=== PATIENT | female | born 1945 | race Caucasian/White ===

== ENCOUNTER 2016-05-14 16:20 | Outpatient (CLI) | payer MEDICARE, OTHER | END 2016-05-14 16:21 | disposition home or self-care (01) | DX: E78.5 Hyperlipidemia, unspecified (principal) ==

== ENCOUNTER 2016-10-15 08:48 | Outpatient (CLI) | payer MEDICARE, OTHER ==
[2016-10-15 13:33] LABS: ALBUMIN/GLOBULIN RATIO 1.2 (1.0-2.2); BILIRUBIN,TOTAL 0.5 mg/dL (0.2-1.0); BUN - BLOOD UREA NITROGEN 37 mg/dL (6-20); CALCIUM 9.6 mg/dL (8.5-10.3); CARBON DIOXIDE - CO2 29 mmol/L (21-32); CHLORIDE 101 mmol/L (101-111); CHOL/HDL RATIO 2.3 (<4.4); CHOLESTEROL 205 mg/dL; CREATININE 1.4 mg/dL (0.4-1.0); GFR - MDRD 37 (>89); GLUCOSE 91 mg/dL (70-100); HDL CHOLESTEROL 89 mg/dL; POTASSIUM 4.1 mmol/L (3.5-5.0); SODIUM 139 mmol/L (135-145); TOTAL PROTEIN 7.6 g/dL (6.7-8.2); TRIGLYCERIDES 113 mg/dL; VLDL CHOLESTEROL 23 mg/dL
== END 2016-10-15 08:49 | disposition home or self-care (01) ==
LOC: LAB.WCP 08:48
PROVIDERS: ATTEND Family Medicine
DX: I12.9 Hypertensive chronic kidney disease with stage 1 through stage 4 chronic kidney disease, or unspecified chronic kidney disease (principal); N18.3 Chronic kidney disease, stage 3 (moderate); Z79.899 Other long term (current) drug therapy; I25.5 Ischemic cardiomyopathy; E78.5 Hyperlipidemia, unspecified
CPT/HCPCS: 36415; 80053; 80061

== ENCOUNTER 2016-11-07 09:43 | Outpatient (CLI) | payer MEDICARE, OTHER ==
--- NOTE | 2016-11-08 13:19 | DEXA Report ---
DEXA SCAN: 11/07/2016 HISTORY: A 71-year-old postmenopausal female. TECHNIQUE: Dual energy x-ray absorptiometry (DXA) was performed on a Dealdrive system. Regions measured are the AP spine, femoral neck, and, if needed, forearm. COMPARISON: None. In accordance with the International Society for Clinical Densitometry (ISCD) guidelines, data from previous exams may be reanalyzed using current recommendations and techniques. This is done to allow a more accurate basis for comparison with the current study. FINDINGS: The data for the lumbar spine is as follows: REGION BMD (g/cm/cm) T-SCORE Z-SCORE L1 1.074 -0.5 0.9 L2 1.364 1.4 2.7 L3 1.360 1.3 2.7 L4 1.310 0.9 2.3 TOTAL 1.274 0.8 2.1 NOTE: All evaluable vertebrae are used for classification. The data for the hip is as follows: REGION BMD (g/cm/cm) T-SCORE Z-SCORE Neck 0.837 -1.4 0.1 TOTAL 0.807 -1.6 -0.2 NOTE: The femoral neck or total proximal femur, whichever is lowest, is used for classification. IMPRESSION: THE WHO CLASSIFICATION BASED ON THE INTERNATIONAL REFERENCE STANDARD IS OSTEOPENIA (REFERENCE LEFT FEMUR BONE DENSITY RESULTS). THE FRACTURE RISK IS CONSIDERED TO BE INCREASED. RECOMMENDATION: Patients with diagnosis of osteoporosis or osteopenia should have regular bone mineral density assessment. For those eligible for Medicare, routine testing is allowed once every 2 years. Testing frequency can be increased for patients who have rapidly progressing disease or for those who are receiving medical therapy to restore bone mass. COMMENT: World Health Organization (WHO) definitions for osteoporosis and osteopenia: NORMAL BMD: T-score at -1.0 or higher, fracture risk is low. OSTEOPENIA BMD: T-score between -1.0 and -2.5, fracture risk is increased. OSTEOPOROSIS BMD: T-score at -2.5 or lower, fracture risk high. National Osteoporosis Foundation recommends: 1. Obtain adequate dietary calcium (at least 1200 mg per day) and vitamin D (400 -800 international units per day). 2. Participate, as appropriate, in regular weightbearing and muscle- strengthening exercise. 3. Avoid tobacco use and reduce alcohol and caffeine intake. 4. For more detailed information see the website at www.NOF.org. MTDD
== END 2016-11-07 09:44 | disposition home or self-care (01) ==
LOC: DI 09:43
PROVIDERS: ATTEND Family Medicine
DX: M85.88 Other specified disorders of bone density and structure, other site (principal)
CPT/HCPCS: 77080

== ENCOUNTER 2017-03-04 08:00 | Outpatient (CLI) | payer MEDICARE, OTHER ==
[2017-03-04 19:14] LABS: HCT - HEMATOCRIT 40.4 % (37.0-47.0); MEAN CORPUSCULAR HEMOGLOBIN 31.2 pg (27.0-31.0); MEAN CORPUSCULAR HGB CONC 32.2 g/dL (32.0-36.0); MEAN CORPUSCULAR VOLUME 96.8 fL (81.0-99.0); MEAN PLATELET VOLUME 7.7 fL (7.9-10.8); RED BLOOD COUNT 4.17 10^6/uL (4.20-5.40); RED CELL DISTRIBUTION WIDTH 15.2 % (12.0-15.0); WHITE BLOOD COUNT 5.6 x10^3/uL (4.8-10.8)
[2017-03-04 19:52] LABS: URIC ACID 7.3 mg/dL (2.6-7.2)
== END 2017-03-04 08:01 | disposition home or self-care (01) ==
LOC: LAB.WCP 08:00
PROVIDERS: ATTEND Family Medicine
DX: L03.019 Cellulitis of unspecified finger (principal); M10.9 Gout, unspecified
CPT/HCPCS: 36415; 84550; 85651; 86140

== ENCOUNTER 2017-06-25 13:52 | Outpatient (CLI) | payer MEDICARE, OTHER ==
[2017-06-25 12:39] LABS: ALBUMIN 4.2 g/dL (3.2-5.5); ALBUMIN/GLOBULIN RATIO 1.4 (1.0-2.2); ALKALINE PHOSPHATASE 52 IU/L (42-121); ALT ALANINE AMINOTRANSFERASE 21 IU/L (10-60); AST ASPARTATE AMINOTRANSFERASE 36 IU/L (10-42); BILIRUBIN,TOTAL 0.5 mg/dL (0.2-1.0); BUN - BLOOD UREA NITROGEN 32 mg/dL (6-20); CALCIUM 9.5 mg/dL (8.5-10.3); CARBON DIOXIDE - CO2 29 mmol/L (21-32); CHLORIDE 103 mmol/L (101-111); CHOLESTEROL 233 mg/dL; CREATININE 1.2 mg/dL (0.4-1.0); GFR - MDRD 44 (>89); GLUCOSE 89 mg/dL (70-100); HDL CHOLESTEROL 77 mg/dL; LDL CHOLESTEROL,CALCULATED 121 mg/dL; LDL/HDL RATIO 1.6 (<4.4); SODIUM 139 mmol/L (135-145); TOTAL PROTEIN 7.3 g/dL (6.7-8.2); VLDL CHOLESTEROL 35 mg/dL
== END 2017-06-25 13:53 | disposition home or self-care (01) ==
LOC: LAB.WCP 13:52
PROVIDERS: ATTEND Family Medicine
DX: C50.919 Malignant neoplasm of unspecified site of unspecified female breast (principal); I25.5 Ischemic cardiomyopathy; I10 Essential (primary) hypertension; I25.10 Atherosclerotic heart disease of native coronary artery without angina pectoris; E03.9 Hypothyroidism, unspecified
CPT/HCPCS: 36415; 80053; 80061; 83721; 84443

== ENCOUNTER 2018-03-03 09:16 | Outpatient (CLI) | payer MEDICARE, OTHER ==
[2018-03-03 13:53] LABS: CHOL/HDL RATIO 3.1 (<4.4); CHOLESTEROL 263 mg/dL; HDL CHOLESTEROL 86 mg/dL; LDL CHOLESTEROL,CALCULATED 141 mg/dL; LDL/HDL RATIO 1.6 (<4.4); VLDL CHOLESTEROL 36 mg/dL
== END 2018-03-03 23:59 | disposition home or self-care (01) ==
LOC: LAB.WCP 09:16
PROVIDERS: ATTEND Internal Medicine Cardiovascular Disease
DX: I25.10 Atherosclerotic heart disease of native coronary artery without angina pectoris (principal)
CPT/HCPCS: 36415; 80061; 83721

== ENCOUNTER 2018-07-03 08:23 | Outpatient (CLI) | payer MEDICARE, OTHER ==
--- NOTE | 2018-07-04 09:21 | Mammography Report ---
Reason: ANNUAL SCREENING Procedure Date: 07/03/2018 Accession Number: [id number] / [id number] Procedure: ANTOINETTE - Screening Mammo Right w/Yovanny CPT Code: FULL RESULT: EXAM: Screening Mammo Right w/Yovanny DATE: 07/03/2018 8:57 AM CLINICAL HISTORY: Screening encounter. Personal history of breast cancer status post left mastectomy with chemoradiation. TECHNIQUE: (R) - Right CC and MLO views were obtained. COMPARISON: 09/02/2008 PARENCHYMAL PATTERN: (D) - The breast(s) demonstrate(s) heterogeneously dense fibroglandular parenchyma. FINDINGS: Typically benign coarse calcifications and typically benign vascular calcifications are redemonstrated. There are no suspicious masses, calcifications, or areas of distortion. IMPRESSION: Benign findings. BI-RADS category 2. RECOMMENDATION: (ANNUAL) - Recommend routine annual screening mammography. BI-RADS CATEGORY: (2) - Benign Findings. STANDARD QUALIFYING STATEMENTS: 1. This examination was not reviewed with the aid of Computer-Aided Detection (CAD). 2. A negative or benign imaging report should not preclude biopsy if clinically suspicious findings are present. 3. Dense breasts may obscure an underlying neoplasm. 4. This examination was reviewed with the aid of 3D breast imaging (tomosynthesis).
== END 2018-07-03 08:24 | disposition home or self-care (01) ==
LOC: DI 08:23
DX: Z12.31 Encounter for screening mammogram for malignant neoplasm of breast (principal); Z08 Encounter for follow-up examination after completed treatment for malignant neoplasm; Z85.3 Personal history of malignant neoplasm of breast
CPT/HCPCS: 77063

== ENCOUNTER 2018-09-12 08:16 | Outpatient (CLI) | payer MEDICARE, OTHER ==
[2018-09-12 13:24] LABS: BASOPHILS % (AUTO) 0.5 %; EOSINOPHILS # (AUTO) 0.4 10^3/uL (0.0-0.7); EOSINOPHILS % (AUTO) 5.6 %; HGB - HEMOGLOBIN 12.8 g/dL (12.0-16.0); LYMPHOCYTES # (AUTO) 0.8 10^3/uL (1.5-3.5); LYMPHOCYTES % (AUTO) 11.7 %; MEAN CORPUSCULAR HEMOGLOBIN 32.7 pg (27.0-31.0); MEAN CORPUSCULAR HGB CONC 31.6 g/dL (32.0-36.0); MEAN CORPUSCULAR VOLUME 103.3 fL (81.0-99.0); MEAN PLATELET VOLUME 9.6 fL (7.9-10.8); MONOCYTES # (AUTO) 0.6 10^3/uL (0.0-1.0); MONOCYTES % (AUTO) 8.5 %; NEUTROPHILS # (AUTO) 4.9 10^3/uL (1.5-6.6); NEUTROPHILS % (AUTO) 73.4 %; PLT - PLATELET COUNT 215 10^3/uL (130-450); RED BLOOD COUNT 3.92 10^6/uL (4.20-5.40); RED CELL DISTRIBUTION WIDTH 12.7 % (12.0-15.0); WHITE BLOOD COUNT 6.6 x10^3/uL (4.8-10.8)
[2018-09-12 14:10] LABS: ALBUMIN 4.3 g/dL (3.2-5.5); ALBUMIN/GLOBULIN RATIO 1.4 (1.0-2.2); ALKALINE PHOSPHATASE 71 IU/L (42-121); ALT ALANINE AMINOTRANSFERASE 41 IU/L (10-60); AST ASPARTATE AMINOTRANSFERASE 55 IU/L (10-42); BILIRUBIN,TOTAL 0.7 mg/dL (0.2-1.0); BUN - BLOOD UREA NITROGEN 31 mg/dL (6-20); CALCIUM 9.3 mg/dL (8.5-10.3); CARBON DIOXIDE - CO2 26 mmol/L (21-32); CHLORIDE 104 mmol/L (101-111); CHOLESTEROL 149 mg/dL; CREATININE 1.4 mg/dL (0.4-1.0); GFR - MDRD 37 (>89); GLUCOSE 89 mg/dL (70-100); HDL CHOLESTEROL 74 mg/dL; LDL CHOLESTEROL,CALCULATED 51 mg/dL; LDL/HDL RATIO 0.7 (<4.4); SODIUM 138 mmol/L (135-145); TOTAL PROTEIN 7.4 g/dL (6.7-8.2); VLDL CHOLESTEROL 24 mg/dL
== END 2018-09-12 08:17 | disposition home or self-care (01) ==
LOC: LAB.WCP 08:16
PROVIDERS: ATTEND Family Medicine
DX: I25.5 Ischemic cardiomyopathy (principal); E78.5 Hyperlipidemia, unspecified; I10 Essential (primary) hypertension; I25.10 Atherosclerotic heart disease of native coronary artery without angina pectoris
CPT/HCPCS: 36415; 80053; 80061; 83721; 84443; 85025

== ENCOUNTER 2018-11-20 08:00 | Outpatient (CLI) | payer MEDICARE, OTHER ==
[2018-11-20 19:36] LABS: CALCIUM 9.6 mg/dL (8.5-10.3); CREATININE 1.3 mg/dL (0.4-1.0)
== END 2018-11-20 23:59 | disposition home or self-care (01) ==
LOC: LAB.WCP 08:00
PROVIDERS: ATTEND Physician Assistant
DX: N28.9 Disorder of kidney and ureter, unspecified (principal)
CPT/HCPCS: 36415; 80048

== ENCOUNTER 2019-03-30 14:04 | Outpatient (CLI) | payer MEDICARE, OTHER ==
[2019-03-30 18:34] LABS: BASOPHILS % (AUTO) 0.7 %; EOSINOPHILS # (AUTO) 0.2 10^3/uL (0.0-0.7); EOSINOPHILS % (AUTO) 4.1 %; HGB - HEMOGLOBIN 12.2 g/dL (12.0-16.0); LYMPHOCYTES # (AUTO) 0.8 10^3/uL (1.5-3.5); LYMPHOCYTES % (AUTO) 14.7 %; MEAN CORPUSCULAR HEMOGLOBIN 33.4 pg (27.0-31.0); MEAN CORPUSCULAR HGB CONC 32.1 g/dL (32.0-36.0); MEAN CORPUSCULAR VOLUME 104.1 fL (81.0-99.0); MEAN PLATELET VOLUME 9.6 fL (7.9-10.8); MONOCYTES # (AUTO) 0.5 10^3/uL (0.0-1.0); MONOCYTES % (AUTO) 9.1 %; NEUTROPHILS # (AUTO) 3.8 10^3/uL (1.5-6.6); NEUTROPHILS % (AUTO) 71.2 %; PLT - PLATELET COUNT 212 10^3/uL (130-450); RED BLOOD COUNT 3.65 10^6/uL (4.20-5.40); RED CELL DISTRIBUTION WIDTH 12.7 % (12.0-15.0); WHITE BLOOD COUNT 5.4 x10^3/uL (4.8-10.8)
[2019-03-30 19:03] LABS: ALBUMIN 4.2 g/dL (3.2-5.5); ALBUMIN/GLOBULIN RATIO 1.4 (1.0-2.2); BILIRUBIN,TOTAL 0.5 mg/dL (0.2-1.0); CALCIUM 9.2 mg/dL (8.5-10.3); CREATININE 1.7 mg/dL (0.4-1.0); TOTAL PROTEIN 7.1 g/dL (6.7-8.2)
== END 2019-03-30 23:59 | disposition home or self-care (01) ==
LOC: LAB.WCP 14:04
PROVIDERS: ATTEND Family Medicine
DX: N18.3 Chronic kidney disease, stage 3 (moderate) (principal); R94.5 Abnormal results of liver function studies; E03.9 Hypothyroidism, unspecified
CPT/HCPCS: 36415; 80053; 84443; 85025

== ENCOUNTER 2019-05-07 08:00 | Outpatient (CLI) | payer MEDICARE, OTHER ==
[2019-05-07 19:10] LABS: ALBUMIN 4.2 g/dL (3.2-5.5); ALBUMIN/GLOBULIN RATIO 1.6 (1.0-2.2); BILIRUBIN,TOTAL 0.5 mg/dL (0.2-1.0); CALCIUM 9.1 mg/dL (8.5-10.3); CREATININE 1.4 mg/dL (0.4-1.0); TOTAL PROTEIN 6.9 g/dL (6.7-8.2)
== END 2019-05-07 23:59 | disposition home or self-care (01) ==
LOC: LAB.WCP 08:00
PROVIDERS: ATTEND Family Medicine
DX: M10.9 Gout, unspecified (principal); E03.9 Hypothyroidism, unspecified; I25.10 Atherosclerotic heart disease of native coronary artery without angina pectoris; N18.3 Chronic kidney disease, stage 3 (moderate); R79.89 Other specified abnormal findings of blood chemistry
CPT/HCPCS: 36415; 80053; 84550

== ENCOUNTER 2019-07-30 08:00 | Outpatient (CLI) | payer MEDICARE, OTHER ==
[2019-07-30 14:18] LABS: ALBUMIN 4.2 g/dL (3.2-5.5); ALBUMIN/GLOBULIN RATIO 1.4 (1.0-2.2); BILIRUBIN,TOTAL 0.6 mg/dL (0.2-1.0); CALCIUM 9.5 mg/dL (8.5-10.3); CREATININE 1.6 mg/dL (0.4-1.0); TOTAL PROTEIN 7.2 g/dL (6.7-8.2)
== END 2019-07-30 23:59 | disposition home or self-care (01) ==
LOC: LAB.WCP 08:00
PROVIDERS: ATTEND Family Medicine
DX: R94.5 Abnormal results of liver function studies (principal)
CPT/HCPCS: 36415; 80053

== ENCOUNTER 2019-09-03 10:31 | Outpatient (CLI) | payer MEDICARE, OTHER ==
--- NOTE | 2019-09-04 08:52 | Mammography Report ---
UNILATERAL RIGHT DIGITAL SCREENING MAMMOGRAM 3D/2D: 09/03/2019 CLINICAL: Routine screening. Personal history of left breast cancer with mastectomy. Comparison is made to exam dated: 07/03/2018 mammogram - [facility]. The tissue of right breast is heterogeneously dense. This may lower the sensitivity of mammography. There are stable benign vascular calcifications in the right breast. No significant masses, calcifications, or other findings are seen in the breast. IMPRESSION: There is no mammographic evidence of malignancy. A 1 year screening mammogram is recommended. This exam was interpreted at Station ID: [id number]. NOTE: For mammograms, a report in lay terms will be sent to the patient. Approximately 15% of breast malignancies will not be visualized mammographically. In the management of a palpable breast mass, a negative mammogram must not discourage biopsy of a clinically suspicious lesion. Electronically Signed By: Romero Morales M.D. aty/:09/03/2019 13:14:54 ACR BI-RADS Category 2: Benign Finding(s) 3342F PARENCHYMAL PATTERN: (D) - The breast(s) demonstrate(s) heterogeneously dense fibroglandular luis graf. BI-RADS CATEGORY: (2) - 2 RECOMMENDATION: (ANNUAL) - Recommend routine annual screening mammography. [id number] 1 year screening LATERALITY: (B)
== END 2019-09-03 10:32 | disposition home or self-care (01) ==
LOC: DI 10:31
DX: Z12.31 Encounter for screening mammogram for malignant neoplasm of breast (principal)
CPT/HCPCS: 77063

== ENCOUNTER 2020-05-03 08:00 | Outpatient (CLI) | payer MEDICARE, OTHER | END 2020-05-03 23:59 | disposition home or self-care (01) | LOC: LAB.WCP 08:00 | PROVIDERS: ATTEND Internal Medicine Critical Care Medicine | DX: R91.8 Other nonspecific abnormal finding of lung field (principal) | CPT/HCPCS: 87070; 87077; 87181; 87205 ==

== ENCOUNTER 2020-05-04 08:00 | Outpatient (CLI) | payer MEDICARE, OTHER | END 2020-05-04 23:59 | disposition home or self-care (01) | LOC: LAB.R 08:00 | PROVIDERS: ATTEND Internal Medicine Critical Care Medicine | DX: R91.8 Other nonspecific abnormal finding of lung field (principal) | CPT/HCPCS: 87015; 87116; 87206 ==

== ENCOUNTER 2020-05-31 07:00 | Outpatient (CLI) | payer MEDICARE, OTHER ==
[2020-05-31 12:08] LABS: BASOPHILS % (AUTO) 0.5 %; EOSINOPHILS # (AUTO) 0.4 10^3/uL (0.0-0.7); EOSINOPHILS % (AUTO) 6.8 %; HCT - HEMATOCRIT 36.7 % (37.0-47.0); HGB - HEMOGLOBIN 11.5 g/dL (12.0-16.0); MEAN CORPUSCULAR HEMOGLOBIN 33.4 pg (27.0-31.0); MEAN CORPUSCULAR HGB CONC 31.3 g/dL (32.0-36.0); MEAN CORPUSCULAR VOLUME 106.7 fL (81.0-99.0); MEAN PLATELET VOLUME 9.6 fL (7.9-10.8); MONOCYTES # (AUTO) 0.4 10^3/uL (0.0-1.0); MONOCYTES % (AUTO) 7.4 %; NEUTROPHILS # (AUTO) 3.9 10^3/uL (1.5-6.6); NEUTROPHILS % (AUTO) 68.1 %; PLT - PLATELET COUNT 203 10^3/uL (130-450); RED BLOOD COUNT 3.44 10^6/uL (4.20-5.40); RED CELL DISTRIBUTION WIDTH 13.2 % (12.0-15.0); WHITE BLOOD COUNT 5.7 x10^3/uL (4.8-10.8)
[2020-05-31 12:29] LABS: ALBUMIN 4.2 g/dL (3.2-5.5); ALBUMIN/GLOBULIN RATIO 1.6 (1.0-2.2); ALKALINE PHOSPHATASE 74 IU/L (42-121); ALT ALANINE AMINOTRANSFERASE 30 IU/L (10-60); AST ASPARTATE AMINOTRANSFERASE 48 IU/L (10-42); BILIRUBIN,TOTAL 0.7 mg/dL (0.2-1.0); BUN - BLOOD UREA NITROGEN 42 mg/dL (6-20); CALCIUM 9.3 mg/dL (8.5-10.3); CARBON DIOXIDE - CO2 28 mmol/L (21-32); CHLORIDE 103 mmol/L (101-111); CHOL/HDL RATIO 2.2 (<4.4); CHOLESTEROL 153 mg/dL; CREATININE 1.6 mg/dL (0.4-1.0); GFR - MDRD 31 (>89); GLUCOSE 93 mg/dL (70-100); HDL CHOLESTEROL 69 mg/dL; LDL CHOLESTEROL,CALCULATED 61 mg/dL; LDL/HDL RATIO 0.9 (<4.4); POTASSIUM 4.4 mmol/L (3.5-5.0); SODIUM 139 mmol/L (135-145); TOTAL PROTEIN 6.9 g/dL (6.7-8.2); TRIGLYCERIDES 117 mg/dL; VLDL CHOLESTEROL 23 mg/dL
[2020-05-31 12:34] LABS: THYROID STIMULATING HORMONE 1.01 uIU/mL (0.34-5.60)
== END 2020-05-31 23:59 | disposition home or self-care (01) ==
LOC: LAB.WCP 07:00
PROVIDERS: ATTEND Nurse Practitioner Family
DX: E78.5 Hyperlipidemia, unspecified (principal); I10 Essential (primary) hypertension; E03.9 Hypothyroidism, unspecified
CPT/HCPCS: 36415; 80053; 80061; 83721; 84443; 85025

== ENCOUNTER 2020-09-12 13:57 | Outpatient (CLI) | payer MEDICARE, OTHER ==
--- NOTE | 2020-09-13 14:26 | Mammography Report ---
UNILATERAL RIGHT DIGITAL SCREENING MAMMOGRAM 3D/2D: 09/12/2020 CLINICAL: Routine screening. Personal history of left breast cancer. Comparison is made to exams dated: 09/03/2019 mammogram, 07/03/2018 mammogram, 09/02/2008 mammogram, an d 08/19/2007 mammogram - [facility]. The tissue of right breast is heterogeneously dense. This may lower the sensitivity of mammography. There is a benign calcification in the right breast. No significant masses, calcifications, or other findings are seen in the breast. There has been no significant interval change. IMPRESSION: BENIGN There is no mammographic evidence of malignancy. A 1 year screening mammogram is recommended. This exam was interpreted at Station ID: [id number]. NOTE: For mammograms, a report in lay terms will be sent to the patient. Approximately 15% of breast malignancies will not be visualized mammographically. In the management of a palpable breast mass, a negative mammogram must not discourage biopsy of a clinically suspicious lesion. Electronically Signed By: Jack Evans M.D. ddp/penrad:09/12/2020 15:16:33 ACR BI-RADS Category 2: Benign Finding(s) 3342F PARENCHYMAL PATTERN: (D) - The breast(s) demonstrate(s) heterogeneously dense fibroglandular luis graf. BI-RADS CATEGORY: (2) - 2 RECOMMENDATION: (ANNUAL) - Recommend routine annual screening mammography. [id number] 1 year screening LATERALITY: (B)
== END 2020-09-12 13:58 | disposition home or self-care (01) ==
LOC: DI 13:57
DX: Z12.31 Encounter for screening mammogram for malignant neoplasm of breast (principal)

== ENCOUNTER 2020-10-18 10:30 | Outpatient (CLI) | payer MEDICARE, OTHER ==
[2020-10-18 11:38] LABS: BASOPHILS % (AUTO) 0.4 %; EOSINOPHILS # (AUTO) 0.2 10^3/uL (0.0-0.7); EOSINOPHILS % (AUTO) 2.3 %; HCT - HEMATOCRIT 31.5 % (37.0-47.0); HGB - HEMOGLOBIN 9.6 g/dL (12.0-16.0); LYMPHOCYTES # (AUTO) 0.7 10^3/uL (1.5-3.5); LYMPHOCYTES % (AUTO) 9.3 %; MEAN CORPUSCULAR HEMOGLOBIN 32.7 pg (27.0-31.0); MEAN CORPUSCULAR HGB CONC 30.5 g/dL (32.0-36.0); MEAN CORPUSCULAR VOLUME 107.1 fL (81.0-99.0); MEAN PLATELET VOLUME 8.6 fL (7.9-10.8); MONOCYTES # (AUTO) 0.6 10^3/uL (0.0-1.0); NEUTROPHILS # (AUTO) 5.9 10^3/uL (1.5-6.6); NEUTROPHILS % (AUTO) 79.7 %; PLT - PLATELET COUNT 202 10^3/uL (130-450); RED BLOOD COUNT 2.94 10^6/uL (4.20-5.40); RED CELL DISTRIBUTION WIDTH 13.5 % (12.0-15.0); WHITE BLOOD COUNT 7.4 x10^3/uL (4.8-10.8)
== END 2020-10-18 10:31 | disposition home or self-care (01) ==
LOC: LAB 10:30
PROVIDERS: ATTEND Internal Medicine Critical Care Medicine
DX: D64.9 Anemia, unspecified (principal)
CPT/HCPCS: 36415; 85025

== ENCOUNTER 2020-10-19 09:49 | Observation (INO) | payer MEDICARE, OTHER ==
[2020-10-19 11:04] LABS: BASOPHILS % (AUTO) 0.3 %; EOSINOPHILS # (AUTO) 0.2 10^3/uL (0.0-0.7); EOSINOPHILS % (AUTO) 3.2 %; HCT - HEMATOCRIT 26.7 % (37.0-47.0); HGB - HEMOGLOBIN 8.4 g/dL (12.0-16.0); LYMPHOCYTES # (AUTO) 0.7 10^3/uL (1.5-3.5); LYMPHOCYTES % (AUTO) 11.1 %; MEAN CORPUSCULAR HEMOGLOBIN 33.7 pg (27.0-31.0); MEAN CORPUSCULAR HGB CONC 31.5 g/dL (32.0-36.0); MEAN CORPUSCULAR VOLUME 107.2 fL (81.0-99.0); MEAN PLATELET VOLUME 9.1 fL (7.9-10.8); MONOCYTES # (AUTO) 0.5 10^3/uL (0.0-1.0); MONOCYTES % (AUTO) 8.1 %; NEUTROPHILS # (AUTO) 4.6 10^3/uL (1.5-6.6); PLT - PLATELET COUNT 198 10^3/uL (130-450); RED BLOOD COUNT 2.49 10^6/uL (4.20-5.40); RED CELL DISTRIBUTION WIDTH 13.3 % (12.0-15.0)
[2020-10-19 11:16] LABS: INR 1.1 (0.8-1.2); PT - PROTHROMBIN TIME 12.3 secs (9.9-12.6)
--- NOTE | 2020-10-19 11:23 | ED Physician Documentation ---
PD HPI GI BLEED - Stated complaint Stated Complaint: BLOOD IN STOOL - Chief complaint Chief Complaint: Abd Pain - History obtained from History obtained from: Patient - Additional information Additional information: Patient comes emergency department chief complaint of rectal bleeding. She states that she has been noticing it since yesterday and that every time she wipes, she notices a streak of blood on the paper. She states that one time she noticed a pinkish tinge in the toilet water but otherwise, has not noticed blood in the water. She denies nausea or vomiting. She is not on anticoagulants. She denies any lightheadedness, chest pain, or shortness of breath beyond baseline. She was noted to be mildly anemic about 3 weeks ago by her doctor and had a follow-up blood draw done yesterday but does not know the results of this. She states her hemoglobin was 11 point something when she had it measured the first time. Patient denies any tarry or maroon stools. No history of any GI b leed previously. No other complaints at this time. Patient has had 2 pregnancies distantly and is not certain whether she had any hemorrhoids. Review of Systems Ten Systems: 10 systems reviewed and negative Constitutional: reports: Reviewed and negative Eyes: reports: Reviewed and negative Ears: reports: Reviewed and negative Nose: reports: Reviewed and negative Throat: reports: Reviewed and negative Cardiac: reports: Reviewed and negative Respiratory: reports: Reviewed and negative GI: reports: Diarrhea, Bloody / black stool : reports: Reviewed and negative Skin: reports: Reviewed and negative Musculoskeletal: reports: Reviewed and negative Neurologic: reports: Reviewed and negative Psychiatric: reports: Reviewed and negative Endocrine: reports: Reviewed and negative Immunocompromised: reports: Reviewed and negative PD PAST MEDICAL HISTORY - Past Medical History Cardiovascular: Hypertension, High cholesterol Respiratory: None Endocrine/Autoimmune: HyPOthyroidism GI: None : Frequency HEENT: Chronic vision loss Psych: None Musculoskeletal: Osteoarthritis Derm: None - Past Surgical History General: Colonoscopy, EGD Ortho: Hip replacement, Knee replacement, Arthroscopic surgery /DE [employer] ELEMENT WINDER: Tubal ligation, Mastectomy HEENT: Tonsil/Adenoidectomy - Present Medications Home Medications: Ambulatory Orders Medication Instructions Recorded Confirmed Acetaminophen [Tylenol] 650 mg PO Q6H PRN 06/27/15 10/19/20 Levothyroxine Sodium 125 mcg PO DAILY 06/27/15 10/19/20 Multivitamin [Multivitamins] 1 each PO DAILY 06/27/15 10/19/20 Ocu Zoe 1 tab PO DAILY 06/27/15 10/19/20 Rosuvastatin Calcium [Crestor] 40 mg PO DAILY 06/27/15 10/19/20 atenoloL [Tenormin] 25 mg PO DAILY 06/27/15 10/19/20 Amlodipine Besylate [Norvasc] 5 mg PO DAILY 10/19/20 10/19/20 Aspirin [Aspirin EC] 81 mg PO DAILY 10/19/20 10/19/20 Clopidogrel [Plavix] 75 mg PO DAILY 10/19/20 10/19/20 Ezetimibe [Zetia] 10 mg PO DAILY 10/19/20 10/19/20 Isosorbide Mononitrate [Isosorbide 60 mg PO DAILY 10/19/20 10/19/20 Mononitrate ER] Pantoprazole Sodium 40 mg PO DAILY 10/19/20 10/19/20 allopurinoL [Zyloprim] 100 mg PO DAILY 10/19/20 10/19/20 - Allergies Allergies/Adverse Reactions: Allergies Allergy/AdvReac Type Severity Reaction Status Date / Time No Known Drug Allergies Allergy Verified 10/19/20 10:12 - Social History Does the pt smoke?: No Smoking Status: Never smoker PD ED PE NORMAL - Vitals Vital signs reviewed: Yes - General General: Alert and oriented X 3, No acute distress - HEENT HEENT: Atraumatic, PERRL, EOMI, Moist mucous membranes - Neck Neck: Supple, no meningeal sign - Cardiac Cardiac: RRR, No murmur - Respiratory Respiratory: No respiratory distress, Clear bilaterally - Abdomen Abdomen: Soft, Non tender, Non distended - Derm Derm: Warm and dry - Extremities Extremities: No deformity - Neuro Neuro: Alert and oriented X 3 - Psych Psych: Normal mood, Normal affect Results - Vitals Vitals: Vital Signs - 24 hr 10/19/20 10:10 Temperature 36.4 C L Heart Rate 69 Respiratory 16 Rate Blood Pressure 136/63 H O2 Saturation 98 Oxygen O2 Source Room air - Labs Labs: Microbiology 10/19/20 12:01 Occult Blood - Final Stool Laboratory Tests 10/19/20 10/19/20 10/19/20 10:56 10:56 10:56 WBC 6.0 RBC 2.49 L Hgb 8.4 L Hct 26.7 L MCV 107.2 H MCH 33.7 H MCHC 31.5 L RDW 13.3 Plt Count 198 MPV 9.1 Reticulocyte % (Auto) Neut # (Auto) 4.6 Lymph # (Auto) 0.7 L Moody # (Auto) 0.5 Eos # (Auto) 0.2 Baso # (Auto) 0.0 Absolute Nucleated RBC 0.00 Nucleated RBC % 0.0 Absolute Retic PT 12.3 INR 1.1 Sodium 136 Potassium 4.6 Chloride 102 Carbon Dioxide 24 Anion Gap 10.0 BUN 57 H Creatinine 1.7 H Estimated GFR (MDRD) 29 L Glucose 95 Calcium 9.0 Iron TIBC % Saturation Transferrin Ferritin Total Bilirubin 0.4 AST 46 H ALT 31 Alkaline Phosphatase 67 Lactate Dehydrogenase Total Protein 6.5 L Albumin 3.7 Globulin 2.8 Albumin/Globulin Ratio 1.3 Lipase 48 Vitamin B12 TSH Blood Type Recheck 10/19/20 10/19/20 10/19/20 10:56 10:56 10:56 WBC RBC 2.50 L Hgb Hct MCV MCH MCHC RDW Plt Count MPV Reticulocyte % (Auto) 1.88 Neut # (Auto) Lymph # (Auto) Moody # (Auto) Eos # (Auto) Baso # (Auto) Absolute Nucleated RBC Nucleated RBC % Absolute Retic 0.047 PT INR Sodium Potassium Chloride Carbon Dioxide Anion Gap BUN Creatinine Estimated GFR (MDRD) Glucose Calcium Iron 40 TIBC 321 % Saturation 12 L Transferrin 229 Ferritin Total Bilirubin AST ALT Alkaline Phosphatase Lactate Dehydrogenase Total Protein Albumin Globulin Albumin/Globulin Ratio Lipase Vitamin B12 TSH 1.40 Blood Type Recheck 10/19/20 10/19/20 10/19/20 10:56 10:56 10:56 WBC RBC Hgb Hct MCV MCH MCHC RDW Plt Count MPV Reticulocyte % (Auto) Neut # (Auto) Lymph # (Auto) Moody # (Auto) Eos # (Auto) Baso # (Auto) Absolute Nucleated RBC Nucleated RBC % Absolute Retic PT INR Sodium Potassium Chloride Carbon Dioxide Anion Gap BUN Creatinine Estimated GFR (MDRD) Glucose Calcium Iron TIBC % Saturation Transferrin Ferritin 31.3 Total Bilirubin AST ALT Alkaline Phosphatase Lactate Dehydrogenase 198 Total Protein Albumin Globulin Albumin/Globulin Ratio Lipase Vitamin B12 749 TSH Blood Type Recheck A POSITIVE PD MEDICAL DECISION MAKING - ED course Complexity details: reviewed old records, reviewed results, re-evaluated patient, considered differential, d/w patient ED course: The patient overall seems to have fairly minimal bleeding by history and had some maroon-colored stool on exam but minimal blood on the sample piece of toilet paper that she brought in from after she defecated. Patient was As a precaution worked up with CBC and INR. INR was normal. I was able to compare the patient CBC today with her results from yesterday and found that yesterday, her level had dropped to 9.6 from her previous level 3 weeks ago of nearly 12. Between yesterday and today, the patient's hemoglobin had dropped another 1.2 g to 8.4. Given that she had felt tired yesterday and that she had had a sig nificant drop I felt she should be admitted to the hospital. I spoke first with surgeon on-call Dr. Pruitt to ask him to consult and consider whether he would want to do a colonoscopy on this patient. I then spoke with Dr. Byrd who is the hospitalist on-call and he did agree to admit the patient to his service. Dr. Pruitt has agreed to consult if hospitalist desires. Patient understands that she may need transfusion while admitted and she does agree to this. Patient has remained hemodynamically stable throughout her stay in the emergency department. Departure - Departure Disposition: ED Place in Observation Clinical Impression: Lower GI bleed, Anemia Condition: Serious Discharge Date/Time: 10/19/20 13:40
[2020-10-19] MEDS ORDERED: ONDANSETRON 4 MG/2 ML VIAL IVP PRN (12:12)
[2020-10-19] MEDS ORDERED: SODIUM CHLORIDE FLUSH 0.9% 10 ML SYRINGE IVP PRN (12:12)
--- NOTE | 2020-10-19 12:22 | HISTORY & PHYSICAL EXAMINATION ---
Chief Complaint - Chief Complaint Chief Complaint: GI bleeding History of Present Illness - Admitted From Admitted From:: medical floor - History Obtained From Records Reviewed: [facility] History obtained from: pt Exam Limitations: no - History of Present Illness HPI Comment/Other: This is a 75-years old female with a past medical history significant for hypertension, hypothyroidism, s/p radiation treatment for lung cancer which was diagnosis 25 yrs ago, gout Who present to ER complain GI bleeding. pt reports she had bright red blood stool every time when she had bowel movement since yesterday. She report she had loose stool but is not watery diarrhea. She had a blood work on yesterday, hemoglobin show 9.6, today hemoglobin showed 8.4, patient had hemoglobin 11.6 about 4 months ago. Patient report slightly dizziness When she stand up. She denies chest pain or shortness of breathing. 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 She had a colonoscopy done in 2016 in this hospital which show small polyps. Patient did report she drinks alcohol daily, But she denies any alcohol withdrawal symptoms. Surgeon was called by the ER to consult for GI bleed for this pt. 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 Her mother at age 87 from stroke. Social History Notes: She denies history cigarette smoker, she did report she drank a cup of wine every day but she denies alcohol withdrawal symptoms Meds/Allgy - Home Medications Home Medications: Ambulatory Orders Medication Instructions Recorded Confirmed Acetaminophen [Tylenol] 650 mg PO Q6H PRN 06/27/15 10/19/20 Levothyroxine Sodium 125 mcg PO DAILY 06/27/15 10/19/20 Multivitamin [Multivitamins] 1 each PO DAILY 06/27/15 10/19/20 Ocu Zoe 1 tab PO DAILY 06/27/15 10/19/20 Rosuvastatin Calcium [Crestor] 40 mg PO DAILY 06/27/15 10/19/20 atenoloL [Tenormin] 25 mg PO DAILY 06/27/15 10/19/20 Amlodipine Besylate [Norvasc] 5 mg PO DAILY 10/19/20 10/19/20 Aspirin [Aspirin EC] 81 mg PO DAILY 10/19/20 10/19/20 Clopidogrel [Plavix] 75 mg PO DAILY 10/19/20 10/19/20 Ezetimibe [Zetia] 10 mg PO DAILY 10/19/20 10/19/20 Isosorbide Mononitrate [Isosorbide 60 mg PO DAILY 10/19/20 10/19/20 Mononitrate ER] Pantoprazole Sodium 40 mg PO DAILY 10/19/20 10/19/20 allopurinoL [Zyloprim] 100 mg PO DAILY 10/19/20 10/19/20 - Allergies Allergies/Adverse Reactions: Allergies Allergy/AdvReac Type Severity Reaction Status Date / Time No Known Drug Allergies Allergy Verified 10/19/20 10:12 Review of Systems - Constitutional Constitutional: denies: Fever, Chills, Poor appetite, Diaphoresis - Eyes Eyes: denies: Pain, Field loss, Vision loss - Ears, Nose & Throat Ears, Nose & Throat: denies: Ear pain, Nosebleeds, Bleeding gums - Cardiovascular Cariovascular: reports: Lightheadedness. denies: Irregular heart rate, Palp itations, Chest pain, Syncope, Exertional dyspnea, Decr. exercise tolerance - Respiratory Respiratory: denies: Cough, Wheezing, SOB at rest, SOB with exertion - Gastrointestinal Gastrointestinal: reports: Rectal bleeding, Black stools, Bloody stools. denies: Abdominal pain, Diarrhea, Nausea, Vomiting - Genitourinary Genitourinary: denies: Dysuria - Musculoskeletal Musculoskeletal: denies: Muscle pain, Limited range of motion - Integumentary Integumentary: denies: Rash, Lumps - Neurological Neurological: reports: Dizziness. denies: General weakness, Focal weakness, Headache, Numbness, Abnormal gait, Seizures, Incoordination, Slurred speech - Psychiatric Psychiatric: denies: Depression, Delusions - Endocrine Endocrine: denies: Polyuria - Hematologic/Lymphatic Hematologic/Lymphatic: denies: Anemia, Bruising Exam - Vital Signs Vital Signs: Vital Signs x48h Temp Pulse Resp BP Pulse Ox 10/19/20 10:10 36.4 C L 69 16 136/63 H 98 - Physical Exam General Appearance: positive: No acute distress, Alert. negative: Lethargic Eyes Bilateral: positive: Normal inspection, PERRL, No lid inflammation ENT: positive: ENT inspection nml, No signs of dehydration. negative: Purulent nasal drainage Neck: positive: Nml inspection, Trachea midline. negative: Thyromegaly, Tracheal deviation Respiratory: positive: Chest non-tender, No respiratory distress, Wheezes (right lower lobe show wheezes, pt report this is her history) Cardiovascular: positive: Regular rate & rhythm, No murmur. negative: Tachycardia, Bradycardia, Systolic murmur, Diastolic murmur Peripheral Pulses: positive: 2+ Abdomen: positive: Non-tender, Nml bowel sounds, No distention. negative: Tenderness Back: positive: Nml inspection Skin: positive: Color nml, Warm, Dry. negative: Cyanosis Extremities: positive: Non-tender, Full ROM, Nml appearance. negative: Calf tenderness Neurologic/Psychiatric: positive: Oriented x3, Motor nml, Sensation nml, Mood/affect nml. negative: Weakness, Sensory loss, Facial droop, Slurred/abnml speech, Depressed mood/affect Conclusion/Plan - Problem List (1) Bright red rectal bleeding Conclusion/Plan: Patient report bright rectal bleeding, her hemoglobin dropped from 9.6 On yesterday to 8.4 on today.Patient reported she has no history diverticulosis. Patient had a colonoscopy done 5 years ago which show small polyps. consulted with GI surgeon, Plan to have colonoscopy or EGD By surgeon. Since the patient drinks alcohol daily, also patient take baby aspirin and Plavix, Surgeon May have EGD for patient as well. NPO after midnight, bowel prepare, clear liquid diet for patient. H&H monitor patient, Protonix for patient. (2) Anemia Conclusion/Plan: Patient hemoglobin is 8.4, likely directly caused by acute rectal bleeding. We will H&H monitor patient, will transfusion blood for patient as clinically needed. We will also do anemia study for patient. (3) Hypertension Conclusion/Plan: Patient has history of hypertension, patient blood pressure is stable now, we will resume patient home blood pressure medicine (4) Hypothyroidism Conclusion/Plan: Patient has a history hypothyroidism, we will check a TSH, we will resume patient home Synthroid (5) Hx of cancer of lung Conclusion/Plan: Patient has a history of lung cancer which was diagnosed 25 years ago, patient is a status post of radiation treatment, patient report she had scar tissue in her lung, and she always had right lower lobe lung with wheezy. Patient's respiratory is stable, no acute respiratory distress (6) HLD (hyperlipidemia) Conclusion/Plan: Patient has a history of hyperlipidemia, we will resume patient statin (7) Gout Conclusion/Plan: Patient had a history of gout, stable, no new pain, will resume patient home allopurinol - Lab Results Fish Bones: 10/19/20 10:56 10/19/20 13:34 Core Measures - Anticipated LOS I expect patient to be DC'd or transferred within 96 hours.: Yes - DVT/VTE - Prophylaxis VTE/DVT Device ordered at admit?: Yes VTE/DVT Prophylaxis med ordered at admit?: Yes
[2020-10-19 12:56] LABS: ALBUMIN 3.7 g/dL (3.2-5.5); ALBUMIN/GLOBULIN RATIO 1.3 (1.0-2.2); BILIRUBIN,TOTAL 0.4 mg/dL (0.2-1.0); CREATININE 1.7 mg/dL (0.4-1.0); POTASSIUM 4.6 mmol/L (3.5-5.0); TOTAL PROTEIN 6.5 g/dL (6.7-8.2)
[2020-10-19] MEDS ORDERED: PANTOPRAZOLE 40 MG VIAL IVP SCH ×2 (13:00→21:00)
--- NOTE | 2020-10-19 13:32 | PHARMACY PROGRESS NOTE ---
- Best Possible Medication History Admit Date and Time: 10/19/20 1212 Processed by: Nursing Medication History completed: Yes Patient Interview: Completed (MED REC COMPLETED BY NURSING.) As the person ultimately responsible for medication therapy, providers are able to order a medication from an existing home medication list in [facility] via the "Reconcile Routine" prior to Confirmation of that medication by cryptologic support specialist. Such practice is discouraged except when the physician, in their clinical judgment, deems that a medical need exists for a medication without regard to previous use.
[2020-10-19 13:46] LABS: CREATININE 1.7 mg/dL (0.4-1.0); POTASSIUM 4.5 mmol/L (3.5-5.0)
[2020-10-19 14:23] LABS: B. PARAPERTUSSIS- RESP PCR PAN NOT DETECTED; B. PERTUSSIS- RESP PCR PANEL NOT DETECTED; C. PNEUMONIAE- RESP PCR PANEL NOT DETECTED; CORONAVIRUS 229E-RESP PCR NOT DETECTED; CORONAVIRUS HKU1-RESP PCR NOT DETECTED; CORONAVIRUS NL63-RESP PCR NOT DETECTED; CORONAVIRUS OC43-RESP PCR NOT DETECTED; HUMAN METAPNEUMOVIRUS NOT DETECTED; INFLUENZA A- RESP PCR PANEL NOT DETECTED; INFLUENZA B - RESP PCR PANEL NOT DETECTED; M. PNEUMONIAE- RESP PCR PANEL NOT DETECTED; PARAINFLUENZA VIRUS 1 NOT DETECTED; PARAINFLUENZA VIRUS 2 NOT DETECTED; PARAINFLUENZA VIRUS 3 NOT DETECTED; PARAINFLUENZA VIRUS 4 NOT DETECTED; RHINOVIRUS/ENTEROVIRUS NOT DETECTED; RSV- RESP PCR PANEL NOT DETECTED; SARS-CoV-2 -RESP PCR PANEL NOT DETECTED
[2020-10-19] MEDS: ACETAMINOPHEN 325 MG TABLET PO PRN ×2 (14:24→20:17)
[2020-10-19] MEDS ORDERED: SODIUM CHLORIDE 0.9% 1,000 ML IV SCH ×2 (15:00→15:39)
[2020-10-19 15:13] LABS: ABSOLUTE RETICS # AUTO 0.047 10^6/uL (0.020-0.110); RED BLOOD COUNT 2.5 10^6/uL (4.20-5.40); RETICULOCYTE COUNT % (AUTO) 1.88 % (0.5-2.3)
[2020-10-19] MEDS: SODIUM CHLORIDE FLUSH 0.9% 10 ML SYRINGE IVP SCH ×2 (15:24→23:43)
[2020-10-19 15:26] LABS: % IRON SATURATION 12 % (20-50); IRON 40 ug/dL (28-170); TOTAL IRON BINDING CAPACITY 321 ug/dL (250-450); TRANSFERRIN 229 mg/dL (192-382)
[2020-10-19 15:45] LABS: FERRITIN 31.3 ng/mL (11.0-306.8)
--- NOTE | 2020-10-19 17:20 | HISTORY & PHYSICAL EXAMINATION ---
Chief Complaint - Chief Complaint Chief Complaint: blood streaked stool and blood on the tissue paper History of Present Illness - Admitted From Admitted From:: ED - History Obtained From Records Reviewed: yes History obtained from: pt Exam Limitations: none - History of Present Illness HPI Comment/Other: She first noticed blood streaked stool yesterday. Improved today. She had a colonoscopy in 2016 which showed diverticulosis. No polyps. Since that time she has developed recurrent exertional dyspnea. She has significant coronary artery disease. Cardiology note in 2019 diffuse distal LAD disease too small for intervention. The last time she felt this chest pressure was an hour ago. History - Past Medical History Cardiovascular: reports: Hypertension, High cholesterol Respiratory: reports: None Endocrine/Autoimmune: reports: HyPOthyroidism GI: reports: None : reports: Frequency HEENT: reports: Chronic vision loss Psych: reports: None Musculoskeletal: reports: Osteoarthritis Derm: reports: None MRSA Hx?: No - Past Surgical History General: reports: Colonoscopy, EGD Ortho: reports: Hip replacement, Knee replacement, Arthroscopic surgery /MANAGER RENTAL: reports: Tubal ligation, Mastectomy HEENT: reports: Tonsil/Adenoidectomy - Family & Social History Family History: Mother: , Father: Family History Comment/Other: Patient report her father at age 68 from lung cancer he is heavy smoker. Her mother at age 87 from stroke. Social History Notes: She denies history cigarette smoker, she did report she drank a cup of wine every day but she denies alcohol withdrawal symptoms Meds/Allgy - Home Medications Home Medications: Ambulatory Orders Medication Instructions Recorded Confirmed Acetaminophen [Tylenol] 650 mg PO Q6H PRN 06/27/15 10/19/20 Levothyroxine Sodium 125 mcg PO DAILY 06/27/15 10/19/20 Multivitamin [Multivitamins] 1 each PO DAILY 06/27/15 10/19/20 Ocu Zoe 1 tab PO DAILY 06/27/15 10/19/20 Rosuvastatin Calcium [Crestor] 40 mg PO DAILY 06/27/15 10/19/20 atenoloL [Tenormin] 25 mg PO DAILY 06/27/15 10/19/20 Amlodipine Besylate [Norvasc] 5 mg PO DAILY 10/19/20 10/19/20 Aspirin [Aspirin EC] 81 mg PO DAILY 10/19/20 10/19/20 Clopidogrel [Plavix] 75 mg PO DAILY 10/19/20 10/19/20 Ezetimibe [Zetia] 10 mg PO DAILY 10/19/20 10/19/20 Isosorbide Mononitrate [Isosorbide 60 mg PO DAILY 10/19/20 10/19/20 Mononitrate ER] Pantoprazole Sodium 40 mg PO DAILY 10/19/20 10/19/20 allopurinoL [Zyloprim] 100 mg PO DAILY 10/19/20 10/19/20 - Allergies Allergies/Adverse Reactions: Allergies Allergy/AdvReac Type Severity Reaction Status Date / Time No Known Drug Allergies Allergy Verified 10/19/20 10:12 Review of Systems - Other Findings Other Findings: 10 pt ros as above otherwise unremarkable Exam - Vital Signs Reviewed Vital Signs: Yes Vital Signs: Vital Signs x48h Temp Pulse Pulse Resp BP BP Pulse Ox 10/19/20 16:00 36.4 C L 59 L 20 141/63 H 96 10/19/20 14:35 36.5 C 66 20 108/53 L 98 10/19/20 12:12 79 18 129/73 100 10/19/20 10:10 36.4 C L 69 16 136/63 H 98 - Physical Exam General Appearance: positive: No acute distress, Alert Eyes Bilateral: positive: PERRL, EOMI, No scleral icterus ENT: positive: No signs of dehydration Neck: positive: No JVD Respiratory: positive: No respiratory distress Abdomen: positive: Non-tender, No distention Neurologic/Psychiatric: positive: Oriented x3 Conclusion/Plan - Problem List (1) Anemia Conclusion/Plan: She had a colonoscopy 5 years ago. No polyps. Diverticulosis present. By chart review she is on protonix as well as aspirin and plavix. She has developed significant diffuse distal LAD coronary artery disease. She had chest discomfort consistent with her heart disease an hour ago. It was brief. If she continues to have bleeding recommend transfer to a hospital that can offer a higher level of care. This was discussed with anesthesia as well as the patient and her . She is not a candidate for a procedure at [facility]. - Lab Results Fish Bones: 10/19/20 10:56 10/19/20 13:34
[2020-10-19 17:37] LABS: HCT - HEMATOCRIT 28.6 % (37.0-47.0)
[2020-10-19] MEDS: PRENATAL VITAMIN TABLET PO SCH (17:44)
[2020-10-19] MEDS: THIAMINE 100 MG TABLET PO SCH (17:44)
[2020-10-19] MEDS ORDERED: SODIUM/POTASSIUM/MAG SULFATES 354 ML PREP KIT PO SCH (18:00)
--- NOTE | 2020-10-19 18:41 | XRAY Report ---
PROCEDURE: Chest 1 View X-Ray INDICATIONS: SOB TECHNIQUE: One view of the chest was acquired. COMPARISON: None FINDINGS: Surgical changes and devices: None. Lungs and pleura: Diffuse increased interstitial opacities appear chronic. No focal consolidation. Mediastinum: Mediastinal contours appear normal. Heart size is enlarged. The aorta is tortuous. Bones and chest wall: No suspicious bony lesions. Overlying soft tissues appear unremarkable. Bone s of both shoulders have degenerative changes. IMPRESSION: 1. Cardiomegaly. 2. No acute pulmonary abnormality. Reviewed by: Sam Alcala on 10/19/2020 6:39 PM PDT Approved by: Sam Alcala on 10/19/2020 6:39 PM PDT Station ID: [id number]
[2020-10-19] MEDS ORDERED: ATORVASTATIN 40 MG TABLET PO SCH (21:00)
[2020-10-19 22:54] LABS: HCT - HEMATOCRIT 25.6 % (37.0-47.0); HGB - HEMOGLOBIN 8.1 g/dL (12.0-16.0)
[2020-10-20] MEDS ORDERED: SODIUM CHLORIDE 0.9% 1,000 ML IV SCH ×3 (01:00→14:54)
[2020-10-20 05:07] LABS: BASOPHILS % (AUTO) 0.6 %; EOSINOPHILS # (AUTO) 0.3 10^3/uL (0.0-0.7); EOSINOPHILS % (AUTO) 6.3 %; HCT - HEMATOCRIT 27.5 % (37.0-47.0); HGB - HEMOGLOBIN 8.7 g/dL (12.0-16.0); LYMPHOCYTES % (AUTO) 19.9 %; MEAN CORPUSCULAR HEMOGLOBIN 33.7 pg (27.0-31.0); MEAN CORPUSCULAR HGB CONC 31.6 g/dL (32.0-36.0); MEAN CORPUSCULAR VOLUME 106.6 fL (81.0-99.0); MEAN PLATELET VOLUME 9.4 fL (7.9-10.8); MONOCYTES # (AUTO) 0.5 10^3/uL (0.0-1.0); MONOCYTES % (AUTO) 10.7 %; NEUTROPHILS % (AUTO) 62.3 %; PLT - PLATELET COUNT 205 10^3/uL (130-450); RED BLOOD COUNT 2.58 10^6/uL (4.20-5.40); RED CELL DISTRIBUTION WIDTH 13.3 % (12.0-15.0); WHITE BLOOD COUNT 4.8 x10^3/uL (4.8-10.8)
[2020-10-20 05:15] LABS: CREATININE 1.4 mg/dL (0.4-1.0); POTASSIUM 4.1 mmol/L (3.5-5.0)
[2020-10-20] MEDS ORDERED: LEVOTHYROXINE 125 MCG TABLET PO SCH (07:00)
[2020-10-20] MEDS ORDERED: PRENATAL VITAMIN TABLET PO SCH (08:00)
[2020-10-20] MEDS ORDERED: atenoloL 25 MG TABLET PO SCH (09:00)
[2020-10-20] MEDS ORDERED: allopurinoL 100 MG TABLET PO SCH (09:00)
[2020-10-20] MEDS ORDERED: PANTOPRAZOLE 40 MG VIAL IVP SCH (09:00)
[2020-10-20] MEDS ORDERED: ISOSORBIDE MONONITRATE ER 30 MG TABLET PO SCH (09:00)
--- NOTE | 2020-10-20 09:11 | CT Report ---
PROCEDURE: Abdomen/Pelvis WO INDICATIONS: GI bleeding, mass? TECHNIQUE: Noncontrast 5 mm thick sections acquired from the diaphragms to the symphysis. 5 mm coronal and sagi ttal reformats were then performed. For radiation dose reduction, the following was used: automated exposure control, adjustment of mA and/or kV according to patient size. COMPARISON: None. FINDINGS: Image quality: Excellent. ABDOMEN: Lung bases: Lung bases are clear. Heart size is normal. Solid organs: Liver and spleen are normal in size. Gallbladder is unremarkable Pancreas is normal in contours. No adrenal nodules. Left kidney is somewhat small. No hydronephrosis or renal stones. R ight kidney is likely normal in size. Peritoneum and bowel: Unenhanced bowel loops demonstrate normal wall thickness and caliber. Sigmoid diverticulosis without evidence of diverticulitis. No obvious colonic mass. No free fluid or air. Nodes and vessels: No retroperitoneal or mesenteric adenopathy by size criteria. Aorta and inferior vena cava are normal in caliber. Atherosclerotic calcifications involving the aorta and iliac arter ies. Miscellaneous: No ventral hernias. PELVIS: Genitourinary: Bladder wall thickness is normal. Miscellaneous: No inguinal hernias or adenopathy. Bones: No suspicious bony lesions. No vertebral body compression fractures. Extensive lumbar degene rative change with multilevel canal stenosis. Total right hip arthroplasty results in metallic artifa ct in the pelvis. IMPRESSION: 1. No evidence acute abdominal process. 2. Left kidney appears somewhat small and shrunken. 3. Sigmoid diverticulosis. 4. Extensive lumbar degenerative change with multilevel canal stenosis. Reviewed by: Erickson Lugo MD on 10/20/2020 9:10 AM PDT Approved by: Erickson Lugo MD on 10/20/2020 9:10 AM PDT Station ID: [id number]
[2020-10-20] MEDS: PRENATAL VITAMIN TABLET PO SCH (09:17)
[2020-10-20] MEDS: THIAMINE 100 MG TABLET PO SCH (09:17)
[2020-10-20] MEDS: SODIUM CHLORIDE FLUSH 0.9% 10 ML SYRINGE IVP SCH ×2 (09:18→17:04)
[2020-10-20] MEDS: ACETAMINOPHEN 325 MG TABLET PO PRN ×2 (09:19→16:12)
--- NOTE | 2020-10-20 10:23 | Discharge Plan ---
Discharge Plan Problem Reviewed?: Yes Disposition: Home, Self Care Condition: Fair Diet: Regular Activity Restrictions: Activity as Tolerated Shower Restrictions: No (fall precaution) Instruction Topics: Bleeding Gastrointestinal Health Concerns: Your HGB is stable and slightly increased now. you have no bowel movement at hospital as far. Your CT study of your abdomen and pelvis reveals no evidence acute abdominal process. You may hold NSAIDs such as Ibuprofen. You may reduced or even quit your alcohol input. you may continue Plavix and hold Aspirin now until you are evaluated by your traffic operator. You may resume your home medications including Protonix. You may follow up with your PCP to monitor your HGB. You may watch closely by yourself to see if you still have significantly GI bleed, then you may return to ER. Plan of Treatment: as the above Care Goals: Stabilization and improvement of your medical conditions. Assessment: Discussed the care plan with you and your , answered Your questions, you understood Additional Instructions or Follow Up instructions: You may follow-up with your PCP in 1 week, check hemoglobin, you may follow-up with your traffic operator as outpatient. Should your symptoms return or worsen, you have significant GI bleeding again, you may return to ER or call 911 for help No Smoking: If you smoke, Please STOP! Call for help. Follow-up with: Gerald Boyd MD [Primary Care Provider] -
--- NOTE | 2020-10-20 10:39 | DISCHARGE SUMMARY ---
"Discharge Summary Admit Date: 10/19/20 Discharge Date: 10/20/20 Discharging Provider: Vasiliy Leigh Primary Care Provider: Gerald Rodríguez Condition at Discharge: Fair Discharge Disposition: 01 Home, Self Care Discharge Facility Name: home - DIAGNOSES Discharge Diagnoses with Status of Each Condition: (1) Bright red rectal bleeding pt's HGB continue stable. Patient has no more bright rectal bleeding. Patient had 1 bowel movement with brown-black stool, likely residence of previous rectal bleeding. Patient has no colonoscopy or EGD done in the hospital. CT of the abdomen is without acute finding. Patient may continue Plavix but hold aspirin, and until evaluated by her lead man over all dies in [employer]. Patient may reduce or quit alcohol input, Hold NSAIDs such as Ibuprofen. Patient may follow-up with her PCP in 1 week to have hemoglobin check again. (2) Anemia Conclusion/Plan: Patient hemoglobin is stable 8.7, slightly increased from 8.4 at admission, likely directly caused by acute rectal bleeding.no more bright rectal bleeding now. Patient may follow-up with her PCP in 1 week to have hemoglobin check again, and management of anemia. (3) Hypertension Patient had Orthostatic hypotension in the hospital, Which is likely caused by dehydration. Patient's home medication amlodipine is on hold, Follow-up PCP continue management of her HTN (4) Hypothyroidism TSH is normal, resume home Synthroid (5) Hx of cancer of lung patient is a status post of radiation treatment, patient report she had scar tissue in her lung, and she always had right lower lobe lung with wheezy. Patient's respiratory is stable, no acute respiratory distress, Patient may follow-up with her vessel manager as outpatient (6) HLD (hyperlipidemia) Stable, resume home meds (7) Gout Stable, resume home allopurinol (8)hx of CAD Stable, Hold baby aspirin because of GI bleed, Follow-up with her lead man over all dies in [employer] for further management. Patient had a echo done 3 weeks ago in [facility] Which show normal EF. (9)Orthostatic hypotension Resolved, Likely caused by patient dehydration. Patient home blood pressure Norvasc is in hold. I personally walk with pt in her room, pt has no shortness of breath, no dizziness, no balance issue. Education to patient for how to prevention of fall at home. Keep hydration in the home. (10)alcohol abuse Patient reported she drinks alcohol couple of wine every night. Patient now had GI bleeding, Advised the patient reduced significantly or quit alcohol input. Patient had multiple vitamin in the home medication list, add vitamin B1 for patient - HPI History of Present Illness: This is a 75-years old female with a past medical history significant for hypertension, hypothyroidism, s/p radiation treatment for lung cancer which was diagnosis 25 yrs ago, gout, CAD Who present to ER complain GI bleeding. pt reports she had bright red blood stool every time when she had bowel movement since yesterday. She report she had loose stool but is not watery diarrhea. She had a blood work on yesterday, hemoglobin show 9.6, today hemoglobin showed 8.4, patient had hemoglobin 11.6 about 4 months ago. Patient report slightly dizziness When she stand up. She denies chest pain or shortness of breathing. Patient reported she take baby aspirin and Plavix for many years, She follow-up with her lead man over all dies in [employer] closely. She had a colonoscopy done in 2016 in this hospital which show moderate Diverticulosis. Patient did report she drinks alcohol daily, But she denies any alcohol withdrawal symptoms. Surgeon was called by the ER for consult. Discussed the care goal with the patient, patient request full code - CONSULTS | PROCEDURES Consultations: Dr. Pruitt Procedures: no procedure - HOSPITAL COURSE Hospital Course: Patient was admitted for bright rectal bleeding. per surgeon, pt is not a candidate for a procedure at [facility]. After the patient home medication baby aspirin, Plavix was on hold and patient was given intravenous Protonix, Patient's hemoglobin became stable, Patient has no more bright rectal bleeding. Patient had a CT Of abdomen and pelvis which show no acute process. Patient also had orthostatic hypotension. It is likely caused by her dehydration. After hydration and hold her home medication amlodipine, her Orthostatic hypotension was resolved. Patient was discharged at hemodynamically stable condition - ALLERGIES Allergies/Adverse Reactions: Allergies Allergy/AdvReac Type Severity Reaction Status Date / Time No Known Drug Allergies Allergy Verified 10/19/20 10:12 - MEDICATIONS Home Medications: Ambulatory Orders Medication Instructions Recorded Confirmed Acetaminophen [Tylenol] 650 mg PO Q6H PRN 06/27/15 10/19/20 Levothyroxine Sodium 125 mcg PO DAILY 06/27/15 10/19/20 Multivitamin [Multivitamins] 1 each PO DAILY 06/27/15 10/19/20 Ocu Zoe 1 tab PO DAILY 06/27/15 10/19/20 Rosuvastatin Calcium [Crestor] 40 mg PO DAILY 06/27/15 10/19/20 atenoloL [Tenormin] 25 mg PO DAILY 06/27/15 10/19/20 Clopidogrel [Plavix] 75 mg PO DAILY 10/19/20 10/19/20 Ezetimibe [Zetia] 10 mg PO DAILY 10/19/20 10/19/20 Isosorbide Mononitrate [Isosorbide 60 mg PO DAILY 10/19/20 10/19/20 Mononitrate ER] Pantoprazole Sodium 40 mg PO DAILY 10/19/20 10/19/20 allopurinoL [Zyloprim] 100 mg PO DAILY 10/19/20 10/19/20 Thiamine HCl [Vitamin B-1] 100 mg PO DAILY #30 tablet 10/20/20 - PHYSICAL EXAM AT DISCHARGE General Appearance: positive: No acute distress, Alert. negative: Lethargic Eyes Bilateral: positive: Normal inspection, PERRL, No lid inflammation ENT: positive: ENT inspection nml, No signs of dehydration. negative: Purulent nasal drainage Neck: positive: Nml inspection, Trachea midline. negative: Thyromegaly, Tracheal deviation Respiratory: positive: Chest non-tender, No respiratory distress, Wheezes (right low lobe wheezy, chronic) Cardiovascular: positive: Regular rate & rhythm, No murmur. negative: Tachycardia, Bradycardia, Systolic murmur, Diastolic murmur Peripheral Pulses: positive: 2+ Abdomen: positive: Non-tender, Nml bowel sounds, No distention. negative: Tenderness Back: positive: Nml inspection Skin: positive: Color nml, Warm, Dry. negative: Cyanosis Extremities: positive: Non-tender, Full ROM, Nml appearance. negative: Calf tenderness Neurologic/Psychiatric: positive: Oriented x3, Motor nml, Sensation nml, Mood/affect nml. negative: Weakness, Sensory loss, Facial droop, Slurred/abnml speech, Depressed mood/affect - LABS Result Diagrams: 10/20/20 11:42 10/20/20 04:30 - FOLLOW UP Follow Up: Your HGB is stable and slightly increased now. you have no bowel movement at hospital as far. Your CT study of your abdomen and pelvis reveals no evidence acute abdominal process. You may hold NSAIDs such as Ibuprofen. You may reduced or even quit your alcohol input. you may continue Plavix and hold Aspirin now until you are evaluated by your lead man over all dies in [employer]. You may resume your home medications including Protonix. You may follow up with your PCP to monitor your HGB. You may watch closely by yourself to see if you still have significantly GI bleed, then you may return to ER. Your orthostatic hypotension has significantly improved. your home blood pressure medication amlodipine is on hold now, you may followup with your PCP continue management. You Slowly standup, and slowly and safely walk, prevention of fall at home. you may keep hydration at home as well. You may follow-up with your PCP in 1 week, check hemoglobin, you may follow-up with your lead man over all dies in [employer] as outpatient. Should your symptoms return or worsen, you have significant GI bleeding again, you may return to ER or call 911 for help - TIME SPENT Time Spent in Discharge (Minutes): 30"
[2020-10-20 10:49] VITALS: BP 100/56
[2020-10-20 12:09] LABS: HCT - HEMATOCRIT 27.8 % (37.0-47.0); HGB - HEMOGLOBIN 8.7 g/dL (12.0-16.0)
== END 2020-10-20 17:40 | disposition home or self-care (01) ==
LOC: ED 09:49 → MS3 12:12
PROVIDERS: ADMIT Nurse Practitioner Gerontology; ATTEND Nurse Practitioner Gerontology
DX: K62.5 Hemorrhage of anus and rectum (principal); D64.9 Anemia, unspecified; I95.1 Orthostatic hypotension; E86.0 Dehydration; I10 Essential (primary) hypertension; F10.10 Alcohol abuse, uncomplicated; I25.10 Atherosclerotic heart disease of native coronary artery without angina pectoris; E78.5 Hyperlipidemia, unspecified; K57.30 Diverticulosis of large intestine without perforation or abscess without bleeding; E03.9 Hypothyroidism, unspecified; M10.9 Gout, unspecified; H54.7 Unspecified visual loss; R35.0 Frequency of micturition; Z20.822 Contact with and (suspected) exposure to COVID-19; Z79.82 Long term (current) use of aspirin; Z79.02 Long term (current) use of antithrombotics/antiplatelets; Z79.899 Other long term (current) drug therapy; Z85.118 Personal history of other malignant neoplasm of bronchus and lung; Z92.3 Personal history of irradiation; Z96.649 Presence of unspecified artificial hip joint; Z96.659 Presence of unspecified artificial knee joint
CPT/HCPCS: 36415; 71045; 74176; 80048; 80053; 82270; 82607; 82728; 83540; 83615; 83690; 84443; 84466; 84484; 85014; 85018; 85025; 85045; 85610; 86850; 86900; 86901; 87631; 96374; 96376; 99283; 99285; A9270; G0378; 0202U

== ENCOUNTER 2020-10-25 08:00 | Outpatient (CLI) | payer MEDICARE, OTHER ==
[2020-10-25 18:52] LABS: BASOPHILS % (AUTO) 0.5 %; EOSINOPHILS # (AUTO) 0.3 10^3/uL (0.0-0.7); HCT - HEMATOCRIT 26.5 % (37.0-47.0); HGB - HEMOGLOBIN 8.2 g/dL (12.0-16.0); LYMPHOCYTES # (AUTO) 0.8 10^3/uL (1.5-3.5); LYMPHOCYTES % (AUTO) 12.9 %; MEAN CORPUSCULAR HEMOGLOBIN 33.7 pg (27.0-31.0); MEAN CORPUSCULAR HGB CONC 30.9 g/dL (32.0-36.0); MEAN CORPUSCULAR VOLUME 109.1 fL (81.0-99.0); MEAN PLATELET VOLUME 9.5 fL (7.9-10.8); MONOCYTES # (AUTO) 0.5 10^3/uL (0.0-1.0); MONOCYTES % (AUTO) 8.6 %; NEUTROPHILS # (AUTO) 4.5 10^3/uL (1.5-6.6); NEUTROPHILS % (AUTO) 72.8 %; PLT - PLATELET COUNT 244 10^3/uL (130-450); RED BLOOD COUNT 2.43 10^6/uL (4.20-5.40); RED CELL DISTRIBUTION WIDTH 13.7 % (12.0-15.0); WHITE BLOOD COUNT 6.2 x10^3/uL (4.8-10.8)
[2020-10-25 19:17] LABS: % IRON SATURATION 8 % (20-50); IRON 29 ug/dL (28-170); TOTAL IRON BINDING CAPACITY 370 ug/dL (250-450); TRANSFERRIN 264 mg/dL (192-382)
== END 2020-10-25 23:59 | disposition home or self-care (01) ==
LOC: LAB.WCP 08:00
PROVIDERS: ATTEND Family Medicine
DX: K92.2 Gastrointestinal hemorrhage, unspecified (principal); D64.9 Anemia, unspecified
CPT/HCPCS: 36415; 82728; 83540; 84466; 85025

== ENCOUNTER 2020-10-28 14:59 | Outpatient (CLI) | payer MEDICARE, OTHER ==
--- NOTE | 2020-10-28 16:51 | XRAY Report ---
PROCEDURE: Lumbar Spine 2 View INDICATIONS: LOW BACK PAIN TECHNIQUE: 3 views of the lumbar spine were acquired. COMPARISON: None. FINDINGS: Bones: 5 [id number] vertebrae are present. There is loss of normal lumbar lordosis. Moderate l eftward curvature of the upper lumbar spine. Mild grade 1 retrolisthesis of L1 on L2, L2 on L3, L3 on L4, and L4-L5. Multilevel disc space narrowing and endplate osteophyte formation throughout the lumb ar lower thoracic spine. Facet hypertrophy throughout the mid and lower lumbar spine. No vertebral zac dy compression fractures. No suspicious bony lesions. Soft tissues: Overlying bowel gas pattern is normal. No suspicious soft tissue calcifications. IMPRESSION: Multilevel degenerative disc and facet disease. No acute fracture. No osseous lesion. If symptoms and/or clinical suspicion for pathology continue, further assessment with repeat plain film s, or advanced imaging (e.g., CT, MRI, or bone scan) is recommended for further assessment. Reviewed by: Rajat Zambrano MD on 10/28/2020 4:50 PM PDT Approved by: Rajat Zambrano MD on 10/28/2020 4:50 PM PDT Station ID: [id number]
== END 2020-10-28 15:00 | disposition home or self-care (01) ==
LOC: DI.N 14:59
PROVIDERS: ATTEND Family Medicine
DX: M47.816 Spondylosis without myelopathy or radiculopathy, lumbar region (principal); M51.36 Other intervertebral disc degeneration, lumbar region

== ENCOUNTER 2020-11-08 08:00 | Outpatient (CLI) | payer MEDICARE, OTHER ==
[2020-11-08 18:15] LABS: BASOPHILS % (AUTO) 0.5 %; EOSINOPHILS # (AUTO) 0.3 10^3/uL (0.0-0.7); HCT - HEMATOCRIT 30.6 % (37.0-47.0); HGB - HEMOGLOBIN 9.4 g/dL (12.0-16.0); LYMPHOCYTES # (AUTO) 0.7 10^3/uL (1.5-3.5); LYMPHOCYTES % (AUTO) 10.7 %; MEAN CORPUSCULAR HEMOGLOBIN 33.5 pg (27.0-31.0); MEAN CORPUSCULAR HGB CONC 30.7 g/dL (32.0-36.0); MEAN CORPUSCULAR VOLUME 108.9 fL (81.0-99.0); MEAN PLATELET VOLUME 9.3 fL (7.9-10.8); MONOCYTES # (AUTO) 0.5 10^3/uL (0.0-1.0); MONOCYTES % (AUTO) 7.9 %; NEUTROPHILS # (AUTO) 4.6 10^3/uL (1.5-6.6); NEUTROPHILS % (AUTO) 75.6 %; PLT - PLATELET COUNT 239 10^3/uL (130-450); RED BLOOD COUNT 2.81 10^6/uL (4.20-5.40); RED CELL DISTRIBUTION WIDTH 14.5 % (12.0-15.0); WHITE BLOOD COUNT 6.1 x10^3/uL (4.8-10.8)
== END 2020-11-08 23:59 | disposition home or self-care (01) ==
LOC: LAB.WCP 08:00
PROVIDERS: ATTEND Family Medicine
DX: K92.2 Gastrointestinal hemorrhage, unspecified (principal)
CPT/HCPCS: 36415; 85025

== ENCOUNTER 2020-11-29 12:54 | Outpatient (CLI) | payer MEDICARE, OTHER ==
--- NOTE | 2020-11-29 17:17 | MRI Report ---
PROCEDURE: Lumbar Spine W/O INDICATIONS: LOW BACK PAIN TECHNIQUE: Noncontrast sagittal T1 spin echo and T2 fast echo, sagittal STIR, axial T1 and T2 fast spin echo thr ough the lumbar spine. In cases with scoliosis, additional coronal T2 fast spin echo may be performe d. COMPARISON: Lumbar spine x-ray series 10/28/2020.. FINDINGS: Image quality: Degraded by patient motion artifact. Alignment and Curvature: There is mild L1-L2, L2-L3 and L3-L4 retrolisthesis. There is mild convex l eft lumbar spine curvature. Bone Marrow: Reactive endplate changes noted adjacent to the T12-L1, L1-L2, L2-L3, L3-L4, L4-L5 and L 5-S1 discs. No acute vertebral body compression fractures. Spinal Cord: Conus medullaris terminates at the L1-2 disc level. Visualized cord demonstrates manuel l signal and size. Paraspinous Soft Tissues: No paravertebral masses. T12-L1: Loss of disc signal and height. Mild, diffuse disc bulge. Mild bilateral facet hypertrophy. Mild to moderate narrowing of the central canal. Mild bilateral neural foraminal narrowing. No neural compression. L1-L2: Loss of disc signal and height. Moderate, diffuse disc bulge. Moderate bilateral facet hype rtrophy. Moderate ligamentum flavum hypertrophy. Severe narrowing of the central canal with slight co mpression of the nerve roots of the cauda equina. Severe bilateral neural foraminal narrowing with co mpression of the exiting L1 nerve roots. L2-L3: Loss of disc signal and height. Moderate, diffuse disc bulge. Moderate bilateral facet hype rtrophy. Moderate ligamentum flavum hypertrophy. Moderate to severe narrowing of the central canal wi th crowding of nerve roots of the cauda equina. Severe right and moderate left neural foraminal narro wing with compression of the exiting right L2 nerve root. L3-L4: Loss of disc signal and height. Moderate, diffuse disc bulge. Cuzb-uy-wovcbyve bilateral fac et hypertrophy. Moderate ligamentum flavum hypertrophy. Moderate to severe narrowing of the central c anal. Severe right and moderate left neural foraminal narrowing with compression of the exiting right L3 nerve root. L4-L5: Loss of disc signal. Mild to moderate diffuse disc bulge. Moderate bilateral facet hypertrop hy. Severe ligamentum flavum hypertrophy. Severe narrowing of the central canal with slight compressi on of the nerve roots of cauda equina. Moderate to severe bilateral neural foraminal narrowing with s light compression of the exiting L4 nerve roots. L5-S1: Loss of disc signal and height. Moderate, diffuse disc bulge. Moderate bilateral facet hyper trophy. Moderate narrowing of the central canal. Mild to moderate right and severe left neural forami nal narrowing with compression of the exiting right L5 nerve root. IMPRESSION: 1. Grade 1 L1-L2, L2-L3 and L3-L4 degenerative spondylolisthesis. 2. Multilevel degenerative disc disease. 3. Multilevel facet arthropathy. 4. Severe L1-L2 and L4-L5 central canal narrowing with slight compression of the traversing nerve katarina ts of cauda equina. Moderate to severe L2-L3 and L3-L4 central canal narrowing. 5. Severe bilateral L1-L2 neural foraminal narrowing with compression of the exiting bilateral L1 ner ve roots. Severe right L2-L3 and L3-L4 neural foraminal narrowing with compression of the exiting rig ht L2 and L3 nerve roots. Moderate to severe bilateral L4-L5 neural foraminal narrowing with slight compression of the exiting bilateral L4 nerve roots. Reviewed by: Jaylene Maria MD, PhD on 11/29/2020 5:16 PM PDT Approved by: Jaylene Maria MD, PhD on 11/29/2020 5:16 PM PDT Station ID: [id number]
== END 2020-11-29 12:55 | disposition home or self-care (01) ==
LOC: DI 12:54
PROVIDERS: ATTEND Family Medicine
DX: M51.16 Intervertebral disc disorders with radiculopathy, lumbar region (principal); M48.061 Spinal stenosis, lumbar region without neurogenic claudication; M47.816 Spondylosis without myelopathy or radiculopathy, lumbar region; M43.16 Spondylolisthesis, lumbar region; M47.26 Other spondylosis with radiculopathy, lumbar region; M47.27 Other spondylosis with radiculopathy, lumbosacral region; M48.07 Spinal stenosis, lumbosacral region; M51.17 Intervertebral disc disorders with radiculopathy, lumbosacral region

== ENCOUNTER 2021-01-16 08:22 | Outpatient (CLI) | payer MEDICARE, OTHER ==
[2021-01-16 13:39] LABS: BASOPHILS % (AUTO) 0.5 %; EOSINOPHILS # (AUTO) 0.4 10^3/uL (0.0-0.7); EOSINOPHILS % (AUTO) 6.2 %; HCT - HEMATOCRIT 38.3 % (37.0-47.0); HGB - HEMOGLOBIN 11.9 g/dL (12.0-16.0); LYMPHOCYTES % (AUTO) 16.5 %; MEAN CORPUSCULAR HEMOGLOBIN 33.5 pg (27.0-31.0); MEAN CORPUSCULAR HGB CONC 31.1 g/dL (32.0-36.0); MEAN CORPUSCULAR VOLUME 107.9 fL (81.0-99.0); MEAN PLATELET VOLUME 9.8 fL (7.9-10.8); MONOCYTES # (AUTO) 0.5 10^3/uL (0.0-1.0); MONOCYTES % (AUTO) 8.4 %; NEUTROPHILS % (AUTO) 68.4 %; PLT - PLATELET COUNT 196 10^3/uL (130-450); RED BLOOD COUNT 3.55 10^6/uL (4.20-5.40); RED CELL DISTRIBUTION WIDTH 14.4 % (12.0-15.0); WHITE BLOOD COUNT 5.8 x10^3/uL (4.8-10.8)
[2021-01-16 14:12] LABS: % IRON SATURATION 13 % (20-50); IRON 50 ug/dL (28-170); TOTAL IRON BINDING CAPACITY 382 ug/dL (250-450); TRANSFERRIN 273 mg/dL (192-382)
== END 2021-01-16 23:59 | disposition home or self-care (01) ==
LOC: LAB.WCP 08:22
PROVIDERS: ATTEND Family Medicine
DX: D64.9 Anemia, unspecified (principal)
CPT/HCPCS: 36415; 82728; 83540; 84466; 85025

== ENCOUNTER 2021-01-24 14:41 | Outpatient (CLI) | payer MEDICARE, OTHER ==
--- NOTE | 2021-01-26 02:22 | XRAY Report ---
PROCEDURE: Shoulder 3 View LT INDICATIONS: L SHOULDER PX TECHNIQUE: 3 views of the shoulder were acquired. Images became available for review on 01/25/2021 COMPARISON: X-ray shoulder 01/10/2015 FINDINGS: Bones: No fractures or dislocations. No suspicious bony lesions. Visualized ribs appear intact. S evere acromioclavicular as well as glenohumeral degenerative narrowing are present. Humeral osteophyt e is present at the glenohumeral joint space. Soft tissues: No suspicious soft tissue calcifications. IMPRESSION: Glenohumeral and acromioclavicular arthritic change. Reviewed by: Rosalina Trujillo MD on 01/26/2021 1:44 AM PDT Approved by: Rosalina Trujillo MD on 01/26/2021 1:44 AM PDT Station ID: [id number]
== END 2021-01-24 14:42 | disposition home or self-care (01) ==
LOC: DI.N 14:41
PROVIDERS: ATTEND Internal Medicine
DX: M25.512 Pain in left shoulder (principal); M19.012 Primary osteoarthritis, left shoulder

== ENCOUNTER 2021-06-19 08:34 | Outpatient (CLI) | payer MEDICARE, OTHER ==
[2021-06-19 12:30] LABS: BASOPHILS % (AUTO) 0.5 %; EOSINOPHILS # (AUTO) 0.3 10^3/uL (0.0-0.7); EOSINOPHILS % (AUTO) 4.5 %; HCT - HEMATOCRIT 40.8 % (37.0-47.0); HGB - HEMOGLOBIN 12.9 g/dL (12.0-16.0); LYMPHOCYTES # (AUTO) 0.9 10^3/uL (1.5-3.5); MEAN CORPUSCULAR HEMOGLOBIN 33.9 pg (27.0-31.0); MEAN CORPUSCULAR HGB CONC 31.6 g/dL (32.0-36.0); MEAN CORPUSCULAR VOLUME 107.4 fL (81.0-99.0); MEAN PLATELET VOLUME 9.7 fL (7.9-10.8); MONOCYTES # (AUTO) 0.5 10^3/uL (0.0-1.0); MONOCYTES % (AUTO) 6.7 %; NEUTROPHILS # (AUTO) 5.8 10^3/uL (1.5-6.6); NEUTROPHILS % (AUTO) 76.2 %; PLT - PLATELET COUNT 218 10^3/uL (130-450); RED CELL DISTRIBUTION WIDTH 12.9 % (12.0-15.0); WHITE BLOOD COUNT 7.6 x10^3/uL (4.8-10.8)
[2021-06-19 12:59] LABS: THYROID STIMULATING HORMONE 3.04 uIU/mL (0.34-5.60)
[2021-06-19 13:01] LABS: % IRON SATURATION 13 % (20-50); ALBUMIN 4.6 g/dL (3.2-5.5); ALBUMIN/GLOBULIN RATIO 1.4 (1.0-2.2); ALKALINE PHOSPHATASE 78 IU/L (42-121); ALT ALANINE AMINOTRANSFERASE 35 IU/L (10-60); AST ASPARTATE AMINOTRANSFERASE 52 IU/L (10-42); BILIRUBIN,TOTAL 0.5 mg/dL (0.2-1.0); BUN - BLOOD UREA NITROGEN 32 mg/dL (6-20); CALCIUM 9.8 mg/dL (8.5-10.3); CARBON DIOXIDE - CO2 28 mmol/L (21-32); CHLORIDE 101 mmol/L (101-111); CHOL/HDL RATIO 2.1 (<4.4); CHOLESTEROL 180 mg/dL; CREATININE 1.4 mg/dL (0.4-1.0); GFR - MDRD 36 (>89); GLUCOSE 95 mg/dL (70-100); HDL CHOLESTEROL 86 mg/dL; IRON 47 ug/dL (28-170); LDL CHOLESTEROL,CALCULATED 63 mg/dL; LDL/HDL RATIO 0.7 (<4.4); POTASSIUM 4.3 mmol/L (3.5-5.0); SODIUM 141 mmol/L (135-145); TOTAL IRON BINDING CAPACITY 370 ug/dL (250-450); TOTAL PROTEIN 7.8 g/dL (6.7-8.2); TRANSFERRIN 264 mg/dL (192-382); TRIGLYCERIDES 155 mg/dL; URIC ACID 3.3 mg/dL (2.6-7.2); VLDL CHOLESTEROL 31 mg/dL
[2021-06-19 13:05] LABS: FERRITIN 53.5 ng/mL (11.0-306.8)
== END 2021-06-19 08:35 | disposition home or self-care (01) ==
LOC: LAB.N 08:34
PROVIDERS: ATTEND Internal Medicine
DX: I10 Essential (primary) hypertension (principal); E78.5 Hyperlipidemia, unspecified; I25.10 Atherosclerotic heart disease of native coronary artery without angina pectoris; K92.2 Gastrointestinal hemorrhage, unspecified; E03.9 Hypothyroidism, unspecified; Z87.39 Personal history of other diseases of the musculoskeletal system and connective tissue
CPT/HCPCS: 36415; 80053; 80061; 82607; 82728; 83540; 83721; 83735; 84443; 84466; 84550; 85025

== ENCOUNTER 2021-07-01 09:27 | Outpatient (CLI) | payer MEDICARE, OTHER ==
--- NOTE | 2021-07-01 12:10 | XRAY Report ---
PROCEDURE: Hip w/Pelvis 2-3V RT INDICATIONS: HX OF HIP REPLACEMENT, RIGHT TECHNIQUE: AP pelvis with lateral view(s) of the right hip(s). COMPARISON: Correlation is made with prior abdomen and pelvis CT 10/20/2020. FINDINGS: Bones: No fractures or dislocations. Pelvic ring appears intact. No suspicious bony lesions. Right hip arthroplasty hardware is seen. No findings of hardware failure or hardware loosening can be seen. Note is made of age-appropriate degenerative change of the lower lumbar spine. Soft tissues: The visualized bowel gas pattern is normal. No suspicious soft tissue calcifications. IMPRESSION: Unremarkable right hip arthroplasty hardware. Reviewed by: Bandar Thao MD on 07/01/2021 11:08 AM MAR Approved by: Bandar Thao MD on 07/01/2021 11:08 AM MAR Station ID: [id number]
== END 2021-07-01 09:28 | disposition home or self-care (01) ==
LOC: DI.N 09:27
PROVIDERS: ATTEND Internal Medicine
DX: Z96.641 Presence of right artificial hip joint (principal)

== ENCOUNTER 2021-12-07 08:00 | Outpatient (CLI) | payer MEDICARE, OTHER ==
--- NOTE | 2021-12-08 09:25 | XRAY Report ---
PROCEDURE: Chest 2 View X-Ray INDICATIONS: SOB TECHNIQUE: 2 view(s) of the chest. COMPARISON: 10/19/2020 FINDINGS: Again noted are chronic interstitial changes noted throughout both lungs. These appear to have mildly worsened from the prior examination. Mild cardiomegaly remains stable. Pulmonary vascularity is norm al for low volumes. No pleural effusion or acute osseous abnormality is seen. Patient is status post left mastectomy and left axillary node dissection. IMPRESSION: 1. Moderate chronic interstitial changes throughout both lungs which appears to mildly worsened from the prior examination. 2. Stable mild cardiomegaly. 3. Status post left mastectomy and left axillary node dissection. Reviewed by: Tray Doss MD on 12/08/2021 9:24 AM PDT Approved by: Tray Doss MD on 12/08/2021 9:24 AM PDT Station ID: [id number]
== END 2021-12-07 23:59 | disposition home or self-care (01) ==
LOC: DI.N 08:00
PROVIDERS: ATTEND Family Medicine
DX: R06.02 Shortness of breath (principal); R91.8 Other nonspecific abnormal finding of lung field; I51.7 Cardiomegaly

== ENCOUNTER 2021-12-09 13:37 | Emergency (ER) | payer MEDICARE, OTHER ==
--- NOTE | 2021-12-09 14:02 | ED Physician Documentation ---
History of Present Illness - Stated complaint Stated Complaint: SOA/WEAKNESS - Chief complaint Chief Complaint: Resp - Additonal information Additional information: 76-year-old female comes emergency department for evaluation of shortness of air, dysphonia and difficulty swallowing. She reports this has become a more progressive problem over the last 10 days. She did go to her primary care provider Dr. Austin about 48 hours ago. The decision at that time was made to start the patient on Levaquin as well as a course of steroids. Patient reports that this has improved some of the shortness of air and her ability to swallow but it is not fully resolved. She reports that she can swallow liquids okay. However she has a difficult time with any chewed foods. She often vomits right after eating. She does have a remote history of breast cancer status post-chemotherapy. 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, Mastectomy HEENT: Tonsil/Adenoidectomy - Present Medications Home Medications: Ambulatory Orders Medication Instructions Recorded Confirmed Acetaminophen [Tylenol] 650 mg PO Q6H PRN 06/27/15 10/19/20 Levothyroxine Sodium 125 mcg PO DAILY 06/27/15 10/19/20 Multivitamin [Multivitamins] 1 each PO DAILY 06/27/15 10/19/20 Ocu Zoe 1 tab PO DAILY 06/27/15 10/19/20 Rosuvastatin Calcium [Crestor] 40 mg PO DAILY 06/27/15 10/19/20 atenoloL [Tenormin] 25 mg PO DAILY 06/27/15 10/19/20 Clopidogrel [Plavix] 75 mg PO DAILY 10/19/20 10/19/20 Ezetimibe [Zetia] 10 mg PO DAILY 10/19/20 10/19/20 Isosorbide Mononitrate [Isosorbide 60 mg PO DAILY 10/19/20 10/19/20 Mononitrate ER] Pantoprazole Sodium 40 mg PO DAILY 10/19/20 10/19/20 allopurinoL [Zyloprim] 100 mg PO DAILY 10/19/20 10/19/20 Thiamine HCl [Vitamin B-1] 100 mg PO DAILY #30 tablet 10/20/20 - Allergies Allergies/Adverse Reactions: Allergies Allergy/AdvReac Type Severity Reaction Status Date / Time No Known Drug Allergies Allergy Verified 12/09/21 13:47 - Social History Does the pt smoke?: No Smoking Status: Never smoker PD ED PE NORMAL - General General: Alert and oriented X 3, No acute distress - HEENT HEENT: Atraumatic, Moist mucous membranes, Pharynx benign - Neck Neck: Supple, no meningeal sign, Thyroid normal, Other (Dysphonia) - Cardiac Cardiac: RRR, No murmur - Respiratory Respiratory: No respiratory distress, Clear bilaterally - Abdomen Abdomen: Normal bowel sounds, Soft, Non tender - Back Back: No CVA TTP, No spinal TTP - Derm Derm: Normal color, Warm and dry, No rash - Extremities Extremities: No deformity, No tenderness to palpate, Normal ROM s pain, No edema - Neuro Neuro: Alert and oriented X 3, market research lead 2-12 intact Eye Opening: Spontaneous Motor: Obeys Commands Verbal: Oriented GCS Score: 15 Results - Vitals Vitals: Vital Signs - 24 hr 12/09/21 12/09/21 12/09/21 13:41 14:32 15:42 Temperature 36.8 C Heart Rate 85 80 82 Respiratory 28 H 20 21 Rate Blood Pressure 143/78 H 155/91 H O2 Saturation 97 98 Oxygen O2 Source Room air - Labs Labs: Laboratory Tests 12/09/21 12/09/21 12/09/21 14:29 14:29 14:29 WBC 15.6 H RBC 3.81 L Hgb 12.7 Hct 38.5 MCV 101.0 H MCH 33.3 H MCHC 33.0 RDW 12.7 Plt Count 343 MPV 8.8 Neut # (Auto) 14.3 H Lymph # (Auto) 0.5 L [place] # (Auto) 0.7 Eos # (Auto) 0.0 Baso # (Auto) 0.0 Absolute Nucleated RBC 0.00 Nucleated RBC % 0.0 Sodium 131 L Potassium 3.6 Chloride 88 L Carbon Dioxide 30 Anion Gap 13.0 BUN 32 H Creatinine 1.5 H Estimated GFR (MDRD) 34 L Glucose 107 H Calcium 9.3 Total Bilirubin 0.5 AST 257 H ALT 160 H Alkaline Phosphatase 131 H B-Natriuretic Peptide 516 H Total Protein 7.6 Albumin 3.1 L Globulin 4.5 H Albumin/Globulin Ratio 0.7 L Lipase 41 - Rads (name of study) CT chest w Radiology: Final report received (Cardiomegaly with dense coronary artery vascular calcification. Chronic interstitial changes with lingular fibrotic and bronchiectatic changes noted. Bibasilar bronchial wall thickening and associate d scattered infiltrate may reflect bronchitis and/or pneumonia) CT abd Radiology: Final report received (Hepatic fatty infiltration and small hypodensities, likely cysts. Bibasilar atelectasis and/or infiltrate.) PD MEDICAL DECISION MAKING - ED course Complexity details: reviewed results, re-evaluated patient, considered differential, d/w patient ED course: 76-year-old female presents to the emergency department for evaluation of increased weakness, difficulty swallowing over the last 10 days. She does have a history of breast cancer status post chemotherapy. Subsequent to this she developed a lot of lung scarring and has previously been diagnosed with bronchiectasis. She did see her primary care provider on the who started on a course of prednisone and Levaquin. She reports that it is improving though she still has painful and difficult time swallowing and often feels that food gets trapped in her esophagus. She has to chew very soft foods. Here in the emergency department a CBC does show modest leukocytosis. This is most likely secondary to the recent initiation of steroids. Her electrolytes show marked elevation in her LFTs over the last 6 months. Given the history of cancer and these new findings a CT of the chest abdomen pelvis was completed. CT of the chest is consistent with bronchiectasis and perhaps early bilateral lower lobe infiltrates. She is already on a course of Levaquin. The CT of the abdomen does show multiple liver cysts however there is no obstructive pattern on LFTs. She is free of abdominal pain. No obvious mass was seen as a source for her recent difficulty swallowing as well as dysphonia. She is discharged home in stable condition with recommendation made for referral for EGD for further evaluation of possible obstructive causes within the esophagus. Patient reports that she has good follow-up with Dr. Austin. Otherwise emergent return precautions were discussed. Departure - Departure Disposition: 01 Home, Self Care Clinical Impression: Shortness of breath, Dysphonia, Abnormal liver function tests Difficulty swallowing Qualifiers: Dysphagia type: unspecified Qualified Code(s): R13.10 - Dysphagia, unspecified Condition: Stable Record reviewed to determine appropriate education?: Yes Comments: Lexie melo are seen today in the emergency department because of begun having some difficulty breathing as well as difficulty swallowing. The swallowing difficulty followed a prolonged coughing fit. Your primary doctor started you on a course of steroids as well as a short course of antibiotics. Please complete these. Today the most significant finding with your Labs was an abnormality in your liver function test. Over the last 6 months they have climbed dramatically. Because of the difficulty swallowing, and the abnormal and your liver function tests as well as your history of cancer we did do CT imaging of your chest and abdomen. The CT of the chest indicates previous scarring and bronchiectasis. There is perhaps a small area of infiltrate in the lower lobes. Continue the Levaquin. The CT of the abdomen shows multiple liver cysts. This could be the cause of the abnormal liver function test but Dr. Austin may want to consider other testing and evaluation. I believe that you would benefit from referral for an EGD to further determine if there is a structural problem within your esophagus that is making swallowing difficult. Dr. Austin can make the referral to surgery for this. Return immediately to the ER if you have any difficulty breathing, have chest pain uncontrolled vomiting, black or bloody stools.
[2021-12-09] MEDS ORDERED: ALBUTEROL NEB 2.5 MG/3 ML INH STA (14:03)
[2021-12-09 14:33] LABS: BASOPHILS % (AUTO) 0.3 %; HCT - HEMATOCRIT 38.5 % (37.0-47.0); HGB - HEMOGLOBIN 12.7 g/dL (12.0-16.0); LYMPHOCYTES # (AUTO) 0.5 10^3/uL (1.5-3.5); LYMPHOCYTES % (AUTO) 3.4 %; MEAN CORPUSCULAR HEMOGLOBIN 33.3 pg (27.0-31.0); MEAN PLATELET VOLUME 8.8 fL (7.9-10.8); MONOCYTES # (AUTO) 0.7 10^3/uL (0.0-1.0); MONOCYTES % (AUTO) 4.5 %; NEUTROPHILS # (AUTO) 14.3 10^3/uL (1.5-6.6); NEUTROPHILS % (AUTO) 91.1 %; PLT - PLATELET COUNT 343 10^3/uL (130-450); RED BLOOD COUNT 3.81 10^6/uL (4.20-5.40); RED CELL DISTRIBUTION WIDTH 12.7 % (12.0-15.0); WHITE BLOOD COUNT 15.6 x10^3/uL (4.8-10.8)
[2021-12-09 14:47] LABS: ALBUMIN 3.1 g/dL (3.2-5.5); ALBUMIN/GLOBULIN RATIO 0.7 (1.0-2.2); BILIRUBIN,TOTAL 0.5 mg/dL (0.2-1.0); CALCIUM 9.3 mg/dL (8.5-10.3); CREATININE 1.5 mg/dL (0.4-1.0); POTASSIUM 3.6 mmol/L (3.5-5.0); TOTAL PROTEIN 7.6 g/dL (6.7-8.2)
[2021-12-09] MEDS ORDERED: SODIUM CHLORIDE 0.9% 1,000 ML IV STA (14:53)
--- NOTE | 2021-12-09 16:06 | CT Report ---
PROCEDURE: CT chest with contrast INDICATIONS: soa, difficulty swallowing, change in voice CONTRAST: IV CONTRAST: Optiray 320 ml: 100 PO CONTRAST: *NO PO CONTRAST TECHNIQUE: After the administration of intravenous contrast, 1 mm axial images were acquired from the pulmonary apices through the posterior costophrenic angles. Axial 5 mm soft tissue kernel reconstructions were performed as well as 8 mm axial MIP and coronal and sagittal 5 mm reformations. For radiation dose reduction, the following was used: automated exposure control, adjustment of mA and/or kV according to patient size. COMPARISON: None. FINDINGS: Image quality: Excellent. Lungs and pleura: Diffuse chronic changes noted with the reticulation and fibrotic change in the ling ular segment of the left upper lobe. Bronchial wall thickening and patchy infiltrate noted at both iris ng bases. Bronchiectatic changes noted peripherally. Mediastinum: Heart size enlarged. Dense coronary artery vascular calcification present. No mediastina l adenopathy. Surgical clips noted in the left axilla. Bones and chest wall: No suspicious bony lesions. No vertebral body compression fractures. No axil ruben or supraclavicular adenopathy by size criteria. Surgical clips in the left axilla. Left mastect dara noted. Abdomen: Visualized upper abdominal solid organs appear normal. Upper abdominal bowel loops are nor mal in caliber. IMPRESSION: 1. Cardiomegaly with dense coronary artery vascular calcification. 2. Chronic interstitial changes with lingular fibrotic and bronchiectatic changes noted. 3. Bibasilar bronchial wall thickening and associated scattered infiltrate may reflect bronchitis and /or pneumonia Reviewed by: Keith Best MD on 12/09/2021 3:05 PM MAR Approved by: Keith Best MD on 12/09/2021 3:05 PM AKDT Station ID: [id number]
--- NOTE | 2021-12-09 16:28 | CT Report ---
PROCEDURE: CT abdomen pelvis with contrast INDICATIONS: Abnormal liver function tests CONTRAST: IV CONTRAST: Optiray 320 ml: 100 PO CONTRAST: *NO PO CONTRAST TECHNIQUE: After the administration of contrast, 5 mm thick sections acquired from the diaphragms to the sym physis. 5 mm thick coronal and sagittal reformats were acquired. For radiation dose reduction, the following was used: automated exposure control, adjustment of mA and/or kV according to patient size . COMPARISON: None. FINDINGS: Lower thorax:Bibasilar atelectasis and or infiltrate tip. Heart size enlarged. Liver: Liver is diffusely decreased attenuation. Small subcentimeter hypodensities likely cysts. Biliary system: No calcified cholelithiasis or pericholecystic inflammation. No evidence of bile du ct dilatation. Pancreas: Unremarkable without mass or inflammation evident. Spleen: Normal in size and density. Adrenals: Normal morphology and density. Reproductive system: Unremarkable as visualized. Urinary system: Normal renal size and attenuation. No renal calculi, hydronephrosis, or solid mass p resent. Urinary bladder unremarkable. Bilateral renal cysts. Gastrointestinal system: The bowel appears unremarkable with no evidence of bowel obstruction or inf lammation. The stomach appears unremarkable. Appendix: No findings to suggest acute appendicitis. Peritoneal spaces: No mesenteric or retroperitoneal adenopathy. No free air. No free fluid. Vasculature: Atherosclerotic vascular calcification, aorta without aneurysm. Musculoskeletal: Normal bone mineralization. No acute fractures. Abdominal wall intact without kerri dence of ventral or inguinal hernias. Degenerative disc disease and arthropathy results in severe dena tral stenosis L3-4. No intrinsic osseous lesion. Right hip prosthesis limits assessment of several im ages in the pelvis. IMPRESSION: 1. Hepatic fatty infiltration and small hypodensities, likely cysts. 2. Bibasilar atelectasis and or infiltrate . 3. Additional chronic findings as above Reviewed by: Keith Best MD on 12/09/2021 3:27 PM AKDT Approved by: Keith Best MD on 12/09/2021 3:27 PM AKDT Station ID: [id number]
[2021-12-09 17:10] VITALS: BP 147/94
== END 2021-12-09 17:08 | disposition home or self-care (01) ==
LOC: ED 13:37
DX: R49.0 Dysphonia (principal); R06.09 Other forms of dyspnea; R13.10 Dysphagia, unspecified; I10 Essential (primary) hypertension; R79.89 Other specified abnormal findings of blood chemistry
CPT/HCPCS: 36415; 71260; 74177; 80053; 83690; 83880; 85025; 94640; 96360; 99283; 99284; Q9967

== ENCOUNTER 2021-12-13 12:54 | Outpatient (CLI) | payer MEDICARE, OTHER | END 2021-12-13 12:55 | disposition EMS.NT | LOC: EMS 12:54 | DX: Z03.89 Encounter for observation for other suspected diseases and conditions ruled out (principal) ==

== ENCOUNTER 2021-12-30 11:48 | Inpatient (IN) | payer MEDICARE, OTHER ==
[2021-12-30] MEDS ORDERED: MORPHINE 2 MG/ML CARPUJECT IVP STA (12:02)
--- NOTE | 2021-12-30 12:14 | ED Physician Documentation ---
PD HPI ABD PAIN - Stated complaint Stated Complaint: FEMALE GI/WEAKNESS - Chief complaint Chief Complaint: Abd Pain - History obtained from History obtained from: Patient - History of Present Illness Timing - onset: Today - Additional information Additional information: 76-year-old female with history of hypertension, hyperlipidemia, on aspirin and Plavix presents by private vehicle for evaluation of 2 episodes of large-volume bloody diarrhea. Associated cramping lower abdominal pain that she describes as "bad gas pains". She states this happened once last year, she states it was attributed to a hemorrhoid, however this is much larger in volume and much more severe than last time. 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, Mastectomy HEENT: Tonsil/Adenoidectomy - Present Medications Home Medications: Ambulatory Orders Medication Instructions Recorded Confirmed Acetaminophen [Tylenol] 650 mg PO Q6H PRN 06/27/15 12/30/21 Multivitamin [Multivitamins] 1 each PO DAILY 06/27/15 12/30/21 Ocu Zoe 1 tab PO DAILY 06/27/15 12/30/21 atenoloL [Tenormin] 25 mg PO DAILY 06/27/15 12/30/21 Clopidogrel [Plavix] 75 mg PO DAILY 10/19/20 12/30/21 Ezetimibe [Zetia] 10 mg PO DAILY 10/19/20 12/30/21 Pantoprazole Sodium 40 mg PO QDAC 10/19/20 12/30/21 allopurinoL [Zyloprim] 200 mg PO DAILY 10/19/20 12/30/21 Albuterol Sulf [Ventolin Hfa 2 puffs INH Q4HR PRN 12/30/21 12/30/21 Inhaler] Amlodipine Besylate [Norvasc] 2.5 mg PO DAILY 12/30/21 12/30/21 Isosorbide Mononitrate ER [Imdur] 30 mg PO DAILY 12/30/21 12/30/21 Levothyroxine [Synthroid] 125 mcg PO QDAC 12/30/21 12/30/21 Rosuvastatin Calcium [Crestor] 40 mg PO QPM 12/30/21 12/30/21 Salmeterol Xinafoate [Serevent 1 puffs INH BID 12/30/21 12/30/21 Diskus] Tiotropium [place] [Spiriva 2 puffs INH DAILY 12/30/21 12/30/21 Respimat] Venlafaxine ER [Effexor ER] 37.5 mg PO DAILY 12/30/21 12/30/21 - Allergies Allergies/Adverse Reactions: Allergies Allergy/AdvReac Type Severity Reaction Status Date / Time No Known Drug Allergies Allergy Verified 12/30/21 11:51 - Social History Does the pt smoke?: No Smoking Status: Never smoker PD ED PE NORMAL - Vitals Vital signs reviewed: Yes - General General: Alert and oriented X 3, Well developed/nourished - HEENT HEENT: Atraumatic, PERRL, EOMI - Neck Neck: Supple, no meningeal sign, No bony TTP, C-Spine cleared by NEXUS criteria - Cardiac Cardiac: RRR, No murmur, Strong equal pulses, Other - Respiratory Respiratory: No respiratory distress, Clear bilaterally - Abdomen Abdomen: Soft, Non distended, Other (generalized tenderness to palpation without rebound or guarding) - Female Female : Benefits Advisor present, Other (melanotic stool on digital exam) - Back Back: No CVA TTP, No spinal TTP - Derm Derm: Normal color, Warm and dry, No rash - Extremities Extremities: No deformity, No tenderness to palpate, Normal ROM s pain - Neuro Neuro: Alert and oriented X 3, assortment planner 2-12 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, No motor deficit, No sensory deficit, Normal speech - Psych Psych: Normal mood, Normal affect Results - Vitals Vitals: Vital Signs - 24 hr 12/30/21 12/30/21 12/30/21 11:51 12:42 14:24 Temperature 36 C L Heart Rate 104 H 78 87 Respiratory 22 20 24 Rate Blood Pressure 137/87 H 148/91 H 138/96 H O2 Saturation 97 100 100 Oxygen O2 Source Room air - EKG (time done) 1219 Rate: Rate (enter#) (77) Rhythm: NSR Magazine: Normal Intervals: RBBB QRS: LVH Ischemia: Normal ST segments Computer interpretation: Agree with computer - Labs Labs: Laboratory Tests 12/30/21 12/30/21 12/30/21 12:17 12:17 12:17 WBC 6.8 RBC 3.38 L Hgb 11.4 L Hct 35.9 L MCV 106.2 H MCH 33.7 H MCHC 31.8 L RDW 13.5 Plt Count 193 MPV 9.4 Neut # (Auto) 5.4 Lymph # (Auto) 0.8 L [place] # (Auto) 0.4 Eos # (Auto) 0.1 Baso # (Auto) 0.1 Absolute Nucleated RBC 0.00 Nucleated RBC % 0.0 PT 11.4 INR 1.0 Sodium Potassium Chloride Carbon Dioxide Anion Gap BUN Creatinine Estimated GFR (MDRD) Glucose Calcium Total Bilirubin AST ALT Alkaline Phosphatase Troponin I High Sens Total Protein Albumin Globulin Albumin/Globulin Ratio Lipase SARS-CoV-2 (PCR) Blood Type A POSITIVE Antibody Screen NEGATIVE 12/30/21 12/30/21 12/30/21 12:17 12:17 14:20 WBC RBC Hgb Hct MCV MCH MCHC RDW Plt Count MPV Neut # (Auto) Lymph # (Auto) [place] # (Auto) Eos # (Auto) Baso # (Auto) Absolute Nucleated RBC Nucleated RBC % PT INR Sodium 140 Potassium 4.5 Chloride 101 Carbon Dioxide 30 Anion Gap 9.0 BUN 37 H Creatinine 1.1 H Estimated GFR (MDRD) 48 L Glucose 94 Calcium 9.2 Total Bilirubin 0.7 AST 52 H ALT 26 Alkaline Phosphatase 78 Troponin I High Sens 41.1 H* Total Protein 7.1 Albumin 3.6 Globulin 3.5 Albumin/Globulin Ratio 1.0 Lipase 43 SARS-CoV-2 (PCR) NOT DETECTED Blood Type Antibody Screen 12/30/21 15:09 WBC RBC Hgb Hct MCV MCH MCHC RDW Plt Count MPV Neut # (Auto) Lymph # (Auto) [place] # (Auto) Eos # (Auto) Baso # (Auto) Absolute Nucleated RBC Nucleated RBC % PT INR Sodium Potassium Chloride Carbon Dioxide Anion Gap BUN Creatinine Estimated GFR (MDRD) Glucose Calcium Total Bilirubin AST ALT Alkaline Phosphatase Troponin I High Sens 39.4 H* Total Protein Albumin Globulin Albumin/Globulin Ratio Lipase SARS-CoV-2 (PCR) Blood Type Antibody Screen PD MEDICAL DECISION MAKING - ED course Complexity details: reviewed results, re-evaluated patient, considered differential, d/w patient, d/w family ED course: Nontoxic-appearing female presenting for presumed lower GI bleed. Patient denies risk factors for upper GI bleed including alcohol, regular Motrin, or kim icylate use. Abdomen is soft but does have reproducible tenderness in the lower quadrant. Rectal exam is significant for melanotic stool. At this time patient is hemodynamically stable. Labs significant for hemoglobin 11.4, several weeks ago it was 12.7. No further episodes of bright red blood per rectum. Patient remains hemodynamically stable. CT angio of the abdomen and pelvis shows no obvious cause of the patient's bleeding. Patient high risk for adverse events, will admit for surgical evaluation, possible scoping Departure - Departure Disposition: ED Place in Observation Clinical Impression: GI bleed Anemia Qualifiers: Anemia type: unspecified type Qualified Code(s): D64.9 - Anemia, unspecified Condition: Stable Discharge Date/Time: 12/30/21 17:07
[2021-12-30] MEDS ORDERED: iohexoL-300 100 ML VIAL ONE (12:22)
[2021-12-30 12:32] LABS: BASOPHILS # (AUTO) 0.1 10^3/uL (0.0-0.1); BASOPHILS % (AUTO) 0.7 %; EOSINOPHILS # (AUTO) 0.1 10^3/uL (0.0-0.7); EOSINOPHILS % (AUTO) 1.8 %; HCT - HEMATOCRIT 35.9 % (37.0-47.0); HGB - HEMOGLOBIN 11.4 g/dL (12.0-16.0); LYMPHOCYTES # (AUTO) 0.8 10^3/uL (1.5-3.5); LYMPHOCYTES % (AUTO) 11.2 %; MEAN CORPUSCULAR HEMOGLOBIN 33.7 pg (27.0-31.0); MEAN CORPUSCULAR HGB CONC 31.8 g/dL (32.0-36.0); MEAN CORPUSCULAR VOLUME 106.2 fL (81.0-99.0); MEAN PLATELET VOLUME 9.4 fL (7.9-10.8); MONOCYTES # (AUTO) 0.4 10^3/uL (0.0-1.0); MONOCYTES % (AUTO) 5.6 %; NEUTROPHILS # (AUTO) 5.4 10^3/uL (1.5-6.6); NEUTROPHILS % (AUTO) 80.4 %; PLT - PLATELET COUNT 193 10^3/uL (130-450); RED BLOOD COUNT 3.38 10^6/uL (4.20-5.40); RED CELL DISTRIBUTION WIDTH 13.5 % (12.0-15.0); WHITE BLOOD COUNT 6.8 x10^3/uL (4.8-10.8)
[2021-12-30 12:40] LABS: PT - PROTHROMBIN TIME 11.4 secs (9.9-12.6)
[2021-12-30 12:41] LABS: ALBUMIN 3.6 g/dL (3.2-5.5); BILIRUBIN,TOTAL 0.7 mg/dL (0.2-1.0); CALCIUM 9.2 mg/dL (8.5-10.3); CREATININE 1.1 mg/dL (0.4-1.0); POTASSIUM 4.5 mmol/L (3.5-5.0); TOTAL PROTEIN 7.1 g/dL (6.7-8.2)
--- NOTE | 2021-12-30 13:46 | CT Report ---
PROCEDURE: ANGIO ABDOMEN/PELVIS W INDICATIONS: GI BLEED/BRBPR CONTRAST: IV CONTRAST: Optiray 320 ml: 100 PO CONTRAST: *NO PO CONTRAST TECHNIQUE: After the administration of intravenous contrast, 2.5 mm thick sections acquired from the diaphragm t o the symphysis. 10 mm maximum-intensity projection (MIP) reformats were then acquired. For radiati on dose reduction, the following was used: automated exposure control, adjustment of mA and/or kV ac cording to patient size. COMPARISON: 12/09/2021 FINDINGS: Image quality: There is artifact associated with the metallic hardware. Aorta: Generalized atherosclerotic change is seen. No findings of stenosis or aneurysm can be seen. Mesenteric arteries: Celiac trunk, superior and inferior mesenteric arteries appear patent. Right pelvic arteries: Unremarkable. Left pelvic arteries: Within normal limits for age. Extravascular soft tissues: Lung bases are clear. Heart size is normal. At least moderate coronary artery calcification can be seen. Liver and spleen are normal in size and enhancement. Gallbladder wall does not appear thickened. . Biliary system is non dilated. Pancreas enhances normally. No adrenal nodules. Kidneys are normal in size and enhancement, without hydronephrosis. A nonenhancing cyst is seen along the posterior as pect of the left kidney. In this patient with this given history, scrutiny is given to active extravasation within the bowel. No findings of active extravasation or seen. Non opacified bowel loops are normal in wall thickness a nd caliber. No free fluid or air. Diverticulosis can be seen, without jahaira findings of active dive rticulitis. No retroperitoneal or mesenteric adenopathy. No ventral hernias. The uterus demonstrates an unremar kable appearance for age. No adnexal masses are seen. No suspicious bony lesions. No vertebral body compression fractures. Mild to moderate levoconvex iris mbar scoliotic curvature is seen. Degenerative changes are seen throughout, which are worst involving the lumbar spine. Right hip arthroplasty hardware is seen, with associated streak artifact. IMPRESSION: No significant vascular abnormality can be seen. No source of active bleeding can be seen on these images. Incidental note is made of: At least moderate coronary artery calcification Simple appearing left renal cyst Levoconvex scoliotic curvature Lumbar spine degenerative change Diverticulosis, without findings of active diverticulitis. Right hip arthroplasty hardware Reviewed by: Bandar Thao MD on 12/30/2021 12:44 PM MAR Approved by: Bandar Thao MD on 12/30/2021 12:44 PM MAR Station ID: [id number]
[2021-12-30] MEDS ORDERED: iohexoL-300 100 ML VIAL IVP ONE (15:34)
[2021-12-30] MEDS ORDERED: ONDANSETRON 4 MG/2 ML VIAL IVP PRN (16:16)
--- NOTE | 2021-12-30 16:30 | HISTORY & PHYSICAL EXAMINATION ---
Chief Complaint - Chief Complaint Chief Complaint: BRBPR History of Present Illness - Admitted From Admitted From:: ED - History Obtained From History obtained from: ED provider and the patient - History of Present Illness HPI Comment/Other: This is a 76-year-old white female who has a history of remote breast CA treated with radiation and mastectomy, coronary disease with a stent and is on Plavix, hypothyroidism on replacement, COPD on Proventil & Diskus, who was in Obs ervation here about a year ago for a lower GI bleed, it was thought to be from combined aspirin and Plavix use plus Motrin and alcohol use and possibly hemorrhoids. She did not undergo endoscopies, because she had an episode of chest pain. The patient presented to the ER today after having lower abdominal cramping and 2 large bright red blood per rectum bowel movements. In the ED her blood press ure has been stable. Hemoglobin is 11.4, down from 12.7 a month ago. On physical exam her stool was melanotic. The patient had a CT angio of her abdomen that showed no areas of blush to localize a GI bleed. There were other incidental findings such as moderate coronary calcification. The patient is being placed in Observation status for monitoring hemoglobin, bowel movements and for a General Surgery consultation for possible EGD and colonoscopy. Two weeks ago the patient had a cough and worsened shortness of breath after being exposed to the burning air and smoke in [facility]. She was put on a course of antibiotics (she thinks Levaquin) and a steroid taper, which she just finished a week ago. The patient reports, and corroborates that she has been more weak, more short of breath and orthopneic over the past several months. Because of the weakness, her Amlodipine dose was stopped and Imdur dose decreased from 60 down to 30 daily, by her Project Lead, Dr Henderson. She has not had an Echo or other cardiac tests in over 5 years. She had a stent that was placed in 2013. She had PFTs done that showed "50% lung capacity". There have been no recent changes or orders from her Bsa Officer Dr. Fleming in [place]. She has never been on home oxygen. She has never used nebulizers at home. She did complete pulmonary rehab here and tries to walk at least 1 mile every day. I asked her about her CODE BLUE wishes and she wants to be a Full Code. History - Past Medical History Cardiovascular: reports: Hypertension, High cholesterol, Coronary artery disease Respiratory: reports: Emphysema Neuro: reports: None Endocrine/Autoimmune: reports: HyPOthyroidism GI: reports: None HAND ALTERATIONS SEAMSTRESS: reports: Breast cancer : reports: Frequency HEENT: reports: Chronic vision loss Psych: reports: None Musculoskeletal: reports: Osteoarthritis Derm: reports: None MRSA Hx?: No - Past Surgical History General: reports: Colonoscopy, EGD Ortho: reports: Hip replacement, Knee replacement, Arthroscopic surgery /HAND ALTERATIONS SEAMSTRESS: reports: Tubal ligation, Mastectomy HEENT: reports: Tonsil/Adenoidectomy - Family & Social History Family History: Mother: , Father: , Other family: Alive and Well (2 adult children are healthy) Family History Comment/Other: Patient said her father at age 68 from lung cancer he was a heavy smoker. Her mother at age 87 from stroke. Living arrangement: At home Living Situation: With spouse/s.o. Social History Notes: She was never a cigarette smoker, but was exposed to 2nd hand smoke from her father & . She does report she drinks 1-3 glasses of wine every day but stopped completely 1 month ago because of SOB, and she denies alcohol withdrawal symptoms. 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 - Substance History Use: Uses substance without health or social issues: NONE - POLST Patient has POLST: No Meds/Allgy - Home Medications Home Medications: Ambulatory Orders Medication Instructions Recorded Confirmed Acetaminophen [Tylenol] 650 mg PO Q6H PRN 06/27/15 12/30/21 Multivitamin [Multivitamins] 1 each PO DAILY 06/27/15 12/30/21 Ocu Zoe 1 tab PO DAILY 06/27/15 12/30/21 atenoloL [Tenormin] 25 mg PO DAILY 06/27/15 12/30/21 Clopidogrel [Plavix] 75 mg PO DAILY 10/19/20 12/30/21 Ezetimibe [Zetia] 10 mg PO DAILY 10/19/20 12/30/21 Pantoprazole Sodium 40 mg PO QDAC 10/19/20 12/30/21 allopurinoL [Zyloprim] 200 mg PO DAILY 10/19/20 12/30/21 Albuterol Sulf [Ventolin Hfa 2 puffs INH Q4HR PRN 12/30/21 12/30/21 Inhaler] Amlodipine Besylate [Norvasc] 2.5 mg PO DAILY 12/30/21 12/30/21 Isosorbide Mononitrate ER [Imdur] 30 mg PO DAILY 12/30/21 12/30/21 Levothyroxine [Synthroid] 125 mcg PO QDAC 12/30/21 12/30/21 Rosuvastatin Calcium [Crestor] 40 mg PO QPM 12/30/21 12/30/21 Salmeterol Xinafoate [Serevent 1 puffs INH BID 12/30/21 12/30/21 Diskus] Tiotropium [place] [Spiriva 2 puffs INH DAILY 12/30/21 12/30/21 Respimat] Venlafaxine ER [Effexor ER] 37.5 mg PO DAILY 12/30/21 12/30/21 - Allergies Allergies/Adverse Reactions: Allergies Allergy/AdvReac Type Severity Reaction Status Date / Time No Known Drug Allergies Allergy Verified 12/30/21 11:51 Review of Systems - Constitutional Constitutional: reports: Fatigue, Weakness - Ears, Nose & Throat Ears, Nose & Throat: reports: Other (Hooarseness, had ENT eval 1 yr ago and was neg. Is going to a diff ENT in 1 week for eval.) - Respiratory Respiratory: reports: Wheezing, Orthopnea, SOB at rest, SOB with exertion - Gastrointestinal Gastrointestinal: reports: Abdominal pain, Black stools, Bloody stools, Other (Trouble swallowing large pills.) - Musculoskeletal Musculoskeletal: reports: Back pain - All Other Systems All Other Systems: reports: Reviewed and negative Exam - Vital Signs Vital Signs: Vital Signs x48h Temp Pulse Resp BP Pulse Ox 12/30/21 14:24 87 24 138/96 H 100 12/30/21 12:42 78 20 148/91 H 100 12/30/21 11:51 36 C L 104 H 22 137/87 H 97 - Physical Exam General Appearance: positive: Alert, Mild distress (Between sentences she has pursed lip breathing) ENT: positive: No signs of dehydration, Other (Hoarse voice) Neck: positive: Nml inspection, No JVD Respiratory: positive: Wheezes (Fine scattered wheezes posteriorly) Cardiovascular: positive: Regular rate & rhythm, No murmur, Other (Loud S2) Abdomen: positive: Non-tender, Nml bowel sounds, No distention Skin: positive: Warm, Dry Extremities: positive: Non-tender, No pedal edema Neurologic/Psychiatric: positive: Oriented x3 (Non-focal) Conclusion/Plan - Problem List (1) Bright red rectal bleeding Conclusion/Plan: This is the patient's second episode in a year with a significant GI bleed. In addition she has melanotic stool in the ED, suggesting an upper GI source as well. Her only risk factor is using aspirin and Plavix and occaisional Motrin and occaisional alcohol. Will place the patient in Observation status. Monitor vital signs. Stop aspirin and Plavix for now. Monitor H/H every 12 hours. General surgery consult will be requested for possible EGD and colonoscopy. Will place the patient on a liquid diet therefore (2) Melena Conclusion/Plan: She has melanotic stool which suggests an upper GI source as well. Her risk factor is using Plavix and occaisional Motrin and tghe recent steroid use. Stop Plavix for now. Monitor H/H every 12 hours. General Surgery consult will be requested for possible EGD and colonoscopy. Will place the patient on a liquid diet therefore and order a SuPrep. Continue with her Protonix dose orally but increase it to bid. (3) Hx of coronary artery disease Conclusion/Plan: In review of records it is seen that the patient had an angiogram in 2019 and there was report of diffuse LAD coronary disease, unamenable to intervention because the vessel was so small. The patient did have angina, but none for over a year. Since her troponin was 44, a second troponin was done and does not show a significant increase, it is 39. Unfortunately we need to hold the patient's Plavix for now, because of the GI bleed. Will continue with her other cardiac medications once they are reconciled. Will obtain an Echocardiogram given her HILL and orthopnea complaints (4) COPD without exacerbation Conclusion/Plan: Her records show there is scarring on 1 side and she believes it may have been f rom having radiation to the breast. She also reports having PFTs years ago and was found to have "50% lung capacity". Possibly the exposure to secondhand smoke added to her having COPD. Because she says her Advair Diskus and Proventil do not help her breathing, will order scheduled nebulizers. We will also order overnight oximetry to see if there is desaturation. (5) Difficulty swallowing Conclusion/Plan: On EGD, her esophagus would be evaluated for a stricture. Qualifiers: Dysphagia type: unspecified Qualified Code(s): R13.10 - Dysphagia, unspecified (6) CKD (chronic kidney disease) Conclusion/Plan: Her BUN and creatinine are mildly elevated. In review of the old records, she normally runs creatinines of 1.1-1.6. Avoid nephrotoxins. Follow BMP daily. - Lab Results Fish Bones: 12/30/21 18:32 12/30/21 12:17 - Diagnostic Imaging Results Diagnostic Imaging Results: positive: Final report reviewed
--- NOTE | 2021-12-30 16:51 | PHARMACY PROGRESS NOTE ---
- Best Possible Medication History Admit Date and Time: 12/30/21 1616 Processed by: Pharmacy Medication History completed: Yes Patient Interview: Pt unable to participate Secondary Source(s): Physician records, Pharmacy records, Insurance records As the person ultimately responsible for medication therapy, providers are able to order a medication from an existing home medication list in [facility] via the "Reconcile Routine" prior to Confirmation of that medication by user support analyst supervisor. Such practice is discouraged except when the physician, in their clinical judgment, deems that a medical need exists for a medication without regard to previous use.
[2021-12-30] MEDS: SODIUM CHLORIDE FLUSH 0.9% 10 ML SYRINGE IVP SCH (17:38)
[2021-12-30 18:37] LABS: HCT - HEMATOCRIT 31.6 % (37.0-47.0); HGB - HEMOGLOBIN 10.3 g/dL (12.0-16.0)
[2021-12-30] MEDS: PANTOPRAZOLE 40 MG TABLET PO SCH (20:56)
[2021-12-30] MEDS: IPRATROPIUM/ALBUTEROL 3 ML NEB INH SCH (21:23)
[2021-12-31] MEDS: SODIUM CHLORIDE FLUSH 0.9% 10 ML SYRINGE IVP SCH ×3 (00:02→17:25)
[2021-12-31] MEDS ORDERED: SODIUM/POTASSIUM/MAG SULFATES 354 ML PREP KIT PO SCH (05:00)
[2021-12-31 05:09] LABS: BASOPHILS % (AUTO) 0.5 %; EOSINOPHILS # (AUTO) 0.1 10^3/uL (0.0-0.7); EOSINOPHILS % (AUTO) 2.3 %; HCT - HEMATOCRIT 27.6 % (37.0-47.0); HGB - HEMOGLOBIN 8.9 g/dL (12.0-16.0); LYMPHOCYTES # (AUTO) 0.9 10^3/uL (1.5-3.5); LYMPHOCYTES % (AUTO) 14.4 %; MEAN CORPUSCULAR HEMOGLOBIN 33.5 pg (27.0-31.0); MEAN CORPUSCULAR HGB CONC 32.2 g/dL (32.0-36.0); MEAN CORPUSCULAR VOLUME 103.8 fL (81.0-99.0); MEAN PLATELET VOLUME 9.2 fL (7.9-10.8); MONOCYTES # (AUTO) 0.6 10^3/uL (0.0-1.0); MONOCYTES % (AUTO) 10.2 %; NEUTROPHILS # (AUTO) 4.5 10^3/uL (1.5-6.6); NEUTROPHILS % (AUTO) 72.4 %; PLT - PLATELET COUNT 151 10^3/uL (130-450); RED BLOOD COUNT 2.66 10^6/uL (4.20-5.40); RED CELL DISTRIBUTION WIDTH 13.7 % (12.0-15.0); WHITE BLOOD COUNT 6.2 x10^3/uL (4.8-10.8)
[2021-12-31 05:18] LABS: CALCIUM 8.5 mg/dL (8.5-10.3); CREATININE 1.2 mg/dL (0.4-1.0); POTASSIUM 3.6 mmol/L (3.5-5.0)
[2021-12-31] MEDS: LEVOTHYROXINE 125 MCG TABLET PO SCH (06:19)
[2021-12-31] MEDS: PANTOPRAZOLE 40 MG TABLET PO SCH (06:20)
[2021-12-31] MEDS ORDERED: PANTOPRAZOLE 40 MG TABLET PO SCH (07:00)
[2021-12-31] MEDS: IPRATROPIUM/ALBUTEROL 3 ML NEB INH SCH ×3 (08:16→20:30)
--- NOTE | 2021-12-31 08:20 | CONSULTATION NOTE ---
Referring Provider Name of Referring Provider:: Mimi Cespedes) Consult Date: 12/31/21 Chief Complaint - Chief Complaint Chief Complaint: gastrointestinal bleeding History of Present Illness - Admitted From Admitted From:: ED - History Obtained From Records Reviewed: records from this and previous visits History obtained from: patient, records, primary team - History of Present Illness HPI Comment/Other: This is a very pleasant 76-year-old female who presented to the emergency room yesterday after having 2 dark bloody bowel movements. Since her presentation, the patient states that she has had another 5-6 bowel movements which have been decreasing in volume and frequency. The patient endorses associated weakness, and some abdominal bloating and "gas pains". She denies any epigastric discomfort. She does endorse worsening GERD for the last 1 week despite being on Protonix and Pepcid (she reports she held these medications for about 10 days when she was having dysphagia as noted below, but has been taking both for the last 2 weeks). She does take Aleve daily. She is on Plavix for coronary artery disease. She has not been taking aspirin for "a long time" more than several months. Patient also tells me that about 1 month ago she was in [facility] with her family and was exposed to quite a bit of smoke. After this, she noted increasing weakness, difficulty breathing, and dysphagia. She was treated with antibiotics and steroids for a COPD exacerbation and her breathing is at baseline now. Her dysphagia has also improved, and she is again tolerating her pills and a regular diet. Prior to this trip to [place], the patient states that she drank 2 to 3 glasses of wine per day, but has not been drinking alcohol for the last 1 month. Notably, the patient had a similar episode of gastrointestinal bleeding approximately 1 year ago. At that time she was also having some chest pain. It was felt to be too high risk to undergo endoscopy at our facility at that time. Her symptoms resolved and she was discharged. Her last colonoscopy was in 2016 and demonstrated diverticulosis without bleeding and no polyps. She has had one previous upper endoscopy which was normal and was performed approximately 15 years ago. History - Past Medical History Cardiovascular: reports: Hypertension, High cholesterol, Coronary artery disease (on plavix, most recent angiogram 2019) Respiratory: reports: Emphysema Neuro: reports: None Endocrine/Autoimmune: reports: HyPOthyroidism GI: reports: None EXPENSE ANALYST: reports: Breast cancer : reports: Frequency HEENT: reports: Chronic vision loss Psych: reports: None Musculoskeletal: reports: Osteoarthritis Derm: reports: None MRSA Hx?: No - Past Surgical History General: reports: Colonoscopy, EGD Ortho: reports: Hip replacement (right), Knee replacement (bilateral), Arthroscopic surgery /EXPENSE ANALYST: reports: Dilation and currettage, Tubal ligation, Mastectomy (left) Cardiovascular: reports: Coronary stent (2014), Cardiac catheterization (most recent, 2018, long LAD lesion not amenable to stent) HEENT: reports: Tonsil/Adenoidectomy - Family & Social History Family History: Mother: , Father: , Other family: Alive and Well (2 adult children are healthy) Family History Comment/Other: Patient said her father at age 68 from lung cancer he was a heavy smoker. Her mother at age 87 from stroke. Living arrangement: At home Living Situation: With spouse/s.o. Social History Notes: She was never a cigarette smoker, but was exposed to 2nd hand smoke from her father & . She does report she drinks 1-3 glasses of wine every day but stopped completely 1 month ago because of SOB, and she denies alcohol withdrawal symptoms. 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 - Substance History Use: Uses substance without health or social issues: NONE - POLST Patient has POLST: No Meds/Allgy - Home Medications Home Medications: Ambulatory Orders Medication Instructions Recorded Confirmed Acetaminophen [Tylenol] 650 mg PO Q6H PRN 06/27/15 12/30/21 Multivitamin [Multivitamins] 1 each PO DAILY 06/27/15 12/30/21 Ocu Zoe 1 tab PO DAILY 06/27/15 12/30/21 atenoloL [Tenormin] 25 mg PO DAILY 06/27/15 12/30/21 Clopidogrel [Plavix] 75 mg PO DAILY 10/19/20 12/30/21 Ezetimibe [Zetia] 10 mg PO DAILY 10/19/20 12/30/21 Pantoprazole Sodium 40 mg PO QDAC 10/19/20 12/30/21 allopurinoL [Zyloprim] 200 mg PO DAILY 10/19/20 12/30/21 Albuterol Sulf [Ventolin Hfa 2 puffs INH Q4HR PRN 12/30/21 12/30/21 Inhaler] Amlodipine Besylate [Norvasc] 2.5 mg PO DAILY 12/30/21 12/30/21 Isosorbide Mononitrate ER [Imdur] 30 mg PO DAILY 12/30/21 12/30/21 Levothyroxine [Synthroid] 125 mcg PO QDAC 12/30/21 12/30/21 Rosuvastatin Calcium [Crestor] 40 mg PO QPM 12/30/21 12/30/21 Salmeterol Xinafoate [Serevent 1 puffs INH BID 12/30/21 12/30/21 Diskus] Tiotropium [place] [Spiriva 2 puffs INH DAILY 12/30/21 12/30/21 Respimat] Venlafaxine ER [Effexor ER] 37.5 mg PO DAILY 12/30/21 12/30/21 - Allergies Allergies/Adverse Reactions: Allergies Allergy/AdvReac Type Severity Reaction Status Date / Time No Known Drug Allergies Allergy Verified 12/30/21 11:51 Review of Systems - Other Findings Other Findings: A complete 10 point review of symptoms is otherwise negative except for that noted in HPI and PMH. Exam - Vital Signs Vital Signs: Vital Signs x48h Temp Pulse Resp BP Pulse Ox 12/31/21 07:15 81 20 133/89 H 100 12/31/21 05:00 36.7 C 63 16 125/67 99 - Physical Exam Comments/Other: GEN: No acute distress, appears stated age, alert and oriented HEENT: NCAT, MMM, EOMI NEURO: CN II-XII grossly intact, no obvious focal deficits CV: RRR, no murmer appreciated PULM: Patient breathes with pursed lips, decreased breath sounds in bilateral lung liang, left greater than right. No obvious wheezes, rales, or rhonchi. ABD: soft, non tender, nondistended, no rebound or guarding CIRCULATORY: no clubbing, cyanosis, or edema, decreased cap refill SKIN: no lesions appreciated, the patient does appear pale LYMPH: no obvious lymphadenopathy MSK: 3/4 strength in all extremities PSYCH: Affect is appropriate Conclusion and Plan - Lab Results Laboratory Results 12/31/21 05:04: B-Natriuretic Peptide 185 H 12/31/21 05:04: Sodium 138, Potassium 3.6, Chloride 102, Carbon Dioxide 27, Anion Gap 9.0, BUN 42 H, Creatinine 1.2 H, Estimated GFR (MDRD) 44 L, Glucose 84, Calcium 8.5 12/31/21 05:04: WBC 6.2, RBC 2.66 L, Hgb 8.9 L, Hct 27.6 L, MCV 103.8 H, MCH 33.5 H, MCHC 32.2, RDW 13.7, Plt Count 151, MPV 9.2, Neut # (Auto) 4.5, Lymph # (Auto) 0.9 L, Kemper # (Auto) 0.6, Eos # (Auto) 0.1, Baso # (Auto) 0.0, Absolute Nucleated RBC 0.00, Nucleated RBC % 0.0 12/30/21 18:32: Hgb 10.3 L, Hct 31.6 L 12/30/21 15:09: Troponin I High Sens 39.4 H* 12/30/21 14:20: SARS-CoV-2 (PCR) NOT DETECTED 12/30/21 12:17: Troponin I High Sens 41.1 H* 12/30/21 12:17: Sodium 140, Potassium 4.5, Chloride 101, Carbon Dioxide 30, Anion Gap 9.0, BUN 37 H, Creatinine 1.1 H, Estimated GFR (MDRD) 48 L, Glucose 94, Calcium 9.2, Total Bilirubin 0.7, AST 52 H, ALT 26, Alkaline Phosphatase 78, Total Protein 7.1, Albumin 3.6, Globulin 3.5, Albumin/Globulin Ratio 1.0, Lipase 43 12/30/21 12:17: PT 11.4, INR 1.0 12/30/21 12:17: WBC 6.8, RBC 3.38 L, Hgb 11.4 L, Hct 35.9 L, MCV 106.2 H, MCH 33.7 H, MCHC 31.8 L, RDW 13.5, Plt Count 193, MPV 9.4, Neut # (Auto) 5.4, Lymph # (Auto) 0.8 L, Kemper # (Auto) 0.4, Eos # (Auto) 0.1, Baso # (Auto) 0.1, Absolute Nucleated RBC 0.00, Nucleated RBC % 0.0 12/30/21 12:17: Blood Type A POSITIVE, Antibody Screen NEGATIVE - Diagnostic Imaging Results Diagnostic Imaging Results: positive: Final report reviewed Diagnostic Imaging Results Comments: I personally reviewed the images and report from the patient's recent CT scans. No obvious thickening of esophagus or colon noted. No free air. No significant free fluid. - Consultation Note Consultation Note: This is a 76-year-old female with: 1. Gastrointestinal bleeding The patient has had several dark bowel movements over the last 24 hours. This is her second such episode, the last being approximately 1 year ago. She denies any epigastric abdominal pain. She has no history of peptic ulcer disease. She does have a remote history of breast cancer. Risk factors for upper gastrointestinal bleeding include GERD, chronic Plavix use, chronic NSAID use, and chronic alcohol use (though the patient has not been drinking alcohol for the last 1 month). -Patient continues on a proton pump inhibitor and takes both a PPI and H2 jose at home. She does endorse worsening GERD for the last 1 week. She denies any GERD symptoms at the time of my visit. -The patient's last colonoscopy was 6 years ago, she has never had any previous colon polyps. She has no family history of colon cancer or inflammatory bowel disease. -I have discussed the patient with our anesthesia team, and she is felt to be an appropriate candidate for endoscopy. -Plan for bowel prep today with MiraLAX and Gatorade, followed by urgent upper and lower endoscopy tomorrow. I discussed the rationale behind upper and lower endoscopy for the patient's symptom with the patient and her at bedside. We discussed the risks, benefits, and alternatives including bleeding (rebleeding, or worsening bleeding) and perforation. The patient and her voiced understanding, their questions were answered, and they wish to proceed with endoscopy. A consent was signed by the patient in her hospital room. -I recommend continued IV PPI at this time. On discharge, the patient will likely need to restart her Plavix due to her coronary artery disease. I would like her to stop taking Aleve and other NSAID medications and avoid alcohol to reduce her risk of repeat gastrointestinal bleeding. - Notably, patient has an UGI swallow study scheduled for Sat of this week in [place]. 2. Anemia, acute on chronic (acute component due to acute blood loss), secondary to 1 -The patient appears to be mildly symptomatic at this time. She is not ta chycardic or hypotensive, but is fatigued. -Continue to trend hemoglobin, with recommendation to transfuse the patient if her hemoglobin drops below 8. -MCV is noted to be greater than 100 at baseline and during this hospital stay. Ferritin, folate and B12 levels have been ordered. 3. Coronary artery disease -One year ago, the patient was having some chest discomfort and was felt to be too high risk for endoscopy at our facility. During this hospital stay and the patient's recent illness, she has not complained of any chest discomfort. Her troponin was noted to be mildly elevated on admission but is stable. -Echo pending -management as per primary team 4. CKD, COPD, hypothyroidism - as per primary team Thank you for consulting me in the care of this patient! I will continue to follow closely.
[2021-12-31] MEDS: atenoloL 25 MG TABLET PO SCH (08:49)
[2021-12-31] MEDS: DEXTROSE 5%-0.9% NACL 1,000 ML IV SCH (08:49)
[2021-12-31] MEDS: ISOSORBIDE MONONITRATE ER 30 MG TABLET PO SCH (08:49)
[2021-12-31] MEDS: allopurinoL 100 MG TABLET PO SCH (08:49)
[2021-12-31] MEDS ORDERED: ISOSORBIDE MONONITRATE 60 MG PO SCH (09:00)
[2021-12-31] MEDS ORDERED: ISOSORBIDE MONONITRATE ER 30 MG TABLET PO SCH (09:00)
--- NOTE | 2021-12-31 09:00 | PROVIDER PROGRESS NOTE ---
Assessment/Plan - Problem List (1) Lower GI bleed Assessment/Plan: This is the patient's second episode in a year with a significant GI bleed. Since admission she has had large and bright red bowel movements more than 4 times. She has dropped her hemoglobin from 11 to 10 and is 8.9 today (H/H was checked every 12 hrs). Will admit the patient to Inpatient status due to ongoing bleeding Monitor vital signs closely, and orthostatics daily. We have stopped Plavix for now. The reason was explained to the patient and at admission Monitor H/H every 6 hours. General surgery consult requested for EGD and colonoscopy. (2) Melena Conclusion/Plan: She had black melanotic stool found on rectal exam in the ED, which suggests an upper GI source as well. Her risk factor was using Plavix and occasional Motrin and the recent steroid use. We have stopped her Plavix Monitor H/H every 6 hours. Transfuse if hemoglobin drops below 7. She would agree to blood transfusions. General Surgery consult requested for possible EGD and colonoscopy. Will place the patient on a liquid diet therefore and order a SuPrep. We continue with her Protonix dose orally but at bid. Will now change it to iv bid. (3) Hx of coronary artery disease Conclusion/Plan: In review of records it is seen that the patient had an angiogram in 2018 and ere was report of diffuse LAD coronary disease, unamenable to intervention because the vessel was so small. The patient did have angina, but none for over a year. Since her troponin was 44, a second troponin was done and does not show a significant increase, it is 39. Unfortunately we need to hold the patient's Plavix for now, because of the GI bleed. The reason was explained to the patient and at admission Will continue with her other cardiac medications once they are reconciled. Will obtain an Echocardiogram given her HILL and orthopnea complaints (4) COPD without exacerbation Conclusion/Plan: Her records show there is scarring on 1 side and she believes it may have been from having radiation to the breast. She also reports having PFTs years ago and was found to have "50% lung capacity". She also had exposure to secondhand smoke. She says Dr. Crowder (her Hat Steamer in [place]) and has never called her diagnosis COPD, emphysema, or Pulmonary Fibrosis, just "lung scarring" Because she says her Advair Diskus and Proventil do not help her breathing, we ordered scheduled nebulizers. She told RT that it helped, she told me that it did not. Will continue nebs for now. We will also order overnight Nocturnal oximetry to see if there is desaturation to suggest sleep apnea (5) Cor Pulmonale Conclusion/Plan: The patient gave me more details about her pulmonary history today: She sees Dr. Crowder in [place]. She had PFTs done 4 months ago and was told that her lungs are working at 50%. She had a CAT scan of the lungs done several months ago also which showed scarring. She has never been told she has emphysema or COPD. She does not think her inhalers at home help her at all with the shortness of breath. We tried nebulizers here and she noticed no difference either. An Echocardiogram has been ordered, given the history of worsening shortness of breath and CAD with stent done in 2013. We have no power lineman technician here until Saturday (today Saturday). Therefore I performed a bedside limited Echocardiogram, as a board-certified Casting Machine Set Up Operator credentialed to interpret Echoes. The Echo showed: Normal left atrial size, right atrium never well seen. Normal aortic root diameter. Normal left ventricular size with concentric left ventricular hypertrophy, normal LV contractility, ejection fraction 60%. Mild LV diastolic dysfunction noted. Right ventricle moderately dilated and moderately depressed RV function. No pericardial effusion seen. Doppler of the valves was not done. Therefore she has Cor Pulmonale. She needs a complete Echo with Doppler performed. Will order this. We will request records of the PFT and CT scan chest results from [facility] or Dr Crowder (Hat Steamer) (6) Difficulty swallowing Conclusion/Plan: On EGD, her esophagus would be evaluated for a stricture. Qualifiers: Dysphagia type: unspecified Qualified Code(s): R13.10 - Dysphagia, unspecified (7) CKD (chronic kidney disease) Conclusion/Plan: Her BUN and creatinine are mildly elevated. In review of the old records, she normally runs creatinines of 1.1-1.6. Avoid nephrotoxins. Follow BMP daily. - Current Meds Current Meds: Current Medications Generic Name Dose Route Start Last Admin Trade Name Freq PRN Reason Stop Dose Admin Albuterol/Ipratropium 3 ml 12/30/21 19:00 12/31/21 08:16 Ipratropium/Albuterol 3 Ml Neb INH 3 ml RTTID SAM Administration Allopurinol 100 mg 12/31/21 09:00 12/31/21 08:49 Allopurinol 100 Mg Tablet PO 100 mg DAILY SAM Administration Atenolol 25 mg 12/31/21 09:00 12/31/21 08:49 Atenolol 25 Mg Tablet PO 25 mg DAILY SAM Administration Dextrose/Sodium Chloride 1,000 mls @ 60 mls/hr 12/31/21 08:00 12/31/21 08:49 D5ns IV 60 mls/hr .[id number] SAM Administration Isosorbide Mononitrate 30 mg 12/31/21 09:00 12/31/21 08:49 Isosorbide Mononitrate Er 30 Mg Tablet PO 30 mg DAILY SAM Administration Levothyroxine Sodium 125 mcg 12/31/21 07:00 12/31/21 06:19 Levothyroxine 125 Mcg Tablet PO 125 mcg QDAC SAM Administration Pantoprazole Sodium 40 mg 12/30/21 19:00 12/31/21 06:20 Pantoprazole 40 Mg Tablet PO 40 mg BIDAC SAM Administration Sodium Chloride 10 ml 12/30/21 17:00 12/31/21 08:49 Sodium Chloride Flush 0.9% 10 Ml Syringe IVP 10 ml 0100,0900,1700 SAM Administration - Lab Result Fish Bone Diagrams: 12/31/21 11:17 12/31/21 05:04 - Additional Planning My Orders: My Active Orders 12/30/21 16:16 Activity Orders [RC] Q2HR IO [RC] IOSHIFT Initiate Bowel Care Protocol [RC] .protocol Initiate Line Care Protocol [RC] QSHIFT Initiate Personal Care Protoco [RC] .protocol Oxygen Therapy [RC] .PRN Vital Signs [RC] Q4HR Acetaminophen [Tylenol] 650 mg PO Q4HR PRN Ondansetron Inj [Zofran Inj] 4 mg IVP Q6HR PRN Sodium Chloride Flush 0.9% [Normal Saline Flush 0.9%] 10 ml IVP PRN PRN Code Status [OTHERS] Routine Condition of Patient [OTHERS] Routine DVT Prophylaxis [OTHERS] Routine 12/30/21 16:17 IV Insert [RC] .ONCE SCDs [RC] QSHIFT 12/30/21 17:00 Sodium Chloride Flush 0.9% [Normal Saline Flush 0.9%] 10 ml IVP 0100,0900,1700 12/30/21 18:33 Nebulizer/MDI Tx. [RC] .TID Resp Teach Nebulizer/MDI [RC] .ONCE 12/30/21 19:00 Ipratropium/Albuterol [Duoneb] 3 ml INH RTTID Pantoprazole [Protonix] 40 mg PO BIDAC 12/31/21 06:00 DIET [NPO except Meds] [DIET] 12/31/21 07:00 Levothyroxine [Synthroid] 125 mcg PO QDAC 12/31/21 07:48 Orthostatic [Vital Signs - Orthostatic] [RC] QSHIFT 12/31/21 07:51 Continuous Pulse Oximetry [RC] CONT 12/31/21 08:00 Dextrose 5%-0.9% NaCl [D5ns] 1,000 ml IV 60 mls/hr 12/31/21 08:55 Admit \\ Transfer \\ Status [RC] .ONCE 12/31/21 09:00 Isosorbide Mononitrate ER [Imdur] 30 mg PO DAILY allopurinoL [Zyloprim] 100 mg PO DAILY atenoloL [Tenormin] 25 mg PO DAILY 12/31/21 11:00 HEMOGLOBIN AND HEMATOCRIT [HEME] Q6H 12/31/21 17:00 HEMOGLOBIN AND HEMATOCRIT [HEME] Q6H 12/31/21 23:00 HEMOGLOBIN AND HEMATOCRIT [HEME] Q6H 01/01/22 05:00 BMP - BASIC METABOLIC PANEL [CHEM] DAILYLAB BNP - B-NATRIURETIC PEPTIDE [IAI] DAILYLAB HEMOGLOBIN AND HEMATOCRIT [HEME] Q6H MAGNESIUM [CHEM] DAILYLAB 01/02/22 07:00 Echo Transthoracic Complete [ECHO] Routine Subjective - Subjective Patient Reports: Diarrhea (Large liquid brown and red.), Shortness of Breath (Unchanged from her usual, over the last 2 to 3-month) Objective Vital Signs: Vital Signs - 24 hr 12/30/21 12/30/21 12/30/21 11:51 12:42 14:24 Temperature 36 C L Heart Rate 104 H 78 87 Heart Rate [ Brachial] Heart Rate [ Monitoring electrodes] Respiratory 22 20 24 Rate Blood Pressure 137/87 H 148/91 H 138/96 H Blood Pressure [Right Brachial artery] O2 Saturation 97 100 100 12/30/21 12/30/21 12/30/21 17:07 18:34 20:24 Temperature 36.7 C 36.3 C L Heart Rate Heart Rate [ Brachial] Heart Rate [ 95 75 Monitoring electrodes] Respiratory 20 21 Rate Blood Pressure Blood Pressure 131/85 H 122/79 [Right Brachial artery] O2 Saturation 94 98 95 12/31/21 12/31/21 12/31/21 00:02 05:00 07:15 Temperature 36.5 C 36.7 C Heart Rate Heart Rate [ 75 63 81 Brachial] Heart Rate [ Monitoring electrodes] Respiratory 16 16 20 Rate Blood Pressure Blood Pressure 138/73 H 125/67 133/89 H [Right Brachial artery] O2 Saturation 98 99 100 12/31/21 08:24 Temperature Heart Rate 72 Heart Rate [ Brachial] Heart Rate [ Monitoring electrodes] Respiratory 20 Rate Blood Pressure Blood Pressure [Right Brachial artery] O2 Saturation Oxygen O2 Source Room air I&O (Last 24 Hrs): Intake and Output Totals x24h 12/29/21 12/30/21 12/31/21 23:59 23:59 23:59 Intake Total 480 Balance 480 General: Alert, Oriented x3 HEENT: Mucous membr. moist/pink Neck: Supple, No JVD Neuro: Alert, Non Focal Cardiovascular: Regular rate, No murmurs, Other (Fingertips are dusky/cyanotic) Respiratory: Wheezes (scattered fine wheezes), Other (Between sentences she has pursed lip breathing.) Abdomen: Normal bowel sounds, Soft, No tenderness Extremities: No clubbing, No edema, Other (Between sentences she has pursed lip breathing.) - Results Results: Laboratory Results WBC 6.2 x10^3/uL (4.8-10.8) 12/31/21 05:04 RBC 2.66 10^6/uL (4.20-5.40) L 12/31/21 05:04 Hgb 8.9 g/dL (12.0-16.0) L 12/31/21 05:04 Hct 27.6 % (37.0-47.0) L 12/31/21 05:04 MCV 103.8 fL (81.0-99.0) H 12/31/21 05:04 MCH 33.5 pg (27.0-31.0) H 12/31/21 05:04 MCHC 32.2 g/dL (32.0-36.0) 12/31/21 05:04 RDW 13.7 % (12.0-15.0) 12/31/21 05:04 Plt Count 151 10^3/uL (130-450) 12/31/21 05:04 MPV 9.2 fL (7.9-10.8) 12/31/21 05:04 Neut # (Auto) 4.5 10^3/uL (1.5-6.6) 12/31/21 05:04 Lymph # (Auto) 0.9 10^3/uL (1.5-3.5) L 12/31/21 05:04 [place] # (Auto) 0.6 10^3/uL (0.0-1.0) 12/31/21 05:04 Eos # (Auto) 0.1 10^3/uL (0.0-0.7) 12/31/21 05:04 Baso # (Auto) 0.0 10^3/uL (0.0-0.1) 12/31/21 05:04 Absolute Nucleated RBC 0.00 x10^3/uL 12/31/21 05:04 Nucleated RBC % 0.0 /100WBC 12/31/21 05:04 PT 11.4 secs (9.9-12.6) 12/30/21 12:17 INR 1.0 (0.8-1.2) 12/30/21 12:17 Sodium 138 mmol/L (135-145) 12/31/21 05:04 Potassium 3.6 mmol/L (3.5-5.0) 12/31/21 05:04 Chloride 102 mmol/L (101-111) 12/31/21 05:04 Carbon Dioxide 27 mmol/L (21-32) 12/31/21 05:04 Anion Gap 9.0 (6-13) 12/31/21 05:04 BUN 42 mg/dL (6-20) H 12/31/21 05:04 Creatinine 1.2 mg/dL (0.4-1.0) H 12/31/21 05:04 Estimated GFR (MDRD) 44 (>89) L 12/31/21 05:04 Glucose 84 mg/dL (70-100) 12/31/21 05:04 Calcium 8.5 mg/dL (8.5-10.3) 12/31/21 05:04 Total Bilirubin 0.7 mg/dL (0.2-1.0) 12/30/21 12:17 AST 52 IU/L (10-42) H 12/30/21 12:17 ALT 26 IU/L (10-60) 12/30/21 12:17 Alkaline Phosphatase 78 IU/L (42-121) 12/30/21 12:17 Troponin I High Sens 39.4 ng/L (2.3-14.8) H* 12/30/21 15:09 B-Natriuretic Peptide 185 pg/mL (5-100) H 12/31/21 05:04 Total Protein 7.1 g/dL (6.7-8.2) 12/30/21 12:17 Albumin 3.6 g/dL (3.2-5.5) 12/30/21 12:17 Globulin 3.5 g/dL (2.1-4.2) 12/30/21 12:17 Albumin/Globulin Ratio 1.0 (1.0-2.2) 12/30/21 12:17 Lipase 43 U/L (22-51) 12/30/21 12:17 SARS-CoV-2 (PCR) NOT DETECTED 12/30/21 14:20 Blood Type A POSITIVE 12/30/21 12:17 Antibody Screen NEGATIVE 12/30/21 12:17 - Procedures Procedures: Procedures INSPECTION OF LOWER INTESTINAL TRACT, ENDO (06/28/15)
[2021-12-31 11:28] LABS: HCT - HEMATOCRIT 30.5 % (37.0-47.0); HGB - HEMOGLOBIN 9.8 g/dL (12.0-16.0)
[2021-12-31] MEDS ORDERED: polyethylene glycoL 3350 238 GM BOTTLE PO ONE (11:30)
[2021-12-31 11:59] LABS: % IRON SATURATION 12 % (20-50); IRON 37 ug/dL (28-170); TOTAL IRON BINDING CAPACITY 300 ug/dL (250-450); TRANSFERRIN 214 mg/dL (192-382)
[2021-12-31] MEDS ORDERED: WITCH HAZEL/GLYCERIN 1 PAD TOP PRN (16:29)
[2021-12-31] MEDS: PANTOPRAZOLE 40 MG VIAL IVP SCH (20:52)
[2022-01-01] MEDS: DEXTROSE 5%-0.9% NACL 1,000 ML IV SCH ×2 (05:48→15:02)
[2022-01-01] MEDS: LEVOTHYROXINE 125 MCG TABLET PO SCH (06:03)
[2022-01-01 06:44] LABS: HCT - HEMATOCRIT 24.7 % (37.0-47.0); HGB - HEMOGLOBIN 7.7 g/dL (12.0-16.0); MEAN CORPUSCULAR HEMOGLOBIN 33.6 pg (27.0-31.0); MEAN CORPUSCULAR HGB CONC 31.2 g/dL (32.0-36.0); MEAN CORPUSCULAR VOLUME 107.9 fL (81.0-99.0); MEAN PLATELET VOLUME 9.4 fL (7.9-10.8); RED BLOOD COUNT 2.29 10^6/uL (4.20-5.40); RED CELL DISTRIBUTION WIDTH 13.6 % (12.0-15.0); WHITE BLOOD COUNT 5.4 x10^3/uL (4.8-10.8)
[2022-01-01 06:53] LABS: CALCIUM 8.3 mg/dL (8.5-10.3); MAGNESIUM 1.7 mg/dL (1.7-2.8); POTASSIUM 3.2 mmol/L (3.5-5.0)
[2022-01-01] MEDS: ACETAMINOPHEN 325 MG TABLET PO PRN ×2 (07:10→16:35)
--- NOTE | 2022-01-01 07:12 | PROVIDER PROGRESS NOTE ---
Subjective - General Admit Date: 12/31/21 - Review of Systems All Other Systems: positive: Reviewed and negative - Other Other Information/Narrative: Patient denies any pain. She has completed the bowel prep and did not get a lot of sleep. BM's are yellow and liquid. She is ready "to get this done" this morning when asked about her procedure today. She has no questions. Objective - Patient Data Vital Signs: Vital Signs x48h Temp Pulse Resp BP Pulse Ox 01/01/22 05:30 36.4 C L 71 22 124/70 97 12/31/21 23:58 36.4 C L 82 18 123/78 99 Weight: Weight 12/30/21 12/31/21 01/01/22 23:59 23:59 23:59 Weight (kg) 59.5 kg Intake & Output: Intake and Output Totals x24h 12/30/21 12/31/21 01/01/22 23:59 23:59 23:59 Intake Total 509 841 0276 Output Total 400 150 Balance 480 550 850 - Lab Results Lab Results: 01/01/22 06:38 01/01/22 06:38 Other Lab Results: Lab Results x24hrs 01/01/22 01/01/22 01/01/22 Range/Units 06:38 06:38 06:38 WBC 5.4 (4.8-10.8) x10^3/uL RBC 2.29 L (4.20-5.40) 10^6/uL Hgb 7.7 L (12.0-16.0) g/dL Hct 24.7 L (37.0-47.0) % MCV 107.9 H (81.0-99.0) fL MCH 33.6 H (27.0-31.0) pg MCHC 31.2 L (32.0-36.0) g/dL RDW 13.6 (12.0-15.0) % Plt Count 180 (130-450) 10^3/uL MPV 9.4 (7.9-10.8) fL Sodium 139 (135-145) mmol/L Potassium 3.2 L (3.5-5.0) mmol/L Chloride 105 (101-111) mmol/L Carbon Dioxide 27 (21-32) mmol/L Anion Gap 7.0 (6-13) BUN 22 H (6-20) mg/dL Creatinine 1.0 (0.4-1.0) mg/dL Estimated GFR (MDRD) 54 L (>89) Glucose 91 (70-100) mg/dL Calcium 8.3 L (8.5-10.3) mg/dL Magnesium 1.7 (1.7-2.8) mg/dL Iron (28-170) ug/dL TIBC (250-450) ug/dL % Saturation (20-50) % Transferrin (192-382) mg/dL B-Natriuretic Peptide 166 H (5-100) pg/mL 12/31/21 12/31/21 Range/Units 11:17 11:17 WBC (4.8-10.8) x10^3/uL RBC (4.20-5.40) 10^6/uL Hgb 9.8 L (12.0-16.0) g/dL Hct 30.5 L (37.0-47.0) % MCV (81.0-99.0) fL MCH (27.0-31.0) pg MCHC (32.0-36.0) g/dL RDW (12.0-15.0) % Plt Count (130-450) 10^3/uL MPV (7.9-10.8) fL Sodium (135-145) mmol/L Potassium (3.5-5.0) mmol/L Chloride (101-111) mmol/L Carbon Dioxide (21-32) mmol/L Anion Gap (6-13) BUN (6-20) mg/dL Creatinine (0.4-1.0) mg/dL Estimated GFR (MDRD) (>89) Glucose (70-100) mg/dL Calcium (8.5-10.3) mg/dL Magnesium (1.7-2.8) mg/dL Iron 37 (28-170) ug/dL TIBC 300 (250-450) ug/dL % Saturation 12 L (20-50) % Transferrin 214 (192-382) mg/dL B-Natriuretic Peptide (5-100) pg/mL - Current Medications Current Medications: Current Medications Generic Name Dose Route Start Last Admin Trade Name Freq PRN Reason Stop Dose Admin Albuterol/Ipratropium 3 ml 12/30/21 19:00 12/31/21 20:30 Ipratropium/Albuterol 3 Ml Neb INH Not Given RTTID [facility] Allopurinol 100 mg 12/31/21 09:00 12/31/21 08:49 Allopurinol 100 Mg Tablet PO 100 mg DAILY SAM Administration Atenolol 25 mg 12/31/21 09:00 12/31/21 08:49 Atenolol 25 Mg Tablet PO 25 mg DAILY SAM Administration Dextrose/Sodium Chloride 1,000 mls @ 60 mls/hr 12/31/21 08:00 01/01/22 05:48 D5ns IV 60 mls/hr .[id number] SAM Administration Isosorbide Mononitrate 30 mg 12/31/21 09:00 12/31/21 08:49 Isosorbide Mononitrate Er 30 Mg Tablet PO 30 mg DAILY SAM Administration Levothyroxine Sodium 125 mcg 12/31/21 07:00 01/01/22 06:03 Levothyroxine 125 Mcg Tablet PO 125 mcg QDAC SAM Administration Pantoprazole Sodium 40 mg 12/31/21 21:00 12/31/21 20:52 Pantoprazole 40 Mg Vial IVP 40 mg BID SAM Administration Sodium Chloride 10 ml 12/30/21 17:00 01/01/22 00:00 Sodium Chloride Flush 0.9% 10 Ml Syringe IVP Not Given 0100,0900,1700 [facility] - Physical Exam General Appearance: positive: No acute distress, Alert Eyes Bilateral: positive: Normal inspection, PERRL, EOMI Respiratory: positive: Chest non-tender, No respiratory distress Cardiovascular: positive: Regular rate & rhythm, No murmur Abdomen: positive: Non-tender, No distention Impression/Plan - Problem List Problem List: This is a 76-year-old female with: 1. Gastrointestinal bleeding BM's are clear, liquid. - Risk factors for upper gastrointestinal bleeding include GERD, chronic Plavix use, chronic NSAID use, and chronic alcohol use (though the patient has not been drinking alcohol for the last 1 month). - Patient continues on a proton pump inhibitor and takes both a PPI and H2 jose at home. She does endorse worsening GERD for the week prior to admission. She denies any GERD symptoms at the time of my visit. -The patient's last colonoscopy was 6 years ago, she has never had any previous colon polyps. She has no family history of colon cancer or inflammatory bowel disease. -I have discussed the patient with our anesthesia team, and she is felt to be an appropriate candidate for endoscopy. -Plan for urgent upper and lower endoscopy today. r/b/a discussed, consent signed. -I recommend continued IV PPI at this time. On discharge, the patient will likely need to restart her Plavix due to her coronary artery disease. She is to stop taking Aleve and other NSAID medications and avoid alcohol to reduce her risk of repeat gastrointestinal bleeding. - Notably, patient has an UGI swallow study scheduled for Wed of this week in [place]. 2. Anemia, acute on chronic (acute component due to acute blood loss), secondary to 1 -The patient appears to be mildly symptomatic at this time. She is not tachycardic or hypotensive, but is fatigued. -repeat hgb at 1200. If less than 8, consider transfusion. -MCV is noted to be greater than 100 at baseline and during this hospital stay. Ferritin, folate and B12 levels have been ordered. 3. Coronary artery disease -No recent chest pain/pressure. Her troponin was noted to be mildly elevated on admission but is stable. -bedside echo yesterday demonstrated normal EF, cardiomegaly, and right sided failure, per primary team. -management as per primary team 4. CKD, COPD, hypothyroidism - as per primary team Thank you for consulting me in the care of this patient! I will continue to follow closely.
[2022-01-01 07:19] LABS: FERRITIN 52.9 ng/mL (11.0-306.8)
[2022-01-01 07:22] LABS: FOLATE 20.21 ng/mL (5.90 - >24.8)
[2022-01-01] MEDS: IPRATROPIUM/ALBUTEROL 3 ML NEB INH SCH ×2 (08:17→16:31)
[2022-01-01] MEDS: allopurinoL 100 MG TABLET PO SCH (09:09)
[2022-01-01] MEDS: atenoloL 25 MG TABLET PO SCH (09:09)
[2022-01-01] MEDS: ISOSORBIDE MONONITRATE ER 30 MG TABLET PO SCH (09:09)
[2022-01-01] MEDS: PANTOPRAZOLE 40 MG VIAL IVP SCH ×2 (09:10→20:51)
[2022-01-01] MEDS: POTASSIUM CHLOR 10 MEQ/100 ML 10 MEQ/100 ML BAG IV SCH ×3 (09:22→11:46)
[2022-01-01] MEDS: SODIUM CHLORIDE FLUSH 0.9% 10 ML SYRINGE IVP SCH ×3 (09:24→15:09)
--- NOTE | 2022-01-01 09:26 | ANESTHESIA ---
Pre-Anesthesia VS, & Labs - Diagnosis Anemia, GI Bleed - Procedure EGD and Colonosocpy Vital Signs: Temp Pulse Resp BP Pulse Ox O2 Flow Rate 36.3 C L 68 20 160/69 H 94 01/01/22 07:49 01/01/22 08:18 01/01/22 08:18 01/01/22 07:49 01/01/22 07:49 Height: 5 ft 4 in Weight (kg): 59.5 kg Body Mass Index: 22.5 BMI Classification: Normal - NPO >8 hours - Is Patient ?: No - Lab Results Current Lab Results: Laboratory Tests 01/01/22 06:38: TSH 7.42 H 01/01/22 06:38: WBC 5.4, RBC 2.29 L, Hgb 7.7 L, Hct 24.7 L, MCV 107.9 H, MCH 33.6 H, MCHC 31.2 L, RDW 13.6, Plt Count 180, MPV 9.4 01/01/22 06:38: Ferritin 52.9, Vitamin B12 741, Folate 20.21 01/01/22 06:38: B-Natriuretic Peptide 166 H 01/01/22 06:38: Sodium 139, Potassium 3.2 L, Chloride 105, Carbon Dioxide 27, Anion Gap 7.0, BUN 22 H, Creatinine 1.0, Estimated GFR (MDRD) 54 L, Glucose 91, Calcium 8.3 L, Magnesium 1.7 12/31/21 11:17: Iron 37, TIBC 300, % Saturation 12 L, Transferrin 214 12/31/21 11:17: Hgb 9.8 L, Hct 30.5 L 12/31/21 05:04: B-Natriuretic Peptide 185 H 12/31/21 05:04: Sodium 138, Potassium 3.6, Chloride 102, Carbon Dioxide 27, Anion Gap 9.0, BUN 42 H, Creatinine 1.2 H, Estimated GFR (MDRD) 44 L, Glucose 84, Calcium 8.5 12/31/21 05:04: WBC 6.2, RBC 2.66 L, Hgb 8.9 L, Hct 27.6 L, MCV 103.8 H, MCH 33.5 H, MCHC 32.2, RDW 13.7, Plt Count 151, MPV 9.2, Neut # (Auto) 4.5, Lymph # (Auto) 0.9 L, [place] # (Auto) 0.6, Eos # (Auto) 0.1, Baso # (Auto) 0.0, Absolute Nucleated RBC 0.00, Nucleated RBC % 0.0 12/30/21 18:32: Hgb 10.3 L, Hct 31.6 L 12/30/21 15:09: Troponin I High Sens 39.4 H* 12/30/21 12:17: Troponin I High Sens 41.1 H* 12/30/21 12:17: Sodium 140, Potassium 4.5, Chloride 101, Carbon Dioxide 30, An ion Gap 9.0, BUN 37 H, Creatinine 1.1 H, Estimated GFR (MDRD) 48 L, Glucose 94, Calcium 9.2, Total Bilirubin 0.7, AST 52 H, ALT 26, Alkaline Phosphatase 78, Total Protein 7.1, Albumin 3.6, Globulin 3.5, Albumin/Globulin Ratio 1.0, Lipase 43 12/30/21 12:17: PT 11.4, INR 1.0 12/30/21 12:17: WBC 6.8, RBC 3.38 L, Hgb 11.4 L, Hct 35.9 L, MCV 106.2 H, MCH 33.7 H, MCHC 31.8 L, RDW 13.5, Plt Count 193, MPV 9.4, Neut # (Auto) 5.4, Lymph # (Auto) 0.8 L, [place] # (Auto) 0.4, Eos # (Auto) 0.1, Baso # (Auto) 0.1, Absolute Nucleated RBC 0.00, Nucleated RBC % 0.0 12/30/21 12:17: Blood Type A POSITIVE, Antibody Screen NEGATIVE Fish Bones: 01/01/22 06:38 01/01/22 06:38 Home Medications and Allergies Home Medications: Ambulatory Orders Albuterol Sulf [Ventolin Hfa Inhaler] 2 puffs INH Q4HR PRN 12/30/21 Amlodipine Besylate [Norvasc] 2.5 mg PO DAILY 12/30/21 Isosorbide Mononitrate ER [Imdur] 30 mg PO DAILY 12/30/21 Levothyroxine [Synthroid] 125 mcg PO QDAC 12/30/21 Rosuvastatin Calcium [Crestor] 40 mg PO QPM 12/30/21 Salmeterol Xinafoate [Serevent Diskus] 1 puffs INH BID 12/30/21 Tiotropium [place] [Spiriva Respimat] 2 puffs INH DAILY 12/30/21 Venlafaxine ER [Effexor ER] 37.5 mg PO DAILY 12/30/21 Active Medications Acetaminophen (Acetaminophen 325 Mg Tablet) 650 mg PO Q4HR PRN PRN Reason: Pain 1 to 4, or Fever Last Admin: 01/01/22 07:10 Dose: 650 mg Albuterol/Ipratropium (Ipratropium/Albuterol 3 Ml Neb) 3 ml INH RTTID [facility] Last Admin: 01/01/22 08:17 Dose: 3 ml Allopurinol (Allopurinol 100 Mg Tablet) 100 mg PO DAILY [facility] Last Admin: 12/31/21 08:49 Dose: 100 mg Atenolol (Atenolol 25 Mg Tablet) 25 mg PO DAILY [facility] Last Admin: 12/31/21 08:49 Dose: 25 mg Dextrose/Sodium Chloride (D5ns) 1,000 mls @ 60 mls/hr IV .[id number] [facility] Last Admin: 01/01/22 05:48 Dose: 60 mls/hr Potassium Chloride (Potassium Chloride) 10 meq in 100 mls @ 100 mls/hr IV Q1H [facility] Stop: 01/01/22 11:59 Isosorbide Mononitrate (Isosorbide Mononitrate Er 30 Mg Tablet) 30 mg PO DAILY [facility] Last Admin: 12/31/21 08:49 Dose: 30 mg Levothyroxine Sodium (Levothyroxine 125 Mcg Tablet) 125 mcg PO QDAC [facility] Last Admin: 01/01/22 06:03 Dose: 125 mcg Ondansetron HCl (Ondansetron 4 Mg/2 Ml Vial) 4 mg IVP Q6HR PRN PRN Reason: Nausea / Vomiting Pantoprazole Sodium (Pantoprazole 40 Mg Vial) 40 mg IVP BID [facility] Last Admin: 12/31/21 20:52 Dose: 40 mg Sodium Chloride (Sodium Chloride Flush 0.9% 10 Ml Syringe) 10 ml IVP PRN PRN PRN Reason: NEEDED PER PROVIDER ORDERS Sodium Chloride (Sodium Chloride Flush 0.9% 10 Ml Syringe) 10 ml IVP 0100 ,0900,1700 [facility] Last Admin: 01/01/22 00:00 Dose: Not Given Witch Lashonda/Glycerin (Witch Lashonda/Glycerin 1 Pad) 1 pad TOP PRN PRN PRN Reason: ITCHING Acetaminophen [Tylenol] 650 mg PO Q6H PRN 06/27/15 Multivitamin [Multivitamins] 1 each PO DAILY 06/27/15 Ocu Zoe 1 tab PO DAILY 06/27/15 atenoloL [Tenormin] 25 mg PO DAILY 06/27/15 Clopidogrel [Plavix] 75 mg PO DAILY 10/19/20 Ezetimibe [Zetia] 10 mg PO DAILY 10/19/20 Pantoprazole Sodium 40 mg PO QDAC 10/19/20 allopurinoL [Zyloprim] 200 mg PO DAILY 10/19/20 Albuterol Sulf [Ventolin Hfa Inhaler] 2 puffs INH Q4HR PRN 12/30/21 Amlodipine Besylate [Norvasc] 2.5 mg PO DAILY 12/30/21 Isosorbide Mononitrate ER [Imdur] 30 mg PO DAILY 12/30/21 Levothyroxine [Synthroid] 125 mcg PO QDAC 12/30/21 Rosuvastatin Calcium [Crestor] 40 mg PO QPM 12/30/21 Salmeterol Xinafoate [Serevent Diskus] 1 puffs INH BID 12/30/21 Tiotropium [place] [Spiriva Respimat] 2 puffs INH DAILY 12/30/21 Venlafaxine ER [Effexor ER] 37.5 mg PO DAILY 12/30/21 Allergies/Adverse Reactions: Allergies Allergy/AdvReac Type Severity Reaction Status Date / Time No Known Drug Allergies Allergy Verified 12/30/21 11:51 Anes History & Medical History - Anesthetic History Anesthesia Complications: reports: No previous complications - Medical History Cardiovascular: reports: Hypertension, High cholesterol, Coronary artery disease (on plavix, most recent angiogram 2019. Unamenable to intervention) Pulmonary: reports: COPD, Emphysema Gastrointestinal: reports: None Urinary: reports: Frequency Neuro: reports: None Musculoskeletal: reports: Osteoarthritis Endocrine/Autoimmune: reports: HyPOthyroidism Blood Disorders: reports: Anemia Skin: reports: None Smoking Status: Never smoker Psychosocial: reports: Alcohol History of Cancer?: Yes (breast s/p radiation to chest) - Surgical History General: reports: Colonoscopy, EGD Eyes Ears Nose Throat (EENT): reports: Tonsil/Adenoidectomy Cardiothoracic: reports: Coronary stent (2014), Cardiac catheterization (most recent, 2019, long LAD lesion not amenable to stent) Gynecologic: reports: Dilation and currettage, Tubal ligation, Mastectomy (left) Orthopedic: reports: Hip replacement (right), Knee replacement (bilateral), Arthroscopic surgery Exam General: Alert, Oriented x3, Cooperative, No acute distress Dental: WNL Mouth Openin Fingerbreadth Mallampati classification: II Thyromental Distance: 4-6 cm Mental/Cognitive Status: Alert/Oriented X3, Normal for patient Plan Anesthesia Type: General, Total IV Consent for Procedure(s) Verified and Reviewed: Yes Code Status: Attempt Resuscitation ASA classification: 3-Severe systemic disease Is this case an emergency?: No
[2022-01-01] MEDS ORDERED: GLYCOPYRROLATE 1 MG/5 ML VIAL ONE (13:19)
[2022-01-01] MEDS ORDERED: DEXTROSE 5%-LACTATED RINGERS 500 ML IV ONE (13:20)
[2022-01-01] MEDS ORDERED: fentaNYL 100 MCG/2 ML VIAL IVP PRN (13:57)
[2022-01-01] MEDS ORDERED: MORPHINE 2 MG/ML CARPUJECT IVP PRN (13:57)
[2022-01-01] MEDS ORDERED: ATROPINE ABBOJECT 1 MG/10 ML SYRINGE IVP PRN (13:57)
[2022-01-01] MEDS ORDERED: ePHEDrine 50 MG/ML VIAL IVP PRN (13:57)
[2022-01-01] MEDS ORDERED: HYDROmorphone 0.5 MG/0.5 ML SYRINGE IVP PRN (13:57)
[2022-01-01] MEDS ORDERED: NALOXONE 0.4 MG/ML VIAL IVP PRN (13:57)
[2022-01-01] MEDS ORDERED: ONDANSETRON 4 MG/2 ML VIAL IVP PRN (13:57)
[2022-01-01] MEDS ORDERED: LACTATED RINGERS 1,000 ML IV SCH (14:00)
--- NOTE | 2022-01-01 14:18 | PROVIDER PROGRESS NOTE ---
Assessment/Plan - Problem List (1) GI bleed Assessment/Plan: This is the patient's second episode in a year with a significant GI bleed. Since admission she has had large and bright red then dark bowel movements. She has dropped her hemoglobin from 11 to 10 to 8.9 then 7.7 today (H/H was checked approx. every 12 hrs). She was admitted to Inpatient status due to presumed ongoing bleeding Monitoring vital signs closely, and orthostatic checks ordered daily. We stopped Plavix. The reason was explained to the patient and at admission General surgery consult was done yesterday and EGD and colonoscopy done today. No source of bleeding was found. The stomach is normal and has no gastritis, the esophagus has no stricture. Dr Andre recommended no NSAID use, to resume her Protonix and Pepcid, OK to resume a solid diet and to resume Plavix and if she has GI bleeding again she would need a pill camera. (2) GI blood loss anemia Conclusion/Plan: She had red BMs and black melanotic stool We had stopped her Plavix Monitoring H/H every 12 hours. Transfuse if hemoglobin drops below 7. She would agree to blood transfusions. (3) SOB Conclusion/Plan: She presented with complaints of HILL and intermittent shortness of breath at rest for the last 2 to 3 months. Her records show there is lung scarring on 1 side and she believes it may have been from having remote radiation for her breast cancer. She also reports having PFTs years ago and was found to have "50% lung capacity". She also had remote exposure to secondhand smoke. She says Dr. Crowder (her Ventilation Worker in [place]) and has never called her diagnosis COPD, emphysema, or Pulmonary Fibrosis, just "lung scarring". Will try to get her PFTs, CT chest and last notes from Dr. Crowder; our [facility] RN has requested those. Because she says her Advair Diskus and Proventil do not help her breathing, we ordered scheduled nebulizers to try. She told RT that nebs helped, she told me that it did not. Will discontinue nebs. I ordered overnight Nocturnal oximetry to see if there is desaturation to suggest sleep apnea, and she only desaturated <90% for 30 sec, therefore unremarkable. I suspect this lady has restrictive lung disease, not obstructive disease, because of her exam with shallow breaths, feeling air hunger and having scarring seen on chest x-ray. She will need an exercise oximetry test done on the day of discharge to see if she needs home O2. We need to know her definitive lung diagnosis however, before oxygen will be covered by Medicare (4) Cor Pulmonale Conclusion/Plan: The patient gave me more details about her pulmonary history: She sees Dr. Crowder in [place]. She had PFTs done 4 months ago and was told that her lungs are working at 50%. She had a CAT scan of the lungs done several months ago also which showed scarring. She has never been told she has emphysema or COPD. She does not think her inhalers at home help her at all with the shortness of breath. We tried nebulizers here and she noticed no difference either. An Echocardiogram has been ordered, given the history of worsening shortness of breath and CAD with stent done in 2013. We have no commercial kitchen service technician here until Tuesdays, therefore I performed a bedside limited Echocardiogram on 12/31, as a board-certified Inker credentialed to interpret Echoes. The Echo showed: Normal left atrial size, right atrium never well seen. Normal aortic root diameter. Normal left ventricular size with concentric left ventri cular hypertrophy, normal LV contractility, ejection fraction 60%. Mild LV diastolic dysfunction noted. Right ventricle moderately dilated and moderately depressed RV function. No pericardial effusion seen. Doppler of the valves was not done. Therefore she has Cor Pulmonale. She needs a complete Echo with Doppler performed. Will order this. We will request records of the PFT and CT scan chest results from [place] Dr Crowder (Ventilation Worker) (5) Hx of coronary artery disease Conclusion/Plan: In review of records it is seen that the patient had an angiogram in 2019 and there was report of diffuse LAD coronary disease, unamenable to intervention because the vessel was so small. The patient did have angina, but none for over a year. Troponins were 44 and 39, unremarkable. Plavix was put on hold at admission, because of the GI bleed. We have continue her other cardiac medications Since her EGD and colonoscopy today showed no signs of bleeding, no signs of recent ulcer or gastritis, Dr. Andre (General Surgery who did the scopes), said Plavix can be resumed. We will restart it tomorrow. (6) Difficulty swallowing Conclusion/Plan: On EGD, her esophagus was evaluated for a stricture and there is none. She is scheduled to re-see an ENT soon. Perhaps she has abnormality of her epiglottis and/or chronic aspiration. Qualifiers: Dysphagia type: unspecified Qualified Code(s): R13.10 - Dysphagia, unspecified (7) CKD (chronic kidney disease) Conclusion/Plan: Her BUN and creatinine are mildly elevated. In review of the old records, she normally runs creatinines of 1.1-1.6. Avoid nephrotoxins. Follow BMP daily. - Current Meds Current Meds: Current Medications Generic Name Dose Route Start Last Admin Trade Name Freq PRN Reason Stop Dose Admin Acetaminophen 650 mg 12/30/21 16:16 01/01/22 07:10 Acetaminophen 325 Mg Tablet PO 650 mg Q4HR PRN Administration Pain 1 to 4, or Fever Albuterol/Ipratropium 3 ml 12/30/21 19:00 01/01/22 08:17 Ipratropium/Albuterol 3 Ml Neb INH 3 ml RTTID SAM Administration Allopurinol 100 mg 12/31/21 09:00 01/01/22 09:09 Allopurinol 100 Mg Tablet PO 100 mg DAILY SAM Administration Atenolol 25 mg 12/31/21 09:00 01/01/22 09:09 Atenolol 25 Mg Tablet PO 25 mg DAILY SAM Administration Dextrose/Sodium Chloride 1,000 mls @ 60 mls/hr 12/31/21 08:00 01/01/22 05:48 D5ns IV 60 mls/hr .[id number] SAM Administration Isosorbide Mononitrate 30 mg 12/31/21 09:00 01/01/22 09:09 Isosorbide Mononitrate Er 30 Mg Tablet PO 30 mg DAILY SAM Administration Levothyroxine Sodium 125 mcg 12/31/21 07:00 01/01/22 06:03 Levothyroxine 125 Mcg Tablet PO 125 mcg QDAC SAM Administration Pantoprazole Sodium 40 mg 12/31/21 21:00 01/01/22 09:10 Pantoprazole 40 Mg Vial IVP 40 mg BID SAM Administration Sodium Chloride 10 ml 12/30/21 17:00 01/01/22 09:24 Sodium Chloride Flush 0.9% 10 Ml Syringe IVP 10 ml 0100,0900,1700 SAM Administration - Lab Result Fish Bone Diagrams: 01/01/22 11:52 01/01/22 06:38 - Additional Planning My Orders: My Active Orders 12/31/21 16:29 Witch Lashonda/Glycerin [Tucks] 1 pad TOP PRN PRN 12/31/21 21:00 Pantoprazole [Protonix] 40 mg IVP BID 01/01/22 00:01 DIET [NPO except Meds] [DIET] 01/02/22 05:00 BMP - BASIC METABOLIC PANEL [CHEM] DAILYLAB CBC W/O DIFF (HEMOGRAM) [HEME] DAILYLAB 01/02/22 07:00 Echo Transthoracic Complete [ECHO] Routine 01/02/22 08:00 Vitamin [Trinatal Rx 1] 1 tab PO DAILYWM 01/02/22 09:00 Clopidogrel [Plavix] 75 mg PO DAILY Subjective - Subjective Patient Reports: Pain (New pain in L foot at arch, tender to touch, never had this before.), Other (Unchanged: SOB at rest and with activity and had watery dark BMs (after bowel prep).) Objective Vital Signs: Vital Signs - 24 hr 12/31/21 12/31/21 12/31/21 15:40 21:00 23:58 Temperature 36.3 C L 36.4 C L 36.4 C L Heart Rate Heart Rate [ 78 82 Brachial] Heart Rate [ 71 Monitoring electrodes] Respiratory 20 20 18 Rate Blood Pressure Blood Pressure 124/58 L 137/70 H 123/78 [Right Brachial artery] O2 Saturation 100 99 99 01/01/22 01/01/22 01/01/22 05:30 07:49 08:18 Temperature 36.4 C L 36.3 C L Heart Rate 68 Heart Rate [ 71 68 Brachial] Heart Rate [ Monitoring electrodes] Respiratory 22 20 20 Rate Blood Pressure Blood Pressure 124/70 160/69 H [Right Brachial artery] O2 Saturation 97 94 01/01/22 01/01/22 01/01/22 10:48 13:20 13:30 Temperature 36.4 C L 36.5 C 36.5 C Heart Rate 65 99 Heart Rate [ 63 Brachial] Heart Rate [ Monitoring electrodes] Respiratory 16 22 24 Rate Blood Pressure 83/50 L 111/60 Blood Pressure 127/74 [Right Brachial artery] O2 Saturation 97 100 100 01/01/22 01/01/22 13:45 14:02 Temperature 36.5 C 36.5 C Heart Rate 67 66 Heart Rate [ Brachial] Heart Rate [ Monitoring electrodes] Respiratory 24 24 Rate Blood Pressure 103/73 104/74 Blood Pressure [Right Brachial artery] O2 Saturation 100 100 Oxygen O2 Source Room air I&O (Last 24 Hrs): Intake and Output Totals x24h 12/30/21 12/31/21 01/01/22 23:59 23:59 23:59 Intake Total 731 329 6447.667 Output Total 400 750 Balance 480 550 492.667 General: Alert, Oriented x3 HEENT: Mucous membr. moist/pink Neck: Supple, No JVD Neuro: Alert Cardiovascular: Regular rate Respiratory: Other (Scattered wheezes, diminished overall) Abdomen: Normal bowel sounds, Soft, No tenderness Extremities: No edema, Other (Her fingernails do look cyanotic and are cool, no clubbing, no tenderness. The L ankle as a tender muscle, in spasm, at the arch.) - Results Results: Laboratory Results WBC 5.4 x10^3/uL (4.8-10.8) 01/01/22 06:38 RBC 2.29 10^6/uL (4.20-5.40) L 01/01/22 06:38 Hgb 8.6 g/dL (12.0-16.0) L 01/01/22 11:52 Hct 24.7 % (37.0-47.0) L 01/01/22 06:38 MCV 107.9 fL (81.0-99.0) H 01/01/22 06:38 MCH 33.6 pg (27.0-31.0) H 01/01/22 06:38 MCHC 31.2 g/dL (32.0-36.0) L 01/01/22 06:38 RDW 13.6 % (12.0-15.0) 01/01/22 06:38 Plt Count 180 10^3/uL (130-450) 01/01/22 06:38 MPV 9.4 fL (7.9-10.8) 01/01/22 06:38 Neut # (Auto) 4.5 10^3/uL (1.5-6.6) 12/31/21 05:04 Lymph # (Auto) 0.9 10^3/uL (1.5-3.5) L 12/31/21 05:04 [place] # (Auto) 0.6 10^3/uL (0.0-1.0) 12/31/21 05:04 Eos # (Auto) 0.1 10^3/uL (0.0-0.7) 12/31/21 05:04 Baso # (Auto) 0.0 10^3/uL (0.0-0.1) 12/31/21 05:04 Absolute Nucleated RBC 0.00 x10^3/uL 12/31/21 05:04 Nucleated RBC % 0.0 /100WBC 12/31/21 05:04 PT 11.4 secs (9.9-12.6) 12/30/21 12:17 INR 1.0 (0.8-1.2) 12/30/21 12:17 Sodium 139 mmol/L (135-145) 01/01/22 06:38 Potassium 3.2 mmol/L (3.5-5.0) L 01/01/22 06:38 Chloride 105 mmol/L (101-111) 01/01/22 06:38 Carbon Dioxide 27 mmol/L (21-32) 01/01/22 06:38 Anion Gap 7.0 (6-13) 01/01/22 06:38 BUN 22 mg/dL (6-20) H 01/01/22 06:38 Creatinine 1.0 mg/dL (0.4-1.0) 01/01/22 06:38 Estimated GFR (MDRD) 54 (>89) L 01/01/22 06:38 Glucose 91 mg/dL (70-100) 01/01/22 06:38 Calcium 8.3 mg/dL (8.5-10.3) L 01/01/22 06:38 Magnesium 1.7 mg/dL (1.7-2.8) 01/01/22 06:38 Iron 37 ug/dL (28-170) 12/31/21 11:17 TIBC 300 ug/dL (250-450) 12/31/21 11:17 % Saturation 12 % (20-50) L 12/31/21 11:17 Transferrin 214 mg/dL (192-382) 12/31/21 11:17 Ferritin 52.9 ng/mL (11.0-306.8) 01/01/22 06:38 Total Bilirubin 0.7 mg/dL (0.2-1.0) 12/30/21 12:17 AST 52 IU/L (10-42) H 12/30/21 12:17 ALT 26 IU/L (10-60) 12/30/21 12:17 Alkaline Phosphatase 78 IU/L (42-121) 12/30/21 12:17 Troponin I High Sens 39.4 ng/L (2.3-14.8) H* 12/30/21 15:09 B-Natriuretic Peptide 166 pg/mL (5-100) H 01/01/22 06:38 Total Protein 7.1 g/dL (6.7-8.2) 12/30/21 12:17 Albumin 3.6 g/dL (3.2-5.5) 12/30/21 12:17 Globulin 3.5 g/dL (2.1-4.2) 12/30/21 12:17 Albumin/Globulin Ratio 1.0 (1.0-2.2) 12/30/21 12:17 Lipase 43 U/L (22-51) 12/30/21 12:17 Vitamin B12 741 pg/mL (180-914) 01/01/22 06:38 Folate 20.21 ng/mL (5.90 - >24.8) 01/01/22 06:38 TSH 7.42 uIU/mL (0.34-5.60) H 01/01/22 06:38 SARS-CoV-2 (PCR) NOT DETECTED 12/30/21 14:20 Blood Type A POSITIVE 12/30/21 12:17 Antibody Screen NEGATIVE 12/30/21 12:17 - Procedures Procedures: Procedures INSPECTION OF LOWER INTESTINAL TRACT, ENDO (06/28/15)
[2022-01-01] MEDS ORDERED: BENZOCAINE/MENTHOL LOZENGE MM PRN (15:39)
--- NOTE | 2022-01-01 16:55 | ANESTHESIA POST OP EVALUATION ---
Anesthesia Post Eval - Post Anesthesia Eval Vitals: Last Vital Signs Temp 36.3 C L 01/01/22 15:33 Pulse 59 L 01/01/22 15:33 Resp 16 01/01/22 15:33 BP 104/64 01/01/22 15:33 Pulse Ox 99 01/01/22 15:33 O2 Flow Rate CV Function Including HR & BP: Stable Pain Control: Satisfactory Nausea & Vomiting: Negative Mental Status: Baseline Respiratory Status: Airway Patent Hydration Status: Satisfactory Anesthesia Complications: None
[2022-01-01 17:22] LABS: HCT - HEMATOCRIT 26.9 % (37.0-47.0); HGB - HEMOGLOBIN 8.6 g/dL (12.0-16.0)
[2022-01-01] MEDS ORDERED: MAGNESIUM SULFATE 1 GM/2 ML VIAL IVP STA (18:01)
[2022-01-01] MEDS ORDERED: MAGNESIUM SULFATE 2 GRAM 2 GM/50 ML BAG IV ONE (18:30)
[2022-01-01] MEDS: SODIUM CHLORIDE FLUSH 0.9% 10 ML SYRINGE IVP PRN (20:51)
[2022-01-02] MEDS: SODIUM CHLORIDE FLUSH 0.9% 10 ML SYRINGE IVP SCH ×3 (01:13→19:08)
[2022-01-02] MEDS: ACETAMINOPHEN 325 MG TABLET PO PRN ×2 (01:13→19:19)
[2022-01-02 04:54] LABS: HCT - HEMATOCRIT 22.2 % (37.0-47.0); MEAN CORPUSCULAR HEMOGLOBIN 33.8 pg (27.0-31.0); MEAN CORPUSCULAR HGB CONC 31.5 g/dL (32.0-36.0); MEAN CORPUSCULAR VOLUME 107.2 fL (81.0-99.0); MEAN PLATELET VOLUME 9.5 fL (7.9-10.8); RED BLOOD COUNT 2.07 10^6/uL (4.20-5.40); RED CELL DISTRIBUTION WIDTH 13.5 % (12.0-15.0); WHITE BLOOD COUNT 4.9 x10^3/uL (4.8-10.8)
[2022-01-02 04:56] LABS: CALCIUM 8.2 mg/dL (8.5-10.3); POTASSIUM 3.4 mmol/L (3.5-5.0)
[2022-01-02] MEDS: LEVOTHYROXINE 125 MCG TABLET PO SCH (06:30)
--- NOTE | 2022-01-02 07:29 | PROVIDER PROGRESS NOTE ---
Subjective - General Admit Date: 12/31/21 - Review of Systems All Other Systems: positive: Reviewed and negative - Other Other Information/Narrative: Patient denies any pain. No BM's since procedure. No n/v, tolerating diet. Up to chair much of the day today. Chief complaint today is foot pain. Objective - Patient Data Vital Signs: Vital Signs x48h Temp Pulse Resp BP Pulse Ox 01/02/22 07:17 36.6 C 59 L 16 127/58 L 95 01/02/22 04:05 36.5 C 77 16 133/71 H 94 01/02/22 00:27 36.5 C 71 16 113/67 94 Weight: Weight 12/31/21 01/01/22 01/02/22 23:59 23:59 23:59 Weight (kg) 59.5 kg Intake & Output: Intake and Output Totals x24h 12/31/21 01/01/22 01/02/22 23:59 23:59 23:59 Intake Total 950 3301.000 Output Total 982 139 9866 Balance 550 2451.000 -1100 - Lab Results Lab Results: 01/02/22 15:59 01/02/22 04:33 Other Lab Results: Lab Results x24hrs 01/02/22 01/02/22 01/01/22 Range/Units 04:33 04:33 17:35 WBC 4.9 (4.8-10.8) x10^3/uL RBC 2.07 L (4.20-5.40) 10^6/uL Hgb 7.0 L* (12.0-16.0) g/dL Hct 22.2 L (37.0-47.0) % MCV 107.2 H (81.0-99.0) fL MCH 33.8 H (27.0-31.0) pg MCHC 31.5 L (32.0-36.0) g/dL RDW 13.5 (12.0-15.0) % Plt Count 162 (130-450) 10^3/uL MPV 9.5 (7.9-10.8) fL Sodium 139 (135-145) mmol/L Potassium 3.4 L (3.5-5.0) mmol/L Chloride 106 (101-111) mmol/L Carbon Dioxide 25 (21-32) mmol/L Anion Gap 8.0 (6-13) BUN 15 (6-20) mg/dL Creatinine 1.0 (0.4-1.0) mg/dL Estimated GFR (MDRD) 54 L (>89) Glucose 98 (70-100) mg/dL Calcium 8.2 L (8.5-10.3) mg/dL Magnesium 1.6 L (1.7-2.8) mg/dL TSH (0.34-5.60) uIU/mL 01/01/22 01/01/22 01/01/22 Range/Units 17:16 11:52 06:38 WBC (4.8-10.8) x10^3/uL RBC (4.20-5.40) 10^6/uL Hgb 8.6 L 8.6 L (12.0-16.0) g/dL Hct 26.9 L (37.0-47.0) % MCV (81.0-99.0) fL MCH (27.0-31.0) pg MCHC (32.0-36.0) g/dL RDW (12.0-15.0) % Plt Count (130-450) 10^3/uL MPV (7.9-10.8) fL Sodium (135-145) mmol/L Potassium (3.5-5.0) mmol/L Chloride (101-111) mmol/L Carbon Dioxide (21-32) mmol/L Anion Gap (6-13) BUN (6-20) mg/dL Creatinine (0.4-1.0) mg/dL Estimated GFR (MDRD) (>89) Glucose (70-100) mg/dL Calcium (8.5-10.3) mg/dL Magnesium (1.7-2.8) mg/dL TSH 7.42 H (0.34-5.60) uIU/mL - Current Medications Current Medications: Current Medications Generic Name Dose Route Start Last Admin Trade Name Freq PRN Reason Stop Dose Admin Acetaminophen 650 mg 12/30/21 16:16 01/02/22 01:13 Acetaminophen 325 Mg Tablet PO 650 mg Q4HR PRN Administration Pain 1 to 4, or Fever Allopurinol 100 mg 12/31/21 09:00 01/01/22 09:09 Allopurinol 100 Mg Tablet PO 100 mg DAILY SAM Administration Atenolol 25 mg 12/31/21 09:00 01/01/22 09:09 Atenolol 25 Mg Tablet PO 25 mg DAILY SAM Administration Dextrose/Sodium Chloride 1,000 mls @ 60 mls/hr 12/31/21 08:00 01/01/22 19:45 D5ns IV 60 mls/hr .[id number] SAM Infusion Isosorbide Mononitrate 30 mg 12/31/21 09:00 01/01/22 09:09 Isosorbide Mononitrate Er 30 Mg Tablet PO 30 mg DAILY SAM Administration Levothyroxine Sodium 125 mcg 12/31/21 07:00 01/02/22 06:30 Levothyroxine 125 Mcg Tablet PO 125 mcg QDAC SAM Administration Pantoprazole Sodium 40 mg 12/31/21 21:00 01/01/22 20:51 Pantoprazole 40 Mg Vial IVP 40 mg BID SAM Administration Sodium Chloride 10 ml 12/30/21 16:16 01/01/22 20:51 Sodium Chloride Flush 0.9% 10 Ml Syringe IVP 10 ml PRN PRN Administration NEEDED PER PROVIDER ORDERS Sodium Chloride 10 ml 12/30/21 17:00 01/02/22 01:13 Sodium Chloride Flush 0.9% 10 Ml Syringe IVP 10 ml 0100,0900,1700 SAM Administration Throat Lozenges 1 lozenge 01/01/22 15:39 01/01/22 16:24 Benzocaine/Menthol Lozenge MM 1 lozenge Q2HR PRN Administration Throat pain - Physical Exam General Appearance: positive: No acute distress, Alert Eyes Bilateral: positive: Normal inspection Respiratory: positive: No respiratory distress Cardiovascular: positive: Regular rate & rhythm Abdomen: positive: Non-tender Skin: positive: Color nml, No rash Extremities: positive: Full ROM Neurologic/Psychiatric: positive: Oriented x3 Impression/Plan - Problem List Problem List: This is a 76-year-old female with: 1. Gastrointestinal bleeding no etiology for bleeding, stigmata of continued bleeding identified on EGD/CE yesterday. Possible dieulafoy lesion vs diverticular cause, based on findings. - Hgb lower this AM, but appeared stable throughout the day yesterday. (There has been quite a bit of lab variability noted.) s/p transfusion one unit pRBC's today. Repeat hgb pending. - Risk factors for upper gastrointestinal bleeding include GERD, chronic Plavix use, chronic NSAID use, and chronic alcohol use (though the patient has not been drinking alcohol for the last 1 month). - Recommend patient continue PPI, H2 jose, and stop NSAIDS, avoid alcohol. Ok to restart Plavix. - If she rebleeds, I recommend consideration of repeat EGD vs. pill cam - Notably, patient has an UGI swallow study scheduled for Sat of this week in [place]. No intrinsic cause of dysphagia identified on EGD. 2. Anemia, acute on chronic (acute component due to acute blood loss), secondary to 1 -The patient appears to be mildly symptomatic at this time. She is not tachycardic or hypotensive, but is fatigued. -MCV is noted to be greater than 100 at baseline and during this hospital stay. Ferritin, folate and B12 levels wnl. Recommend starting vitamins to help patient have adequate iron, folate to assist in her recovery. 3. Coronary artery disease -No recent chest pain/pressure. Her troponin was noted to be mildly elevated on admission but is stable. -bedside echo yesterday demonstrated normal EF, cardiomegaly, and right sided failure, per primary team. -management as per primary team 4. CKD, COPD, hypothyroidism - as per primary team Thank you for consulting me in the care of this patient! I will continue to follow closely.
[2022-01-02] MEDS: DEXTROSE 5%-0.9% NACL 1,000 ML IV SCH (09:08)
[2022-01-02] MEDS: POTASSIUM CHLOR 10 MEQ/100 ML 10 MEQ/100 ML BAG IV SCH ×4 (09:09→19:08)
[2022-01-02] MEDS: allopurinoL 100 MG TABLET PO SCH (09:10)
[2022-01-02] MEDS: PANTOPRAZOLE 40 MG VIAL IVP SCH ×2 (09:10→20:34)
[2022-01-02] MEDS: PRENATAL VITAMIN TABLET PO SCH (09:10)
[2022-01-02] MEDS: ISOSORBIDE MONONITRATE ER 30 MG TABLET PO SCH (09:12)
[2022-01-02] MEDS: atenoloL 25 MG TABLET PO SCH (09:12)
[2022-01-02] MEDS: CLOPIDOGREL 75 MG TABLET PO SCH (09:49)
--- NOTE | 2022-01-02 11:43 | PROVIDER PROGRESS NOTE ---
Subjective - Prog Note Date Prog Note Date: 01/02/22 Prog Note Time: 11:41 - Subjective Pt reports feeling: Improved (States that she is feeling better than yesterday.) Current Medications - Current Medications Current Medications: Active Medications Acetaminophen (Acetaminophen 325 Mg Tablet) 650 mg PO Q4HR PRN PRN Reason: Pain 1 to 4, or Fever Last Admin: 01/02/22 01:13 Dose: 650 mg Allopurinol (Allopurinol 100 Mg Tablet) 100 mg PO DAILY [facility] Last Admin: 01/02/22 09:10 Dose: 100 mg Atenolol (Atenolol 25 Mg Tablet) 25 mg PO DAILY [facility] Last Admin: 01/02/22 09:12 Dose: 25 mg Clopidogrel Bisulfate (Clopidogrel 75 Mg Tablet) 75 mg PO DAILY [facility] Last Admin: 01/02/22 09:49 Dose: Not Given Dextrose/Sodium Chloride (D5ns) 1,000 mls @ 60 mls/hr IV .[id number] [facility] Last Infusion: 01/02/22 10:14 Dose: 0 mls/hr Potassium Chloride (Potassium Chloride) 10 meq in 100 mls @ 100 mls/hr IV Q1H [facility] Stop: 01/02/22 11:59 Last Infusion: 01/02/22 10:14 Dose: 0 mls/hr Isosorbide Mononitrate (Isosorbide Mononitrate Er 30 Mg Tablet) 30 mg PO DAILY [facility] Last Admin: 01/02/22 09:12 Dose: 30 mg Levothyroxine Sodium (Levothyroxine 125 Mcg Tablet) 125 mcg PO QDAC [facility] Last Admin: 01/02/22 06:30 Dose: 125 mcg Ondansetron HCl (Ondansetron 4 Mg/2 Ml Vial) 4 mg IVP Q6HR PRN PRN Reason: Nausea / Vomiting Pantoprazole Sodium (Pantoprazole 40 Mg Vial) 40 mg IVP BID [facility] Last Admin: 01/02/22 09:10 Dose: 40 mg Multivit/Folic Acid/Iron ( Vitamin Tablet) 1 tab PO DAILYWM [facility] Last Admin: 01/02/22 09:10 Dose: 1 tab Sodium Chloride (Sodium Chloride Flush 0.9% 10 Ml Syringe) 10 ml IVP PRN PRN PRN Reason: NEEDED PER PROVIDER ORDERS Last Admin: 01/01/22 20:51 Dose: 10 ml Sodium Chloride (Sodium Chloride Flush 0.9% 10 Ml Syringe) 10 ml IVP 0100,0900,1700 SAM Last Admin: 01/02/22 09:10 Dose: Not Given Throat Lozenges (Benzocaine/Menthol Lozenge) 1 lozenge MM Q2HR PRN PRN Reason: Throat pain Last Admin: 01/01/22 16:24 Dose: 1 lozenge Witch [place]ash[place]/Glycerin (Witch Lashonda/Glycerin 1 Pad) 1 pad TOP PRN PRN PRN Reason: ITCHING Acetaminophen [Tylenol] 650 mg PO Q6H PRN 06/27/15 Multivitamin [Multivitamins] 1 each PO DAILY 06/27/15 Ocu Zoe 1 tab PO DAILY 06/27/15 atenoloL [Tenormin] 25 mg PO DAILY 06/27/15 Clopidogrel [Plavix] 75 mg PO DAILY 10/19/20 Ezetimibe [Zetia] 10 mg PO DAILY 10/19/20 Pantoprazole Sodium 40 mg PO QDAC 10/19/20 allopurinoL [Zyloprim] 200 mg PO DAILY 10/19/20 Albuterol Sulf [Ventolin Hfa Inhaler] 2 puffs INH Q4HR PRN 12/30/21 Amlodipine Besylate [Norvasc] 2.5 mg PO DAILY 12/30/21 Isosorbide Mononitrate ER [Imdur] 30 mg PO DAILY 12/30/21 Levothyroxine [Synthroid] 125 mcg PO QDAC 12/30/21 Rosuvastatin Calcium [Crestor] 40 mg PO QPM 12/30/21 Salmeterol Xinafoate [Serevent Diskus] 1 puffs INH BID 12/30/21 Tiotropium [place] [Spiriva Respimat] 2 puffs INH DAILY 12/30/21 Venlafaxine ER [Effexor ER] 37.5 mg PO DAILY 12/30/21 Objective - Vital Signs/Intake & Output Reviewed Vital Signs: Yes Vital Signs: Vital Signs x48h Temp Pulse Resp BP Pulse Ox 01/02/22 10:49 36.8 C 60 19 149/78 H 99 01/02/22 10:34 36.7 C 62 18 123/63 97 01/02/22 09:16 67 01/02/22 07:17 36.6 C 59 L 16 127/58 L 95 01/02/22 04:05 36.5 C 77 16 133/71 H 94 Intake & Output: Intake & Output 12/30/21 12/31/21 01/01/22 01/02/22 23:59 23:59 23:59 23:59 Intake Total 605 337 1838.000 1639.667 Output Total 195 909 3801 Balance 144 178 9098.000 539.667 - Objective General Appearance: positive: No acute distress Eyes Bilateral: positive: Normal inspection ENT: positive: ENT inspection nml Neck: positive: Nml inspection, No JVD. negative: Lymphadenopathy (R), Lymphadenopathy (L), Stiff neck Respiratory: positive: Wheezes (Diffuse.), Other (Diffusely dimished.) Cardiovascular: positive: Regular rate & rhythm Abdomen: positive: Non-tender, Nml bowel sounds Back: positive: Nml inspection Skin: positive: Color nml Extremities: positive: Non-tender, Other (L foot is tender at the arch, reports spasms.) Neurologic/Psychiatric: positive: Oriented x3, Mood/affect nml - Lab Results Fish Bones: 01/02/22 04:33 01/02/22 04:33 Other Labs: Lab Results x24hrs 01/02/22 01/02/22 01/01/22 Range/Units 04:33 04:33 17:35 WBC 4.9 (4.8-10.8) x10^3/uL RBC 2.07 L (4.20-5.40) 10^6/uL Hgb 7.0 L* (12.0-16.0) g/dL Hct 22.2 L (37.0-47.0) % MCV 107.2 H (81.0-99.0) fL MCH 33.8 H (27.0-31.0) pg MCHC 31.5 L (32.0-36.0) g/dL RDW 13.5 (12.0-15.0) % Plt Count 162 (130-450) 10^3/uL MPV 9.5 (7.9-10.8) fL Sodium 139 (135-145) mmol/L Potassium 3.4 L (3.5-5.0) mmol/L Chloride 106 (101-111) mmol/L Carbon Dioxide 25 (21-32) mmol/L Anion Gap 8.0 (6-13) BUN 15 (6-20) mg/dL Creatinine 1.0 (0.4-1.0) mg/dL Estimated GFR (MDRD) 54 L (>89) Glucose 98 (70-100) mg/dL Calcium 8.2 L (8.5-10.3) mg/dL Magnesium 1.6 L (1.7-2.8) mg/dL Blood Type Antibody Screen Crossmatch IS Only 01/01/22 01/01/22 12/30/21 Range/Units 17:16 11:52 12:17 WBC (4.8-10.8) x10^3/uL RBC (4.20-5.40) 10^6/uL Hgb 8.6 L 8.6 L (12.0-16.0) g/dL Hct 26.9 L (37.0-47.0) % MCV (81.0-99.0) fL MCH (27.0-31.0) pg MCHC (32.0-36.0) g/dL RDW (12.0-15.0) % Plt Count (130-450) 10^3/uL MPV (7.9-10.8) fL Sodium (135-145) mmol/L Potassium (3.5-5.0) mmol/L Chloride (101-111) mmol/L Carbon Dioxide (21-32) mmol/L Anion Gap (6-13) BUN (6-20) mg/dL Creatinine (0.4-1.0) mg/dL Estimated GFR (MDRD) (>89) Glucose (70-100) mg/dL Calcium (8.5-10.3) mg/dL Magnesium (1.7-2.8) mg/dL Blood Type A POSITIVE Antibody Screen NEGATIVE Crossmatch IS Only See Detail ABX Reporting Has patient been on IV antibiotics over the past 48 hours?: No Assessment/Plan - Problem List (1) GI bleed Impression: This is her second significant GI bleed episode in a year. Her stool has changed from bright red to dark through the course of her hospitalization. Her hemoglobin has been trending down, recorded at 7 g/dL today at 0433. Dr Guerra noted quite a bit of lab variability. One unit of blood was transfused today. EGD and colonoscopy were performed on 01/[address] Guerra, and no source of bleeding was located. The stomach was normal, without gastritis and there were no esophageal strictures. Plan: H/H approx. 4 hours post tranfusion today and every 12 hours after that. Continue to monitor vital signs closely. orthostatic blood pressure checks or dered daily. Per Dr Guerra, no NSAID use, protonix, pepcid, and plavix were resumed, as well as a solid diet, if she has a recurrence of GI bleeding she will need a pill camera. (2) Anemia due to GI blood loss Impression: She presented with red bowel movements and black melanotic stools. Her plavix was discontinued at admission, but resumed post EGD and colonoscopy. Plan: Continue to monitor H/H every 12 hours. Transfuse if hemoglobin at 7 or below. She agrees to blood transfusions. (3) Shortness of breath Impression: She presented with complaints of HILL and intermittent shortness of breath at rest for the past 2-3 months. Her records show there is lung scarring on 1 side and she believes it may have been from having remote radiation for her breast cancer. She also reports having PFTs years ago and was found to have "50% lung capacity". She also had remote exposure to secondhand smoke. She says Dr. Crowder (her [employer] Supervisor in [place]) and has never called her diagnosis COPD, emphysema, or Pulmonary Fibrosis, just "lung scarring". Her nocturnal oximetry on 01/01 only showed desaturation of <90% for 30 seconds, thus was overall unremarkable. Suspected restrictive lung disease, not obstructive, due to her shallow breaths, air hunger, and the scarring seen on chest x-ray. Plan: Will attempt to obtain her PFTs, chest CT, and notes from Dr. Crowder for more information. She will need an exercise oximetry test done on the day of her discharge to evaluate home oxygen needs. Will need to know her definitive lung diagnosis in order for Medicare to cover. (4) Cor pulmonale (chronic) Impression: Further details about her pulmonary history: She sees Dr. Crowder in [place]. She had PFTs done 4 months ago and was told that her lungs are working at 50%. She had a CAT scan of the lungs done several months ago also which showed scarring. She has never been told she has emphysema or COPD. She does not think her inhalers at home help her at all with the shortness of breath. We tried nebulizers here and she noticed no difference either. An Echocardiogram has been ordered, given the history of worsening shortness of breath and CAD with stent done in 2013. We have no geologic technician here until Tuesdays, therefore a bedside limited Echocardiogram on 12/31, by Dr Ruby Da Silva. The Echo showed: Normal left atrial size, right atrium never well seen. Normal aortic root diameter. Normal left ventricular size with concentric left v entricular hypertrophy, normal LV contractility, ejection fraction 60%. Mild LV diastolic dysfunction noted. Right ventricle moderately dilated and moderately depressed RV function. No pericardial effusion seen. Doppler of the valves was not done. Therefore she has Cor Pulmonale. Plan: Obtain a complete echocardiogram on Saturday. Obtain pertinent past medical records. (5) Hx of coronary artery disease Impression: A 2019 angiogram performed in 2019 reported diffuse LAD coronary disease, unnameable to intervention due to small vessel size. She did have angina, but not for the past year. Troponins remain unremarkable. Plavix was held at admission and resumed post operatively. Plan: Continue to monitor for signs of cardiac decline. Continue cardiac medication regimen. (6) Difficulty swallowing Impression: On EGD, her esophagus was evaluated for a stricture and there is none. She is scheduled to re-see an ENT soon. Perhaps she has abnormality of her epiglottis and/or chronic aspiration. Qualifiers: Dysphagia type: unspecified Qualified Code(s): R13.10 - Dysphagia, unspecified Qualifiers: Dysphagia type: unspecified Qualified Code(s): R13.10 - Dysphagia, unspecified (7) CKD (chronic kidney disease) Impression: Her creatinine was 1 today. Plan: Continue to avoid nephrotoxins. BMP daily. (8) Left foot pain Impression: Muscle spasm on left foot arch. Plan: Replace magnesium. Physical therapy has been asked to evaluate and advise.
[2022-01-02] MEDS ORDERED: MAGNESIUM SULFATE 2 GRAM 2 GM/50 ML BAG IV ONE (15:57)
[2022-01-02 16:13] LABS: HCT - HEMATOCRIT 28.1 % (37.0-47.0); HGB - HEMOGLOBIN 8.9 g/dL (12.0-16.0); MEAN CORPUSCULAR HEMOGLOBIN 33.2 pg (27.0-31.0); MEAN CORPUSCULAR HGB CONC 31.7 g/dL (32.0-36.0); MEAN CORPUSCULAR VOLUME 104.9 fL (81.0-99.0); MEAN PLATELET VOLUME 9.1 fL (7.9-10.8); RED BLOOD COUNT 2.68 10^6/uL (4.20-5.40); WHITE BLOOD COUNT 7.1 x10^3/uL (4.8-10.8)
[2022-01-02] MEDS: SODIUM CHLORIDE FLUSH 0.9% 10 ML SYRINGE IVP PRN (20:34)
[2022-01-03] MEDS: SODIUM CHLORIDE FLUSH 0.9% 10 ML SYRINGE IVP SCH ×2 (00:15→08:38)
[2022-01-03] MEDS: ACETAMINOPHEN 325 MG TABLET PO PRN (05:29)
[2022-01-03] MEDS: DEXTROSE 5%-0.9% NACL 1,000 ML IV SCH (05:31)
[2022-01-03] MEDS: LEVOTHYROXINE 125 MCG TABLET PO SCH (05:35)
[2022-01-03 05:57] LABS: HCT - HEMATOCRIT 32.5 % (37.0-47.0); HGB - HEMOGLOBIN 10.4 g/dL (12.0-16.0); MEAN CORPUSCULAR VOLUME 103.2 fL (81.0-99.0); MEAN PLATELET VOLUME 9.4 fL (7.9-10.8); RED BLOOD COUNT 3.15 10^6/uL (4.20-5.40); RED CELL DISTRIBUTION WIDTH 15.9 % (12.0-15.0); WHITE BLOOD COUNT 5.5 x10^3/uL (4.8-10.8)
--- NOTE | 2022-01-03 07:18 | PROVIDER PROGRESS NOTE ---
Subjective - General Admit Date: 12/31/21 Procedure Date: 01/01/22 Post Op Days: 2 Procedure Performed: EGD/CE - Review of Systems All Other Systems: positive: Reviewed and negative - Other Other Information/Narrative: Patient denies pain. Tolerating diet, no n/v. No BM yesterday. No acute events overnight. Up to chair much of the day yesterday. Feeling a little bit stronger after transfusion. Objective - Patient Data Vital Signs: Vital Signs x48h Temp Pulse Resp BP Pulse Ox 01/03/22 03:03 36.4 C L 66 16 149/79 H 95 01/02/22 23:26 36.3 C L 67 16 148/72 H 96 Weight: Weight 01/01/22 01/02/22 01/03/22 23:59 23:59 23:59 Weight (kg) 59.5 kg Intake & Output: Intake and Output Totals x24h 01/01/22 01/02/22 01/03/22 23:59 23:59 23:59 Intake Total 3301.000 3721.667 522 Output Total 850 3550 2825 Balance 2451.000 171.667 -2303 - Lab Results Lab Results: 01/03/22 05:51 01/02/22 04:33 Other Lab Results: Lab Results x24hrs 01/03/22 01/02/22 12/30/21 Range/Units 05:51 15:59 12:17 WBC 5.5 7.1 (4.8-10.8) x10^3/uL RBC 3.15 L 2.68 L (4.20-5.40) 10^6/uL Hgb 10.4 L 8.9 L (12.0-16.0) g/dL Hct 32.5 L 28.1 L (37.0-47.0) % MCV 103.2 H 104.9 H (81.0-99.0) fL MCH 33.0 H 33.2 H (27.0-31.0) pg MCHC 32.0 31.7 L (32.0-36.0) g/dL RDW 15.9 H 16.0 H (12.0-15.0) % Plt Count 194 171 (130-450) 10^3/uL MPV 9.4 9.1 (7.9-10.8) fL Blood Type A POSITIVE Antibody Screen NEGATIVE Crossmatch IS Only See Detail - Current Medications Current Medications: Current Medications Generic Name Dose Route Start Last Admin Trade Name Sakshi PRN Reason Stop Dose Admin Acetaminophen 650 mg 12/30/21 16:16 01/03/22 05:29 Acetaminophen 325 Mg Tablet PO 650 mg Q4HR PRN Administration Pain 1 to 4, or Fever Allopurinol 100 mg 12/31/21 09:00 01/02/22 09:10 Allopurinol 100 Mg Tablet PO 100 mg DAILY SAM Administration Atenolol 25 mg 12/31/21 09:00 01/02/22 09:12 Atenolol 25 Mg Tablet PO 25 mg DAILY SAM Administration Clopidogrel Bisulfate 75 mg 01/02/22 09:00 01/02/22 09:49 Clopidogrel 75 Mg Tablet PO Not Given DAILY SAM Dextrose/Sodium Chloride 1,000 mls @ 60 mls/hr 12/31/21 08:00 01/03/22 05:31 D5ns IV 60 mls/hr .[id number] SAM Administration Isosorbide Mononitrate 30 mg 12/31/21 09:00 01/02/22 09:12 Isosorbide Mononitrate Er 30 Mg Tablet PO 30 mg DAILY SAM Administration Levothyroxine Sodium 125 mcg 12/31/21 07:00 01/03/22 05:35 Levothyroxine 125 Mcg Tablet PO 125 mcg QDAC SAM Administration Pantoprazole Sodium 40 mg 12/31/21 21:00 01/02/22 20:34 Pantoprazole 40 Mg Vial IVP 40 mg BID SAM Administration Multivit/Folic Acid/Iron 1 tab 01/02/22 08:00 01/02/22 09:10 Vitamin Tablet PO 1 tab DAILYWM SAM Administration Sodium Chloride 10 ml 12/30/21 16:16 01/02/22 20:34 Sodium Chloride Flush 0.9% 10 Ml Syringe IVP 10 ml PRN PRN Administration NEEDED PER PROVIDER ORDERS Sodium Chloride 10 ml 12/30/21 17:00 01/03/22 00:15 Sodium Chloride Flush 0.9% 10 Ml Syringe IVP Not Given 0100,0900,1700 SAM Throat Lozenges 1 lozenge 01/01/22 15:39 01/01/22 16:24 Benzocaine/Menthol Lozenge MM 1 lozenge Q2HR PRN Administration Throat pain - Physical Exam General Appearance: positive: No acute distress, Alert Eyes Bilateral: positive: Normal inspection, PERRL, EOMI Respiratory: positive: No respiratory distress Cardiovascular: positive: Regular rate & rhythm Abdomen: positive: Non-tender. negative: Guarding, Rebound Skin: positive: No rash Extremities: positive: Full ROM Neurologic/Psychiatric: positive: Oriented x3 Impression/Plan - Problem List Problem List: This is a 76-year-old female with: 1. Gastrointestinal bleeding no etiology for bleeding, stigmata of continued bleeding identified on EGD/CE 01/01. Possible dieulafoy lesion vs diverticular cause, based on findings. - Hgb stable this AM, s/p transfusion one unit pRBC yesterday. (There has been quite a bit of lab variability noted.) - Risk factors for upper gastrointestinal bleeding include GERD, chronic Plavix use, chronic NSAID use, and chronic alcohol use (though the patient has not been drinking alcohol for the last 1 month). - Recommend patient continue PPI, H2 jose, and stop NSAIDS, avoid alcohol. Ok to restart Plavix. - If she rebleeds, I recommend consideration of repeat EGD vs. pill cam - Notably, patient has an UGI swallow study scheduled for Sat of this week in [place]. No intrinsic cause of dysphagia identified on EGD. Dysyphagia improving per patient, consider rescheduling this procedure if patient having persistent or worsening symptoms of dysphagia to evaluate esophageal function. 2. Anemia, acute on chronic (acute component due to acute blood loss), secondary to 1 Ferritin, folate and B12 levels wnl. Recommend starting vitamins to help patient have adequate iron, folate to assist in her recovery. 3. Coronary artery disease -No recent chest pain/pressure. -management as per primary team 4. CKD, COPD, hypothyroidism - as per primary team Thank you for consulting me in the care of this patient. Ok to discharge from surgery standpoint. Patient may followup with me prn.
[2022-01-03] MEDS: allopurinoL 100 MG TABLET PO SCH (08:38)
[2022-01-03] MEDS: ISOSORBIDE MONONITRATE ER 30 MG TABLET PO SCH (08:38)
[2022-01-03] MEDS: PRENATAL VITAMIN TABLET PO SCH (08:38)
[2022-01-03] MEDS: atenoloL 25 MG TABLET PO SCH (08:38)
[2022-01-03] MEDS: PANTOPRAZOLE 40 MG VIAL IVP SCH (08:38)
[2022-01-03] MEDS ORDERED: POTASSIUM CHLORIDE 20 MEQ/15 ML UDC PO SCH (11:00)
--- NOTE | 2022-01-03 11:53 | Discharge Plan ---
Discharge Plan Problem Reviewed?: Yes Disposition: Home Health Service Condition: Stable Prescriptions: Potassium Chloride Oral Soln [Potassium Chloride] 20 meq PO DAILYWM #450 ml Diet: Regular Activity Restrictions: Activity as Tolerated Shower Restrictions: No Driving Restrictions: No Health Concerns: You presented to the hospital with bright red blood per rectum as well as dark stools. You have had recent surgery and your usual hemoglobin, a measurement of how much blood you have in your body, was 12.9 or 12.7. When you came to the emergency room you were slightly low at 11.4 g of hemoglobin. You dropped her hemoglobin to 7 g while you were here and ended up needing 1 unit of blood. At discharge her hemoglobin is 10.4. In order to find out why you have bright red blood per rectum, and anemia, general surgery did an upper endoscopy and a lower endoscopy using the video camera to see if we could find anything. There were no ulcers in your stomach. You had no inflammation of the stomach. You had diverticulosis. But you had no ulcers or colitis in your colon. As such its not clear where you had bright red blood per rectum unless you had diverticular bleeding that slowed on its own. You are also on Plavix. And you need to resume that. However general surgery recommends that you not take any nonsteroidal therapy. While here you are short of breath. That has been a chronic problem for the last few years but got worse over the last few weeks. You have "scarring" in your lungs that is presumed to be from radiation done for your breast cancer over 20 years ago. You are seeing a property adjuster for this. We did call the property adjuster twice and left a message for them to call us but as of discharge, they have not returned her phone call. Plan of Treatment: 1. Please see your primary care provider, Dr. Gerald Boyd, in follow-up in the next 1 to 2 weeks. +We are requesting that he do a CBC to see how your hemoglobin is doing. +We are also requesting he refer you to [facility] gastroenterology. +You have also had a low potassium while here, we will be sending you home on potassium syrup daily. And we are asking that you check your potassium level when you see him in the office. 2. In order to find out where you could be possibly bleeding, we have contacted [facility], gastroenterology. They have an office in [place] and in [place]. When I spoke to the sneller hand on-call for their group today, they are more than willing to see you . The next step would be to do a capsule endoscopy. I have described what that is to you already. The number to call after Dr. Boyd's referral is [phone] to make an appointment. I will be sending them a copy of our endoscopy reports and discharge summary to help with the process along. 3. You are very worried about what would happen if your bleeding returns. I explained that if you have nausea, sweats, tremendous amounts of clots, and lightheadedness that you should return to our emergency room. We will stabilize you here and do the appropriate treatment. However we do not have gastroenterology here. If you have a light amount of bright red blood per rectum without any serious symptoms, you could go to [place] and be seen in their emergency room where [facility] does have a sneller hand on-call. 4. You can resume your Plavix. But please do not take any ibuprofen, Aleve, Naprosyn, aspirin. Please make sure you take Prilosec or Protonix twice a day. 5. You have some weakness and fatigue after being in bed for a couple of days and our physical therapy department is recommending that you go home with home health physical therapy. 6. While here you also described having problems swallowing at the level behind your Dileep's apple. It is associated with quite a bit of anxiety. Unfortunately you had to cancel your swallow evaluation in [place] while you were here. But I think that the sneller hand should be able to help you with that as well when you go see him/her. Care Goals: To get to the bottom of why you had bleeding and required a transfusion. To get to the bottom of why you are having problems with swallowing. Assessment: is at the bedside with understanding of care goals. And he will follow through. They have both already spoken to general surgery today before discharge. No Smoking: If you smoke, Please STOP! Call for help. Follow-up with: Gerald Boyd MD [Primary Care Provider] -
--- NOTE | 2022-01-03 12:17 | DISCHARGE SUMMARY ---
Discharge Summary Admit Date: 12/30/21 Discharge Date: 01/03/22 Discharging Provider: Belinda Garcia MD Primary Care Provider: Gerald Boyd MD Code Status: Attempt Resuscitation Condition at Discharge: Stable Discharge Disposition: 06 Home Health Service - DIAGNOSES Discharge Diagnoses with Status of Each Condition: 1. Melena with GI bleed 2. Anemia due to GI blood loss 3. Shortness of breath, chronic 4. Cor pulmonale 5. History of coronary artery disease 6. Difficulty swallowing 7. Chronic kidney disease 8. Left foot pain 9. Depression with anxiety - HPI History of Present Illness: This is a 76-year-old white female who has a history of remote breast CA treated with radiation and mastectomy, coronary disease with a stent and is on Plavix, hypothyroidism on replacement, COPD on Proventil & Diskus, who was in Observation here about a year ago for a lower GI bleed, it was thought to be from combined aspirin and Plavix use plus Motrin and alcohol use and possibly hemorrhoids. She did not undergo endoscopies, because she had an episode of chest pain. The patient presented to the ER today after having lower abdominal cramping and 2 large bright red blood per rectum bowel movements. In the ED her blood pressure has been stable. Hemoglobin is 11.4, down from 12.7 a month ago. On physical exam her stool was melanotic. The patient had a CT angio of her abdomen that showed no areas of blush to localize a GI bleed. There were other incidental findings such as moderate coronary calcification. The patient is being placed in Observation status for monitoring hemoglobin, bowel movements and for a General Surgery consultation for possible EGD and colonoscopy. Two weeks ago the patient had a cough and worsened shortness of breath after being exposed to the burning air and smoke in [facility]. She was put on a course of antibiotics (she thinks Levaquin) and a steroid taper, which she just finished a week ago. The patient reports, and corroborates that she has been more weak, more short of breath and orthopneic over the past several months. Because of the weakness, her Amlodipine dose was stopped and Imdur dose decreased from 60 down to 30 daily, by her Electronic Assembler Group Leader, Dr Henderson. She has not had an Echo or other cardiac tests in over 5 years. She had a stent that was placed in 2013. She had PFTs done that showed "50% lung capacity". There have been no recent changes or orders from her Compensation Programs Manager Dr. Fleming in [place]. She has never been on home oxygen. She has never used nebulizers at home. She did complete pulmonary rehab here and tries to walk at least 1 mile every day. I asked her about her CODE BLUE wishes and she wants to be a Full Code. History - Past Medical History Cardiovascular: reports: Hypertension, High cholesterol, Coronary artery disease Respiratory: reports: Emphysema Neuro: reports: None Endocrine/Autoimmune: reports: HyPOthyroidism GI: reports: None MAIL CLERK: reports: Breast cancer : reports: Frequency HEENT: reports: Chronic vision loss Psych: reports: None Musculoskeletal: reports: Osteoarthritis Derm: reports: None MRSA Hx?: No - CONSULTS | PROCEDURES Consultations: General surgery, Dr. Guerra Procedures: 1. EGD without gastritis or ulcers 2. Colonoscopy with diverticulosis, no active source of bleeding 3. Transfusion of 1 packed cell 4. Abdomen pelvis CT angiogram without active extravasation seen in the bowel. Nonopacified loops of bowel are normal in wall thickness and caliber. Diverticulosis is seen but without jahaira signs of active diverticulitis. There is no significant vascular abnormality seen and no source of active bleeding seen on imaging. - HOSPITAL COURSE Hospital Course: The patient stated that this is the second time that she has had melena or bright red blood. She dropped her hemoglobin from a baseline of 12-11 on admission. And she finally dropped to 7 g and needed 1 unit of blood transfused. Plavix was stopped and then resumed at discharge. EGD and colonoscopy were done under the guidance/consult of general surgery and she had diffuse diverticulosis of the left bowel but no colitis, signs of bleeding. She had no gastritis on upper GI. Melena eventually stopped. She is very alarmed by this GI bleed. And even more and happy that we were not able to find the source. The neck step would be referral to gastroenterology and I have spoken to Dr. Horn who is [facility]. He requested a CT angiogram and that was already done during this admission and there was no vascular blush or source of GI bleed noticed. The neck step would be a capsule endoscopy. He said that she can be referred to any broiler chef or cook within [facility] GI group and they would be able to refer her for the capsule endoscopy. In order for that to happen I told her that she needs to see her primary care provider who will make that referral. She has chronic shortness of breath. She sees a rn patient care. We did leave 2 messages with her broiler chef or cook, Dr. Tidwell, to call us back but at the time of discharge she had not called us back. Nebulizers did not help her here. Echocardiogram was done to assess LV and her ejection fraction was 60%. But her right ventricle is moderately dilated and moderately depressed RV function so she has cor pulmonale. She did have deep difficulty swallowing even before admission. EGD did not show anything indicating why she would have that. She was due to have a swallow study in [place] but it was scheduled in the middle of her hospitalization and she had to cancel that. I explained that she can follow-up with the broiler chef or cook to does capsule endoscopy for that. Mild kidney dysfunction was noted. Creatinine was 1.2 and was down to 1.0 by discharge. She was evaluated for hypothyroidism and TSH is 7.42. B12 and folate were normal. Iron was low normal at 37. She has not been stable for over 24 hours with hemoglobin. She is felt stable to go home and to continue work-up in the outpatient setting. I discussed that we do not have specialty care here and if she has further symptoms that are mild she could possibly drive to [place] or [facility] to access GI. However, if she is nauseated, diaphoretic, with clots in her stool, she should probably come back to emergency room. At discharge temperature was 36.4. Heart rate 61. Blood pressure 144/74. Respirations 18. 100% on room air. She is 5 foot 4 inches tall and weighs 59.5 kg. She is a pleasant, slightly anxious 76-year-old female who looks stated age. Neck is supple. Lungs are clear. She has slight pursed lip breathing throughout her entire stay. Regular rate and rhythm. Abdomen is soft, nontender. Greater than 30 minutes was spent coordinating discharge - ALLERGIES Allergies/Adverse Reactions: Allergies Allergy/AdvReac Type Severity Reaction Status Date / Time No Known Drug Allergies Allergy Verified 12/30/21 11:51 - MEDICATIONS Home Medications: Ambulatory Orders Medication Instructions Recorded Confirmed Acetaminophen [Tylenol] 650 mg PO Q6H PRN 06/27/15 12/30/21 Multivitamin [Multivitamins] 1 each PO DAILY 06/27/15 12/30/21 Ocu Zoe 1 tab PO DAILY 06/27/15 12/30/21 atenoloL [Tenormin] 25 mg PO DAILY 06/27/15 12/30/21 Clopidogrel [Plavix] 75 mg PO DAILY 10/19/20 12/30/21 Ezetimibe [Zetia] 10 mg PO DAILY 10/19/20 12/30/21 Pantoprazole Sodium 40 mg PO QDAC 10/19/20 12/30/21 allopurinoL [Zyloprim] 200 mg PO DAILY 10/19/20 12/30/21 Albuterol Sulf [Ventolin Hfa 2 puffs INH Q4HR PRN 12/30/21 12/30/21 Inhaler] Amlodipine Besylate [Norvasc] 2.5 mg PO DAILY 12/30/21 12/30/21 Isosorbide Mononitrate ER [Imdur] 30 mg PO DAILY 12/30/21 12/30/21 Levothyroxine [Synthroid] 125 mcg PO QDAC 12/30/21 12/30/21 Rosuvastatin Calcium [Crestor] 40 mg PO QPM 12/30/21 12/30/21 Salmeterol Xinafoate [Serevent 1 puffs INH BID 12/30/21 12/30/21 Diskus] Tiotropium [place] [Spiriva 2 puffs INH DAILY 12/30/21 12/30/21 Respimat] Venlafaxine ER [Effexor ER] 37.5 mg PO DAILY 12/30/21 12/30/21 Potassium Chloride Oral Soln 20 meq PO DAILYWM #450 ml 01/03/22 [Potassium Chloride] - LABS Result Diagrams: 01/03/22 05:51 01/02/22 04:33
[2022-01-03] MEDS: CLOPIDOGREL 75 MG TABLET PO SCH (12:52)
[2022-01-03 13:26] VITALS: BP 144/74
== END 2022-01-03 13:45 | disposition home health service (06) | DRG 378 ==
LOC: ED 11:48 → MS2 16:16 → OBSVTOIN 12-31 08:55
PROVIDERS: ADMIT Internal Medicine; ATTEND Specialist
PROC: 0DJD8ZZ Inspection of Lower Intestinal Tract, Via Natural or Artificial Opening Endoscopic (ICD-10-PCS; principal; 2022-01-01 11:00)
PROC: 0DB78ZX Excision of Stomach, Pylorus, Via Natural or Artificial Opening Endoscopic, Diagnostic (ICD-10-PCS; 2022-01-01 11:00)
DX: K92.1 Melena (principal); D62 Acute posthemorrhagic anemia; R10.30 Lower abdominal pain, unspecified; J44.9 Chronic obstructive pulmonary disease, unspecified; I27.81 Cor pulmonale (chronic); R13.10 Dysphagia, unspecified; I25.10 Atherosclerotic heart disease of native coronary artery without angina pectoris; N18.9 Chronic kidney disease, unspecified; F41.9 Anxiety disorder, unspecified; F32.A Depression, unspecified; E03.9 Hypothyroidism, unspecified; Z20.822 Contact with and (suspected) exposure to COVID-19; E78.00 Pure hypercholesterolemia, unspecified; J43.9 Emphysema, unspecified; H54.7 Unspecified visual loss; M19.90 Unspecified osteoarthritis, unspecified site; I12.9 Hypertensive chronic kidney disease with stage 1 through stage 4 chronic kidney disease, or unspecified chronic kidney disease; D63.1 Anemia in chronic kidney disease; R25.2 Cramp and spasm; K21.9 Gastro-esophageal reflux disease without esophagitis; K57.30 Diverticulosis of large intestine without perforation or abscess without bleeding; Z79.02 Long term (current) use of antithrombotics/antiplatelets; Z79.1 Long term (current) use of non-steroidal anti-inflammatories (NSAID); Z79.890 Hormone replacement therapy; Z85.3 Personal history of malignant neoplasm of breast; Z90.10 Acquired absence of unspecified breast and nipple; Z95.5 Presence of coronary angioplasty implant and graft; Z92.3 Personal history of irradiation
CPT/HCPCS: 36415; 74174; 80048; 80053; 82607; 82728; 82746; 83540; 83690; 83735; 83880; 84443; 84466; 84484; 85014; 85018; 85025; 85027; 85610; 86850; 86900; 86901; 86920; 87635; 93005; 93306; 94640; 94761; 97162; 99281; 99285; A9270; P9016; Q9967

== ENCOUNTER 2022-01-09 11:10 | Outpatient (CLI) | payer MEDICARE, OTHER ==
[2022-01-09 18:11] LABS: BASOPHILS % (AUTO) 0.4 %; EOSINOPHILS # (AUTO) 0.1 10^3/uL (0.0-0.7); EOSINOPHILS % (AUTO) 1.6 %; HGB - HEMOGLOBIN 10.2 g/dL (12.0-16.0); LYMPHOCYTES # (AUTO) 0.7 10^3/uL (1.5-3.5); LYMPHOCYTES % (AUTO) 12.1 %; MEAN CORPUSCULAR HEMOGLOBIN 31.8 pg (27.0-31.0); MEAN CORPUSCULAR VOLUME 105.9 fL (81.0-99.0); MEAN PLATELET VOLUME 9.7 fL (7.9-10.8); MONOCYTES # (AUTO) 0.5 10^3/uL (0.0-1.0); MONOCYTES % (AUTO) 8.1 %; NEUTROPHILS # (AUTO) 4.3 10^3/uL (1.5-6.6); NEUTROPHILS % (AUTO) 77.6 %; PLT - PLATELET COUNT 288 10^3/uL (130-450); RED BLOOD COUNT 3.21 10^6/uL (4.20-5.40); RED CELL DISTRIBUTION WIDTH 15.1 % (12.0-15.0); WHITE BLOOD COUNT 5.6 x10^3/uL (4.8-10.8)
== END 2022-01-09 11:11 | disposition home or self-care (01) ==
LOC: LAB.N 11:10
PROVIDERS: ATTEND Physician Assistant
DX: K92.2 Gastrointestinal hemorrhage, unspecified (principal)
CPT/HCPCS: 36415; 85025

== ENCOUNTER 2022-02-21 09:18 | Outpatient (CLI) | payer MEDICARE, OTHER ==
--- NOTE | 2022-02-21 12:22 | CT Report ---
PROCEDURE: CHEST WO INDICATIONS: ABN CHEST CT TECHNIQUE: Noncontrast 1mm axial images were acquired from the pulmonary apices to the posterior costophrenic an gles. Axial 5 mm soft tissue kernel reconstructions were performed as well as 8 mm axial MIP and cor onal and sagittal 5 mm reformations. For radiation dose reduction, the following was used: automate d exposure control, adjustment of mA and/or kV according to patient size. COMPARISON: 12/09/2021 FINDINGS: Image quality: Excellent. Lungs and pleura: Bronchiectasis and consolidation with fibrosis in the lung apices and perihilar reg ions is unchanged compared to the prior study. No pneumothorax or pleural effusion. No new mass. Mediastinum: Heart size is enlarged. No pericardial effusion. No mediastinal adenopathy by size cri teria. Thoracic aorta and central pulmonary arteries are normal in size. Esophagus is normal in rachid iber. No hiatal hernia. Bones and chest wall: No suspicious bony lesions. Coronary arteries have atherosclerotic calcificat ions. No pericardial effusion. No vertebral body compression fractures. No axillary or supraclavicul ar adenopathy by size criteria. The thyroid is normal in size and there are no incidental findings. The level degenerative disc disease. Abdomen: Visualized upper abdominal solid organs and bowel loops appear normal in the absence of con trast. IMPRESSION: Chronic bronchiectasis with chronic interstitial changes and fibrosis, unchanged compare d to the prior CT on 12/09/2021. Reviewed by: Sam Alcala on 02/21/2022 12:21 PM PST Approved by: Sam Alcala on 02/21/2022 12:21 PM PST Station ID: [id number]
== END 2022-02-21 09:19 | disposition home or self-care (01) ==
LOC: DI 09:18
PROVIDERS: ATTEND Internal Medicine Critical Care Medicine
DX: R91.8 Other nonspecific abnormal finding of lung field (principal); J47.9 Bronchiectasis, uncomplicated

== ENCOUNTER 2022-03-05 09:55 | Outpatient (CLI) | payer MEDICARE, OTHER | END 2022-03-05 09:56 | disposition home or self-care (01) | LOC: LAB.R 09:55 | PROVIDERS: ATTEND Internal Medicine Critical Care Medicine | DX: Z53.9 Procedure and treatment not carried out, unspecified reason (principal) ==

== ENCOUNTER 2022-03-11 11:59 | Outpatient (CLI) | payer MEDICARE, OTHER | END 2022-03-11 12:00 | disposition home or self-care (01) | LOC: LAB 11:59 | DX: J47.9 Bronchiectasis, uncomplicated (principal); Z53.9 Procedure and treatment not carried out, unspecified reason | CPT/HCPCS: 87070; 87205 ==

== ENCOUNTER 2022-03-21 09:50 | Outpatient (CLI) | payer MEDICARE, OTHER | END 2022-03-21 09:51 | disposition home or self-care (01) | LOC: LAB.R 09:50 | PROVIDERS: ATTEND Internal Medicine Critical Care Medicine | DX: J47.9 Bronchiectasis, uncomplicated (principal) | CPT/HCPCS: 87070; 87205 ==

== ENCOUNTER 2022-04-24 11:41 | Outpatient (CLI) | payer MEDICARE, OTHER ==
--- NOTE | 2022-04-26 12:42 | Mammography Report ---
UNILATERAL RIGHT DIGITAL SCREENING MAMMOGRAM 3D/2D: 04/24/2022 CLINICAL: Routine screening. Personal history of left breast cancer. Comparison is made to exams dated: 09/12/2020 mammogram, 09/03/2019 mammogram, 07/03/2018 mammogram, 01/2009 mammogram, and 08/19/2007 mammogram - [facility]. The right breast is heterogeneously dense, which may obscure small masses (category c / 51-75% glandu lar tissue). There is a benign calcification in the right breast. No significant masses, calcifications, or other findings are seen in the breast. There has been no significant interval change. IMPRESSION: BENIGN There is no mammographic evidence of malignancy. A 1 year screening mammogram is recommended. This exam was interpreted at Station ID: [id number]. NOTE: For mammograms, a report in lay terms will be sent to the patient. Approximately 15% of breast malignancies will not be visualized mammographically. In the management of a palpable breast mass, a negative mammogram must not discourage biopsy of a clinically suspicious lesion. Electronically Signed By: Romero cardona/wally:04/24/2022 17:08:12 ACR BI-RADS Category 2: Benign Finding(s) 3342F PARENCHYMAL PATTERN: (D) - The breast(s) demonstrate(s) heterogeneously dense fibroglandular pardavis graf. BI-RADS CATEGORY: (2) - 2 RECOMMENDATION: (ANNUAL) - Recommend routine annual screening mammography. [id number] 1 year screening LATERALITY: (B)
== END 2022-04-24 11:42 | disposition home or self-care (01) ==
LOC: DI 11:41
DX: Z12.31 Encounter for screening mammogram for malignant neoplasm of breast (principal); Z85.3 Personal history of malignant neoplasm of breast

== ENCOUNTER 2022-05-21 13:16 | Outpatient (CLI) | payer MEDICARE, OTHER ==
--- NOTE | 2022-05-21 18:32 | XRAY Report ---
PROCEDURE: Foot 3 View LT INDICATIONS: FOOT PAIN,LEFT TECHNIQUE: 3 views of the foot were acquired. COMPARISON: None FINDINGS: Bones: No fractures or dislocations. No suspicious bony lesions. Osteopenia small calcaneal spur Soft tissues: No tibiotalar joint effusion. Achilles tendon appears normal. IMPRESSION: Osteopenia and small calcaneal spur Reviewed by: Keith Best MD on 05/21/2022 5:31 PM [place] Approved by: Keith Best MD on 05/21/2022 5:31 PM [place] Station ID: [id number]
== END 2022-05-21 13:17 | disposition home or self-care (01) ==
LOC: DI 13:16
PROVIDERS: ATTEND Internal Medicine
DX: M85.872 Other specified disorders of bone density and structure, left ankle and foot (principal); M77.32 Calcaneal spur, left foot

== ENCOUNTER 2022-05-22 08:21 | Outpatient (CLI) | payer MEDICARE, OTHER ==
[2022-05-22 08:56] LABS: BASOPHILS % (AUTO) 0.3 %; EOSINOPHILS # (AUTO) 0.1 10^3/uL (0.0-0.7); EOSINOPHILS % (AUTO) 0.9 %; HCT - HEMATOCRIT 37.5 % (37.0-47.0); HGB - HEMOGLOBIN 11.6 g/dL (12.0-16.0); LYMPHOCYTES # (AUTO) 0.7 10^3/uL (1.5-3.5); LYMPHOCYTES % (AUTO) 10.3 %; MEAN CORPUSCULAR HEMOGLOBIN 31.3 pg (27.0-31.0); MEAN CORPUSCULAR HGB CONC 30.9 g/dL (32.0-36.0); MEAN CORPUSCULAR VOLUME 101.1 fL (81.0-99.0); MEAN PLATELET VOLUME 9.6 fL (7.9-10.8); MONOCYTES # (AUTO) 0.6 10^3/uL (0.0-1.0); MONOCYTES % (AUTO) 8.1 %; NEUTROPHILS # (AUTO) 5.5 10^3/uL (1.5-6.6); NEUTROPHILS % (AUTO) 80.1 %; PLT - PLATELET COUNT 195 10^3/uL (130-450); RED BLOOD COUNT 3.71 10^6/uL (4.20-5.40); RED CELL DISTRIBUTION WIDTH 14.3 % (12.0-15.0); WHITE BLOOD COUNT 6.9 x10^3/uL (4.8-10.8)
[2022-05-22 09:17] LABS: ALBUMIN 3.8 g/dL (3.2-5.5); ALKALINE PHOSPHATASE 70 IU/L (42-121); ALT ALANINE AMINOTRANSFERASE 34 IU/L (10-60); AST ASPARTATE AMINOTRANSFERASE 55 IU/L (10-42); BILIRUBIN,TOTAL 0.5 mg/dL (0.2-1.0); BUN - BLOOD UREA NITROGEN 33 mg/dL (6-20); CALCIUM 9.5 mg/dL (8.5-10.3); CARBON DIOXIDE - CO2 27 mmol/L (21-32); CHLORIDE 101 mmol/L (101-111); CHOLESTEROL 141 mg/dL; CREATININE 1.6 mg/dL (0.4-1.0); GFR - MDRD 31 (>89); GLUCOSE 93 mg/dL (70-100); HDL CHOLESTEROL 70 mg/dL; LDL CHOLESTEROL,CALCULATED 57 mg/dL; LDL/HDL RATIO 0.8 (<4.4); POTASSIUM 3.8 mmol/L (3.5-5.0); SODIUM 137 mmol/L (135-145); TOTAL PROTEIN 7.6 g/dL (6.7-8.2); TRIGLYCERIDES 72 mg/dL; URIC ACID 2.7 mg/dL (2.6-7.2); VLDL CHOLESTEROL 14 mg/dL
[2022-05-22 09:26] LABS: THYROID STIMULATING HORMONE 0.08 uIU/mL (0.34-5.60)
[2022-05-22 10:18] LABS: FREE T4 (FREE THYROXINE) 1.56 ng/dL (0.58-1.64)
== END 2022-05-22 08:22 | disposition home or self-care (01) ==
LOC: LAB 08:21
PROVIDERS: ATTEND Internal Medicine
DX: E78.5 Hyperlipidemia, unspecified (principal); E03.9 Hypothyroidism, unspecified; K92.2 Gastrointestinal hemorrhage, unspecified; Z87.39 Personal history of other diseases of the musculoskeletal system and connective tissue
CPT/HCPCS: 36415; 80053; 80061; 83721; 84439; 84443; 84550; 85025

== ENCOUNTER 2022-09-21 10:54 | Outpatient (CLI) | payer MEDICARE, OTHER ==
[2022-09-21 11:14] LABS: CALCIUM 9.1 mg/dL (8.5-10.3); CREATININE 1.7 mg/dL (0.4-1.0)
== END 2022-09-21 10:55 | disposition home or self-care (01) ==
LOC: LAB 10:54
PROVIDERS: ATTEND Internal Medicine Cardiovascular Disease
DX: I50.42 Chronic combined systolic (congestive) and diastolic (congestive) heart failure (principal)
CPT/HCPCS: 36415; 80048

== ENCOUNTER 2022-10-16 18:13 | Outpatient (CLI) | payer MEDICARE, OTHER | END 2022-10-16 23:59 | disposition critical access hospital (66) | LOC: EMS 18:13 | DX: M25.561 Pain in right knee (principal); M25.571 Pain in right ankle and joints of right foot; M79.89 Other specified soft tissue disorders; W01.0XXA Fall on same level from slipping, tripping and stumbling without subsequent striking against object, initial encounter; Y92.511 Restaurant or cafe as the place of occurrence of the external cause | CPT/HCPCS: A0425; A0429 ==

== ENCOUNTER 2022-10-16 18:37 | Emergency (ER) | payer MEDICARE, OTHER ==
--- NOTE | 2022-10-16 18:42 | ED Physician Documentation ---
PD HPI MAJOR TRAUMA - Stated complaint Stated Complaint: GLF - Chief complaint Chief Complaint: Trauma Ext - History obtained from History obtained from: Patient, EMS - Additional information Additional information: 77-year-old woman on Plavix for heart issue was going down the stairs and missed the last step and fell forward. She did hit her head, but denies headache or loss of consciousness. Main issues are right knee ankle and foot pain. She has not walked since the accident. She has had a total knee replacement on the right, about 15 years ago. PD PAST MEDICAL HISTORY - Past Medical History Cardiovascular: Hypertension, High cholesterol, Coronary artery disease Respiratory: COPD, Emphysema Neuro: None Endocrine/Autoimmune: HyPOthyroidism GI: None BRAZING MACHINE TENDER: Breast cancer : Frequency HEENT: Chronic vision loss Psych: None Musculoskeletal: Osteoarthritis Derm: None - Past Surgical History General: Colonoscopy, EGD Ortho: Hip replacement, Knee replacement, Arthroscopic surgery /BRAZING MACHINE TENDER: Dilation and currettage, Tubal ligation, Mastectomy Cardiovascular: Coronary stent, Cardiac catheterization HEENT: Tonsil/Adenoidectomy - Present Medications Home Medications: Ambulatory Orders Medication Instructions Recorded Confirmed Acetaminophen [Tylenol] 650 mg PO Q6H PRN 06/27/15 12/30/21 Multivitamin [Multivitamins] 1 each PO DAILY 06/27/15 12/30/21 atenoloL [Tenormin] 25 mg PO DAILY 06/27/15 12/30/21 Clopidogrel [Plavix] 75 mg PO DAILY 10/19/20 12/30/21 Ezetimibe [Zetia] 10 mg PO DAILY 10/19/20 12/30/21 Pantoprazole Sodium 40 mg PO QDAC 10/19/20 12/30/21 allopurinoL [Zyloprim] 200 mg PO DAILY 10/19/20 12/30/21 Amlodipine Besylate [Norvasc] 2.5 mg PO DAILY 12/30/21 12/30/21 Isosorbide Mononitrate ER [Imdur] 30 mg PO DAILY 12/30/21 12/30/21 Levothyroxine [Synthroid] 125 mcg PO QDAC 12/30/21 12/30/21 Rosuvastatin Calcium [Crestor] 40 mg PO QPM 12/30/21 12/30/21 Salmeterol Xinafoate [Serevent 1 puffs INH BID 12/30/21 12/30/21 Diskus] Fluticasone/Umeclidin/Vilanter 10/16/22 10/16/22 [Trelegy Ellipta 100-62.5-25] - Allergies Allergies/Adverse Reactions: Allergies Allergy/AdvReac Type Severity Reaction Status Date / Time No Known Drug Allergies Allergy Verified 10/16/22 18:43 - Social History Does the pt smoke?: No Smoking Status: Never smoker - POLST Patient has POLST: No PD ED PE NORMAL - Vitals Vital signs reviewed: Yes - General General: Alert and oriented X 3, No acute distress - HEENT HEENT: PERRL, EOMI - Neck Neck: Supple, no meningeal sign, No bony TTP, Other (Healed anterior neck incision from C2-C3 ACDF) - Respiratory Respiratory: Clear bilaterally - Abdomen Abdomen: Non tender - Derm Derm: Normal color, Warm and dry - Extremities Extremities: Other (There is a palpable contusion anteromedially below the right knee. There is tenderness of both side of the ankle without deformity. There is swelling on the top of the foot with corresponding tenderness on the right.) - Neuro Neuro: Alert and oriented X 3, Normal speech Results - Vitals Vitals: Vital Signs - 24 hr 10/16/22 18:38 Temperature 36.5 C Heart Rate 68 Respiratory 18 Rate Blood Pressure 165/95 H O2 Saturation 99 Oxygen O2 Source [] Room air O2 Source [] Room air O2 Source Room air - Rads (name of study) X-ray of the right knee showing medial and posterior tibial metathesis irregularity concerning for nondisplaced upper tibial fracture. Relevant Findings:: Final report received, EMP independent interpretation of test CT of the head, cervical spine, and x-rays of the right foot and ankle were negative for trauma. Relevant Findings:: Final report received, EMP independent interpretation of test PD Medical Decision Making - ED course ED course: 77-year-old woman presents after a fall with head injury but the main complaints are actually in the leg. Relevant imaging were only notable for a nondisplaced fracture of the right proximal tibia, a periprosthetic fracture. Case was discussed by phone with our on-call orthopedic surgeon, Dr Gilmore who felt that this was nonoperative and to be conservatively managed with immobilization and weightbearing as tolerated. Patient was unable to go home as she really could not be functional with the broken knee and after extensive discussion she will be kept in the emergency department boarding pending PT and OT evaluation for SECURITY GUARDS DISPATCHER placement to SNF hopefully tomorrow. She was placed in a knee immobilizer. Dr Gilmore felt that she could weight-bear as tolerated but expected that she would be able to weight-bear for some time due to the pain. Patient and counseled at length about the process of PT and OT evaluation, SNF evaluation coordinated by SECURITY GUARDS DISPATCHER tomorrow and then needing SNF orders. Also the fact that it would be private pay. Departure - Departure Clinical Impression: Closed fracture of right proximal tibia, Fall down stairs, Head injury, Ankle sprain, Foot contusion Condition: Stable Instructions: ED Head Injury Closed, ED Sprain Ankle W X Ray, ED Fx Knee Follow-Up: [facility] [Provider Group] Comments: Dr Gilmore felt she can weight bear as tolerated on the right knee. She should eventually followup in clinic for this, within 10 days, call for appointment. Forms: PCP List
[2022-10-16] MEDS ORDERED: HYDROmorphone 1 MG/ML CARPUJECT IVP STA (19:18)
--- NOTE | 2022-10-16 19:27 | XRAY Report ---
PROCEDURE: Knee 2 View RT INDICATIONS: leg inj TECHNIQUE: 2 views of the right knee(s) were acquired. COMPARISON: None. FINDINGS: Bones: post surgical changes from right knee arthroplasty. Cortical irregularity present at the medi al and posterior tibial metaphysis Soft tissues: Small knee joint effusion. No suspicious soft tissue calcifications . IMPRESSION: Possible acute minimally displaced fracture of the proximal tibia. Nonspecific knee effusion present. Reviewed by: Juan Carlos Mancia MD on 10/16/2022 7:26 PM PDT Approved by: Juan Carlos Mancia MD on 10/16/2022 7:26 PM PDT Station ID: [id number]
--- NOTE | 2022-10-16 19:43 | CT Report ---
PROCEDURE: HEAD WO INDICATIONS: head inj TECHNIQUE: Noncontrast 4.5 mm thick angled axial sections acquired from the foramen magnum to the vertex. For r adiation dose reduction, the following was used: automated exposure control, adjustment of mA and/or kV according to patient size. COMPARISON: None. FINDINGS: CSF spaces: Basal cisterns are patent. No extra-axial fluid collections. Ventricles are normal in size and shape. Brain: No midline shift. No intracranial masses or hemorrhage. Caraballo-white matter interface is norm al. Ill-defined periventricular and deep white matter hypodensities nonspecific probable microvascul ar ischemic change Skull and face: Calvarium and visualized facial bones are intact, without suspicious lesions. Sinuses: Visualized sinuses and mastoids are clear. IMPRESSION: No acute intracranial pathology Reviewed by: Juan Carlos Mancia MD on 10/16/2022 7:41 PM PDT Approved by: Juan Carlos Mancia MD on 10/16/2022 7:41 PM PDT Station ID: [id number]
--- NOTE | 2022-10-16 19:47 | CT Report ---
PROCEDURE: CERVICAL SPINE WO INDICATIONS: head injj TECHNIQUE: Noncontrast 3 mm thick sections acquired from the skull base to the T4 level. Sagittal and coronal r eformats were then constructed. For radiation dose reduction, the following was used: automated exp osure control, adjustment of mA and/or kV according to patient size. COMPARISON: CT chest 02/21/2022. FINDINGS: Bones: No acute displaced fractures or dislocations. Visualized superior ribs are intact. Postsurg ical changes from prior C3-C5 fusion with a plate and screws. Hardware appears intact. Soft tissues: Prevertebral soft tissues are normal in thickness. No paravertebral hematomas. No ap ical pneumothoraces. Bronchiectasis and irregular opacities at the imaged lung apices redemonstrated better evaluated on prior chest CT. IMPRESSION: No acute, displaced fracture or traumatic subluxation. Reviewed by: Juan Carlos Mancia MD on 10/16/2022 7:45 PM PDT Approved by: Juan Carlos Mancia MD on 10/16/2022 7:45 PM PDT Station ID: [id number]
--- NOTE | 2022-10-16 19:48 | XRAY Report ---
PROCEDURE: Foot 3 View RT INDICATIONS: leg inj TECHNIQUE: 3 views of the foot were acquired. COMPARISON: None. FINDINGS: Bones: The bones appear demineralized No fractures or dislocations. No suspicious bony lesions. Soft tissues: No suspicious soft tissue calcifications IMPRESSION: No acute bony abnormality. If pain persists with conservative management, consider repeat radiographs in 10-14 days or cross-sectional imaging. Reviewed by: Juan Carlos Mancia MD on 10/16/2022 7:47 PM PDT Approved by: Juan Carlos Mancia MD on 10/16/2022 7:47 PM PDT Station ID: [id number]
--- NOTE | 2022-10-16 19:50 | XRAY Report ---
PROCEDURE: Ankle 3 View RT INDICATIONS: leg inj TECHNIQUE: 3 views of the ankle were acquired. COMPARISON: None. FINDINGS: Bones: No fractures or dislocations. Ankle mortise is normally aligned. No suspicious bony lesions . Soft tissues: No tibiotalar joint effusion. IMPRESSION: No acute bony abnormality. If there remains a high clinical concern for fracture, consider cross-sect ional imaging now. If pain persists, consider repeat x-ray in 10-14 days or cross-sectional imaging. Reviewed by: Juan Carlos Mancia MD on 10/16/2022 7:48 PM PDT Approved by: Juan Carlos Mancia MD on 10/16/2022 7:48 PM PDT Station ID: [id number]
[2022-10-16] MEDS ORDERED: ONDANSETRON 4 MG/2 ML VIAL IVP PRN (20:21)
[2022-10-16] MEDS ORDERED: ACETAMINOPHEN 500 MG TABLET PO PRN (20:21)
[2022-10-16] MEDS ORDERED: IPRATROPIUM/ALBUTEROL 3 ML NEB INH PRN (20:22)
[2022-10-16] MEDS ORDERED: traZODone 50 MG TABLET PO PRN (20:47)
[2022-10-16] MEDS ORDERED: ONDANSETRON ODT 4 MG TABLET TL PRN (21:09)
[2022-10-16 21:25] LABS: BASOPHILS % (AUTO) 0.4 %; EOSINOPHILS # (AUTO) 0.1 10^3/uL (0.0-0.7); EOSINOPHILS % (AUTO) 1.6 %; HCT - HEMATOCRIT 34.5 % (37.0-47.0); HGB - HEMOGLOBIN 10.9 g/dL (12.0-16.0); LYMPHOCYTES # (AUTO) 0.5 10^3/uL (1.5-3.5); LYMPHOCYTES % (AUTO) 6.9 %; MEAN CORPUSCULAR HEMOGLOBIN 34.1 pg (27.0-31.0); MEAN CORPUSCULAR HGB CONC 31.6 g/dL (32.0-36.0); MEAN CORPUSCULAR VOLUME 107.8 fL (81.0-99.0); MEAN PLATELET VOLUME 9.5 fL (7.9-10.8); MONOCYTES # (AUTO) 0.6 10^3/uL (0.0-1.0); MONOCYTES % (AUTO) 7.5 %; NEUTROPHILS # (AUTO) 6.4 10^3/uL (1.5-6.6); NEUTROPHILS % (AUTO) 83.3 %; PLT - PLATELET COUNT 172 10^3/uL (130-450); WHITE BLOOD COUNT 7.7 x10^3/uL (4.8-10.8)
[2022-10-16 21:58] LABS: CALCIUM 9.3 mg/dL (8.5-10.3); CREATININE 1.8 mg/dL (0.6-1.3); POTASSIUM 4.2 mmol/L (3.5-4.5)
[2022-10-16] MEDS: oxyCODONE 5 MG TABLET PO PRN (22:58)
--- NOTE | 2022-10-17 00:19 | ED Physician Documentation ---
ED Addendum - Addendum Addendum: 10/17/22 00:18 I received a call from the pharmacy overnight regarding the patient's creatinine level and her Lovenox order. They stated that based on the patient's GFR and creatinine clearance, the Lovenox dose should be adjusted down to 30 mg instead of 40. I did okay this change for the patient.
[2022-10-17] MEDS ORDERED: oxyCODONE 5 MG TABLET PO STA (02:05)
[2022-10-17] MEDS ORDERED: ALPRAZolam 0.25 MG TABLET PO STA (02:33)
[2022-10-17] MEDS ORDERED: LEVOTHYROXINE 125 MCG TABLET PO SCH (07:00)
[2022-10-17] MEDS ORDERED: PANTOPRAZOLE 40 MG TABLET PO SCH (07:00)
[2022-10-17] MEDS: oxyCODONE 5 MG TABLET PO PRN (07:53)
[2022-10-17] MEDS ORDERED: atenoloL 25 MG TABLET PO SCH (09:00)
[2022-10-17] MEDS ORDERED: ISOSORBIDE MONONITRATE ER 30 MG TABLET PO SCH (09:00)
[2022-10-17] MEDS ORDERED: ENOXAPARIN 30 MG/0.3 ML SYRINGE SUBQ SCH (09:00)
[2022-10-17] MEDS ORDERED: amLODIPine 5 MG TABLET PO SCH (09:00)
[2022-10-17] MEDS ORDERED: allopurinoL 100 MG TABLET PO SCH (09:00)
[2022-10-17] MEDS ORDERED: CLOPIDOGREL 75 MG TABLET PO SCH (09:00)
[2022-10-17 14:33] VITALS: BP 99/56
== END 2022-10-17 14:29 | disposition home or self-care (01) ==
LOC: EDUNIT# → ED 18:37
DX: S82.101A Unspecified fracture of upper end of right tibia, initial encounter for closed fracture (principal); S09.90XA Unspecified injury of head, initial encounter; S93.401A Sprain of unspecified ligament of right ankle, initial encounter; S90.31XA Contusion of right foot, initial encounter; W10.9XXA Fall (on) (from) unspecified stairs and steps, initial encounter; I10 Essential (primary) hypertension; E78.00 Pure hypercholesterolemia, unspecified; I25.10 Atherosclerotic heart disease of native coronary artery without angina pectoris; J43.9 Emphysema, unspecified; E03.9 Hypothyroidism, unspecified; Z79.899 Other long term (current) drug therapy; Z79.02 Long term (current) use of antithrombotics/antiplatelets; Z79.51 Long term (current) use of inhaled steroids; Z20.822 Contact with and (suspected) exposure to COVID-19
CPT/HCPCS: 36415; 70450; 72125; 73560; 73610; 73630; 80048; 85025; 87635; 94640; 96372; 96374; 97162; 97166; 99284; A9270; J1170; J1650

== ENCOUNTER 2022-10-17 14:30 | Outpatient (CLI) | payer MEDICARE, OTHER | END 2022-10-17 23:59 | LOC: EMS 14:30 | PROVIDERS: ATTEND Emergency Medicine | DX: S82.101A Unspecified fracture of upper end of right tibia, initial encounter for closed fracture (principal); W19.XXXA Unspecified fall, initial encounter | CPT/HCPCS: A0425; A0428 ==

== ENCOUNTER 2022-10-23 08:00 | Outpatient (CLI) | payer MEDICARE, OTHER ==
--- NOTE | 2022-10-23 16:51 | XRAY Report ---
PROCEDURE: Ankle 3 View RT INDICATIONS: RIGHT ANKLE PAIN TECHNIQUE: 3 views of the ankle were acquired. COMPARISON: None. FINDINGS: Bones: No fractures or dislocations. Ankle mortise is normally aligned. No suspicious bony lesions . Soft tissues: No tibiotalar joint effusion. Achilles tendon appears normal. IMPRESSION: No acute fracture. No osseous lesion. If symptoms and/or clinical suspicion for pathology continue, f urther assessment with repeat plain films, or advanced imaging (e.g., CT, MRI, or bone scan) is recom mended for further assessment. Reviewed by: Rajat Zambrano MD on 10/23/2022 4:50 PM PDT Approved by: Rajat Zambrano MD on 10/23/2022 4:50 PM PDT Station ID: [id number]
--- NOTE | 2022-10-23 16:54 | XRAY Report ---
PROCEDURE: Shoulder 3 View LT INDICATIONS: LEFT SHOULDER PAIN TECHNIQUE: 4 views of the shoulder were acquired. COMPARISON: None. FINDINGS: Examination limited by obliquity. Bones: No fractures or dislocations. No suspicious bony lesions. Visualized ribs appear intact. Periarticular osteophyte formation at the acromioclavicular and glenohumeral joint. Large hook osteop hyte protrudes inferiorly from the inferomedial aspect of the humeral head. Soft tissues: No suspicious soft tissue calcifications. IMPRESSION: Limited examination demonstrating osteoarthritis and no definite acute fracture. No osseo us lesion. If symptoms and/or clinical suspicion for pathology continue, further assessment with repe at plain films, or advanced imaging (e.g., CT, MRI, or bone scan) is recommended for further assessme nt. Reviewed by: Rajat Zambrano MD on 10/23/2022 4:53 PM PDT Approved by: Rajat Zambrano MD on 10/23/2022 4:53 PM PDT Station ID: [id number]
--- NOTE | 2022-10-23 16:54 | XRAY Report ---
PROCEDURE: Knee 3 View RT INDICATIONS: RIGHT KNEE PAIN/INJURY TECHNIQUE: 3 views of the right knee(s) were acquired. COMPARISON: None. FINDINGS: Bones: No fractures or dislocations. No suspicious bony lesions. Knee arthroplasty has been perfo rmed. Soft tissues: No knee joint effusion. No suspicious soft tissue calcifications or masses. IMPRESSION: Post surgical sequelae. No acute fracture. No osseous lesion. If symptoms and/or clinical suspicion f or pathology continue, further assessment with repeat plain films, or advanced imaging (e.g., CT, MRI , or bone scan) is recommended for further assessment. Reviewed by: Rajat Zambrano MD on 10/23/2022 4:53 PM PDT Approved by: Rajat Zambrano MD on 10/23/2022 4:53 PM PDT Station ID: [id number]
--- NOTE | 2022-10-23 16:58 | XRAY Report ---
PROCEDURE: Foot 3 View RT INDICATIONS: RIGHT FOOT PAIN TECHNIQUE: 3 views of the foot were acquired. COMPARISON: Plain films dated 10/16/2022 FINDINGS: Bones: Vague linear lucency traverses the lateral aspect of the fourth metatarsal neck. No suspiciou s bony lesions. Soft tissues: No suspicious soft tissue calcifications or masses. IMPRESSION: Possible fourth metatarsal neck fracture. Initial further assessment with MRI is recommended. Reviewed by: Rajat Zambrano MD on 10/23/2022 4:57 PM PDT Approved by: Rajat Zambrano MD on 10/23/2022 4:57 PM PDT Station ID: [id number]
== END 2022-10-23 23:59 | disposition home or self-care (01) ==
LOC: DI.WOS 08:00
PROVIDERS: ATTEND Orthopaedic Surgery
DX: M79.671 Pain in right foot (principal); M25.572 Pain in left ankle and joints of left foot; M25.561 Pain in right knee; M19.012 Primary osteoarthritis, left shoulder

== ENCOUNTER 2022-10-25 08:00 | Outpatient (CLI) | payer MEDICARE, OTHER ==
[2022-10-25 20:48] LABS: GLUCOSE, URINE (UA) NEGATIVE (NEGATIVE); KETONES,URINE (UA) NEGATIVE (NEGATIVE); LEUKOCYTE ESTERASE, URINE TRACE (NEGATIVE); NITRITE,URINE POSITIVE (NEGATIVE); OCCULT BLOOD,URINE LARGE (NEGATIVE); PROTEIN,URINE >=300 mg/dL (NEGATIVE); UROBILINOGEN,URINE 1 (NORMAL) E.U./dL (NORMAL)
[2022-10-25 20:52] LABS: BILIRUBIN,URINE NEGATIVE (NEGATIVE); CLARITY,URINE TURBID (CLEAR); ICTOTEST,URINE NEGATIVE
[2022-10-25 21:07] LABS: BACTERIA,URINE Many /HPF (None Seen); RBC,URINE TNTC /HPF (0-5); SQUAMOUS EPITHELIAL CELL,UR FEW Squamous (<= Few)
== END 2022-10-25 23:59 | disposition home or self-care (01) ==
LOC: LAB.R 08:00
PROVIDERS: ATTEND Registered Nurse
DX: R35.0 Frequency of micturition (principal); F32.A Depression, unspecified; W10.8XXD Fall (on) (from) other stairs and steps, subsequent encounter
CPT/HCPCS: 81001; 87077; 87086; 87181

== ENCOUNTER 2022-10-29 19:10 | Outpatient (CLI) | payer MEDICARE, OTHER | END 2022-10-29 23:59 | disposition critical access hospital (66) | LOC: EMS 19:10 | DX: R06.02 Shortness of breath (principal); R11.10 Vomiting, unspecified | CPT/HCPCS: A0425; A0429 ==

== ENCOUNTER 2022-10-29 19:18 | Inpatient (IN) | payer MEDICARE, OTHER ==
--- NOTE | 2022-10-29 19:34 | ED Physician Documentation ---
History of Present Illness - Stated complaint Stated Complaint: SOA/LT LEG INJ - History obtained from History obtained from: Patient - History of Present Illness Pain level max: 3 Pain level now: 3 - Additonal information Additional information: Patient is a 77-year-old female who presents to the emergency department with cough, fever and shortness of breath. She states that this started today. She was recently treated for UTI. Has a possible tibial plateau fracture on x-ray from 2 weeks ago and has been in a knee immobilizer. Has a possible fourth metatarsal fracture and is currently in a walking boot. She lives at [facility] in [place] currently. She is on Eliquis for "a heart issue". She has had cardiac stents about 10 years ago. No vomiting. No abdominal pain. No diarrhea. The cough is mostly dry. Has had mild rhinorrhea and congestion. No sore throat. Review of Systems Constitutional: reports: Fever, Chills Nose: reports: Rhinorrhea / runny nose, Congestion Respiratory: reports: Cough GI: denies: Abdominal Pain, Nausea, Vomiting, Diarrhea : denies: Dysuria, Frequency, Hesitancy Musculoskeletal: denies: Neck pain, Back pain Neurologic: reports: Generalized weakness. 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: Breast cancer : Frequency HEENT: Chronic vision loss Psych: None Musculoskeletal: Osteoarthritis Derm: None - Past Surgical History General: Colonoscopy, EGD Ortho: Hip replacement, Knee replacement, Arthroscopic surgery /MACHINE TRIMMER: Dilation and currettage, Tubal ligation, Mastectomy Cardiovascular: Coronary stent, Cardiac catheterization HEENT: Tonsil/Adenoidectomy - Present Medications Home Medications: Ambulatory Orders Medication Instructions Recorded Confirmed Acetaminophen [Tylenol] 650 mg PO Q6H PRN 06/27/15 12/30/21 Multivitamin [Multivitamins] 1 each PO DAILY 06/27/15 12/30/21 atenoloL [Tenormin] 25 mg PO DAILY 06/27/15 12/30/21 Clopidogrel [Plavix] 75 mg PO DAILY 10/19/20 12/30/21 Ezetimibe [Zetia] 10 mg PO DAILY 10/19/20 12/30/21 Pantoprazole Sodium 40 mg PO QDAC 10/19/20 12/30/21 allopurinoL [Zyloprim] 200 mg PO DAILY 10/19/20 12/30/21 Amlodipine Besylate [Norvasc] 2.5 mg PO DAILY 12/30/21 12/30/21 Isosorbide Mononitrate ER [Imdur] 30 mg PO DAILY 12/30/21 12/30/21 Levothyroxine [Synthroid] 125 mcg PO QDAC 12/30/21 12/30/21 Rosuvastatin Calcium [Crestor] 40 mg PO QPM 12/30/21 12/30/21 Salmeterol Xinafoate [Serevent 1 puffs INH BID 12/30/21 12/30/21 Diskus] Fluticasone/Umeclidin/Vilanter 10/16/22 10/16/22 [Trelegy Ellipta 100-62.5-25] - Allergies Allergies/Adverse Reactions: Allergies Allergy/AdvReac Type Severity Reaction Status Date / Time No Known Drug Allergies Allergy Verified 10/16/22 18:43 - Social History Does the pt smoke?: No Smoking Status: Never smoker Does the pt drink ETOH?: Yes Does the pt have substance abuse?: No - Immunizations Immunizations are current?: Yes - POLST Patient has POLST: No PD ED PE NORMAL - Vitals Vital signs reviewed: Yes - General General: Alert and oriented X 3, Other (Pale appearing, tachypneic) - HEENT HEENT: Moist mucous membranes, Pharynx benign - Neck Neck: Supple, no meningeal sign - Cardiac Cardiac: Other (Tachycardic, irregular) - Respiratory Respiratory: Other (Crackles bilaterally, decreased breath sounds, tachypneic) - Abdomen Abdomen: Soft, Non tender, Non distended - Derm Derm: Warm and dry - Extremities Extremities: No edema, No calf tenderness / cord - Neuro Neuro: Alert and oriented X 3 Results - Vitals Vitals: Vital Signs - 24 hr 10/29/22 10/29/22 10/29/22 19:34 20:25 20:32 Temperature 38.5 C H Heart Rate 117 H 114 H 114 H Respiratory 28 H 26 H 26 H Rate Blood Pressure 160/101 H 157/92 H O2 Saturation 98 100 If not protocol 3 3 : Oxygen Flow, liters/minute 10/29/22 10/29/22 21:00 21:30 Temperature Heart Rate 114 H 104 H Respiratory 26 H 24 Rate Blood Pressure 114/73 114/73 O2 Saturation 97 97 If not protocol 3 3 : Oxygen Flow, liters/minute Oxygen O2 Source [With Activity] Room air O2 Source [Without Activity] Room air O2 Source Nasal cannula - EKG (time done) 1930 EKG releavant findings:: EKG personally interpreted by author of this note. Relevant findings are: Rate: Rate (enter#) (118) Rhythm: Sinus tachycardia, Other (PAC) Jackson: Anterior hemiblock (LAFB) Intervals: RBBB - Labs Labs: Laboratory Tests 10/29/22 10/29/22 10/29/22 19:45 19:45 19:45 WBC 23.5 H RBC 3.30 L Hgb 10.6 L Hct 33.6 L MCV 101.8 H MCH 32.1 H MCHC 31.5 L RDW 13.0 Plt Count 464 H MPV 8.6 Neut # (Auto) 22.4 H Lymph # (Auto) 0.1 L [place] # (Auto) 0.7 Eos # (Auto) 0.0 Baso # (Auto) 0.0 Absolute Nucleated RBC 0.00 Nucleated RBC % 0.0 PT 12.7 H INR 1.2 APTT 25.6 Sodium 126 L Potassium 4.3 Chloride 86 L Carbon Dioxide 30 Anion Gap 10.0 BUN 21 H Creatinine 1.1 Estimated GFR (MDRD) 48 L Glucose 130 H Lactic Acid Calcium 9.6 Total Bilirubin 0.8 AST 111 H ALT 155 H Alkaline Phosphatase 208 H Total Protein 7.4 Albumin 3.5 Globulin 3.9 Albumin/Globulin Ratio 0.9 L Lipase 25 Nasal Adenovirus (PCR) Nasal B. parapertussis DNA (PCR) Nasal Coronavir 229E PCR Nasal Coronavir HKU1 PCR Nasal Coronavir NL63 PCR Nasal Coronavir OC43 PCR Nasal Enterovir/Rhinovir PCR Nasal Influenza B PCR Nasal Influenza A PCR Nasal Parainfluen 1 PCR Nasal Parainfluen 2 PCR Nasal Parainfluen 3 PCR Nasal Parainfluen 4 PCR Nasal RSV (PCR) Nasal B.pertussis DNA PCR Nasal C.pneumoniae (PCR) Jayesh Human Metapneumo PCR Nasal M.pneumoniae (PCR) Nasal SARS-CoV-2 (PCR) 10/29/22 10/29/22 19:45 20:35 WBC RBC Hgb Hct MCV MCH MCHC RDW Plt Count MPV Neut # (Auto) Lymph # (Auto) [place] # (Auto) Eos # (Auto) Baso # (Auto) Absolute Nucleated RBC Nucleated RBC % PT INR APTT Sodium Potassium Chloride Carbon Dioxide Anion Gap BUN Creatinine Estimated GFR (MDRD) Glucose Lactic Acid 1.5 Calcium Total Bilirubin AST ALT Alkaline Phosphatase Total Protein Albumin Globulin Albumin/Globulin Ratio Lipase Nasal Adenovirus (PCR) NOT DETECTED Nasal B. parapertussis DNA (PCR) NOT DETECTED Nasal Coronavir 229E PCR NOT DETECTED Nasal Coronavir HKU1 PCR NOT DETECTED Nasal Coronavir NL63 PCR NOT DETECTED Nasal Coronavir OC43 PCR NOT DETECTED Nasal Enterovir/Rhinovir PCR NOT DETECTED Nasal Influenza B PCR NOT DETECTED Nasal Influenza A PCR NOT DETECTED Nasal Parainfluen 1 PCR NOT DETECTED Nasal Parainfluen 2 PCR NOT DETECTED Nasal Parainfluen 3 PCR NOT DETECTED Nasal Parainfluen 4 PCR NOT DETECTED Nasal RSV (PCR) NOT DETECTED Nasal B.pertussis DNA PCR NOT DETECTED Nasal C.pneumoniae (PCR) NOT DETECTED Jayesh Human Metapneumo PCR NOT DETECTED Nasal M.pneumoniae (PCR) NOT DETECTED Nasal SARS-CoV-2 (PCR) NOT DETECTED - Rads (name of study) cxr Relevant Findings:: Final report received, See rad report PD Medical Decision Making - ED course Complexity details: reviewed results, re-evaluated patient, considered differential, d/w patient, d/w family, d/w health analytics consultant ED course: 77-year-old female with pneumonia, hypoxia, fever. Given Unasyn and doxycycline. Given nebulizer treatment. Patient is also hyponatremic. Given IV fluids. Lactate is normal. Blood cultures drawn. Has a significant elevation in her white blood cell count. Her urine is positive as well. Her LFTs were elevated and so a ultrasound was performed, this does not show any acute abnormalities. Discussed the case with the hospitalist who will admit for further care. This document was made in part using voice recognition software. While efforts are made to proofread this document, sound alike and grammatical errors may occur. Departure - Departure Disposition: [facility] DC/Xfer Clinical Impression: Hypoxia, Pulmonary fibrosis, Hyponatremia Pneumonia Qualifiers: Pneumonia type: due to unspecified organism Laterality: bilateral Lung location: unspecified part of lung Qualified Code(s): J18.9 - Pneumonia, unspecified organism Fever Qualifiers: Fever type: unspecified Qualified Code(s): R50.9 - Fever, unspecified Condition: Stable
--- OUTSIDE RECORDS SUMMARY | 2022-10-29 19:38 | EXTERNAL MEDICAL SUMMARY RPT | Continuity of Care Document ---
Author Name Unknown Address [address] [place] [address] Phone Organization [facility] Address [address] [place] [address] Phone Problems date description facility 2022-08-22 12:19 Hyperlipidemia, unspecified [facility] 2022-08-22 12:19 [facility]primary[facility] 2022-08-22 12:19 Other forms of dyspnea [facility] 2022-08-22 12:28 Hyperlipidemia, unspecified [facility] 2022-08-22 12:28 [facility]ential (primary) [facility] 2022-08-22 12:28 Other forms of dyspnea [facility] 2022-08-22 14:18 Hyperlipidemia, unspecified [facility] 2022-08-22 14:18 Ess[facility] (primary[facility] 2022-08-22 14:18 Other forms of dyspnea [facility] 2022-08-22 16:52 Hyperlipidemia, unspecified [facility] 2022-08-22 16:52 [facility] (primary[facility] 2022-08-22 16:52 Other forms of dyspnea [facility] Results/Labs test date facility value unit notes
[2022-10-29] MEDS ORDERED: SODIUM CHLORIDE 0.9% 1,000 ML IV STA ×2 (19:48)
[2022-10-29] MEDS ORDERED: IPRATROPIUM/ALBUTEROL 3 ML NEB INH STA (20:01)
[2022-10-29 20:07] LABS: BASOPHILS % (AUTO) 0.2 %; HCT - HEMATOCRIT 33.6 % (37.0-47.0); HGB - HEMOGLOBIN 10.6 g/dL (12.0-16.0); LYMPHOCYTES # (AUTO) 0.1 10^3/uL (1.5-3.5); LYMPHOCYTES % (AUTO) 0.6 %; MEAN CORPUSCULAR HEMOGLOBIN 32.1 pg (27.0-31.0); MEAN CORPUSCULAR HGB CONC 31.5 g/dL (32.0-36.0); MEAN CORPUSCULAR VOLUME 101.8 fL (81.0-99.0); MEAN PLATELET VOLUME 8.6 fL (7.9-10.8); MONOCYTES # (AUTO) 0.7 10^3/uL (0.0-1.0); MONOCYTES % (AUTO) 2.9 %; NEUTROPHILS # (AUTO) 22.4 10^3/uL (1.5-6.6); NEUTROPHILS % (AUTO) 95.4 %; PLT - PLATELET COUNT 464 10^3/uL (130-450); WHITE BLOOD COUNT 23.5 x10^3/uL (4.8-10.8)
--- NOTE | 2022-10-29 20:12 | XRAY Report ---
PROCEDURE: Chest 1 View X-Ray INDICATIONS: fever, cough TECHNIQUE: One view of the chest was acquired. COMPARISON: None. FINDINGS: Surgical changes and devices: Surgical hardware in cervical spine from prior ACDF is noted. Lungs and pleura: Ill-defined airspace opacities are noted in bilateral perihilar region and lower l obes. No significant pleural effusion. No gross pneumothorax. Mediastinum: Tortuous thoracic aorta is seen. Heart size is enlarged. Bones and chest wall: No suspicious bony lesions. Overlying soft tissues appear unremarkable. IMPRESSION: Suggestion of bilateral multilobar infiltrates. Cardiomegaly. No pneumothorax. No significant pleural effusion. Reviewed by: Jonny Mayorga MD on 10/29/2022 8:11 PM PDT Approved by: Jonny Mayorga MD on 10/29/2022 8:11 PM PDT Station ID: [id number]
[2022-10-29 20:14] LABS: INR 1.2 (0.8-1.2); PT - PROTHROMBIN TIME 12.7 secs (9.9-12.6)
[2022-10-29 20:21] LABS: PARTIAL THROMBOPLASTIN TIME 25.6 secs (24.9-33.3)
[2022-10-29] MEDS ORDERED: AMPICILLIN/SULBACTAM 3 GM in SODIUM CHLORIDE 0.9% MINIBAG 100 ML IV STA (20:21)
[2022-10-29 20:22] LABS: ALBUMIN 3.5 g/dL (3.2-5.5); ALBUMIN/GLOBULIN RATIO 0.9 (1.0-2.2); BILIRUBIN,TOTAL 0.8 mg/dL (0.2-1.0); CALCIUM 9.6 mg/dL (8.5-10.3); CREATININE 1.1 mg/dL (0.6-1.3); POTASSIUM 4.3 mmol/L (3.5-4.5); TOTAL PROTEIN 7.4 g/dL (6.4-8.9)
[2022-10-29] MEDS ORDERED: DOXYCYCLINE INJ 100 MG in SODIUM CHLORIDE 0.9% MINIBAG 100 ML IV STA (20:22)
[2022-10-29 21:30] LABS: B. PARAPERTUSSIS- RESP PCR PAN NOT DETECTED; B. PERTUSSIS- RESP PCR PANEL NOT DETECTED; C. PNEUMONIAE- RESP PCR PANEL NOT DETECTED; CORONAVIRUS 229E-RESP PCR NOT DETECTED; CORONAVIRUS HKU1-RESP PCR NOT DETECTED; CORONAVIRUS NL63-RESP PCR NOT DETECTED; CORONAVIRUS OC43-RESP PCR NOT DETECTED; HUMAN METAPNEUMOVIRUS NOT DETECTED; INFLUENZA A- RESP PCR PANEL NOT DETECTED; INFLUENZA B - RESP PCR PANEL NOT DETECTED; M. PNEUMONIAE- RESP PCR PANEL NOT DETECTED; PARAINFLUENZA VIRUS 1 NOT DETECTED; PARAINFLUENZA VIRUS 2 NOT DETECTED; PARAINFLUENZA VIRUS 3 NOT DETECTED; PARAINFLUENZA VIRUS 4 NOT DETECTED; RHINOVIRUS/ENTEROVIRUS NOT DETECTED; RSV- RESP PCR PANEL NOT DETECTED; SARS-CoV-2 -RESP PCR PANEL NOT DETECTED
--- NOTE | 2022-10-29 21:39 | HISTORY & PHYSICAL EXAMINATION ---
Chief Complaint - Chief Complaint Chief Complaint: Shortness of breath History of Present Illness - Admitted From Admitted From:: ER - History Obtained From Records Reviewed: Yes History obtained from: Patient, staff, chart Exam Limitations: Virtual exam - History of Present Illness HPI Comment/Other: H&P was conducted via video remotely, using Access Cart. [place] Physician [place] Pt's All is at bedside. 77 yo F with PMH of remote Breast CA s/p Radiotx and Mastectomy, COPD, Pulmonary Fibrosis s/p radiotx, CAD, HTN, HLD, CKD, Hypothyroidism, Depression, recent UTI, and recent h/o leg fractures presented to the ER from [place] via EMS with c/o 1 day h/o cough, SOB, F/C. Pt had a fall 2 weeks ago. Pt was put in Knee immobilizer for possible R Tibial Plateau fracture and a walking boot for a possible R 4th Metatarsal fracture 2 weeks ago. She has been at the SNF since then, but she realizes that she has not been out of bed much d/t her injuries. She has had 4 day h/o urinary symptoms, including dysuria, increased urinary frequency/urgency. She was put on antibiotics (unclear which one) 2 days ago, but pt's urinary symptoms have not improved. Today, around 4:30P, she began to have shortness of breath and cough, no sputum, no F/C. No sore throat/coryza/CP. She does not know if anyone around her had similar symptoms. [facility] staff called EMS. EMS reported SpO2 87% on RA and started O2. Pt says her Grey Roll Man told her that her LFTs were elevated about 3 months ago. Prior to that, she was dri nking 1-2 glasses of wine each evening. Her Grey Roll Man changed her meds and recommended that she stop drinking ETOH. She has not had any ETOH x 3 months. No abdo pain/N/V. In the ER, T38.5C, HR 117, RR 28, BP 160/101, SpO2 98% on 3L NC O2, WBC 23.5, Hgb 10.6, MCV 101.8, Na 126, Glc 130, AST 111, ALT 155 EKG: S. Tachy at 118, no STTw changes CXR: CMG, B/L multilobar infiltrates Pt was given IVF, Unasyn and Doxycycline in the ER. History - Past Medical History Cardiovascular: reports: Hypertension, High cholesterol, Coronary artery disease Respiratory: reports: COPD, Emphysema Neuro: reports: None Endocrine/Autoimmune: reports: HyPOthyroidism GI: reports: None RN ENDOCRINOLOGY: reports: Breast cancer : reports: Frequency HEENT: reports: Chronic vision loss Psych: reports: None Musculoskeletal: reports: Osteoarthritis Derm: reports: None MRSA Hx?: No - Past Surgical History General: reports: Colonoscopy, EGD Ortho: reports: Hip replacement, Knee replacement, Arthroscopic surgery /RN ENDOCRINOLOGY: reports: Dilation and currettage, Tubal ligation, Mastectomy Cardiovascular: reports: Coronary stent, Cardiac catheterization HEENT: reports: Tonsil/Adenoidectomy - Family & Social History Family History: Mother: , Father: , Other family: Alive and Well (2 adult children are healthy) Family History Comment/Other: Patient said her father at age 68 from lung cancer he was a heavy smoker. Her mother at age 87 from stroke. Living Situation: With spouse/s.o. Social History Notes: She was never a cigarette smoker, but was exposed to 2nd hand smoke from her father & . She does report she drinks 1-3 glasses of wine every day but stopped completely 1 month ago because of SOB, and she denies alcohol withdrawal symptoms. 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 - Substance History Use: Uses substance without health or social issues: NONE - POLST Patient has POLST: No Meds/Allgy - Home Medications Home Medications: Ambulatory Orders Medication Instructions Recorded Confirmed Acetaminophen [Tylenol] 650 mg PO Q6H PRN 06/27/15 12/30/21 Multivitamin [Multivitamins] 1 each PO DAILY 06/27/15 12/30/21 atenoloL [Tenormin] 25 mg PO DAILY 06/27/15 12/30/21 Clopidogrel [Plavix] 75 mg PO DAILY 10/19/20 12/30/21 Ezetimibe [Zetia] 10 mg PO DAILY 10/19/20 12/30/21 Pantoprazole Sodium 40 mg PO QDAC 10/19/20 12/30/21 allopurinoL [Zyloprim] 200 mg PO DAILY 10/19/20 12/30/21 Amlodipine Besylate [Norvasc] 2.5 mg PO DAILY 12/30/21 12/30/21 Isosorbide Mononitrate ER [Imdur] 30 mg PO DAILY 12/30/21 12/30/21 Levothyroxine [Synthroid] 125 mcg PO QDAC 12/30/21 12/30/21 Rosuvastatin Calcium [Crestor] 40 mg PO QPM 12/30/21 12/30/21 Salmeterol Xinafoate [Serevent 1 puffs INH BID 12/30/21 12/30/21 Diskus] Fluticasone/Umeclidin/Vilanter 10/16/22 10/16/22 [Trelegy Ellipta 100-62.5-25] - Allergies Allergies/Adverse Reactions: Allergies Allergy/AdvReac Type Severity Reaction Status Date / Time No Known Drug Allergies Allergy Verified 10/16/22 18:43 Review of Systems - All Other Systems All Other Systems: reports: Reviewed and negative Exam - Vital Signs Vital Signs: Vital Signs x48h Temp Pulse Resp BP Pulse Ox O2 Flow Rate 10/29/22 20:32 114 H 26 H 157/92 H 100 3 10/29/22 20:25 114 H 26 H 3 10/29/22 19:34 38.5 C H 117 H 28 H 160/101 H 98 - Physical Exam General Appearance: positive: No acute distress, Alert Eyes Bilateral: positive: EOMI, No scleral icterus ENT: positive: Dry mucous membranes Respiratory: positive: Other (Access cart stethoscope not working; per ER Provider: Decreased BS, crackles B/L) Cardiovascular: positive: Other (Access cart stethoscope not working; per ER Provider: RR, Tachycardia, no murmurs) Abdomen: positive: Other (per ER Provider: non-distended, NT, Soft) Extremities: positive: No pedal edema Neurologic/Psychiatric: positive: Oriented x3, CN's nml (2-12), Mood/affect nml Conclusion/Plan - Problem List (1) Pneumonia Conclusion/Plan: Pneumonia, multilobar Hypoxia COPD, Pulmonary Fibrosis s/p radiotx H/o remote Breast CA s/p Radiotx and Mastectomy Shortness of breath Cough Fever Tachycardia Tachypnea Leukocytosis -EMS reported SpO2 87% on RA and started O2 -T38.5C, HR 117, RR 28, SpO2 98% on 3L NC O2, WBC 23.5, Resp panel neg -EKG: S. Tachy at 118, no STTw changes -CXR: CMG, B/L multilobar infiltrates -Pt was given IVF, Unasyn and Doxycycline in the ER. -admit to Med Tele -continue IVF -change A/Bs to Cefepime for NH-acquired PNA; consider adding LVQ if she does not improve -continue home medications: steroid MDI, Trelegy -continue O2 support -Duonebs PRN Hyponatremia -Na 126 -most likely d/t decreased intake -continue IVF -BMPs q4 hour for goal of slow correction UTI Dysuria -on unknown A/B -continues to have symptoms -check U/A Decreased Mobility R Tibial Plateau fracture, possible R 4th Metatarsal fracture, possible S/P Fall 2 weeks ago -Pt in R Knee immobilizer and R walking boot; continue -PT/OT consults when PNA improved Elevated LFTs -AST 111, ALT 155 -per pt, LFTs have been elevated at least 3 months. -pt stopped drinking ETOH (1-2 glasses wine/day) 3 months ago. -hold home medications: Zetia, Crestor -check Hepatitis panel -U/S abdo ordered Macrocytic Anemia -Hgb 10.6, MCV 101.8 -check B12/Folate levels CAD HTN HLD BP 160/101 -continue home medications: Amlodipine, Plavix, Atenolol, ImDur -hold home medications: Zetia, Crestor d/t elevated LFTs GERD -continue home medications: PPI Hypothyroidism -continue home medications: Levothyroxine -check TSH VTE Prophylaxis: Heparin SQ Code Status: D/W pt and . She is Full Code ~Nolvia rWay MD Hospitalist Qualifiers: Pneumonia type: due to unspecified organism Laterality: bilateral Lung location: unspecified part of lung Qualified Code(s): J18.9 - Pneumonia, unspecified organism - Lab Results Fish Bones: 10/29/22 19:45 10/29/22 19:45
[2022-10-29] MEDS ORDERED: ACETAMINOPHEN 325 MG TABLET PO PRN ×2 (21:51→22:00)
[2022-10-29] MEDS ORDERED: ONDANSETRON 4 MG/2 ML VIAL IVP PRN (22:00)
[2022-10-29] MEDS ORDERED: ONDANSETRON ODT 4 MG TABLET TL PRN (22:00)
[2022-10-29] MEDS ORDERED: LACTATED RINGERS 1,000 ML IV SCH (22:00)
[2022-10-29] MEDS ORDERED: IPRATROPIUM/ALBUTEROL 3 ML NEB INH PRN (22:03)
--- NOTE | 2022-10-29 22:11 | Ultrasound Report ---
PROCEDURE: Abdomen Limited INDICATIONS: elevated LFT's fever TECHNIQUE: Real-time focused scanning was performed of the abdomen, with image documentation. COMPARISONS: None. FINDINGS: Liver: Liver is normal in size without focal hepatic lesions identified. Gallbladder: Gallbladder demonstrates no stones, wall thickening, or pericholecystic fluid. Biliary ducts: No intrahepatic or extrahepatic biliary ductal dilatation. Pancreas: Not well visualized. Kidneys: Right kidney measures [8.5 cm] . No hydronephrosis. There is a cyst within the interpolar re gion measuring up to 1.6 cm. Aorta: Visualized aorta is normal in caliber at less than 3 cm. IVC: Intrahepatic inferior vena cava is patent. Miscellaneous: No free abdominal fluid. IMPRESSION: 1. No evidence of cholelithiasis or cholecystitis. Reviewed by: Jack Gutiérrez MD on 10/29/2022 10:10 PM PDT Approved by: Jack Gutiérrez MD on 10/29/2022 10:10 PM PDT Station ID: [id number]
[2022-10-29 22:44] LABS: BILIRUBIN,URINE NEGATIVE (NEGATIVE); GLUCOSE, URINE (UA) NEGATIVE (NEGATIVE); KETONES,URINE (UA) NEGATIVE (NEGATIVE); LEUKOCYTE ESTERASE, URINE LARGE (NEGATIVE); NITRITE,URINE POSITIVE (NEGATIVE); OCCULT BLOOD,URINE LARGE (NEGATIVE); PROTEIN,URINE 100 mg/dL (NEGATIVE); UROBILINOGEN,URINE 0.2 (NORMAL) E.U./dL (NORMAL)
[2022-10-29 23:00] LABS: BACTERIA,URINE Many /HPF (None Seen); CLARITY,URINE SL. CLOUDY (CLEAR); SQUAMOUS EPITHELIAL CELL,UR MOD Squamous (<= Few); WBC,URINE >25 /HPF (0-5)
[2022-10-29 23:57] LABS: CALCIUM 8.6 mg/dL (8.5-10.3); CREATININE 1.3 mg/dL (0.4-1.0); POTASSIUM 3.7 mmol/L (3.5-5.0)
[2022-10-30] MEDS: SODIUM CHLORIDE 0.9% 1,000 ML IV SCH ×2 (00:09→10:42)
[2022-10-30] MEDS: SODIUM CHLORIDE FLUSH 0.9% 10 ML SYRINGE IVP SCH ×4 (00:10→23:51)
[2022-10-30 03:16] LABS: CALCIUM 8.5 mg/dL (8.5-10.3); CREATININE 1.2 mg/dL (0.6-1.3); POTASSIUM 3.7 mmol/L (3.5-4.5)
[2022-10-30 05:12] LABS: BASOPHILS # (AUTO) 0.1 10^3/uL (0.0-0.1); BASOPHILS % (AUTO) 0.2 %; EOSINOPHILS # (AUTO) 0.1 10^3/uL (0.0-0.7); EOSINOPHILS % (AUTO) 0.5 %; HCT - HEMATOCRIT 28.8 % (37.0-47.0); HGB - HEMOGLOBIN 8.9 g/dL (12.0-16.0); LYMPHOCYTES # (AUTO) 0.3 10^3/uL (1.5-3.5); MEAN CORPUSCULAR HEMOGLOBIN 31.8 pg (27.0-31.0); MEAN CORPUSCULAR HGB CONC 30.9 g/dL (32.0-36.0); MEAN CORPUSCULAR VOLUME 102.9 fL (81.0-99.0); MEAN PLATELET VOLUME 8.5 fL (7.9-10.8); MONOCYTES # (AUTO) 1.2 10^3/uL (0.0-1.0); MONOCYTES % (AUTO) 4.2 %; NEUTROPHILS # (AUTO) 25.2 10^3/uL (1.5-6.6); PLT - PLATELET COUNT 354 10^3/uL (130-450); RED CELL DISTRIBUTION WIDTH 13.2 % (12.0-15.0); WHITE BLOOD COUNT 28.1 x10^3/uL (4.8-10.8)
[2022-10-30 05:13] LABS: SLIDE REVIEW? Indicated
[2022-10-30 05:28] LABS: PLATELET ESTIMATE, MANUAL NORMAL (130-450,000) (NORMAL); PLATELET MORPHOLOGY NORMAL APPEARANCE (NORMAL); RBC MORPHOLOGY (MULTIPLE) NORMAL APPEARANCE (NORMAL); WBC MORPHOLOGY (MULTIPLE) NORMAL APPEARANCE (NORMAL)
[2022-10-30 05:42] LABS: THYROID STIMULATING HORMONE 1.16 uIU/mL (0.34-5.60)
[2022-10-30] MEDS: CEFEPIME 2 GM in SODIUM CHLORIDE 0.9% MINIBAG 100 ML IV SCH ×3 (05:42→22:02)
[2022-10-30] MEDS: LEVOTHYROXINE 125 MCG TABLET PO SCH (06:18)
[2022-10-30] MEDS: PANTOPRAZOLE 40 MG TABLET PO SCH (06:18)
[2022-10-30] MEDS: SODIUM CHLORIDE FLUSH 0.9% 10 ML SYRINGE IVP PRN (06:24)
[2022-10-30] MEDS: FORMOTEROL FUMARATE NEB 20 MCG/2 ML INH SCH ×2 (06:50→17:43)
[2022-10-30 07:37] LABS: ALBUMIN 2.7 g/dL (3.2-5.5); ALBUMIN/GLOBULIN RATIO 0.9 (1.0-2.2); BILIRUBIN,TOTAL 0.7 mg/dL (0.2-1.0); CALCIUM 8.7 mg/dL (8.5-10.3); CREATININE 1.2 mg/dL (0.6-1.3); POTASSIUM 4.2 mmol/L (3.5-4.5); TOTAL PROTEIN 5.7 g/dL (6.4-8.9)
[2022-10-30] MEDS ORDERED: MULTIVITAMIN W/MINERALS TABLET PO SCH (08:00)
[2022-10-30] MEDS ORDERED: [UNRECOGNIZED DRUG - OTHER] INH SCH (09:00)
[2022-10-30] MEDS ORDERED: amLODIPine 5 MG TABLET PO SCH (09:00)
[2022-10-30] MEDS ORDERED: ISOSORBIDE MONONITRATE ER 30 MG TABLET PO SCH (09:00)
[2022-10-30] MEDS ORDERED: UMECLIDIN INH SCH (09:00)
[2022-10-30] MEDS ORDERED: atenoloL 25 MG TABLET PO SCH (09:00)
[2022-10-30] MEDS ORDERED: VILANTER INH SCH (09:00)
[2022-10-30] MEDS ORDERED: FLUTICASONE INH SCH (09:00)
[2022-10-30] MEDS: SACCHAROMYCES BOULARDII 250 MG CAPSULE PO SCH ×2 (09:06→17:25)
[2022-10-30] MEDS: CLOPIDOGREL 75 MG TABLET PO SCH (09:06)
[2022-10-30] MEDS: HEPARIN 5,000 UNIT/ML VIAL SUBQ SCH ×2 (09:19→20:21)
[2022-10-30] MEDS: guaiFENesin 600 MG TABLET PO SCH ×2 (09:36→20:19)
--- NOTE | 2022-10-30 11:19 | PHARMACY PROGRESS NOTE ---
- Best Possible Medication History Admit Date and Time: 10/29/22 2200 Medication History completed: Yes Patient Interview: Completed Secondary Source(s): Written medication list, Spouse/Significant other, Pharmacy records As the person ultimately responsible for medication therapy, providers are able to order a medication from an existing home medication list in [facility] via the "Reconcile Routine" prior to Confirmation of that medication by direct support professional caregiver. Such practice is discouraged except when the physician, in their clinical judgment, deems that a medical need exists for a medication without regard to previous use.
[2022-10-30 11:29] LABS: CALCIUM 8.7 mg/dL (8.5-10.3); CREATININE 1.2 mg/dL (0.6-1.3); POTASSIUM 4.3 mmol/L (3.5-4.5)
--- NOTE | 2022-10-30 11:29 | PROVIDER PROGRESS NOTE ---
Assessment/Plan - Problem List (1) Acute respiratory failure with hypoxia Assessment/Plan: EMS reported SpO2 87% on RA and started O2. The cause appears to be a new multilobar pneumonia on top of being a COPD-er and having underlying pulmonary fibrosis Plan: Continue with supplemental O2, target saturation will be 88% or above Cont to treat the underlying causes 2) HCAPneumonia She presented with a cough, fever, tachycardia, tachypnea and elevated WBC. - T38.5C, HR 117, RR 28, WBC 23.5, Resp panel neg. On CXR she has a multilobar PNA and cardiomegaly. Pt was given IVF, Unasyn and Doxycycline in the ER. The admitting Telemedicine provider changed her antibx to Cefepime for NH- acquired PNA; and wrote to consider adding Levaquin if she does not improve Also started on iv fluids, steroids, nebs and supplemental O2 Plan: Continue with empiric broad-spectrum antibiotics iv Cefepime Await sputum culture Add Mucinex Start Florastor 3) COPD Plan: Continue with nebs, steroids, supplemental O2 and empiric antibiotics, Incentive Spirometry 4) Pulmonary Fibrosis This occurred after radiation therapy Plan: Treat as in #2 and 3 5) UTI Has dysuria, per admission H&P. She was on an unknown antibx. All labs were reviewed and her U/A has been re-ordered, since first U/A had many squamous cells Plan: Continue empiric, broad-spectrum antibiotics Await cx results to tailor antibx 6) Hyponatremia Her Na 126 on adm labs. This is most likely d/t decreased intake, so Hypovolemic Hyponatremia Plan: Continue IVF Followserum Na q4 hour for goal of slow correction 7) Decreased Mobility R Tibial Plateau fracture, possible. R 4th Metatarsal fracture, possible. S/P Fall 2 weeks ago. At [facility], she wa using a R Knee immobilizer and R walking boot. Lali of here called [facility] today and found out that the patient's weightbearing status was "weightbearing as tolerated" Plan: PT/OT consults will be ordered Pain meds prn, Ultram prn restarted 8) Elevated LFTs -AST 111, ALT 155, -per pt, her LFTs have been elevated at least 3 months. Pt stopped drinking ETOH (1-3 glasses wine/day) 2-3 months ago. U/S abdom was ordered by Telemed, but was already done in ER and showed no gallstones or GB problem. Plan: Hold home medication Crestor. OK to continue Zetia. Awaiting the Hepatitis panel I will cancel the (re-ordered) ultrasound of abdomen 9) Hx of HTN Her first few BPs were elevated in ED160/101. She is high hypotensive with BP 93/51 Plan: Obtain Echo to evaluate LV size and function, to help with iv fluid rate orders Her home medications of Amlodipine, Plavix, Atenolol, ImDur, were ordered to continue. Will place holding parameters on these orders. Also was on Losartan at home. 10) GERD Plan: Continue home medications: PPI 11) Hypothyroidism Her TSH is in an adequate range. Plan: Continue home medication Levothyroxine 12) Macrocytic Anemia Hgb 10.6, MCV 101.8. This is consistent with alcohol abuse. Checked B12/Folate levels and they are adequate 13) Hx of CAD Plan: Her home medications of Amlodipine, Plavix, Atenolol, ImDur, were ordered to continue. Will place holding parameters on these orders. Her statin is also on hold due to elevated LFTs. Continue her daily antiplatelet agent Plavix - Current Meds Current Meds: Current Medications Generic Name Dose Route Start Last Admin Trade Name Freq PRN Reason Stop Dose Admin Acetaminophen 650 mg 10/29/22 21:51 10/30/22 00:32 Acetaminophen 325 Mg Tablet PO 650 mg Q6H PRN Administration PRN PAIN &/OR FEVER Albuterol/Ipratropium 3 ml 10/29/22 22:03 10/30/22 06:53 Ipratropium/Albuterol 3 Ml Neb INH 10/31/22 06:59 3 ml RTQID PRN Administration Shortness of Air/Wheezing Clopidogrel Bisulfate 75 mg 10/30/22 09:00 10/30/22 09:06 Clopidogrel 75 Mg Tablet PO 75 mg DAILY SAM Administration Formoterol Fumarate 20 mcg 10/30/22 07:00 10/30/22 06:50 Formoterol Fumarate Neb 20 Mcg/2 Ml INH 20 mcg RTBID SAM Administration Guaifenesin 600 mg 10/30/22 09:15 10/30/22 09:36 Guaifenesin 600 Mg Tablet PO 600 mg BID SAM Administration Heparin Sodium (Porcine) 5,000 unit 10/30/22 09:00 10/30/22 09:19 Heparin 5,000 Unit/Ml Vial SUBQ 5,000 unit BID SAM Administration Cefepime HCl 2 gm/ Sodium 100 mls @ 200 mls/hr 10/30/22 06:00 10/30/22 06:18 Chloride IV 11/06/22 05:59 Infused Q8HR SAM Infusion Sodium Chloride 1,000 mls @ 75 mls/hr 10/29/22 23:00 10/30/22 10:42 Normal Saline 0.9% IV 75 mls/hr .[id number] SAM Administration Levothyroxine Sodium 125 mcg 10/30/22 07:00 10/30/22 06:18 Levothyroxine 125 Mcg Tablet PO 125 mcg QDAC SAM Administration Multivitamins/Minerals 1 tab 10/30/22 08:00 10/30/22 09:05 Multivitamin W/Minerals Tablet PO 1 tab DAILYWM SAM Administration Pantoprazole Sodium 40 mg 10/30/22 07:00 10/30/22 06:18 Pantoprazole 40 Mg Tablet PO 40 mg QDAC SAM Administration Saccharomyces Boulardii 250 mg 10/30/22 08:00 10/30/22 09:06 Saccharomyces Boulardii 250 Mg Capsule PO 250 mg BIDWM SAM Administration Sodium Chloride 10 ml 10/29/22 22:00 10/30/22 06:24 Sodium Chloride Flush 0.9% 10 Ml Syringe IVP 10 ml PRN PRN Administration NEEDED PER PROVIDER ORDERS Sodium Chloride 10 ml 10/30/22 01:00 10/30/22 09:07 Sodium Chloride Flush 0.9% 10 Ml Syringe IVP Not Given 0100,0900,1700 SAM - Lab Result Fish Bone Diagrams: 10/30/22 05:06 10/30/22 11:03 - Additional Planning My Orders: My Active Orders 10/30/22 09:12 Isosorbide Mononitrate ER [Imdur] 30 mg PO DAILY amLODIPine [Norvasc] 2.5 mg PO DAILY atenoloL [Tenormin] 25 mg PO DAILY 10/30/22 09:15 guaiFENesin [Mucinex] 600 mg PO BID 10/30/22 09:17 Echo Transthoracic Complete [ECHO] Routine Subjective - Subjective Patient Reports: Feeling Better (She reports "feeling 50% better". No more cough. Is wearing O2 by n.c.) Objective Vital Signs: Vital Signs - 24 hr 10/29/22 10/29/22 10/29/22 19:34 20:25 20:32 Temperature 38.5 C H Heart Rate 117 H 114 H 114 H Heart Rate [ Brachial] Heart Rate [ Monitoring electrodes] Respiratory 28 H 26 H 26 H Rate Blood Pressure 160/101 H 157/92 H Blood Pressure [Right Brachial artery] O2 Saturation 98 100 If not protocol 3 3 : Oxygen Flow, liters/minute 10/29/22 10/29/22 10/29/22 21:00 21:30 22:00 Temperature Heart Rate 114 H 104 H 110 H Heart Rate [ Brachial] Heart Rate [ Monitoring electrodes] Respiratory 26 H 24 26 H Rate Blood Pressure 114/73 114/73 106/63 Blood Pressure [Right Brachial artery] O2 Saturation 97 97 95 If not protocol 3 3 3 : Oxygen Flow, liters/minute 10/29/22 10/29/22 10/29/22 22:30 23:32 23:35 Temperature 37.7 C 36.8 C Heart Rate 105 H Heart Rate [ Brachial] Heart Rate [ 107 H Monitoring electrodes] Respiratory 24 24 Rate Blood Pressure 96/61 Blood Pressure 99/52 L [Right Brachial artery] O2 Saturation 97 92 If not protocol 3 3 3 : Oxygen Flow, liters/minute 10/29/22 10/30/22 10/30/22 23:45 00:18 03:46 Temperature 36.7 C Heart Rate Heart Rate [ Brachial] Heart Rate [ 102 H 98 Monitoring electrodes] Respiratory 22 18 Rate Blood Pressure Blood Pressure 98/54 L 113/59 L [Right Brachial artery] O2 Saturation 98 98 If not protocol 3 3 2 : Oxygen Flow, liters/minute 10/30/22 10/30/22 10/30/22 06:55 06:57 07:21 Temperature 36.5 C Heart Rate 78 Heart Rate [ 80 Brachial] Heart Rate [ Monitoring electrodes] Respiratory 19 20 Rate Blood Pressure Blood Pressure 93/51 L [Right Brachial artery] O2 Saturation 100 If not protocol 2 2 2 : Oxygen Flow, liters/minute Oxygen O2 Source [With Activity] Room air O2 Source [Without Activity] Room air O2 Source Nasal cannula I&O (Last 24 Hrs): Intake and Output Totals x24h 10/28/22 10/29/2223 23:59 23:59 23:59 Intake Total 1200 1788.75 Balance 1200 1788.75 General: Alert, Mild distress (Is tachypneic when speaking, wearing O2 via N. C. Cannula) HEENT: Mucous membr. moist/pink, Other (Her neck is extended and she is sitting upright and appears tachypneic when speaking) Neck: Supple, No JVD Neuro: Alert, Non Focal, Other (Poor memory) Cardiovascular: Regular rate Respiratory: Breath sounds nml (Poor air movement in all lung liang) Abdomen: Normal bowel sounds, Soft, No tenderness Extremities: No clubbing, No edema - Results Results: Laboratory Results WBC 28.1 x10^3/uL (4.8-10.8) H 10/30/22 05:06 RBC 2.80 10^6/uL (4.20-5.40) L 10/30/22 05:06 Hgb 8.9 g/dL (12.0-16.0) L 10/30/22 05:06 Hct 28.8 % (37.0-47.0) L 10/30/22 05:06 MCV 102.9 fL (81.0-99.0) H 10/30/22 05:06 MCH 31.8 pg (27.0-31.0) H 10/30/22 05:06 MCHC 30.9 g/dL (32.0-36.0) L 10/30/22 05:06 RDW 13.2 % (12.0-15.0) 10/30/22 05:06 Plt Count 354 10^3/uL (130-450) 10/30/22 05:06 MPV 8.5 fL (7.9-10.8) 10/30/22 05:06 Neut # (Auto) 25.2 10^3/uL (1.5-6.6) H 10/30/22 05:06 Lymph # (Auto) 0.3 10^3/uL (1.5-3.5) L 10/30/22 05:06 [place] # (Auto) 1.2 10^3/uL (0.0-1.0) H 10/30/22 05:06 Eos # (Auto) 0.1 10^3/uL (0.0-0.7) 10/30/22 05:06 Baso # (Auto) 0.1 10^3/uL (0.0-0.1) 10/30/22 05:06 Absolute Nucleated RBC 0.00 x10^3/uL 10/30/22 05:06 Nucleated RBC % 0.0 /100WBC 10/30/22 05:06 Manual Slide Review Indicated 10/30/22 05:06 WBC Morphology NORMAL APPEARANCE (NORMAL) 10/30/22 05:06 Platelet Estimate NORMAL (130-450,000) (NORMAL) 10/30/22 05:06 Platelet Morphology NORMAL APPEARANCE (NORMAL) 10/30/22 05:06 RBC Morph Micro Appear NORMAL APPEARANCE (NORMAL) 10/30/22 05:06 PT 12.7 secs (9.9-12.6) H 10/29/22 19:45 INR 1.2 (0.8-1.2) 10/29/22 19:45 APTT 25.6 secs (24.9-33.3) 10/29/22 19:45 Sodium 129 mmol/L (135-145) L 10/30/22 07:15 Potassium 4.2 mmol/L (3.5-4.5) 10/30/22 07:15 Chloride 95 mmol/L (101-111) L 10/30/22 07:15 Carbon Dioxide 30 mmol/L (21-32) 10/30/22 07:15 Anion Gap 4.0 (6-13) L 10/30/22 07:15 BUN 22 mg/dL (6-20) H 10/30/22 07:15 Creatinine 1.2 mg/dL (0.6-1.3) 10/30/22 07:15 Estimated GFR (MDRD) 43 (>89) L 10/30/22 07:15 Glucose 116 mg/dL (74-104) H 10/30/22 07:15 Lactic Acid 1.5 mmol/L (0.5-2.2) 10/29/22 19:45 Calcium 8.7 mg/dL (8.5-10.3) 10/30/22 07:15 Total Bilirubin 0.7 mg/dL (0.2-1.0) 10/30/22 07:15 AST 68 IU/L (10-42) H 10/30/22 07:15 ALT 99 IU/L (10-60) H 10/30/22 07:15 Alkaline Phosphatase 160 IU/L (42-121) H 10/30/22 07:15 B-Natriuretic Peptide 824 pg/mL (5-100) H 10/30/22 05:06 Total Protein 5.7 g/dL (6.4-8.9) L 10/30/22 07:15 Albumin 2.7 g/dL (3.2-5.5) L 10/30/22 07:15 Globulin 3.0 g/dL (2.1-4.2) 10/30/22 07:15 Albumin/Globulin Ratio 0.9 (1.0-2.2) L 10/30/22 07:15 Lipase 25 U/L (11-82) 10/29/22 19:45 Vitamin B12 619 pg/mL (180-914) 10/30/22 05:06 Folate 6.2 ng/mL (5.90 - >24.8) 10/30/22 05:06 TSH 1.16 uIU/mL (0.34-5.60) 10/30/22 05:06 Urine Color YELLOW 10/29/22 22:21 Urine Clarity SL. CLOUDY (CLEAR) 10/29/22 22:21 Urine pH 7.0 PH (5.0-7.5) 10/29/22 22:21 Ur Specific [place] 1.010 (1.002-1.030) 10/29/22 22:21 Urine Protein 100 mg/dL (NEGATIVE) H 10/29/22 22:21 Urine Glucose (UA) NEGATIVE mg/dL (NEGATIVE) 10/29/22 22:21 Urine Ketones NEGATIVE mg/dL (NEGATIVE) 10/29/22 22:21 Urine Occult Blood LARGE (NEGATIVE) H 10/29/22 22:21 Urine Nitrite POSITIVE (NEGATIVE) H 10/29/22 22:21 Urine Bilirubin NEGATIVE (NEGATIVE) 10/29/22 22:21 Urine Urobilinogen 0.2 (NORMAL) E.U./dL (NORMAL) 10/29/22 22:21 Ur Leukocyte Esterase LARGE (NEGATIVE) H 10/29/22 22:21 Urine RBC 6-10 /HPF (0-5) H 10/29/22 22:21 Urine WBC >25 /HPF (0-5) H 10/29/22 22:21 Ur Squamous Epith Cells MOD Squamous (<= Few) H 10/29/22 22:21 Urine Bacteria Many /HPF (None Seen) H 10/29/22 22:21 Ur Microscopic Review INDICATED 10/29/22 22:21 Urine Culture Comments NOT INDICATED 10/29/22 22:21 Nasal Adenovirus (PCR) NOT DETECTED 10/29/22 20:35 Nasal B. parapertussis DNA (PCR) NOT DETECTED 10/29/22 20:35 Nasal Coronavir 229E PCR NOT DETECTED 10/29/22 20:35 Nasal Coronavir HKU1 PCR NOT DETECTED 10/29/22 20:35 Nasal Coronavir NL63 PCR NOT DETECTED 10/29/22 20:35 Nasal Coronavir OC43 PCR NOT DETECTED 10/29/22 20:35 Nasal Enterovir/Rhinovir PCR NOT DETECTED 10/29/22 20:35 Nasal Influenza B PCR NOT DETECTED 10/29/22 20:35 Nasal Influenza A PCR NOT DETECTED 10/29/22 20:35 Nasal Parainfluen 1 PCR NOT DETECTED 10/29/22 20:35 Nasal Parainfluen 2 PCR NOT DETECTED 10/29/22 20:35 Nasal Parainfluen 3 PCR NOT DETECTED 10/29/22 20:35 Nasal Parainfluen 4 PCR NOT DETECTED 10/29/22 20:35 Nasal RSV (PCR) NOT DETECTED 10/29/22 20:35 Nasal B.pertussis DNA PCR NOT DETECTED 10/29/22 20:35 Nasal C.pneumoniae (PCR) NOT DETECTED 10/29/22 20:35 Jayesh Human Metapneumo PCR NOT DETECTED 10/29/22 20:35 Nasal M.pneumoniae (PCR) NOT DETECTED 10/29/22 20:35 Nasal SARS-CoV-2 (PCR) NOT DETECTED 10/29/22 20:35 - Procedures Procedures: Procedures EXCISION OF STOMACH, PYLORUS, ENDO, DIAGN (12/31/21) INSPECTION OF LOWER INTESTINAL TRACT, ENDO (12/31/21)
[2022-10-30] MEDS ORDERED: traMADol 50 MG TABLET PO PRN (11:35)
[2022-10-30 12:16] LABS: BILIRUBIN,URINE NEGATIVE (NEGATIVE); GLUCOSE, URINE (UA) NEGATIVE (NEGATIVE); KETONES,URINE (UA) NEGATIVE (NEGATIVE); LEUKOCYTE ESTERASE, URINE MODERATE (NEGATIVE); NITRITE,URINE POSITIVE (NEGATIVE); OCCULT BLOOD,URINE LARGE (NEGATIVE); PH,URINE 5.5 PH (5.0-7.5); PROTEIN,URINE 30 mg/dL (NEGATIVE); UROBILINOGEN,URINE 0.2 (NORMAL) E.U./dL (NORMAL)
[2022-10-30 12:26] LABS: BACTERIA,URINE Moderate /HPF (None Seen); CLARITY,URINE CLOUDY (CLEAR); RBC,URINE TNTC /HPF (0-5); SQUAMOUS EPITHELIAL CELL,UR FEW Squamous (<= Few); WBC,URINE >25 /HPF (0-5)
[2022-10-30] MEDS ORDERED: IPRATROPIUM 0.2 MG/ML NEB INH SCH (13:00)
[2022-10-30] MEDS: IPRATROPIUM/ALBUTEROL 3 ML NEB INH SCH ×2 (13:11→17:43)
[2022-10-30] MEDS: methylPREDNISolone SUCCINATE 40 MG/ML VIAL IVP SCH ×2 (14:03→22:02)
[2022-10-30] MEDS: HYDROcod/ACETAM 7.5 MG/325 MG TABLET PO PRN ×2 (15:04→20:20)
[2022-10-30] MEDS: CHOLECALCIFEROL 25 MCG TABLET PO SCH (17:25)
[2022-10-30] MEDS: BUDESONIDE 0.5 MG/2 ML NEB INH SCH (17:48)
[2022-10-31] MEDS: SODIUM CHLORIDE 0.9% 1,000 ML IV SCH ×3 (03:57→18:30)
[2022-10-31 05:14] LABS: BASOPHILS % (AUTO) 0.2 %; HCT - HEMATOCRIT 23.5 % (37.0-47.0); HGB - HEMOGLOBIN 7.4 g/dL (12.0-16.0); LYMPHOCYTES % (AUTO) 0.7 %; MEAN CORPUSCULAR HEMOGLOBIN 32.5 pg (27.0-31.0); MEAN CORPUSCULAR HGB CONC 31.5 g/dL (32.0-36.0); MEAN CORPUSCULAR VOLUME 103.1 fL (81.0-99.0); MEAN PLATELET VOLUME 8.8 fL (7.9-10.8); MONOCYTES % (AUTO) 1.3 %; NEUTROPHILS % (AUTO) 96.6 %; PLT - PLATELET COUNT 334 10^3/uL (130-450); RED BLOOD COUNT 2.28 10^6/uL (4.20-5.40); WHITE BLOOD COUNT 22.3 x10^3/uL (4.8-10.8)
[2022-10-31 05:19] LABS: ABNORMAL LYMPHS % (MANUAL) 0 %
[2022-10-31 05:29] LABS: ALBUMIN 2.7 g/dL (3.2-5.5); BILIRUBIN,TOTAL 0.5 mg/dL (0.2-1.0); CALCIUM 8.6 mg/dL (8.5-10.3); CREATININE 1.1 mg/dL (0.6-1.3); POTASSIUM 4.1 mmol/L (3.5-4.5); TOTAL PROTEIN 5.5 g/dL (6.4-8.9)
[2022-10-31 05:46] LABS: BAND NEUTROPHILS % (MANUAL) 11 %; DIFFERENTIAL COMMENT MANUAL DIFFERENTIAL; LYMPHOCYTES # (MANUAL) 1.1 10^3/uL (1.5-3.5); LYMPHOCYTES % (MANUAL) 5 %; MONOCYTES # (MANUAL) 0.4 10^3/uL (0.0-1.0); NEUTROPHILS # (MANUAL) 20.7 10^3/uL (1.5-6.6); PLATELET ESTIMATE, MANUAL NORMAL (130-450,000) (NORMAL); RBC MORPHOLOGY (MULTIPLE) NORMAL APPEARANCE (NORMAL)
[2022-10-31] MEDS: methylPREDNISolone SUCCINATE 40 MG/ML VIAL IVP SCH ×3 (06:03→21:34)
[2022-10-31] MEDS: CEFEPIME 2 GM in SODIUM CHLORIDE 0.9% MINIBAG 100 ML IV SCH ×2 (06:05→17:42)
[2022-10-31] MEDS: LEVOTHYROXINE 125 MCG TABLET PO SCH (06:17)
[2022-10-31] MEDS: PANTOPRAZOLE 40 MG TABLET PO SCH (06:17)
[2022-10-31] MEDS: BUDESONIDE 0.5 MG/2 ML NEB INH SCH ×2 (06:55→22:25)
[2022-10-31] MEDS: IPRATROPIUM/ALBUTEROL 3 ML NEB INH SCH ×4 (06:55→22:25)
[2022-10-31] MEDS: FORMOTEROL FUMARATE NEB 20 MCG/2 ML INH SCH ×2 (06:55→22:25)
--- NOTE | 2022-10-31 08:17 | PROVIDER PROGRESS NOTE ---
Assessment/Plan - Problem List (1) Acute respiratory failure with hypoxia Assessment/Plan: EMS reported SpO2 87% on RA and started O2. The cause appears to be a new multilobar pneumonia on top of being a COPD-er and having underlying pulmonary fibrosis Plan: Continue with supplemental O2, target saturation will be 88% or above, titrating to room air if possible Cont to treat the underlying causes 2) HCAPneumonia She presented with a cough, fever, tachycardia, tachypnea and elevated WBC. - T38.5C, HR 117, RR 28, WBC 23.5, Resp panel neg. On CXR she has a multilobar PNA and cardiomegaly. Pt was given IVF, Unasyn and Doxycycline in the ER. The admitting Telemedicine provider changed her antibx to Cefepime for NH- acquired PNA; and wrote to consider adding Levaquin if she does not improve Also started on iv fluids, steroids, nebs and supplemental O2 Plan: Continue with empiric broad-spectrum antibiotics iv Cefepime Await sputum culture Cont Mucinex Start Florastor 3) COPD Plan: Continue with nebs, steroids, supplemental O2 as needed and empiric antibiotics, Incentive Spirometry Will add Montelukast orally at hs 4) Pulmonary Fibrosis This occurred after radiation therapy Plan: Treat as in #2 and 3 5) Cor Pulmonale Echo was ordered to evaluate for LV heart failure. Echo was done today and shows she has normal LV size and systolic function, but has a moderately dilated RV and severely dilated RA. RV function is depressed. This is consistent with cor pulmonale, which is likely from her longstanding COPD and pulmonary fibrosis. 6) Hyponatremia Her Na 126 on adm labs. This is most likely d/t decreased intake, so Hypovolemic Hyponatremia Today her BUN/creatinine ratio has also increased, therefore she has prerenal azotemia Plan: Continue IV NS and I will increase the rate from 75 to 100 cc/hr Follow serum Na q12 hour for goal of slow correction. Follow BMP daily 7) Decreased Mobility R Tibial Plateau fracture, possible. R 4th Metatarsal fracture, possible. S/P Fall 2 weeks ago. At [facility], she wa using a R Knee immobilizer and R walking boot. Lali of here called [facility] today and found out that the patient's weightbearing status was "weightbearing as tolerated" PT/OT consults were ordered Plan: Pain meds prn, Ultram prn restarted, [place] added Cont PT and OT. She needs to return to [facility] for further PT and OT rehab on that right leg 8) Elevated LFTs -AST 111, ALT 155, -per pt, her LFTs have been elevated at least 3 months. Pt stopped drinking ETOH (1-3 glasses wine/day) 2-3 months ago. U/S abdom was ordered by Telemed, but was already done in ER and showed no gallstones or GB problem. Plan: Cont to hold home medication Crestor. OK to continue Zetia. Awaiting the Hepatitis panel 9) Hx of HTN Her first few BPs were elevated in ED160/101. But after admission, yesterday she was hypotensive with BP 93/51. An Echo was ordered to evaluate LV size and function, to help with iv fluid rate orders. Echo was done today and shows she has normal LV size and systolic function, but has a moderately dilated RV and severely dilated RA. RV function is depressed. This is consistent with cor pulmonale, which is likely from her longstanding COPD and pulmonary fibrosis. Plan: Will give another day today of of fluids Her home medications of Amlodipine, Atenolol, ImDur, were ordered to continue with holding parameters on these. Also she was on Losartan at home. 10) GERD Plan: Continue home medications: PPI 11) Hypothyroidism Her TSH is in an adequate range. Plan: Continue home medication Levothyroxine 12) Macrocytic Anemia Hgb 10.6, MCV 101.8. This is consistent with alcohol abuse. We checked B12/Folate levels and they were adequate 13) Hx of CAD Plan: Her home medications of Amlodipine, Plavix, Atenolol, ImDur, were ordered to continue. Will place holding parameters on these orders. Her statin is also on hold due to elevated LFTs. Plan: Continue her daily antiplatelet agent Plavix 14) UTI She had dysuria, per admission H&P. She was on an unknown antibx. Her U/A was re-ordered, and the urine cx is growing nothing. I suspect she had a partially treated UTI Plan: Continue empiric, broad-spectrum antibiotics for the HCAP - Current Meds Current Meds: Current Medications Generic Name Dose Route Start Last Admin Trade Name Freq PRN Reason Stop Dose Admin Acetaminophen 650 mg 10/29/22 21:51 10/30/22 00:32 Acetaminophen 325 Mg Tablet PO 650 mg Q6H PRN Administration PRN PAIN &/OR FEVER Hydrocodone Bitart/Acetaminophen 1 tab 10/30/22 14:57 10/30/22 20:20 Hydrocod/Acetam 7.5 Mg/325 Mg Tablet PO 1 tab Q6HR PRN Administration Moderate Pain (Level 4-6) Albuterol/Ipratropium 3 ml 10/30/22 15:00 10/31/22 06:55 Ipratropium/Albuterol 3 Ml Neb INH 3 ml RTQID SAM Administration Budesonide 0.5 mg 10/30/22 19:00 10/31/22 06:55 Budesonide 0.5 Mg/2 Ml Neb INH 0.5 mg RTBID SAM Administration Cholecalciferol 50 mcg 10/30/22 17:00 10/30/22 17:25 Cholecalciferol 25 Mcg Tablet PO 50 mcg DAILY SAM Administration Clopidogrel Bisulfate 75 mg 10/30/22 09:00 10/30/22 09:06 Clopidogrel 75 Mg Tablet PO 75 mg DAILY SAM Administration Formoterol Fumarate 20 mcg 10/30/22 07:00 10/31/22 06:55 Formoterol Fumarate Neb 20 Mcg/2 Ml INH 20 mcg RTBID SAM Administration Guaifenesin 600 mg 10/30/22 09:15 10/30/22 20:19 Guaifenesin 600 Mg Tablet PO Not Given BID SAM Cefepime HCl 2 gm/ Sodium 100 mls @ 200 mls/hr 10/30/22 06:00 10/31/22 06:39 Chloride IV 11/06/22 05:59 Infused Q8HR SAM Infusion Levothyroxine Sodium 125 mcg 10/30/22 07:00 10/31/22 06:17 Levothyroxine 125 Mcg Tablet PO 125 mcg QDAC SAM Administration Methylprednisolone 40 mg 10/30/22 14:00 10/31/22 06:03 Methylprednisolone Succinate 40 Mg/Ml Vial IVP 40 mg TID SAM Administration Pantoprazole Sodium 40 mg 10/30/22 07:00 10/31/22 06:17 Pantoprazole 40 Mg Tablet PO 40 mg QDAC SAM Administration Saccharomyces Boulardii 250 mg 10/30/22 08:00 10/30/22 17:25 Saccharomyces Boulardii 250 Mg Capsule PO 250 mg BIDWM SAM Administration Sodium Chloride 10 ml 10/29/22 22:00 10/30/22 06:24 Sodium Chloride Flush 0.9% 10 Ml Syringe IVP 10 ml PRN PRN Administration NEEDED PER PROVIDER ORDERS Sodium Chloride 10 ml 10/30/22 01:00 10/30/22 23:51 Sodium Chloride Flush 0.9% 10 Ml Syringe IVP Not Given 0100,0900,1700 SAM - Lab Result Fish Bone Diagrams: 10/31/22 04:39 10/31/22 08:25 - Additional Planning My Orders: My Active Orders 10/30/22 09:12 Isosorbide Mononitrate ER [Imdur] 30 mg PO DAILY amLODIPine [Norvasc] 2.5 mg PO DAILY atenoloL [Tenormin] 25 mg PO DAILY 10/30/22 09:15 guaiFENesin [Mucinex] 600 mg PO BID 10/30/22 11:30 Nebulizer/MDI Tx. [RC] QID 10/30/22 11:35 traMADol [Ultram] 12.5 mg PO DAILY PRN 10/30/22 14:00 methylPREDNISolone SUCCINATE [SOLU-Medrol (40MG VIAL)] 40 mg IVP TID 10/30/22 14:57 HYDROcodone/ACET 7.5/325 [[place] 7.5/325] 1 tab PO Q6HR PRN 10/30/22 15:00 Ipratropium/Albuterol [Duoneb] 3 ml INH RTQID 10/30/22 Dinner Dysphagia - Minced and Moist [DIET] 10/30/22 17:00 Cholecalciferol [Vitamin D3] 50 mcg PO DAILY 10/31/22 08:00 Vitamin [Trinatal Rx 1] 1 tab PO DAILYWM 10/31/22 08:15 Sodium Chloride 0.9% [Normal Saline 0.9%] 1,000 ml IV 100 mls/hr 10/31/22 09:00 Enoxaparin [Lovenox] 40 mg SUBQ DAILY allopurinoL [Zyloprim] 100 mg PO DAILY 10/31/22 11:30 Echo Transthoracic Complete [ECHO] Routine 10/31/22 17:00 SODIUM [CHEM] Q12H 11/01/22 05:00 CMP [COMPREHENSIVE METABOLIC PANEL] [CHEM] DAILYLAB SODIUM [CHEM] Q12H 11/01/22 17:00 SODIUM [CHEM] Q111/02/22 05:00 CMP [COMPREHENSIVE METABOLIC PANEL] [CHEM] DAILYLAB SODIUM [CHEM] Q111/03/22 05:00 CMP [COMPREHENSIVE METABOLIC PANEL] [CHEM] DAILYLAB Subjective - Subjective Patient Reports: Feeling Better (Very weak in the morning, ask to be fed breakfast. Has more energy and is sitting upright in chair in the afternoon) Objective Vital Signs: Vital Signs - 24 hr 10/30/22 10/30/22 10/30/22 12:26 13:15 14:00 Temperature 36.4 C L Heart Rate 87 Heart Rate [ 85 Brachial] Heart Rate [ 123 H Sitting] Heart Rate [ 109 H Supine] Respiratory 20 16 Rate Blood Pressure 102/66 [Right Brachial artery] Blood Pressure 127/65 [Sitting] Blood Pressure 100/51 L [Supine] O2 Saturation 100 If not protocol 2 2 : Oxygen Flow, liters/minute 10/30/22 10/30/22 10/30/22 15:27 16:05 16:52 Temperature 36.3 C L Heart Rate Heart Rate [ 88 Brachial] Heart Rate [ 123 H Sitting] Heart Rate [ 109 H Supine] Respiratory 20 Rate Blood Pressure 99/49 L [Right Brachial artery] Blood Pressure 127/65 [Sitting] Blood Pressure 100/51 L [Supine] O2 Saturation 100 100 If not protocol 1 : Oxygen Flow, liters/minute 10/30/22 10/30/22 10/30/22 17:49 20:21 23:46 Temperature 36.2 C L 36.2 C L Heart Rate 79 Heart Rate [ 99 91 Brachial] Heart Rate [ Sitting] Heart Rate [ Supine] Respiratory 18 20 18 Rate Blood Pressure 111/70 109/66 [Right Brachial artery] Blood Pressure [Sitting] Blood Pressure [Supine] O2 Saturation 100 96 If not protocol : Oxygen Flow, liters/minute 10/31/22 10/31/22 10/31/22 07:01 07:02 07:32 Temperature 36.4 C L Heart Rate 81 Heart Rate [ 98 Brachial] Heart Rate [ Sitting] Heart Rate [ Supine] Respiratory 17 22 Rate Blood Pressure 128/73 [Right Brachial artery] Blood Pressure [Sitting] Blood Pressure [Supine] O2 Saturation 100 If not protocol 2 2 : Oxygen Flow, liters/minute Oxygen O2 Source [With Activity] Room air O2 Source [Without Activity] Room air O2 Source Room air I&O (Last 24 Hrs): Intake and Output Totals x24h 10/29/22 10/30/22 10/31/22 23:59 23:59 23:59 Intake Total 1200 2348.75 1340 Output Total 575 300 Balance 1200 1773.75 1040 General: Alert, Oriented x3, Mild distress (resp distress, tachypneic when speaking.) HEENT: EOMI, Mucous membr. moist/pink Neck: Supple, No JVD (in a vertical positin in chair.) Neuro: Alert, Non Focal Cardiovascular: Regular rate, No murmurs Respiratory: Other (Poor air movement in all lung liang, no wheezes or rales) Abdomen: Normal bowel sounds, Soft Extremities: No clubbing, No edema, Other (R leg has boot and knee brace on) - Results Results: Laboratory Results WBC 22.3 x10^3/uL (4.8-10.8) H 10/31/22 04:39 RBC 2.28 10^6/uL (4.20-5.40) L 10/31/22 04:39 Hgb 7.4 g/dL (12.0-16.0) L 10/31/22 04:39 Hct 23.5 % (37.0-47.0) L 10/31/22 04:39 MCV 103.1 fL (81.0-99.0) H 10/31/22 04:39 MCH 32.5 pg (27.0-31.0) H 10/31/22 04:39 MCHC 31.5 g/dL (32.0-36.0) L 10/31/22 04:39 RDW 13.0 % (12.0-15.0) 10/31/22 04:39 Plt Count 334 10^3/uL (130-450) 10/31/22 04:39 MPV 8.8 fL (7.9-10.8) 10/31/22 04:39 Neut # (Auto) Not Reportable 10/31/22 04:39 Lymph # (Auto) Not Reportable 10/31/22 04:39 [place] # (Auto) Not Reportable 10/31/22 04:39 Eos # (Auto) Not Reportable 10/31/22 04:39 Baso # (Auto) Not Reportable 10/31/22 04:39 Absolute Nucleated RBC Not Reportable 10/31/22 04:39 Total Counted 100 10/31/22 04:39 Band Neuts % (Manual) 11 % (0-10) H 10/31/22 04:39 Abnorm Lymph % (Manual) 0 % 10/31/22 04:39 Nucleated RBC % Not Reportable 10/31/22 04:39 Neutrophils # (Manual) 20.7 10^3/uL (1.5-6.6) H 10/31/22 04:39 Lymphocytes # (Manual) 1.1 10^3/uL (1.5-3.5) L 10/31/22 04:39 Monocytes # (Manual) 0.4 10^3/uL (0.0-1.0) 10/31/22 04:39 Eosinophils # (Manual) 0.0 10^3/uL (0-0.7) 10/31/22 04:39 Basophils # (Manual) 0.0 10^3/uL (0-0.1) 10/31/22 04:39 Differential Comment MANUAL DIFFERENTIAL 10/31/22 04:39 Manual Slide Review Indicated 10/30/22 05:06 WBC Morphology NORMAL APPEARANCE (NORMAL) 10/30/22 05:06 Platelet Estimate NORMAL (130-450,000) (NORMAL) 10/31/22 04:39 Platelet Morphology NORMAL APPEARANCE (NORMAL) 10/30/22 05:06 RBC Morph Micro Appear NORMAL APPEARANCE (NORMAL) 10/31/22 04:39 PT 12.7 secs (9.9-12.6) H 10/29/22 19:45 INR 1.2 (0.8-1.2) 10/29/22 19:45 APTT 25.6 secs (24.9-33.3) 10/29/22 19:45 Sodium 129 mmol/L (135-145) L 10/31/22 04:39 Potassium 4.1 mmol/L (3.5-4.5) 10/31/22 04:39 Chloride 98 mmol/L (101-111) L 10/31/22 04:39 Carbon Dioxide 26 mmol/L (21-32) 10/31/22 04:39 Anion Gap 5.0 (6-13) L 10/31/22 04:39 BUN 30 mg/dL (6-20) H 10/31/22 04:39 Creatinine 1.1 mg/dL (0.6-1.3) 10/31/22 04:39 Estimated GFR (MDRD) 48 (>89) L 10/31/22 04:39 Glucose 146 mg/dL (74-104) H 10/31/22 04:39 Lactic Acid 1.5 mmol/L (0.5-2.2) 10/29/22 19:45 Calcium 8.6 mg/dL (8.5-10.3) 10/31/22 04:39 Magnesium 1.3 mg/dL (1.7-2.3) L 10/30/22 07:15 Total Bilirubin 0.5 mg/dL (0.2-1.0) 10/31/22 04:39 AST 58 IU/L (10-42) H 10/31/22 04:39 ALT 86 IU/L (10-60) H 10/31/22 04:39 Alkaline Phosphatase 141 IU/L (42-121) H 10/31/22 04:39 B-Natriuretic Peptide 824 pg/mL (5-100) H 10/30/22 05:06 Total Protein 5.5 g/dL (6.4-8.9) L 10/31/22 04:39 Albumin 2.7 g/dL (3.2-5.5) L 10/31/22 04:39 Globulin 2.8 g/dL (2.1-4.2) 10/31/22 04:39 Albumin/Globulin Ratio 1.0 (1.0-2.2) 10/31/22 04:39 Lipase 25 U/L (11-82) 10/29/22 19:45 Vitamin B12 619 pg/mL (180-914) 10/30/22 05:06 Folate 6.2 ng/mL (5.90 - >24.8) 10/30/22 05:06 TSH 1.16 uIU/mL (0.34-5.60) 10/30/22 05:06 Urine Color YELLOW 10/30/22 12:05 Urine Clarity CLOUDY (CLEAR) 10/30/22 12:05 Urine pH 5.5 PH (5.0-7.5) 10/30/22 12:05 Ur Specific [place] 1.010 (1.002-1.030) 10/30/22 12:05 Urine Protein 30 mg/dL (NEGATIVE) H 10/30/22 12:05 Urine Glucose (UA) NEGATIVE mg/dL (NEGATIVE) 10/30/22 12:05 Urine Ketones NEGATIVE mg/dL (NEGATIVE) 10/30/22 12:05 Urine Occult Blood LARGE (NEGATIVE) H 10/30/22 12:05 Urine Nitrite POSITIVE (NEGATIVE) H 10/30/22 12:05 Urine Bilirubin NEGATIVE (NEGATIVE) 10/30/22 12:05 Urine Urobilinogen 0.2 (NORMAL) E.U./dL (NORMAL) 10/30/22 12:05 Ur Leukocyte Esterase MODERATE (NEGATIVE) H 10/30/22 12:05 Urine RBC TNTC /HPF (0-5) H 10/30/22 12:05 Urine WBC >25 /HPF (0-5) H 10/30/22 12:05 Ur Squamous Epith Cells FEW Squamous (<= Few) 10/30/22 12:05 Urine Bacteria Moderate /HPF (None Seen) H 10/30/22 12:05 Ur Microscopic Review INDICATED 10/30/22 12:05 Urine Culture Comments INDICATED 10/30/22 12:05 Nasal Adenovirus (PCR) NOT DETECTED 10/29/22 20:35 Nasal B. parapertussis DNA (PCR) NOT DETECTED 10/29/22 20:35 Nasal Coronavir 229E PCR NOT DETECTED 10/29/22 20:35 Nasal Coronavir HKU1 PCR NOT DETECTED 10/29/22 20:35 Nasal Coronavir NL63 PCR NOT DETECTED 10/29/22 20:35 Nasal Coronavir OC43 PCR NOT DETECTED 10/29/22 20:35 Nasal Enterovir/Rhinovir PCR NOT DETECTED 10/29/22 20:35 Nasal Influenza B PCR NOT DETECTED 10/29/22 20:35 Nasal Influenza A PCR NOT DETECTED 10/29/22 20:35 Nasal Parainfluen 1 PCR NOT DETECTED 10/29/22 20:35 Nasal Parainfluen 2 PCR NOT DETECTED 10/29/22 20:35 Nasal Parainfluen 3 PCR NOT DETECTED 10/29/22 20:35 Nasal Parainfluen 4 PCR NOT DETECTED 10/29/22 20:35 Nasal RSV (PCR) NOT DETECTED 10/29/22 20:35 Nasal B.pertussis DNA PCR NOT DETECTED 10/29/22 20:35 Nasal C.pneumoniae (PCR) NOT DETECTED 10/29/22 20:35 Jayesh Human Metapneumo PCR NOT DETECTED 10/29/22 20:35 Nasal M.pneumoniae (PCR) NOT DETECTED 10/29/22 20:35 Nasal SARS-CoV-2 (PCR) NOT DETECTED 10/29/22 20:35 - Procedures Procedures: Procedures EXCISION OF STOMACH, PYLORUS, ENDO, DIAGN (12/31/21) INSPECTION OF LOWER INTESTINAL TRACT, ENDO (12/31/21)
[2022-10-31] MEDS: guaiFENesin 600 MG TABLET PO SCH ×2 (08:20→21:32)
[2022-10-31] MEDS: allopurinoL 100 MG TABLET PO SCH (08:20)
[2022-10-31] MEDS: ISOSORBIDE MONONITRATE ER 30 MG TABLET PO SCH (08:20)
[2022-10-31] MEDS: SACCHAROMYCES BOULARDII 250 MG CAPSULE PO SCH ×2 (08:20→16:33)
[2022-10-31] MEDS: PRENATAL VITAMIN TABLET PO SCH (08:21)
[2022-10-31] MEDS: CHOLECALCIFEROL 25 MCG TABLET PO SCH (08:21)
[2022-10-31] MEDS: amLODIPine 5 MG TABLET PO SCH (08:21)
[2022-10-31] MEDS: atenoloL 25 MG TABLET PO SCH (08:21)
[2022-10-31] MEDS: CLOPIDOGREL 75 MG TABLET PO SCH (08:21)
[2022-10-31] MEDS: ENOXAPARIN 40 MG/0.4 ML SYRINGE SUBQ SCH (08:22)
[2022-10-31] MEDS ORDERED: EZETIMIBE 10 MG PO SCH (09:00)
[2022-10-31 09:09] LABS: HBsAG SCREEN Negative (Negative); HCV AB Non Reactive (Non Reactive); HEPATITIS B CORE IGM AB Negative (Negative)
[2022-10-31] MEDS: SODIUM CHLORIDE FLUSH 0.9% 10 ML SYRINGE IVP SCH ×2 (09:14→16:33)
[2022-10-31] MEDS ORDERED: MAGNESIUM SULFATE 2 GRAM 2 GM/50 ML BAG IV ONE (16:02)
[2022-10-31] MEDS: MONTELUKAST 10 MG TABLET PO SCH (21:32)
[2022-10-31] MEDS: SODIUM CHLORIDE FLUSH 0.9% 10 ML SYRINGE IVP PRN (21:35)
[2022-10-31] MEDS: ZINC OXIDE 20% OINT 30 GM TUBE TOP PRN (22:23)
[2022-11-01] MEDS: SODIUM CHLORIDE FLUSH 0.9% 10 ML SYRINGE IVP SCH ×4 (00:22→23:58)
[2022-11-01] MEDS: SODIUM CHLORIDE 0.9% 1,000 ML IV SCH (03:59)
[2022-11-01 05:31] LABS: BASOPHILS % (AUTO) 0.2 %; HCT - HEMATOCRIT 23.6 % (37.0-47.0); HGB - HEMOGLOBIN 7.5 g/dL (12.0-16.0); LYMPHOCYTES # (AUTO) 0.2 10^3/uL (1.5-3.5); LYMPHOCYTES % (AUTO) 1.3 %; MEAN CORPUSCULAR HEMOGLOBIN 32.6 pg (27.0-31.0); MEAN CORPUSCULAR HGB CONC 31.8 g/dL (32.0-36.0); MEAN CORPUSCULAR VOLUME 102.6 fL (81.0-99.0); MEAN PLATELET VOLUME 8.6 fL (7.9-10.8); MONOCYTES # (AUTO) 0.4 10^3/uL (0.0-1.0); MONOCYTES % (AUTO) 2.2 %; NEUTROPHILS # (AUTO) 17.8 10^3/uL (1.5-6.6); NEUTROPHILS % (AUTO) 95.3 %; PLT - PLATELET COUNT 339 10^3/uL (130-450); RED CELL DISTRIBUTION WIDTH 13.1 % (12.0-15.0); WHITE BLOOD COUNT 18.7 x10^3/uL (4.8-10.8)
[2022-11-01 05:49] LABS: ALBUMIN 2.7 g/dL (3.2-5.5); ALBUMIN/GLOBULIN RATIO 0.9 (1.0-2.2); BILIRUBIN,TOTAL 0.4 mg/dL (0.2-1.0); CALCIUM 8.6 mg/dL (8.5-10.3); CREATININE 1.1 mg/dL (0.6-1.3); MAGNESIUM 1.9 mg/dL (1.7-2.3); POTASSIUM 4.3 mmol/L (3.5-4.5); TOTAL PROTEIN 5.6 g/dL (6.4-8.9)
[2022-11-01] MEDS: methylPREDNISolone SUCCINATE 40 MG/ML VIAL IVP SCH ×3 (06:08→21:16)
[2022-11-01] MEDS: CEFEPIME 2 GM in SODIUM CHLORIDE 0.9% MINIBAG 100 ML IV SCH ×2 (06:10→17:33)
[2022-11-01] MEDS: LEVOTHYROXINE 125 MCG TABLET PO SCH (06:16)
[2022-11-01] MEDS: PANTOPRAZOLE 40 MG TABLET PO SCH (06:16)
[2022-11-01] MEDS: ENOXAPARIN 40 MG/0.4 ML SYRINGE SUBQ SCH (08:24)
[2022-11-01] MEDS: PRENATAL VITAMIN TABLET PO SCH (08:25)
[2022-11-01] MEDS: CHOLECALCIFEROL 25 MCG TABLET PO SCH (08:25)
[2022-11-01] MEDS: allopurinoL 100 MG TABLET PO SCH (08:25)
[2022-11-01] MEDS: guaiFENesin 600 MG TABLET PO SCH ×2 (08:25→20:32)
[2022-11-01] MEDS: SACCHAROMYCES BOULARDII 250 MG CAPSULE PO SCH ×2 (08:25→17:33)
[2022-11-01] MEDS: amLODIPine 5 MG TABLET PO SCH (08:26)
[2022-11-01] MEDS: ISOSORBIDE MONONITRATE ER 30 MG TABLET PO SCH (08:26)
[2022-11-01] MEDS: CLOPIDOGREL 75 MG TABLET PO SCH (08:26)
[2022-11-01] MEDS: atenoloL 25 MG TABLET PO SCH (08:26)
[2022-11-01] MEDS: BUDESONIDE 0.5 MG/2 ML NEB INH SCH ×2 (09:03→18:29)
[2022-11-01] MEDS: IPRATROPIUM/ALBUTEROL 3 ML NEB INH SCH ×4 (09:03→18:29)
[2022-11-01] MEDS: FORMOTEROL FUMARATE NEB 20 MCG/2 ML INH SCH ×2 (09:03→18:29)
[2022-11-01] MEDS ORDERED: BENZOCAINE/MENTHOL LOZENGE MM PRN (09:27)
--- NOTE | 2022-11-01 11:34 | PROVIDER PROGRESS NOTE ---
Assessment/Plan - Problem List (1) HCAP (healthcare-associated pneumonia) Assessment/Plan: She presented with a cough, fever, tachycardia, tachypnea, O2 desaturation and elevated WBC. -T38.5C, HR 117, RR 28, WBC 23.5, Resp panel was neg. On CXR she has a multilobar PNA and cardiomegaly. Pt was given IVF, Unasyn and Doxycycline in the ER. The admitting Telemedicine provider changed her antibx to Cefepime for a HealthCare associated pneumonia. Also started on iv fluids, steroids, nebs and supplemental O2. Given her history of esophageal dysmotility (see #2), this may also have been an aspiration pneumonia. Blood cultures are negative to date. She never sent a sputum sample to get spt culture. Her WBC has finally responded (WBC was 22 at adm>> 28 the next day >> 20 yesterday >> 18 today) Plan: Continue with empiric broad-spectrum antibiotics iv Cefepime and iv Flagyl Cont Mucinex and Florastor I will obtain chest x-ray tomorrow and I anticipate discharge soon, at which time I will change her to oral antibiotics to complete a 7-day course 2) Esophageal dysmotility : K22.4 Today records were requested from [facility] from a barium swallow and EGD done there January 2022. These revealed that she has esophageal dysmotility from radiation to her chest and also has pooling in the posterior pharynx due to her prior anterior cervical discectomy and fusion surgery. These diagnoses makes the possibility of an aspiration pneumonia more likely. She is on the proper treatment for aspiration PNA (is on antianaerobic antibioti cs) Plan: Continue with a minced and moist diet Continue with crushing all her meds 3) COPD Plan: Continue with nebs, steroids, supplemental O2 as needed and empiric antibiotics, Incentive Spirometry Cont the new Montelukast orally at hs I plan to do an oximetry walk test on the day of discharge to see if she needs a new home oxygen order 4) Pulmonary Fibrosis This occurred after radiation therapy Plan: Treat as in #1 and 3 5) Cor Pulmonale Echo was ordered to evaluate for LV heart failure. Echo was done today and shows she has normal LV size and systolic function, but has a moderately dilated RV and severely dilated RA. RV function is depressed. This is consistent with cor pulmonale, which is likely from her longstanding COPD and pulmonary fibrosis. 6) Hyponatremia Her Na 126 on adm labs. This is most likely d/t decreased intake, so Hypovolemic Hyponatremia Today her BUN/creatinine ratio has also increased, therefore she has prerenal azotemia Plan: Will stop IV NS today and assess if she can maintain a good serum sodium level Follow BMP daily 7) Decreased Mobility R Tibial Plateau fracture, possible. R 4th Metatarsal fracture, possible. S/P Fall 2 weeks ago. At [facility], she wa using a R Knee immobilizer and R walking boot. Lali of here called [facility] today and found out that the patient's weightbearing status was "weightbearing as tolerated" PT/OT consults were ordered and are working with the pt. Plan: Will re-x-ray the right knee and the right foot (recommended by PT and OT), to confirm status of her various fractures>> The knee x-ray showed continued fracture. The metatarsal x-ray showed healing of her fracture. I discussed these results today with the patient and was at bedside. Pain meds prn, Ultram prn restarted, [place] added Cont PT and OT. She needs to return to [facility] for further PT and OT rehab on that right leg 8) Elevated LFTs -AST 111, ALT 155, -per pt, her LFTs have been elevated at least [address]pped drinking ETOH (1-3 glasses wine/day) 2-3 months ago. U/S abdom was ordered by Telemed, but was already done in ER and showed no gallstones or GB problem. Abnormal LFTs can also be seen with some pneumonias. I suspect she has abnormal LFTs from her Cor pulmonale (see #5) Plan: Cont to hold home medication Crestor. OK to continue Zetia. Awaiting the Hepatitis panel 9) HTN Her first few BPs were elevated in ED160/101. But after admission, yesterday she was hypotensive with BP 93/51. An Echo was ordered to evaluate LV size and function, to help with iv fluid rate orders. Echo was done today and shows she has normal LV size and systolic fu nction, but has a moderately dilated RV and severely dilated RA. RV function is depressed. This is consistent with cor pulmonale, which is likely from her longstanding COPD and pulmonary fibrosis. Her BP meds have all been on hold. She has needed IV saline through this morning Plan: Her home medications of Amlodipine, Atenolol, ImDur, are ordered to continue, but with holding parameters on these. Also she was on Losartan at home. At discharge, she may need adjustment of meds to adjust her beta-jose and nitrates 10) GERD Plan: Continue home medications: PPI 11) Hypothyroidism Her TSH is in an adequate range. Plan: Continue home medication Levothyroxine 12) Macrocytic Anemia Hgb 10.6, MCV 101.8. This is consistent with alcohol abuse. We checked B12/Folate levels and they were adequate 13) Hx of CAD Plan: Her home medications of Amlodipine, Plavix, Atenolol, ImDur, were ordered to continue. Will place holding parameters on these orders. Her statin is also on hold due to elevated LFTs. Plan: Continue her daily antiplatelet agent Plavix 14) UTI She had dysuria, per admission H&P. She was on an unknown antibx. Her U/A was re-ordered, and the urine cx is growing nothing. I suspect she had a partially treated UTI Plan: Continue empiric, broad-spectrum antibiotics, as for the HCAP (15) Acute respiratory failure with hypoxia Assessment/Plan: EMS reported SpO2 87% on RA and started O2. The cause was a new multilobar pneumonia on top of being a COPD-er and having underlying pulmonary fibrosis Plan: Anticipate discharge soon since she is now not desaturating even with activity, even working with PT and OT Cont to treat the underlying causes - Current Meds Current Meds: Current Medications Generic Name Dose Route Start Last Admin Trade Name Sakshi PRN Reason Stop Dose Admin Acetaminophen 650 mg 10/29/22 21:51 10/30/22 00:32 Acetaminophen 325 Mg Tablet PO 650 mg Q6H PRN Administration PRN PAIN &/OR FEVER Hydrocodone Bitart/Acetaminophen 1 tab 10/30/22 14:57 10/30/22 20:20 Hydrocod/Acetam 7.5 Mg/325 Mg Tablet PO 1 tab Q6HR PRN Administration Moderate Pain (Level 4-6) Albuterol/Ipratropium 3 ml 10/30/22 15:00 11/01/22 09:03 Ipratropium/Albuterol 3 Ml Neb INH 3 ml RTQID SAM Administration Allopurinol 100 mg 10/31/22 09:00 11/01/22 08:25 Allopurinol 100 Mg Tablet PO 100 mg DAILY SAM Administration Amlodipine Besylate 2.5 mg 10/30/22 09:12 11/01/22 08:26 Amlodipine 5 Mg Tablet PO 2.5 mg DAILY SAM Administration Atenolol 25 mg 10/30/22 09:12 11/01/22 08:26 Atenolol 25 Mg Tablet PO 25 mg DAILY SAM Administration Budesonide 0.5 mg 10/30/22 19:00 11/01/22 09:03 Budesonide 0.5 Mg/2 Ml Neb INH 0.5 mg RTBID SAM Administration Cholecalciferol 50 mcg 10/30/22 17:00 11/01/22 08:25 Cholecalciferol 25 Mcg Tablet PO 50 mcg DAILY SAM Administration Clopidogrel Bisulfate 75 mg 10/30/22 09:00 11/01/22 08:26 Clopidogrel 75 Mg Tablet PO 75 mg DAILY SAM Administration Enoxaparin Sodium 40 mg 10/31/22 09:00 11/01/22 08:24 Enoxaparin 40 Mg/0.4 Ml Syringe SUBQ 40 mg DAILY SAM Administration Formoterol Fumarate 20 mcg 10/30/22 07:00 11/01/22 09:03 Formoterol Fumarate Neb 20 Mcg/2 Ml INH Not Given RTBID SAM Guaifenesin 600 mg 10/30/22 09:15 11/01/22 08:25 Guaifenesin 600 Mg Tablet PO 600 mg BID SAM Administration Sodium Chloride 1,000 mls @ 100 mls/hr 10/31/22 08:15 11/01/22 03:59 Normal Saline 0.9% IV 100 mls/hr .Q10H SAM Administration Cefepime HCl 2 gm/ Sodium 100 mls @ 200 mls/hr 10/31/22 18:00 11/01/22 06:44 Chloride IV Infused Q12H SAM Infusion Isosorbide Mononitrate 30 mg 10/30/22 09:12 11/01/22 08:26 Isosorbide Mononitrate Er 30 Mg Tablet PO 30 mg DAILY SAM Administration Levothyroxine Sodium 125 mcg 10/30/22 07:00 11/01/22 06:16 Levothyroxine 125 Mcg Tablet PO 125 mcg QDAC SAM Administration Methylprednisolone 40 mg 10/30/22 14:00 11/01/22 06:08 Methylprednisolone Succinate 40 Mg/Ml Vial IVP 40 mg TID SAM Administration Montelukast Sodium 10 mg 10/31/22 21:00 10/31/22 21:32 Montelukast 10 Mg Tablet PO 10 mg QPM SAM Administration Multi-Ingredient Ointment 1 applic 10/31/22 21:44 10/31/22 22:23 Zinc Oxide 20% Oint 30 Gm Tube TOP 1 applic PRN PRN Administration Skin Care Pantoprazole Sodium 40 mg 10/30/22 07:00 11/01/22 06:16 Pantoprazole 40 Mg Tablet PO 40 mg QDAC SAM Administration Multivit/Folic Acid/Iron 1 tab 10/31/22 08:00 11/01/22 08:25 Vitamin Tablet PO 1 tab DAILYWM SAM Administration Saccharomyces Boulardii 250 mg 10/30/22 08:00 11/01/22 08:25 Saccharomyces Boulardii 250 Mg Capsule PO 250 mg BIDWM SAM Administration Sodium Chloride 10 ml 10/29/22 22:00 10/31/22 21:35 Sodium Chloride Flush 0.9% 10 Ml Syringe IVP 10 ml PRN PRN Administration NEEDED PER PROVIDER ORDERS Sodium Chloride 10 ml 10/30/22 01:00 11/01/22 08:27 Sodium Chloride Flush 0.9% 10 Ml Syringe IVP Not Given 0100,0900,1700 SAM - Lab Result Fish Bone Diagrams: 11/01/22 05:26 11/01/22 05:26 - Additional Planning My Orders: My Active Orders 10/31/22 21:00 Montelukast [Singulair] 10 mg PO QPM 10/31/22 21:44 Zinc Oxide 20% Oint [Zinc Oxide] 1 applic TOP PRN PRN 11/01/22 09:27 Benzocaine/Menthol [Cepacol] 1 lozenge MM Q2HR PRN 11/01/22 11:30 Foot 2 View RT [XR] Stat Knee 2 View RT [XR] Stat 11/01/22 17:00 SODIUM [CHEM] Q12H 11/02/22 05:00 CMP [COMPREHENSIVE METABOLIC PANEL] [CHEM] DAILYLAB SODIUM [CHEM] Q12H 11/03/22 05:00 CMP [COMPREHENSIVE METABOLIC PANEL] [CHEM] DAILYLAB Subjective - Subjective Patient Reports: Feeling Better (Has more energy, has been able to take 3-5 steps with less pain of the right foot), Other (Complains of cramping of the right leg (she has had the R knee immobilizer and right foot boot on for over a week)) Objective Vital Signs: Vital Signs - 24 hr 10/31/22 10/31/22 10/31/22 15:30 15:38 22:25 Temperature 36.5 C Heart Rate 69 70 Heart Rate [ 80 Brachial] Respiratory 20 19 18 Rate Blood Pressure 102/73 [Right Brachial artery] O2 Saturation 100 If not protocol 2 2 2 : Oxygen Flow, liters/minute 10/31/22 11/01/22 23:48 09:06 Temperature 36.8 C Heart Rate 86 Heart Rate [ 74 Brachial] Respiratory 18 22 Rate Blood Pressure 117/70 [Right Brachial artery] O2 Saturation 100 If not protocol 2 : Oxygen Flow, liters/minute Oxygen O2 Source [With Activity] Room air O2 Source [Without Activity] Room air O2 Source Room air I&O (Last 24 Hrs): Intake and Output Totals x24h 10/30/22 10/31/22 11/01/22 23:59 23:59 23:59 Intake Total 2348.75 3991 1928.333 Output Total 575 600 500 Balance 1773.75 3391 1428.333 General: Alert, Oriented x3, No acute distress HEENT: Mucous membr. moist/pink, Other (Has a froggy voice) Neck: Supple, No JVD Neuro: Alert, Non Focal Cardiovascular: Regular rate, No murmurs Respiratory: No respiratory distress, Rhonchi (L base) Abdomen: Normal bowel sounds, Soft Extremities: No clubbing, No edema, Other (Right knee immobilizer is on, the right foot boot is off.) - Results Results: Laboratory Results WBC 18.7 x10^3/uL (4.8-10.8) H 11/01/22 05:26 RBC 2.30 10^6/uL (4.20-5.40) L 11/01/22 05:26 Hgb 7.5 g/dL (12.0-16.0) L 11/01/22 05:26 Hct 23.6 % (37.0-47.0) L 11/01/22 05:26 MCV 102.6 fL (81.0-99.0) H 11/01/22 05:26 MCH 32.6 pg (27.0-31.0) H 11/01/22 05:26 MCHC 31.8 g/dL (32.0-36.0) L 11/01/22 05:26 RDW 13.1 % (12.0-15.0) 11/01/22 05:26 Plt Count 339 10^3/uL (130-450) 11/01/22 05:26 MPV 8.6 fL (7.9-10.8) 11/01/22 05:26 Neut # (Auto) 17.8 10^3/uL (1.5-6.6) H 11/01/22 05:26 Lymph # (Auto) 0.2 10^3/uL (1.5-3.5) L 11/01/22 05:26 [place] # (Auto) 0.4 10^3/uL (0.0-1.0) 11/01/22 05:26 Eos # (Auto) 0.0 10^3/uL (0.0-0.7) 11/01/22 05:26 Baso # (Auto) 0.0 10^3/uL (0.0-0.1) 11/01/22 05:26 Absolute Nucleated RBC 0.00 x10^3/uL 11/01/22 05:26 Total Counted 100 10/31/22 04:39 Band Neuts % (Manual) 11 % (0-10) H 10/31/22 04:39 Abnorm Lymph % (Manual) 0 % 10/31/22 04:39 Nucleated RBC % 0.0 /100WBC 11/01/22 05:26 Neutrophils # (Manual) 20.7 10^3/uL (1.5-6.6) H 10/31/22 04:39 Lymphocytes # (Manual) 1.1 10^3/uL (1.5-3.5) L 10/31/22 04:39 Monocytes # (Manual) 0.4 10^3/uL (0.0-1.0) 10/31/22 04:39 Eosinophils # (Manual) 0.0 10^3/uL (0-0.7) 10/31/22 04:39 Basophils # (Manual) 0.0 10^3/uL (0-0.1) 10/31/22 04:39 Differential Comment MANUAL DIFFERENTIAL 10/31/22 04:39 Manual Slide Review Indicated 10/30/22 05:06 WBC Morphology NORMAL APPEARANCE (NORMAL) 10/30/22 05:06 Platelet Estimate NORMAL (130-450,000) (NORMAL) 10/31/22 04:39 Platelet Morphology NORMAL APPEARANCE (NORMAL) 10/30/22 05:06 RBC Morph Micro Appear NORMAL APPEARANCE (NORMAL) 10/31/22 04:39 PT 12.7 secs (9.9-12.6) H 10/29/22 19:45 INR 1.2 (0.8-1.2) 10/29/22 19:45 APTT 25.6 secs (24.9-33.3) 10/29/22 19:45 Sodium 137 mmol/L (135-145) 11/01/22 05:26 Potassium 4.3 mmol/L (3.5-4.5) 11/01/22 05:26 Chloride 107 mmol/L (101-111) 11/01/22 05:26 Carbon Dioxide 24 mmol/L (21-32) 11/01/22 05:26 Anion Gap 6.0 (6-13) 11/01/22 05:26 BUN 35 mg/dL (6-20) H 11/01/22 05:26 Creatinine 1.1 mg/dL (0.6-1.3) 11/01/22 05:26 Estimated GFR (MDRD) 48 (>89) L 11/01/22 05:26 Glucose 127 mg/dL (74-104) H 11/01/22 05:26 Lactic Acid 1.5 mmol/L (0.5-2.2) 10/29/22 19:45 Calcium 8.6 mg/dL (8.5-10.3) 11/01/22 05:26 Magnesium 1.9 mg/dL (1.7-2.3) 11/01/22 05:26 Total Bilirubin 0.4 mg/dL (0.2-1.0) 11/01/22 05:26 AST 134 IU/L (10-42) H 11/01/22 05:26 ALT 139 IU/L (10-60) H 11/01/22 05:26 Alkaline Phosphatase 139 IU/L (42-121) H 11/01/22 05:26 B-Natriuretic Peptide 824 pg/mL (5-100) H 10/30/22 05:06 Total Protein 5.6 g/dL (6.4-8.9) L 11/01/22 05:26 Albumin 2.7 g/dL (3.2-5.5) L 11/01/22 05:26 Globulin 2.9 g/dL (2.1-4.2) 11/01/22 05:26 Albumin/Globulin Ratio 0.9 (1.0-2.2) L 11/01/22 05:26 Lipase 25 U/L (11-82) 10/29/22 19:45 Vitamin B12 619 pg/mL (180-914) 10/30/22 05:06 Folate 6.2 ng/mL (5.90 - >24.8) 10/30/22 05:06 TSH 1.16 uIU/mL (0.34-5.60) 10/30/22 05:06 Urine Color YELLOW 10/30/22 12:05 Urine Clarity CLOUDY (CLEAR) 10/30/22 12:05 Urine pH 5.5 PH (5.0-7.5) 10/30/22 12:05 Ur Specific [place] 1.010 (1.002-1.030) 10/30/22 12:05 Urine Protein 30 mg/dL (NEGATIVE) H 10/30/22 12:05 Urine Glucose (UA) NEGATIVE mg/dL (NEGATIVE) 10/30/22 12:05 Urine Ketones NEGATIVE mg/dL (NEGATIVE) 10/30/22 12:05 Urine Occult Blood LARGE (NEGATIVE) H 10/30/22 12:05 Urine Nitrite POSITIVE (NEGATIVE) H 10/30/22 12:05 Urine Bilirubin NEGATIVE (NEGATIVE) 10/30/22 12:05 Urine Urobilinogen 0.2 (NORMAL) E.U./dL (NORMAL) 10/30/22 12:05 Ur Leukocyte Esterase MODERATE (NEGATIVE) H 10/30/22 12:05 Urine RBC TNTC /HPF (0-5) H 10/30/22 12:05 Urine WBC >25 /HPF (0-5) H 10/30/22 12:05 Ur Squamous Epith Cells FEW Squamous (<= Few) 10/30/22 12:05 Urine Bacteria Moderate /HPF (None Seen) H 10/30/22 12:05 Ur Microscopic Review INDICATED 10/30/22 12:05 Urine Culture Comments INDICATED 10/30/22 12:05 Nasal Adenovirus (PCR) NOT DETECTED 10/29/22 20:35 Nasal B. parapertussis DNA (PCR) NOT DETECTED 10/29/22 20:35 Nasal Coronavir 229E PCR NOT DETECTED 10/29/22 20:35 Nasal Coronavir HKU1 PCR NOT DETECTED 10/29/22 20:35 Nasal Coronavir NL63 PCR NOT DETECTED 10/29/22 20:35 Nasal Coronavir OC43 PCR NOT DETECTED 10/29/22 20:35 Nasal Enterovir/Rhinovir PCR NOT DETECTED 10/29/22 20:35 Nasal Influenza B PCR NOT DETECTED 10/29/22 20:35 Nasal Influenza A PCR NOT DETECTED 10/29/22 20:35 Nasal Parainfluen 1 PCR NOT DETECTED 10/29/22 20:35 Nasal Parainfluen 2 PCR NOT DETECTED 10/29/22 20:35 Nasal Parainfluen 3 PCR NOT DETECTED 10/29/22 20:35 Nasal Parainfluen 4 PCR NOT DETECTED 10/29/22 20:35 Nasal RSV (PCR) NOT DETECTED 10/29/22 20:35 Nasal B.pertussis DNA PCR NOT DETECTED 10/29/22 20:35 Nasal C.pneumoniae (PCR) NOT DETECTED 10/29/22 20:35 Jayesh Human Metapneumo PCR NOT DETECTED 10/29/22 20:35 Nasal M.pneumoniae (PCR) NOT DETECTED 10/29/22 20:35 Nasal SARS-CoV-2 (PCR) NOT DETECTED 10/29/22 20:35 Hepatitis A IgM Ab Negative (Negative) 10/30/22 05:06 Hep Bs Antigen Negative (Negative) 10/30/22 05:06 Hep B Core IgM Ab Negative (Negative) 10/30/22 05:06 Hepatitis C Antibody Non Reactive (Non Reactive) 10/30/22 05:06 Hepatitis C Interp Comment (.) 10/30/22 05:06 - Procedures Procedures: Procedures EXCISION OF STOMACH, PYLORUS, ENDO, DIAGN (12/31/21) INSPECTION OF LOWER INTESTINAL TRACT, ENDO (12/31/21)
--- NOTE | 2022-11-01 12:35 | XRAY Report ---
PROCEDURE: Foot 2 View RT INDICATIONS: F/U of poss metatarsal fracture sev weeks ago TECHNIQUE: 2 views of the foot were acquired. COMPARISON: None. FINDINGS: Bones: Previously lucencies traversing the fourth and fifth metatarsal necks is again seen. Likely h ealing fractures. Degenerative changes of the interphalangeal joints. No displacement. Soft tissues: No suspicious soft tissue calcifications or masses. Vascular calcifications. IMPRESSION: Subtle lucencies traversing the fourth and fifth metatarsal necks likely healing fracture s. Please correlate with point tenderness. No displacement. Reviewed by: Sam Alcala on 11/01/2022 12:34 PM PDT Approved by: Sam Alcala on 11/01/2022 12:34 PM PDT Station ID: [id number]
--- NOTE | 2022-11-01 12:41 | XRAY Report ---
PROCEDURE: Knee 2 View RT INDICATIONS: F/U of fracture sev weeks ago TECHNIQUE: 2 views of the right knee(s) were acquired. COMPARISON: None. FINDINGS: Bones: Nondisplaced fracture of the tibia with a fracture lucency extending from the distal tip of t he tibial component of the knee replacement to the cortex laterally. Cortical irregularity/step-off i s also present posteriorly on the lateral view, unchanged. No suspicious bony lesions. Soft tissues: No knee joint effusion. No suspicious soft tissue calcifications or masses. Vascular calcifications are noted. IMPRESSION: Nondisplaced fracture of the left proximal tibia extending from the distal aspect of the tibial component of the knee replacement to the lateral tibial cortex. No interval change. Reviewed by: Sam Alcala on 11/01/2022 12:40 PM PDT Approved by: Sam Alcala on 11/01/2022 12:40 PM PDT Station ID: [id number]
[2022-11-01] MEDS: MONTELUKAST 10 MG TABLET PO SCH (20:32)
[2022-11-02 05:55] LABS: ALBUMIN 2.8 g/dL (3.2-5.5); BILIRUBIN,TOTAL 0.4 mg/dL (0.2-1.0); CALCIUM 8.8 mg/dL (8.5-10.3); CREATININE 1.2 mg/dL (0.6-1.3); TOTAL PROTEIN 5.7 g/dL (6.4-8.9)
[2022-11-02] MEDS: CEFEPIME 2 GM in SODIUM CHLORIDE 0.9% MINIBAG 100 ML IV SCH ×2 (06:48→18:18)
[2022-11-02] MEDS: methylPREDNISolone SUCCINATE 40 MG/ML VIAL IVP SCH ×2 (06:48→20:06)
[2022-11-02] MEDS: LEVOTHYROXINE 125 MCG TABLET PO SCH (06:55)
[2022-11-02] MEDS: PANTOPRAZOLE 40 MG TABLET PO SCH (06:55)
[2022-11-02] MEDS: FORMOTEROL FUMARATE NEB 20 MCG/2 ML INH SCH ×2 (07:11→19:00)
[2022-11-02] MEDS: IPRATROPIUM/ALBUTEROL 3 ML NEB INH SCH ×4 (07:11→19:00)
[2022-11-02] MEDS: BUDESONIDE 0.5 MG/2 ML NEB INH SCH ×2 (07:11→19:00)
[2022-11-02] MEDS: allopurinoL 100 MG TABLET PO SCH (08:16)
[2022-11-02] MEDS: atenoloL 25 MG TABLET PO SCH (08:16)
[2022-11-02] MEDS: CHOLECALCIFEROL 25 MCG TABLET PO SCH (08:16)
[2022-11-02] MEDS: PRENATAL VITAMIN TABLET PO SCH (08:16)
[2022-11-02] MEDS: amLODIPine 5 MG TABLET PO SCH (08:16)
[2022-11-02] MEDS: SODIUM CHLORIDE FLUSH 0.9% 10 ML SYRINGE IVP SCH ×2 (08:17→18:18)
[2022-11-02] MEDS: ENOXAPARIN 40 MG/0.4 ML SYRINGE SUBQ SCH (08:17)
[2022-11-02] MEDS: SACCHAROMYCES BOULARDII 250 MG CAPSULE PO SCH ×2 (08:17→18:18)
[2022-11-02] MEDS: CLOPIDOGREL 75 MG TABLET PO SCH (08:17)
[2022-11-02] MEDS: guaiFENesin 600 MG TABLET PO SCH ×2 (08:17→20:06)
[2022-11-02] MEDS: ISOSORBIDE MONONITRATE ER 30 MG TABLET PO SCH (08:23)
--- NOTE | 2022-11-02 09:18 | XRAY Report ---
PROCEDURE: Chest 1 View X-Ray INDICATIONS: F/U pnemonia, COPD pulm fibrosis TECHNIQUE: One view of the chest was acquired. COMPARISON: Chest x-ray, 10/29/2022. FINDINGS: Surgical changes and devices: Left mastectomy. Surgical clips in the left axilla.. Lungs and pleura: Bilateral interstitial infiltrates. No pleural effusions or pneumothorax. Lungs a re clear. Mediastinum: Mediastinal contours appear normal. Heart size is no increased. Bones and chest wall: No suspicious bony lesions. Overlying soft tissues appear unremarkable. IMPRESSION: 1. Bilateral interstitial infiltrates may be secondary to bilateral pneumonia or pulmonary edema. 2. Mild cardiomegaly. Reviewed by: Ольга Spaulding MD on 11/02/2022 9:17 AM PDT Approved by: Ольга Spaulding MD on 11/02/2022 9:17 AM PDT Station ID: [id number]
[2022-11-02] MEDS ORDERED: FUROSEMIDE 40 MG/4 ML VIAL IVP STA (10:23)
[2022-11-02] MEDS: polyethylene glycoL 3350 17 GM PACKET PO SCH (10:30)
[2022-11-02] MEDS: HYDROcod/ACETAM 7.5 MG/325 MG TABLET PO PRN (11:03)
--- NOTE | 2022-11-02 13:40 | PROVIDER PROGRESS NOTE ---
Assessment/Plan - Problem List (1) HCAP (healthcare-associated pneumonia) Assessment/Plan: She presented with a cough, fever, tachycardia, tachypnea, O2 desaturation and elevated WBC 23.5, Resp panel was neg. On CXR she has a multilobar PNA and cardiomegaly. Pt was given IVF, Unasyn and Doxycycline in the ER. The admitting Telemedicine provider changed her antibx to Cefepime for a HealthCare associated pneumonia. Given her history of esophageal dysmotility (see #2), this may also have been an aspiration pneumonia. Blood cultures are negative to date. She did not provide a sputum sample at admission, to get spt culture. She finally sent off a spt sample today Her WBC has responded Plan: Continue with empiric broad-spectrum antibiotics iv Cefepime and iv Flagyl Cont Mucinex and Florastor I anticipate discharge soon, at which time I will change her to oral antibiotics to complete a 10-day course 2) Acute respiratory failure with hypoxia Assessment/Plan: EMS reported SpO2 87% on RA and started O2. The cause was a new multilobar p neumonia on top of being a COPD-er and having underlying pulmonary fibrosis. 2 days ago she was able to to be titrated down to room air at rest but was desaturating with activity. But she is again desaturating at rest (overnight) and with minimal activity. Overnight, she is back on 2 L O2 supplemental to maintain saturations of 91 to 93% Plan: Cont to treat the underlying causes I ordered an oximetry walk test today to see if she needs a new home oxygen order>> Later today she was able to be titrated to room air at rest and she did not desaturate below 95% on room air with ambulation. Anticipate discharge tomorrow 3) COPD exacerbation Plan: Continue with nebs, steroids, supplemental O2 as needed and empiric antibiotics, Incentive Spirometry Cont the new Montelukast orally at hs 4) Pulmonary Fibrosis This occurred after radiation therapy Plan: Treat as in #1 and 3 5) Cor Pulmonale Echo was ordered to evaluate for LV heart failure. Echo was done today and shows she has normal LV size and systolic function, but has a moderately dilated RV and severely dilated RA. RV function is depressed. This is consistent with cor pulmonale, which is likely from her longstanding COPD and pulmonary fibrosis. 6) Hyponatremia Her Na 126 on adm labs. This is most likely d/t decreased intake, so Hypovolemic Hyponatremia Her BUN/creatinine ratio has also increased, therefore she has prerenal azotemia Plan: Follow BMP daily 7) Macrocytic Anemia Hgb 10.6, MCV 101.8. This is consistent with alcohol abuse. We checked B12/Folate levels and they were adequate. All labs were reviewed. Since being admitted she is needed IV fluids and is 5 L positive in fluid status and with this her hemoglobin has dropped to 7.6. Plan: Check iron panel>> She is very low and Fe, TIBC, percent saturation and I will start her on ferrous sulfate 325 p.o. twice daily. Rechecking if she needs B12 or Folate suppl as well. 8) Esophageal dysmotility : K22.4 Today records were requested from [facility] from a barium swallow and EGD done there January 2022. These revealed that she has esophageal dysmotility from radiation to her chest and also has pooling in the posterior pharynx due to her prior anterior cervical discectomy and fusion surgery. These diagnoses makes the possibility of an aspiration pneumonia more likely. She is on the proper treatment for aspiration PNA (is on antianaerobic antibiotics) Plan: Continue with a minced and moist diet Continue with crushing all her meds 9) Decreased Mobility R Tibial Plateau fracture, possible. R 4th Metatarsal fracture, possible. S/P Fall 2 weeks ago. At [facility], she wa using a R Knee immobilizer and R walking boot. Lali of here called [facility] today and found out that the patient's weightbearing status was "weightbearing as tolerated" PT/OT consults were ordered and are working with the pt. Plan: Will re-x-ray the right knee and the right foot (recommended by PT and OT), to confirm status of her various fractures>> The knee x-ray showed continued fracture. The metatarsal x-ray showed healing of her fracture. I discussed these results today with the patient and was at bedside. Pain meds prn, Ultram prn restarted, [place] added Cont PT and OT. She needs to return to [facility] for further PT and OT rehab on that right leg 10) Elevated LFTs -AST 111, ALT 155, -per pt, her LFTs have been elevated at least 3 months. Pt stopped drinking ETOH (1-3 glasses wine/day) 2-3 months ago. U/S abdom was ordered by Telemed, but was already done in ER and showed no gallstones or GB problem. Abnormal LFTs can also be seen with some pneumonias. I suspect she has abnormal LFTs from her Cor pulmonale (see #5) Plan: Cont to hold home medication Crestor. OK to continue Zetia. Awaiting the Hepatitis panel 11) HTN Her first few BPs were elevated in ED160/101. But after admission, yesterday she was hypotensive with BP 93/51. An Echo was ordered to evaluate LV size and function, to help with iv fluid rate orders. Echo was done today and shows she has normal LV size and systolic function, but has a moderately dilated RV and severely dilated RA. RV function is depressed. This is consistent with cor pulmonale, which is likely from her longstanding COPD and pulmonary fibrosis. Her BP meds have all been on hold. She has needed IV saline through this morning Plan: Her home medications of Amlodipine, Atenolol, ImDur, are ordered to continue, but with holding parameters on these. Also she was on Losartan at home. At discharge, she will need adjustment down of meds, due to BP of 120's on nearly no BP meds. We will cont her beta-jose and nitrates 12) GERD Plan: Continue home medications: PPI 13) Hypothyroidism Her TSH is in an adequate range. Plan: Continue home medication Levothyroxine 14) Hx of CAD Plan: Her home medications of Amlodipine, Plavix, Atenolol, ImDur, were ordered to continue. Will place holding parameters on these orders. Her statin is also on hold due to elevated LFTs. Plan: Continue her daily antiplatelet agent Plavix 15) UTI She had dysuria, per admission H&P. She was on an unknown antibx. Her U/A was re-ordered, and the urine cx is growing nothing. I suspect she had a partially treated UTI Plan: She is on her 5th day today of empiric, broad-spectrum antibiotics, as for the HCAP using Cefepime, which would cover common gram negative bacteria - Current Meds Current Meds: Current Medications Generic Name Dose Route Start Last Admin Trade Name Freq PRN Reason Stop Dose Admin Acetaminophen 650 mg 10/29/22 21:51 10/30/22 00:32 Acetaminophen 325 Mg Tablet PO 650 mg Q6H PRN Administration PRN PAIN &/OR FEVER Hydrocodone Bitart/Acetaminophen 1 tab 10/30/22 14:57 11/02/22 11:03 Hydrocod/Acetam 7.5 Mg/325 Mg Tablet PO 1 tab Q6HR PRN Administration Moderate Pain (Level 4-6) Albuterol/Ipratropium 3 ml 10/30/22 15:00 11/02/22 11:16 Ipratropium/Albuterol 3 Ml Neb INH 3 ml RTQID SAM Administration Allopurinol 100 mg 10/31/22 09:00 11/02/22 08:16 Allopurinol 100 Mg Tablet PO 100 mg DAILY SAM Administration Amlodipine Besylate 2.5 mg 10/30/22 09:12 11/02/22 08:16 Amlodipine 5 Mg Tablet PO 2.5 mg DAILY SAM Administration Atenolol 25 mg 10/30/22 09:12 11/02/22 08:16 Atenolol 25 Mg Tablet PO 25 mg DAILY SAM Administration Budesonide 0.5 mg 10/30/22 19:00 11/02/22 07:11 Budesonide 0.5 Mg/2 Ml Neb INH 0.5 mg RTBID SAM Administration Cholecalciferol 50 mcg 10/30/22 17:00 11/02/22 08:16 Cholecalciferol 25 Mcg Tablet PO 50 mcg DAILY SAM Administration Clopidogrel Bisulfate 75 mg 10/30/22 09:00 11/02/22 08:17 Clopidogrel 75 Mg Tablet PO 75 mg DAILY SAM Administration Enoxaparin Sodium 40 mg 10/31/22 09:00 11/02/22 08:17 Enoxaparin 40 Mg/0.4 Ml Syringe SUBQ 40 mg DAILY SAM Administration Formoterol Fumarate 20 mcg 10/30/22 07:00 11/02/22 07:11 Formoterol Fumarate Neb 20 Mcg/2 Ml INH 20 mcg RTBID SAM Administration Guaifenesin 600 mg 10/30/22 09:15 11/02/22 08:17 Guaifenesin 600 Mg Tablet PO 600 mg BID SAM Administration Cefepime HCl 2 gm/ Sodium 100 mls @ 200 mls/hr 10/31/22 18:00 11/02/22 06:48 Chloride IV 200 mls/hr Q12H SAM Administration Isosorbide Mononitrate 30 mg 10/30/22 09:12 11/02/22 08:23 Isosorbide Mononitrate Er 30 Mg Tablet PO 30 mg DAILY SAM Administration Levothyroxine Sodium 125 mcg 10/30/22 07:00 11/02/22 06:55 Levothyroxine 125 Mcg Tablet PO 125 mcg QDAC SAM Administration Montelukast Sodium 10 mg 10/31/22 21:00 11/01/22 20:32 Montelukast 10 Mg Tablet PO 10 mg QPM SAM Administration Multi-Ingredient Ointment 1 applic 10/31/22 21:44 10/31/22 22:23 Zinc Oxide 20% Oint 30 Gm Tube TOP 1 applic PRN PRN Administration Skin Care Pantoprazole Sodium 40 mg 10/30/22 07:00 11/02/22 06:55 Pantoprazole 40 Mg Tablet PO 40 mg QDAC SAM Administration Polyethylene Glycol 17 gm 11/02/22 09:00 11/02/22 10:30 Polyethylene Glycol 3350 17 Gm Packet PO 17 gm DAILY SAM Administration Multivit/Folic Acid/Iron 1 tab 10/31/22 08:00 11/02/22 08:16 Vitamin Tablet PO 1 tab DAILYWM SAM Administration Saccharomyces Boulardii 250 mg 10/30/22 08:00 11/02/22 08:17 Saccharomyces Boulardii 250 Mg Capsule PO 250 mg BIDWM SAM Administration Sodium Chloride 10 ml 10/29/22 22:00 10/31/22 21:35 Sodium Chloride Flush 0.9% 10 Ml Syringe IVP 10 ml PRN PRN Administration NEEDED PER PROVIDER ORDERS Sodium Chloride 10 ml 10/30/22 01:00 11/02/22 08:17 Sodium Chloride Flush 0.9% 10 Ml Syringe IVP 10 ml 0100,0900,1700 SAM Administration - Lab Result Fish Bone Diagrams: 11/01/22 05:26 11/03/22 04:35 - Additional Planning My Orders: My Active Orders 11/02/22 SODIUM, URINE [UC] Stat 11/02/22 05:29 FOLATE [CHEM] Routine IRON TIBC PANEL [CHEM] Routine VITAMIN B12 [CHEM] Routine 11/02/22 08:53 Oxygen Desat. Study w/Exercise [RC] .ONCE 11/02/22 09:00 polyethylene glycoL 3350 [Miralax] 17 gm PO DAILY 11/02/22 10:23 Miscellaenous Nursing Order [RC] QSHIFT 11/02/22 10:37 CUL, RESPIRATORY [RM] Stat 11/02/22 21:00 methylPREDNISolone SUCCINATE [SOLU-Medrol (40MG VIAL)] 40 mg IVP BID 11/03/22 05:00 CMP [COMPREHENSIVE METABOLIC PANEL] [CHEM] DAILYLAB Subjective - Subjective Patient Reports: Feeling Better (Still very weak every morning, has more energy every afternoon.) Nursing Reports: Other (She no longer desaturates on room air, with ambulation with PT) Objective Vital Signs: Vital Signs - 24 hr 11/01/22 11/01/22 11/01/22 17:16 18:30 22:00 Temperature 36.5 C Heart Rate 76 Heart Rate [ 66 Brachial] Respiratory 20 22 Rate Blood Pressure 116/68 [Right Brachial artery] O2 Saturation 94 92 If not protocol : Oxygen Flow, liters/minute 11/01/22 11/02/22 11/02/22 22:01 00:20 07:10 Temperature 36.6 C Heart Rate Heart Rate [ 75 Brachial] Respiratory 20 Rate Blood Pressure 126/79 [Right Brachial artery] O2 Saturation 93 If not protocol 2 2 : Oxygen Flow, liters/minute 11/02/22 11/02/22 11/02/22 07:14 08:00 11:17 Temperature 36.3 C L Heart Rate 78 80 Heart Rate [ 70 Brachial] Respiratory 20 20 20 Rate Blood Pressure 135/69 H [Right Brachial artery] O2 Saturation 99 If not protocol 2 : Oxygen Flow, liters/minute 11/02/22 12:02 Temperature Heart Rate 88 Heart Rate [ Brachial] Respiratory Rate Blood Pressure [Right Brachial artery] O2 Saturation If not protocol : Oxygen Flow, liters/minute Oxygen O2 Source [With Activity] Room air O2 Source [Without Activity] Room air O2 Source Nasal cannula I&O (Last 24 Hrs): Intake and Output Totals x24h 10/31/22 11/01/22 11/02/22 23:59 23:59 23:59 Intake Total 3991 3798.333 100 Output Total 600 1000 1950 Balance 3391 0808.333 -8260 General: Alert, Oriented x3 HEENT: Mucous membr. moist/pink, Other (Hoarse voice) Neck: Supple, No JVD Neuro: Alert, Non Focal Cardiovascular: Regular rate, No murmurs Respiratory: Rhonchi (R base) Abdomen: Normal bowel sounds, Soft, No tenderness Extremities: No clubbing, No edema, Other (R knee in a brace) - Results Results: Laboratory Results WBC 18.7 x10^3/uL (4.8-10.8) H 11/01/22 05:26 RBC 2.30 10^6/uL (4.20-5.40) L 11/01/22 05:26 Hgb 7.5 g/dL (12.0-16.0) L 11/01/22 05:26 Hct 23.6 % (37.0-47.0) L 11/01/22 05:26 MCV 102.6 fL (81.0-99.0) H 11/01/22 05:26 MCH 32.6 pg (27.0-31.0) H 11/01/22 05:26 MCHC 31.8 g/dL (32.0-36.0) L 11/01/22 05:26 RDW 13.1 % (12.0-15.0) 11/01/22 05:26 Plt Count 339 10^3/uL (130-450) 11/01/22 05:26 MPV 8.6 fL (7.9-10.8) 11/01/22 05:26 Neut # (Auto) 17.8 10^3/uL (1.5-6.6) H 11/01/22 05:26 Lymph # (Auto) 0.2 10^3/uL (1.5-3.5) L 11/01/22 05:26 Giles # (Auto) 0.4 10^3/uL (0.0-1.0) 11/01/22 05:26 Eos # (Auto) 0.0 10^3/uL (0.0-0.7) 11/01/22 05:26 Baso # (Auto) 0.0 10^3/uL (0.0-0.1) 11/01/22 05:26 Absolute Nucleated RBC 0.00 x10^3/uL 11/01/22 05:26 Total Counted 100 10/31/22 04:39 Band Neuts % (Manual) 11 % (0-10) H 10/31/22 04:39 Abnorm Lymph % (Manual) 0 % 10/31/22 04:39 Nucleated RBC % 0.0 /100WBC 11/01/22 05:26 Neutrophils # (Manual) 20.7 10^3/uL (1.5-6.6) H 10/31/22 04:39 Lymphocytes # (Manual) 1.1 10^3/uL (1.5-3.5) L 10/31/22 04:39 Monocytes # (Manual) 0.4 10^3/uL (0.0-1.0) 10/31/22 04:39 Eosinophils # (Manual) 0.0 10^3/uL (0-0.7) 10/31/22 04:39 Basophils # (Manual) 0.0 10^3/uL (0-0.1) 10/31/22 04:39 Differential Comment MANUAL DIFFERENTIAL 10/31/22 04:39 Manual Slide Review Indicated 10/30/22 05:06 WBC Morphology NORMAL APPEARANCE (NORMAL) 10/30/22 05:06 Platelet Estimate NORMAL (130-450,000) (NORMAL) 10/31/22 04:39 Platelet Morphology NORMAL APPEARANCE (NORMAL) 10/30/22 05:06 RBC Morph Micro Appear NORMAL APPEARANCE (NORMAL) 10/31/22 04:39 PT 12.7 secs (9.9-12.6) H 10/29/22 19:45 INR 1.2 (0.8-1.2) 10/29/22 19:45 APTT 25.6 secs (24.9-33.3) 10/29/22 19:45 Sodium 133 mmol/L (135-145) L 11/02/22 05:29 Potassium 4.0 mmol/L (3.5-4.5) 11/02/22 05:29 Chloride 101 mmol/L (101-111) 11/02/22 05:29 Carbon Dioxide 26 mmol/L (21-32) 11/02/22 05:29 Anion Gap 6.0 (6-13) 11/02/22 05:29 BUN 39 mg/dL (6-20) H 11/02/22 05:29 Creatinine 1.2 mg/dL (0.6-1.3) 11/02/22 05:29 Estimated GFR (MDRD) 43 (>89) L 11/02/22 05:29 Glucose 125 mg/dL (74-104) H 11/02/22 05:29 Lactic Acid 1.5 mmol/L (0.5-2.2) 10/29/22 19:45 Calcium 8.8 mg/dL (8.5-10.3) 11/02/22 05:29 Magnesium 1.9 mg/dL (1.7-2.3) 11/01/22 05:26 Iron 40 ug/dL (50-212) L 11/02/22 05:29 TIBC 206 ug/dL (250-450) L 11/02/22 05:29 % Saturation 19 % (20-50) L 11/02/22 05:29 Transferrin 147 mg/dL (203-362) L 11/02/22 05:29 Total Bilirubin 0.4 mg/dL (0.2-1.0) 11/02/22 05:29 AST 158 IU/L (10-42) H 11/02/22 05:29 ALT 193 IU/L (10-60) H 11/02/22 05:29 Alkaline Phosphatase 136 IU/L (42-121) H 11/02/22 05:29 B-Natriuretic Peptide 824 pg/mL (5-100) H 10/30/22 05:06 Total Protein 5.7 g/dL (6.4-8.9) L 11/02/22 05:29 Albumin 2.8 g/dL (3.2-5.5) L 11/02/22 05:29 Globulin 2.9 g/dL (2.1-4.2) 11/02/22 05:29 Albumin/Globulin Ratio 1.0 (1.0-2.2) 11/02/22 05:29 Lipase 25 U/L (11-82) 10/29/22 19:45 Vitamin B12 619 pg/mL (180-914) 10/30/22 05:06 Folate 6.2 ng/mL (5.90 - >24.8) 10/30/22 05:06 TSH 1.16 uIU/mL (0.34-5.60) 10/30/22 05:06 Urine Color YELLOW 10/30/22 12:05 Urine Clarity CLOUDY (CLEAR) 10/30/22 12:05 Urine pH 5.5 PH (5.0-7.5) 10/30/22 12:05 Ur Specific Tullos 1.010 (1.002-1.030) 10/30/22 12:05 Urine Protein 30 mg/dL (NEGATIVE) H 10/30/22 12:05 Urine Glucose (UA) NEGATIVE mg/dL (NEGATIVE) 10/30/22 12:05 Urine Ketones NEGATIVE mg/dL (NEGATIVE) 10/30/22 12:05 Urine Occult Blood LARGE (NEGATIVE) H 10/30/22 12:05 Urine Nitrite POSITIVE (NEGATIVE) H 10/30/22 12:05 Urine Bilirubin NEGATIVE (NEGATIVE) 10/30/22 12:05 Urine Urobilinogen 0.2 (NORMAL) E.U./dL (NORMAL) 10/30/22 12:05 Ur Leukocyte Esterase MODERATE (NEGATIVE) H 10/30/22 12:05 Urine RBC TNTC /HPF (0-5) H 10/30/22 12:05 Urine WBC >25 /HPF (0-5) H 10/30/22 12:05 Ur Squamous Epith Cells FEW Squamous (<= Few) 10/30/22 12:05 Urine Bacteria Moderate /HPF (None Seen) H 10/30/22 12:05 Ur Microscopic Review INDICATED 10/30/22 12:05 Urine Culture Comments INDICATED 10/30/22 12:05 Nasal Adenovirus (PCR) NOT DETECTED 10/29/22 20:35 Nasal B. parapertussis DNA (PCR) NOT DETECTED 10/29/22 20:35 Nasal Coronavir 229E PCR NOT DETECTED 10/29/22 20:35 Nasal Coronavir HKU1 PCR NOT DETECTED 10/29/22 20:35 Nasal Coronavir NL63 PCR NOT DETECTED 10/29/22 20:35 Nasal Coronavir OC43 PCR NOT DETECTED 10/29/22 20:35 Nasal Enterovir/Rhinovir PCR NOT DETECTED 10/29/22 20:35 Nasal Influenza B PCR NOT DETECTED 10/29/22 20:35 Nasal Influenza A PCR NOT DETECTED 10/29/22 20:35 Nasal Parainfluen 1 PCR NOT DETECTED 10/29/22 20:35 Nasal Parainfluen 2 PCR NOT DETECTED 10/29/22 20:35 Nasal Parainfluen 3 PCR NOT DETECTED 10/29/22 20:35 Nasal Parainfluen 4 PCR NOT DETECTED 10/29/22 20:35 Nasal RSV (PCR) NOT DETECTED 10/29/22 20:35 Nasal B.pertussis DNA PCR NOT DETECTED 10/29/22 20:35 Nasal C.pneumoniae (PCR) NOT DETECTED 10/29/22 20:35 Jayesh Human Metapneumo PCR NOT DETECTED 10/29/22 20:35 Nasal M.pneumoniae (PCR) NOT DETECTED 10/29/22 20:35 Nasal SARS-CoV-2 (PCR) NOT DETECTED 10/29/22 20:35 Hepatitis A IgM Ab Negative (Negative) 10/30/22 05:06 Hep Bs Antigen Negative (Negative) 10/30/22 05:06 Hep B Core IgM Ab Negative (Negative) 10/30/22 05:06 Hepatitis C Antibody Non Reactive (Non Reactive) 10/30/22 05:06 Hepatitis C Interp Comment (.) 10/30/22 05:06 - Procedures Procedures: Procedures EXCISION OF STOMACH, PYLORUS, ENDO, DIAGN (12/31/21) INSPECTION OF LOWER INTESTINAL TRACT, ENDO (12/31/21)
--- NOTE | 2022-11-02 14:16 | Discharge Plan ---
"Discharge Plan for SNF / PETTY - Discharge Plan And Transition Orders Problem Reviewed?: Yes Disposition: 03 SNF DC/Xfer Condition: Fair Allergies and Adverse Reactions: Allergies Allergy/AdvReac Type Severity Reaction Status Date / Time No Known Drug Allergies Allergy Verified 10/16/22 18:43 Health Concerns: Patient was hospitalized due to hypoxia from a pneumonia. She received iv antibiotics and needed supplemental O2, which was slowly tapered down to breathing room air. She is being discharged to take several more days of oral antibiotics and a probiotic. We found her to have an Iron deficiency anemia, and oral Iron supplements are started. She is on new medicines for her COPD and Pulmonary fibrosis: Montelukast nightly and a Medrol dose angélica. She is on a minced and moist diet and needs some of her pillls crushed, due to having esophageal dysmotility. Finally, we had her keep working with PT and OT while she was here, to keep working with that R leg, which has a knee immobilizer and a boot. The R foot and R leg were XRayed and did confirm fractures which are healing. She needs further PT and OT rehab, and is returning to [facility] for that. Plan of Treatment: Daily or twice daily PT and OT rehab. OK to remove knee immobilizer and boot, when she goes to bed for the night. Care Goals: Improvement in symptoms and stabilization are the goals. Assessment: The patient and understand and are agreeable with the plan. - SNF / LONG-TERM Transition Orders Admit to (Facility): [facility] Under the care of (Name): Dr Gerald Boyd Discharge Diagnosis: (1) Acute respiratory failure with hypoxia RESOLVED 2) HCAP (healthcare-associated pneumonia) IMPROVING 3) COPD On new Montelukast and continue her previous meds. 4) Pulmonary Fibrosis As per Hx. 5) Cor Pulmonale Echo showed she has normal LV size and systolic function, but has a moderately dilated RV and RV function is depressed. This is consistent with cor pulmonale, which is likely from her longstanding COPD and pulmonary fibrosis. 6) Hyponatremia Hypovolemic Hyponatremia, improved 7) Anemia She has macrocytosis but B12 and folate levels are normal. She is iron deficient. She is on new iron replacementS 8) Esophageal dysmotility Continue with a minced and moist diet and crushing some meds 9) Decreased Mobility IMPROVED She had R Tibial Plateau fracture, R 4th Metatarsal fracture, needs immobilizers, pain meds and further PT and OT rehab. 10) Elevated LFTs Probably passive congestion from Cor pulmonale and/or from previous alcohol use. 11) HTN Many of her BP meds have decreased or been stopped. 12) GERD Stable 13) Hypothyroidism Stable 14) Hx of CAD Stable 15) Recent UTI She has completed her course of antibiotics for this. Medicare Certification Statement: I certify that Post Hospital custodial care is medically necessary on a continuing basis for any of the conditions for which she/he is receiving care during hospitalization. Notify PCP of admission and forward orders to primary provider for signature. Weight on admission and: Weekly Call PCP immediately if weight increases by: 5 kg Other Notification Orders: Call PCP immediately if patient develops dyspnea, chest pain/tightness or edema. House Bowel Program: Yes Additional Bowel Program Orders: If no BM after 2 days, nurse may give M.O.M. 30ml PO PRN and/or ducolax Supp 1 MO and/or VEL 250mg P.O., and/or senna 1-2 tabs PO. On day 3 nurse may give repeat above order until residents constipation is resolved. Annual Influenza Vaccine (between Nov 23 and June 22): Yes Two-step PPD per [facility] [phone] or approved exception documents: Yes Treatments & Other Orders: Daily or twice daily PT and OT Orthopedic Orders: Wear R knee brace and R foot boot for ambulation. These may be removed for sleeping. Medication Orders: PLEASE REFER TO THE DISCHARGE MEDICATION LIST. Insulin Orders?: No - Medications New Prescriptions: HYDROcodone/ACET 7.5/325 [[place] 7.5/325] 0.5 - 1 tab PO Q6HR PRN #10 tab PRN Reason: Severe Pain (Level 7-10) Amox/Clav 875/125 [Augmentin 875/125 Tab] 1 tab PO BID #10 tab Rosuvastatin Calcium [Crestor] 10 mg PO QPM #30 tab Ferrous Sulfate [Feosol] 325 mg PO BID #60 tab Saccharomyces Boulardii [Florastor] 250 mg PO BID #10 cap methylPREDNISolone [Medrol Dose Pack] 1 each PO .PACKAGEINSTRUCTIONS 6 Days #1 each guaiFENesin [Mucinex] 600 mg PO BID #10 tab Montelukast [Singulair] 10 mg PO QPM #30 tab atenoloL [Tenormin] 12.5 mg PO DAILY #30 tab - Diet Type: No added salt Texture: Dysphagia mech Liquids: Thin May have monthly special meal: Yes - Therapies | Activity Therapy: Evaluation | Treat if indicated: PT, OT Rehabilitation Potential: Maximize functional status Activity: Activity as Tolerated Weight Bearing: Full Weight Assistance Devices: Walker Follow Up: See PCP after discharge from SNF."
[2022-11-02] MEDS: FERROUS SULFATE 325 MG TABLET PO SCH (18:18)
[2022-11-02] MEDS: MONTELUKAST 10 MG TABLET PO SCH (20:06)
[2022-11-03 05:08] LABS: ALBUMIN 2.8 g/dL (3.2-5.5); ALBUMIN/GLOBULIN RATIO 0.9 (1.0-2.2); BILIRUBIN,TOTAL 0.4 mg/dL (0.2-1.0); CALCIUM 8.8 mg/dL (8.5-10.3); CREATININE 1.1 mg/dL (0.6-1.3); POTASSIUM 3.9 mmol/L (3.5-4.5); TOTAL PROTEIN 5.8 g/dL (6.4-8.9)
[2022-11-03] MEDS: LEVOTHYROXINE 125 MCG TABLET PO SCH (06:39)
[2022-11-03] MEDS: PANTOPRAZOLE 40 MG TABLET PO SCH (06:39)
[2022-11-03] MEDS: SODIUM CHLORIDE FLUSH 0.9% 10 ML SYRINGE IVP SCH ×2 (06:42→09:52)
--- NOTE | 2022-11-03 08:09 | DISCHARGE SUMMARY ---
Discharge Summary Admit Date: 10/29/22 Discharge Date: 11/03/22 Discharging Provider: Dr Ruby Da Silva Primary Care Provider: Dr Gerald Boyd Condition at Discharge: Fair Discharge Disposition: 03 SNF DC/Xfer Discharge Facility Name: [facility] History of Present Illness: 77 yo F with PMH of remote Breast CA s/p Radiotx and Mastectomy, COPD, Pulmonary Fibrosis s/p radiotx, CAD, HTN, HLD, CKD, Hypothyroidism, Depression, recent UTI, and recent h/o leg fractures presented to the ER from [place] via EMS with c/o 1 day h/o cough, SOB, F/C. Pt had a fall 2 weeks ago. Pt was put in Knee immobilizer for possible R Tibial Plateau fracture and a walking boot for a possible R 4th Metatarsal fracture 2 weeks ago. She has been at the since then, but she realizes that she has not been out of bed much d/t her injuries. She has had 4 day h/o urinary symptoms, including dysuria, increased urinary frequency/urgency. She was put on antibiotics (unclear which one) 2 days ago, but pt's urinary symptoms have not improved. Today, around 4:30P, she began to have shortness of breath and cough, no sputum, no F/C. No sore throat/coryza/CP. She does not know if anyone around her had similar symptoms. staff called EMS. EMS reported SpO2 87% on RA and started O2. Pt says her Palaeontologist told her that her LFTs were elevated about 3 months ago. Prior to that, she was drinking 1-2 glasses of wine each evening. Her Palaeontologist changed her meds and recommended that she stop drinking ETOH. She has not had any ETOH x 3 months. No abdo pain/N/V. In the ER, T38.5C, HR 117, RR 28, BP 160/101, SpO2 98% on 3L NC O2, WBC 23.5, Hgb 10.6, MCV 101.8, Na 126, Glc 130, AST 111, ALT 155 EKG: S. Tachy at 118, no STTw changes CXR: CMG, B/L multilobar infiltrates Pt was given IVF, Unasyn and Doxycycline in the ER. - HOSPITAL COURSE Hospital Course: (1) Acute respiratory failure with hypoxia She was put on supplemental O2 by nasal cannula. As we treated her pneumonia and COPD exacerbation, she was weaned down to room air. She did not require supplemental O2 at discharge. 2) HCAP (healthcare-associated pneumonia) She was treated with empiric iv Cefepime and iv Flagyl. She was then transition to take oral Augmentin and sent out on this. After several days here, she produced a sputum sample and final culture results were not available until after her discharge. The sputum sample grew MSSA Staph aureus, which was not sens to Penicillins. Therefore, after she left, I changed her oral antibiotic to Bactrim DS, and that prescription was transmitted an information updated to the SNF where she went. 3) COPD She was treated with antibiotics, iv steroids, nebulized steroids and nebulized bronchodilators and new Montelukast. She was discharged on inhalers, new Montelukast nightly and a Medrol Dose-Alexander for a steroid taper. 4) Pulmonary Fibrosis As per Hx. 5) Cor Pulmonale Echo showed she has normal LV size and systolic function, but has a moderately dilated RV and RV function is depressed. This is consistent with cor pulmonale, which is likely from her longstanding COPD and pulmonary fibrosis. 6) Hyponatremia This was hypovolemic hyponatremia, and it improved with gentle saline hydration. 7) Anemia She has macrocytosis but B12 and folate levels are normal. She is iron deficient. She is now on new iron replacement. 8) Esophageal dysmotility As per Hx found in her EMR. We had her on a minced and moist diet and crushing some meds 9) Decreased Mobility She had a recent R Tibial Plateau fracture, and R 4th Metatarsal fracture, and needs immobilizers, pain meds were prescribed, and further PT and OT rehab needed before returning home. 10) Elevated LFTs Probably passive congestion from Cor pulmonale and/or from previous alcohol use. 11) HTN Many of her BP meds were decreased or have been stopped. 12) GERD Stable on treatment. 13) Hypothyroidism Stable with adequate TSH. 14) Hx of CAD Stable 15) Recent UTI She completed her course of antibiotics for this while she was here. - ALLERGIES Allergies/Adverse Reactions: Allergies Allergy/AdvReac Type Severity Reaction Status Date / Time No Known Drug Allergies Allergy Verified 10/16/22 18:43 - MEDICATIONS Home Medications: Ambulatory Orders Medication Instructions Recorded Confirmed Acetaminophen [Tylenol] 650 mg PO Q6H PRN 06/27/15 10/30/22 Multivitamin [Multivitamins] 1 each PO DAILY 06/27/15 10/30/22 Clopidogrel [Plavix] 75 mg PO DAILY 10/19/20 10/30/22 Ezetimibe [Zetia] 10 mg PO DAILY 10/19/20 10/30/22 Pantoprazole Sodium 40 mg PO QDAC 10/19/20 10/30/22 allopurinoL [Zyloprim] 100 mg PO DAILY 10/19/20 10/30/22 Isosorbide Mononitrate ER [Imdur] 30 mg PO DAILY 12/30/21 10/30/22 Levothyroxine [Synthroid] 125 mcg PO QDAC 12/30/21 10/30/22 Fluticasone/Umeclidin/Vilanter 1 puffs PO DAILY 10/16/22 10/30/22 [Trelegy Ellipta 100-62.5-25] Albuterol Sulf [Ventolin Hfa 1 puffs PO Q6H PRN 10/30/22 10/30/22 Inhaler] traMADol [Ultram] 0.25 tab PO DAILY PRN 10/30/22 10/30/22 Ferrous Sulfate [Feosol] 325 mg PO BID #60 tab 11/02/22 HYDROcodone/ACET 7.5/325 [[place] 0.5 - 1 tab PO Q6HR PRN #10 tab 11/02/22 7.5/325] Montelukast [Singulair] 10 mg PO QPM #30 tab 11/02/22 Rosuvastatin Calcium [Crestor] 10 mg PO QPM #30 tab 11/02/22 Saccharomyces Boulardii [Florastor] 250 mg PO BID #10 cap 11/02/22 atenoloL [Tenormin] 12.5 mg PO DAILY #30 tab 11/02/22 guaiFENesin [Mucinex] 600 mg PO BID #10 tab 11/02/22 methylPREDNISolone [Medrol Dose 1 each PO .PACKAGEINSTRUCTIONS 6 11/02/22 Pack] Days #1 each SULFAM/TRIM 800/160 Prepack 2 1 each PO BID #14 tablet 11/04/22 [BACTRIM DS 800/160 Prepack 2] - PHYSICAL EXAM AT DISCHARGE General Appearance: positive: No acute distress, Alert Eyes Bilateral: positive: Normal inspection, EOMI ENT: positive: ENT inspection nml, Other (Scratchy, hoarse voice, which is chronic for her.) Neck: positive: Other ((+) JVD) Respiratory: positive: No respiratory distress, Breath sounds nml Cardiovascular: positive: Regular rate & rhythm, No murmur Abdomen: positive: Non-tender, Nml bowel sounds, No distention Skin: positive: Warm, Dry Extremities: positive: No pedal edema, Other (Knee brace and foot boot are on R leg) Neurologic/Psychiatric: positive: Oriented x3, Motor nml - LABS Result Diagrams: 11/01/22 05:26 11/03/22 04:35 - DIAGNOSTIC IMAGING Diagnostic Imaging Results: Final report reviewed - FOLLOW UP Follow Up: See PCP after discharge from SNF. - TIME SPENT Time Spent in Discharge (Minutes): 45
[2022-11-03] MEDS: IPRATROPIUM/ALBUTEROL 3 ML NEB INH SCH (08:23)
[2022-11-03] MEDS: FORMOTEROL FUMARATE NEB 20 MCG/2 ML INH SCH (08:23)
[2022-11-03] MEDS: BUDESONIDE 0.5 MG/2 ML NEB INH SCH (08:23)
[2022-11-03] MEDS ORDERED: DOCUSATE SODIUM 250 MG CAPSULE PO SCH (09:00)
[2022-11-03] MEDS ORDERED: SENNA 8.6 MG TABLET PO SCH (09:00)
[2022-11-03] MEDS ORDERED: AMOX/CLAV 875 MG/125 MG TABLET PO SCH (09:00)
[2022-11-03] MEDS: ENOXAPARIN 40 MG/0.4 ML SYRINGE SUBQ SCH (09:48)
[2022-11-03] MEDS: methylPREDNISolone SUCCINATE 40 MG/ML VIAL IVP SCH (09:49)
[2022-11-03] MEDS: ZINC OXIDE 20% OINT 30 GM TUBE TOP PRN (09:50)
[2022-11-03] MEDS: polyethylene glycoL 3350 17 GM PACKET PO SCH (09:50)
[2022-11-03] MEDS: CHOLECALCIFEROL 25 MCG TABLET PO SCH (09:50)
[2022-11-03] MEDS: atenoloL 25 MG TABLET PO SCH (09:50)
[2022-11-03] MEDS: CLOPIDOGREL 75 MG TABLET PO SCH (09:50)
[2022-11-03] MEDS: ISOSORBIDE MONONITRATE ER 30 MG TABLET PO SCH (09:50)
[2022-11-03] MEDS: guaiFENesin 600 MG TABLET PO SCH (09:51)
[2022-11-03] MEDS: amLODIPine 5 MG TABLET PO SCH (09:51)
[2022-11-03] MEDS: allopurinoL 100 MG TABLET PO SCH (09:52)
[2022-11-03] MEDS: FERROUS SULFATE 325 MG TABLET PO SCH (10:01)
[2022-11-03] MEDS: SACCHAROMYCES BOULARDII 250 MG CAPSULE PO SCH (10:01)
[2022-11-03] MEDS: PRENATAL VITAMIN TABLET PO SCH (10:02)
[2022-11-03 10:48] VITALS: BP 132/81; O2SAT 97
== END 2022-11-03 11:10 | DRG 177 ==
LOC: EDUNIT# → ED 19:18 → MS2 22:00
PROVIDERS: ADMIT Internal Medicine; ATTEND Internal Medicine
DX: J18.9 Pneumonia, unspecified organism (principal); J15.211 Pneumonia due to Methicillin susceptible Staphylococcus aureus; J96.01 Acute respiratory failure with hypoxia; N39.0 Urinary tract infection, site not specified; E87.1 Hypo-osmolality and hyponatremia; J84.10 Pulmonary fibrosis, unspecified; I25.10 Atherosclerotic heart disease of native coronary artery without angina pectoris; I44.4 Left anterior fascicular block; I45.10 Unspecified right bundle-branch block; I12.9 Hypertensive chronic kidney disease with stage 1 through stage 4 chronic kidney disease, or unspecified chronic kidney disease; N18.9 Chronic kidney disease, unspecified; E03.9 Hypothyroidism, unspecified; F32.A Depression, unspecified; I27.81 Cor pulmonale (chronic); D53.9 Nutritional anemia, unspecified; K22.4 Dyskinesia of esophagus; R09.02 Hypoxemia; S82.141D Displaced bicondylar fracture of right tibia, subsequent encounter for closed fracture with routine healing; Z20.822 Contact with and (suspected) exposure to COVID-19; Z79.01 Long term (current) use of anticoagulants; S92.341D Displaced fracture of fourth metatarsal bone, right foot, subsequent encounter for fracture with routine healing; W19.XXXD Unspecified fall, subsequent encounter; K21.9 Gastro-esophageal reflux disease without esophagitis; E78.00 Pure hypercholesterolemia, unspecified; Z95.5 Presence of coronary angioplasty implant and graft; J43.9 Emphysema, unspecified; H54.7 Unspecified visual loss; M19.90 Unspecified osteoarthritis, unspecified site; D72.829 Elevated white blood cell count, unspecified; R74.01 Elevation of levels of liver transaminase levels; Z79.02 Long term (current) use of antithrombotics/antiplatelets; Z79.890 Hormone replacement therapy; Z79.899 Other long term (current) drug therapy; Z80.1 Family history of malignant neoplasm of trachea, bronchus and lung; Z82.3 Family history of stroke; Z85.3 Personal history of malignant neoplasm of breast; Z90.10 Acquired absence of unspecified breast and nipple; Z92.3 Personal history of irradiation; Z96.649 Presence of unspecified artificial hip joint; Z96.659 Presence of unspecified artificial knee joint
CPT/HCPCS: 36415; 71045; 73560; 73620; 76705; 80048; 80053; 80074; 81001; 82607; 82746; 83540; 83605; 83690; 83735; 83880; 84295; 84300; 84443; 84466; 85025; 85610; 85730; 87040; 87070; 87086; 87181; 87205; 87633; 93005; 93306; 94640; 94761; 97116; 97162; 97167; 97530; 97535; 99285; A9270; J1650; J7120; J7626; 81003

== ENCOUNTER 2022-11-13 08:00 | Outpatient (CLI) | payer MEDICARE, OTHER ==
[2022-11-13 17:15] LABS: BASOPHILS % (AUTO) 0.1 %; EOSINOPHILS % (AUTO) 0.1 %; HCT - HEMATOCRIT 29.7 % (37.0-47.0); HGB - HEMOGLOBIN 9.2 g/dL (12.0-16.0); LYMPHOCYTES # (AUTO) 0.4 10^3/uL (1.5-3.5); LYMPHOCYTES % (AUTO) 2.8 %; MEAN CORPUSCULAR HEMOGLOBIN 32.1 pg (27.0-31.0); MEAN CORPUSCULAR VOLUME 103.5 fL (81.0-99.0); MEAN PLATELET VOLUME 9.1 fL (7.9-10.8); MONOCYTES # (AUTO) 0.6 10^3/uL (0.0-1.0); NEUTROPHILS # (AUTO) 13.5 10^3/uL (1.5-6.6); NEUTROPHILS % (AUTO) 92.5 %; PLT - PLATELET COUNT 330 10^3/uL (130-450); RED BLOOD COUNT 2.87 10^6/uL (4.20-5.40); RED CELL DISTRIBUTION WIDTH 14.6 % (12.0-15.0); WHITE BLOOD COUNT 14.6 x10^3/uL (4.8-10.8)
[2022-11-13 17:32] LABS: CALCIUM 9.3 mg/dL (8.5-10.3); CREATININE 1.6 mg/dL (0.6-1.3); POTASSIUM 5.3 mmol/L (3.5-4.5)
== END 2022-11-13 23:59 | disposition home or self-care (01) ==
LOC: LAB.R 08:00
PROVIDERS: ATTEND Registered Nurse
DX: I12.9 Hypertensive chronic kidney disease with stage 1 through stage 4 chronic kidney disease, or unspecified chronic kidney disease (principal); N18.32 Chronic kidney disease, stage 3b; D50.9 Iron deficiency anemia, unspecified
CPT/HCPCS: 80048; 85025

== ENCOUNTER 2022-11-13 11:00 | Outpatient (CLI) | payer MEDICARE, OTHER ==
--- NOTE | 2022-11-13 14:00 | XRAY Report ---
PROCEDURE: Knee 3 View RT INDICATIONS: RIGHT KNEE FRACTURE TECHNIQUE: 2 views of the right knee(s) were acquired. COMPARISON: 11/01/2022 FINDINGS: Bones: Remote total right knee arthroplasty. Again noted is a posterior aspect proximal tibial fract ure, mildly displaced, extending to the knee component of the arthroplasty, not significantly changed . Soft tissues: No knee joint effusion. No suspicious soft tissue calcifications or masses. IMPRESSION: Periprosthetic fracture of the posterior aspect of the proximal tibia extending to the articular surf smita, which contains a tibial component of total knee arthroplasty. Reviewed by: Erickson Lugo MD on 11/13/2022 1:59 PM PDT Approved by: Erickson Lugo MD on 11/13/2022 1:59 PM PDT Station ID: [id number]
--- NOTE | 2022-11-13 14:04 | XRAY Report ---
PROCEDURE: Foot 3 View RT INDICATIONS: RIGHT FOOT FRACTURES TECHNIQUE: 3 views of the foot were acquired. COMPARISON: 10/23/2022, 11/01/2022 FINDINGS: Bones: Disuse osteopenia. Very subtle probable stress fractures of the distal necks of the fourth an d fifth metatarsals, barely perceptible. Soft tissues: No suspicious soft tissue calcifications or masses. IMPRESSION: Disuse osteopenia. Again noted are very subtle probable stress fractures of the distal necks of the f ourth and fifth metatarsals. Reviewed by: Erickson Lugo MD on 11/13/2022 2:03 PM PDT Approved by: Erickson Lugo MD on 11/13/2022 2:03 PM PDT Station ID: [id number]
== END 2022-11-13 23:59 | disposition home or self-care (01) ==
LOC: DI.WOS 11:00
PROVIDERS: ATTEND Orthopaedic Surgery
DX: M97.11XD Periprosthetic fracture around internal prosthetic right knee joint, subsequent encounter (principal); S82.101D Unspecified fracture of upper end of right tibia, subsequent encounter for closed fracture with routine healing

== ENCOUNTER 2022-11-13 12:40 | Outpatient (CLI) | payer MEDICARE, OTHER ==
--- NOTE | 2022-11-13 14:50 | XRAY Report ---
PROCEDURE: Chest 2 View X-Ray INDICATIONS: ABNORMALITIES OF BREATHING TECHNIQUE: 2 views of the chest were acquired. COMPARISON: 11/02/2022 FINDINGS: Surgical changes and devices: Left axillary/chest wall clips. Lungs and pleura: Moderate diffuse lung disease and reticular changes, slightly decreased compared t o 11/02/2022. Mediastinum: Mild enlargement of the heart. Bones and chest wall: Degenerative changes. IMPRESSION: Moderate diffuse lung disease and reticular changes, slightly decreased compared to 11/02/2022. Consid er future imaging surveillance to assess for resolution. Reviewed by: Jose Montano MD on 11/13/2022 2:49 PM PDT Approved by: Jose Montano MD on 11/13/2022 2:49 PM PDT Station ID: [id number]
== END 2022-11-13 12:41 | disposition home or self-care (01) ==
LOC: DI 12:40
PROVIDERS: ATTEND Registered Nurse
DX: R06.89 Other abnormalities of breathing (principal); J98.4 Other disorders of lung; I12.9 Hypertensive chronic kidney disease with stage 1 through stage 4 chronic kidney disease, or unspecified chronic kidney disease; N18.32 Chronic kidney disease, stage 3b; D50.9 Iron deficiency anemia, unspecified
CPT/HCPCS: 80048; 85025

== ENCOUNTER 2022-11-21 08:00 | Outpatient (CLI) | payer MEDICARE, OTHER ==
[2022-11-21 16:38] LABS: ALBUMIN 3.2 g/dL (3.2-5.5); ALBUMIN/GLOBULIN RATIO 0.6 (1.0-2.2); BASOPHILS % (AUTO) 0.4 %; BILIRUBIN,TOTAL 0.2 mg/dL (0.2-1.0); CALCIUM 9.5 mg/dL (8.5-10.3); CREATININE 1.1 mg/dL (0.6-1.3); EOSINOPHILS # (AUTO) 0.1 10^3/uL (0.0-0.7); EOSINOPHILS % (AUTO) 0.7 %; HCT - HEMATOCRIT 26.9 % (37.0-47.0); HGB - HEMOGLOBIN 8.1 g/dL (12.0-16.0); LYMPHOCYTES # (AUTO) 0.4 10^3/uL (1.5-3.5); LYMPHOCYTES % (AUTO) 5.7 %; MEAN CORPUSCULAR HEMOGLOBIN 31.4 pg (27.0-31.0); MEAN CORPUSCULAR HGB CONC 30.1 g/dL (32.0-36.0); MEAN CORPUSCULAR VOLUME 104.3 fL (81.0-99.0); MEAN PLATELET VOLUME 9.2 fL (7.9-10.8); MONOCYTES # (AUTO) 0.4 10^3/uL (0.0-1.0); NEUTROPHILS # (AUTO) 6.5 10^3/uL (1.5-6.6); NEUTROPHILS % (AUTO) 87.9 %; PLT - PLATELET COUNT 295 10^3/uL (130-450); POTASSIUM 3.8 mmol/L (3.5-4.5); RED BLOOD COUNT 2.58 10^6/uL (4.20-5.40); RED CELL DISTRIBUTION WIDTH 15.2 % (12.0-15.0); TOTAL PROTEIN 8.2 g/dL (6.4-8.9); WHITE BLOOD COUNT 7.4 x10^3/uL (4.8-10.8)
== END 2022-11-21 23:59 | disposition home or self-care (01) ==
LOC: LAB.R 08:00
PROVIDERS: ATTEND Registered Nurse
DX: N18.32 Chronic kidney disease, stage 3b (principal); J18.9 Pneumonia, unspecified organism
CPT/HCPCS: 80053; 85025

== ENCOUNTER 2022-11-28 13:07 | Outpatient (CLI) | payer MEDICARE, OTHER ==
[2022-11-28 13:13] LABS: BASOPHILS % (AUTO) 0.4 %; EOSINOPHILS % (AUTO) 0.4 %; HGB - HEMOGLOBIN 8.1 g/dL (12.0-16.0); LYMPHOCYTES # (AUTO) 0.4 10^3/uL (1.5-3.5); LYMPHOCYTES % (AUTO) 6.4 %; MEAN CORPUSCULAR HEMOGLOBIN 31.4 pg (27.0-31.0); MEAN CORPUSCULAR VOLUME 104.7 fL (81.0-99.0); MONOCYTES # (AUTO) 0.6 10^3/uL (0.0-1.0); MONOCYTES % (AUTO) 9.1 %; NEUTROPHILS # (AUTO) 5.8 10^3/uL (1.5-6.6); NEUTROPHILS % (AUTO) 83.3 %; PLT - PLATELET COUNT 414 10^3/uL (130-450); RED BLOOD COUNT 2.58 10^6/uL (4.20-5.40); RED CELL DISTRIBUTION WIDTH 16.1 % (12.0-15.0); WHITE BLOOD COUNT 6.9 x10^3/uL (4.8-10.8)
[2022-11-28 13:26] LABS: ALBUMIN 3.1 g/dL (3.2-5.5); ALBUMIN/GLOBULIN RATIO 0.7 (1.0-2.2); BILIRUBIN,TOTAL 0.3 mg/dL (0.2-1.0); CALCIUM 9.3 mg/dL (8.5-10.3); CREATININE 0.9 mg/dL (0.6-1.3); POTASSIUM 4.3 mmol/L (3.5-4.5); TOTAL PROTEIN 7.7 g/dL (6.4-8.9)
== END 2022-11-28 13:08 | disposition home or self-care (01) ==
LOC: LAB.R 13:07
PROVIDERS: ATTEND Registered Nurse
DX: J18.1 Lobar pneumonia, unspecified organism (principal)
CPT/HCPCS: 80053; 85025

== ENCOUNTER 2022-12-03 12:26 | Emergency (ER) | payer MEDICARE, OTHER ==
[2022-12-03 13:00] LABS: BASOPHILS % (AUTO) 0.6 %; EOSINOPHILS % (AUTO) 0.3 %; HCT - HEMATOCRIT 25.6 % (37.0-47.0); HGB - HEMOGLOBIN 7.6 g/dL (12.0-16.0); LYMPHOCYTES # (AUTO) 0.4 10^3/uL (1.5-3.5); LYMPHOCYTES % (AUTO) 5.8 %; MEAN CORPUSCULAR HEMOGLOBIN 30.9 pg (27.0-31.0); MEAN CORPUSCULAR HGB CONC 29.7 g/dL (32.0-36.0); MEAN CORPUSCULAR VOLUME 104.1 fL (81.0-99.0); MEAN PLATELET VOLUME 8.7 fL (7.9-10.8); MONOCYTES # (AUTO) 0.6 10^3/uL (0.0-1.0); MONOCYTES % (AUTO) 9.1 %; NEUTROPHILS # (AUTO) 5.5 10^3/uL (1.5-6.6); NEUTROPHILS % (AUTO) 83.7 %; PLT - PLATELET COUNT 361 10^3/uL (130-450); RED BLOOD COUNT 2.46 10^6/uL (4.20-5.40); RED CELL DISTRIBUTION WIDTH 16.2 % (12.0-15.0); WHITE BLOOD COUNT 6.6 x10^3/uL (4.8-10.8)
[2022-12-03 13:11] LABS: ALBUMIN/GLOBULIN RATIO 0.7 (1.0-2.2); BILIRUBIN,TOTAL 0.3 mg/dL (0.2-1.0); CALCIUM 9.3 mg/dL (8.5-10.3); CREATININE 1.1 mg/dL (0.6-1.3); POTASSIUM 4.8 mmol/L (3.5-4.5); TOTAL PROTEIN 7.3 g/dL (6.4-8.9)
--- NOTE | 2022-12-03 14:25 | ED Physician Documentation ---
PD HPI NVD - Stated complaint Stated Complaint: WEAK/UNABLE TO EAT - Chief complaint Chief Complaint: General - History obtained from History obtained from: Patient, Family () - History of Present Illness Timing - onset: How many months ago ( and patient state months of difficulty with swallowing and chewing foods. Has had soft or small bites food and more recently just liquids like Ensure. She states either nausea though not consistent, or a feeling not being able to swallow. Some foods like bread just stay in mouth and feel dry) Timing - details: Gradual onset, Still present (more consistent of a problem the last couple weeks in Rehab and more since coming home 3 days ago.) Associated symptoms: Loss of appetite, Weight loss (some), Other (feeling of general weakness and has had less urine output. She and feel she needs IV fluids.) Improved by: No: Eating Worsened by: Eating Similar symptoms before: No diagnosis ( and patient not clear on diagnosis. Has had soft mechanical or liquid diet, as that goes down without feeling getting "stuck" either in mouth or part down esophagus.) Recently seen: Admitted (admitted to [facility] a month ago for weakness, dehydration related to pneumonia. Then went to [facility] for rehab again. Discharged from there 3 days ago. Was having trouble with swallowing there. Describes swallow study and virtual colonoscopy. No EGD described. Has had soft diet.) PD PAST MEDICAL HISTORY - Past Medical History Cardiovascular: Hypertension, High cholesterol, Coronary artery disease Respiratory: COPD, Emphysema Neuro: None Endocrine/Autoimmune: HyPOthyroidism GI: None SELF STORAGE MANAGER: Breast cancer : Frequency, Other HEENT: Chronic vision loss Psych: None Musculoskeletal: Osteoarthritis Derm: None - Past Surgical History General: Colonoscopy, EGD Ortho: Hip replacement, Knee replacement /SELF STORAGE MANAGER: Mastectomy Cardiovascular: Coronary stent, Cardiac catheterization HEENT: Tonsil/Adenoidectomy - Present Medications Home Medications: Ambulatory Orders Medication Instructions Recorded Confirmed Acetaminophen [Tylenol] 650 mg PO Q6H PRN 06/27/15 10/30/22 Multivitamin [Multivitamins] 1 each PO DAILY 06/27/15 10/30/22 Clopidogrel [Plavix] 75 mg PO DAILY 10/19/20 10/30/22 Ezetimibe [Zetia] 10 mg PO DAILY 10/19/20 10/30/22 Pantoprazole Sodium 40 mg PO QDAC 10/19/20 10/30/22 allopurinoL [Zyloprim] 100 mg PO DAILY 10/19/20 10/30/22 Isosorbide Mononitrate ER [Imdur] 30 mg PO DAILY 12/30/21 10/30/22 Levothyroxine [Synthroid] 125 mcg PO QDAC 12/30/21 10/30/22 Fluticasone/Umeclidin/Vilanter 1 puffs PO DAILY 10/16/22 10/30/22 [Trelegy Ellipta 100-62.5-25] Albuterol Sulf [Ventolin Hfa 1 puffs PO Q6H PRN 10/30/22 10/30/22 Inhaler] traMADol [Ultram] 0.25 tab PO DAILY PRN 10/30/22 10/30/22 Ferrous Sulfate [Feosol] 325 mg PO BID #60 tab 11/02/22 HYDROcodone/ACET 7.5/325 [[place] 0.5 - 1 tab PO Q6HR PRN #10 tab 11/02/22 7.5/325] Montelukast [Singulair] 10 mg PO QPM #30 tab 11/02/22 Rosuvastatin Calcium [Crestor] 10 mg PO QPM #30 tab 11/02/22 Saccharomyces Boulardii [Florastor] 250 mg PO BID #10 cap 11/02/22 atenoloL [Tenormin] 12.5 mg PO DAILY #30 tab 11/02/22 guaiFENesin [Mucinex] 600 mg PO BID #10 tab 11/02/22 methylPREDNISolone [Medrol Dose 1 each PO .PACKAGEINSTRUCTIONS 6 11/02/22 Pack] Days #1 each SULFAM/TRIM 800/160 Prepack 2 1 each PO BID #14 tablet 11/04/22 [BACTRIM DS 800/160 Prepack 2] Ondansetron Odt [Zofran] 4 mg TL Q6H PRN #10 tablet 12/03/22 Sucralfate [Carafate] 1 gm PO BID #200 ml 12/03/22 - Allergies Allergies/Adverse Reactions: Allergies Allergy/AdvReac Type Severity Reaction Status Date / Time No Known Drug Allergies Allergy Verified 12/03/22 12:36 - Social History Does the pt smoke?: No Smoking Status: Never smoker Does the pt drink ETOH?: Yes Does the pt have substance abuse?: No - Immunizations Immunizations are current?: Yes - POLST Patient has POLST: No Results - Vitals Vitals: Vital Signs - 24 hr 12/03/22 12/03/22 12/03/22 12:30 14:35 16:00 Temperature 36.1 C L 36.5 C Heart Rate 68 66 68 Respiratory 24 22 24 Rate Blood Pressure 145/82 H 140/80 H 138/82 H O2 Saturation 95 96 98 12/03/22 18:00 Temperature Heart Rate 78 Respiratory 18 Rate Blood Pressure 140/90 H O2 Saturation 92 Oxygen O2 Source [With Activity] Room air O2 Source [Without Activity] Room air O2 Source Room air - Labs Labs: Laboratory Tests 12/03/22 12/03/22 12/03/22 12:52 12:52 17:04 WBC 6.6 RBC 2.46 L Hgb 7.6 L Hct 25.6 L MCV 104.1 H MCH 30.9 MCHC 29.7 L RDW 16.2 H Plt Count 361 MPV 8.7 Neut # (Auto) 5.5 Lymph # (Auto) 0.4 L [place] # (Auto) 0.6 Eos # (Auto) 0.0 Baso # (Auto) 0.0 Absolute Nucleated RBC 0.00 Nucleated RBC % 0.0 Sodium 128 L Potassium 4.8 H Chloride 91 L Carbon Dioxide 32 Anion Gap 5.0 L BUN 37 H Creatinine 1.1 Estimated GFR (MDRD) 48 L Glucose 144 H Calcium 9.3 Total Bilirubin 0.3 AST 97 H ALT 87 H Alkaline Phosphatase 100 Total Protein 7.3 Albumin 3.0 L Globulin 4.3 H Albumin/Globulin Ratio 0.7 L Lipase 41 Urine Color YELLOW Urine Clarity CLEAR Urine pH 7.5 Ur Specific [place] 1.010 Urine Protein TRACE Urine Glucose (UA) NEGATIVE Urine Ketones NEGATIVE Urine Occult Blood NEGATIVE Urine Nitrite NEGATIVE Urine Bilirubin NEGATIVE Urine Urobilinogen 0.2 (NORMAL) Ur Leukocyte Esterase NEGATIVE Ur Microscopic Review NOT INDICATED Urine Culture Comments NOT INDICATED PD Medical Decision Making - ED course Complexity details: reviewed results (her kidney function and electrolytes are not worse than usual with sodium 128, GFR 48 with a creatinine of 1.1. Hgb is anemic in same range as trend. ), considered differential (difficulty eating/swallowing. Unclear if mechanical/muscle and did have swallow study/eval at [facility]. PCP should have results. Unclear if salivary problem but seems moist oral mucosa. might be nausea. Could kade be esophageal achalasia with feeling of unable to swallow. ), d/w patient ED course: Given IV fluids to improve current hydration. She has appt with PCP in 4 days on Saturday. I believe this will be best plan with intention of small frequent fluids like Ensure the next few days. PCP would have the results of recent scope and swallow evaluation, adn be able to decide with discussion with pt/ if think EGD is appropriate in evaluation. Next steps of ideas of feeding tube or Gtube placement are not desired by pt/, so would need to find ways to improve PO intake. Departure - Departure Disposition: 01 Home, Self Care Clinical Impression: Dehydration, Decreased oral intake, Trouble swallowing Condition: Stable Record reviewed to determine appropriate education?: Yes Prescriptions: Sucralfate [Carafate] 1 gm PO BID #200 ml Ondansetron Odt [Zofran] 4 mg TL Q6H PRN #10 tablet PRN Reason: Nausea / Vomiting Comments: Small frequent fluids throughout the day to cumulatively try to get a larger volume of fluids and calories. Continue with your current medications. To that add appropriate to coat the stomach twice daily, in particular at night before bed. I also wrote for ondansetron nausea medicine to try periodically and see if that improves your ability to eat. Follow-up with your primary care Saturday as planned. Return if needed. I sent your prescriptions to your preferred pharmacy, [facility]. Forms: PCP List Discharge Date/Time: 12/03/22 18:44
[2022-12-03] MEDS ORDERED: SODIUM CHLORIDE 0.9% 1,000 ML IV STA ×2 (15:53→15:54)
[2022-12-03] MEDS ORDERED: MAG HYDROX/AL HYDROX/SIMETH 30 ML UDC PO STA (16:17)
[2022-12-03 18:05] VITALS: BP 140/90; O2SAT 92
[2022-12-03 18:07] LABS: BILIRUBIN,URINE NEGATIVE (NEGATIVE); GLUCOSE, URINE (UA) NEGATIVE (NEGATIVE); KETONES,URINE (UA) NEGATIVE (NEGATIVE); LEUKOCYTE ESTERASE, URINE NEGATIVE (NEGATIVE); NITRITE,URINE NEGATIVE (NEGATIVE); OCCULT BLOOD,URINE NEGATIVE (NEGATIVE); PH,URINE 7.5 PH (5.0-7.5); PROTEIN,URINE TRACE mg/dL (NEGATIVE); UROBILINOGEN,URINE 0.2 (NORMAL) E.U./dL (NORMAL)
[2022-12-03 18:15] LABS: CLARITY,URINE CLEAR (CLEAR)
== END 2022-12-03 18:44 | disposition home or self-care (01) ==
LOC: ED 12:26
DX: E86.0 Dehydration (principal); R63.0 Anorexia; R13.10 Dysphagia, unspecified; I10 Essential (primary) hypertension; E78.00 Pure hypercholesterolemia, unspecified; I25.10 Atherosclerotic heart disease of native coronary artery without angina pectoris; J43.9 Emphysema, unspecified; E03.9 Hypothyroidism, unspecified; Z79.02 Long term (current) use of antithrombotics/antiplatelets; Z79.899 Other long term (current) drug therapy; Z79.51 Long term (current) use of inhaled steroids
CPT/HCPCS: 36415; 80053; 81001; 81003; 83690; 85025; 87086; 96360; 96361; 99283

== ENCOUNTER 2022-12-06 02:45 | Outpatient (CLI) | payer MEDICARE, OTHER | END 2022-12-06 02:46 | disposition critical access hospital (66) | LOC: EMS 02:45 | DX: R06.02 Shortness of breath (principal); R53.1 Weakness | CPT/HCPCS: A0425; A0427 ==

== ENCOUNTER 2022-12-06 02:59 | Emergency (ER) | payer MEDICARE, OTHER ==
[2022-12-06] MEDS ORDERED: IPRATROPIUM/ALBUTEROL 3 ML NEB INH STA (03:10)
--- NOTE | 2022-12-06 03:13 | ED Physician Documentation ---
PD HPI DYSPNEA - Stated complaint Stated Complaint: GEN WEAKNESS/SOA - Chief complaint Chief Complaint: Neuro - History obtained from History obtained from: Patient, EMS - Additional information Additional information: 77yF with pmh cad with stent, pulmonary fibrosis and copd 2/2 radiation damage from breast cancer treatment 20 years previous (o2 baseline high 80s to low 90s at home - not oxygen dependent) p/w soa tonight around 1:30 am with accompanying weakness. patient was recently treated here last month for HCAP. denies cough, fever, cp, nausea, back pain, abd pain, leg swelling, hemoptysis. PD PAST MEDICAL HISTORY - Past Medical History Cardiovascular: Hypertension, High cholesterol, Coronary artery disease Respiratory: COPD, Emphysema Neuro: None Endocrine/Autoimmune: HyPOthyroidism GI: None HEAD OF HUMAN RESOURCES: Breast cancer : Frequency, Other HEENT: Chronic vision loss Psych: None Musculoskeletal: Osteoarthritis Derm: None - Past Surgical History General: Colonoscopy, EGD Ortho: Hip replacement, Knee replacement /HEAD OF HUMAN RESOURCES: Mastectomy Cardiovascular: Coronary stent, Cardiac catheterization HEENT: Tonsil/Adenoidectomy - Present Medications Home Medications: Ambulatory Orders Medication Instructions Recorded Confirmed Acetaminophen [Tylenol] 650 mg PO Q6H PRN 06/27/15 10/30/22 Multivitamin [Multivitamins] 1 each PO DAILY 06/27/15 10/30/22 Clopidogrel [Plavix] 75 mg PO DAILY 10/19/20 10/30/22 Ezetimibe [Zetia] 10 mg PO DAILY 10/19/20 10/30/22 Pantoprazole Sodium 40 mg PO QDAC 10/19/20 10/30/22 allopurinoL [Zyloprim] 100 mg PO DAILY 10/19/20 10/30/22 Isosorbide Mononitrate ER [Imdur] 30 mg PO DAILY 12/30/21 10/30/22 Levothyroxine [Synthroid] 125 mcg PO QDAC 12/30/21 10/30/22 Fluticasone/Umeclidin/Vilanter 1 puffs PO DAILY 10/16/22 10/30/22 [Trelegy Ellipta 100-62.5-25] Albuterol Sulf [Ventolin Hfa 1 puffs PO Q6H PRN 10/30/22 10/30/22 Inhaler] traMADol [Ultram] 0.25 tab PO DAILY PRN 10/30/22 10/30/22 Ferrous Sulfate [Feosol] 325 mg PO BID #60 tab 11/02/22 HYDROcodone/ACET 7.5/325 [[place] 0.5 - 1 tab PO Q6HR PRN #10 tab 11/02/22 7.5/325] Montelukast [Singulair] 10 mg PO QPM #30 tab 11/02/22 Rosuvastatin Calcium [Crestor] 10 mg PO QPM #30 tab 11/02/22 Saccharomyces Boulardii [Florastor] 250 mg PO BID #10 cap 11/02/22 atenoloL [Tenormin] 12.5 mg PO DAILY #30 tab 11/02/22 guaiFENesin [Mucinex] 600 mg PO BID #10 tab 11/02/22 methylPREDNISolone [Medrol Dose 1 each PO .PACKAGEINSTRUCTIONS 6 11/02/22 Pack] Days #1 each SULFAM/TRIM 800/160 Prepack 2 1 each PO BID #14 tablet 11/04/22 [BACTRIM DS 800/160 Prepack 2] Ondansetron Odt [Zofran] 4 mg TL Q6H PRN #10 tablet 12/03/22 Sucralfate [Carafate] 1 gm PO BID #200 ml 12/03/22 - Allergies Allergies/Adverse Reactions: Allergies Allergy/AdvReac Type Severity Reaction Status Date / Time No Known Drug Allergies Allergy Verified 12/06/22 03:07 - Social History Does the pt smoke?: No Smoking Status: Never smoker Does the pt drink ETOH?: Yes Does the pt have substance abuse?: No - Immunizations Immunizations are current?: Yes - POLST Patient has POLST: No PD ED PE NORMAL - Vitals Vital signs reviewed: Yes - General General: Alert and oriented X 3, No acute distress, Other (elderly appearing) - HEENT HEENT: Atraumatic, PERRL, EOMI, Moist mucous membranes, Pharynx benign - Neck Neck: Supple, no meningeal sign - Cardiac Cardiac: RRR - Respiratory Respiratory: Other (BL expiratory wheezing. minimal increased wob.) - Abdomen Abdomen: Non tender, Non distended - Derm Derm: Normal color, Warm and dry - Extremities Extremities: No edema - Neuro Neuro: Alert and oriented X 3 Results - Vitals Vitals: Vital Signs - 24 hr 12/06/22 12/06/22 12/06/22 03:00 03:03 03:20 Temperature 36.4 C L Heart Rate 82 64 Heart Rate [ Apical] Respiratory 19 32 H 24 Rate Blood Pressure 138/90 H Blood Pressure [Left Brachial artery] O2 Saturation 95 12/06/22 12/06/22 12/06/22 05:03 05:09 05:25 Temperature 36.9 C 37.1 C Heart Rate 72 Heart Rate [ 75 69 Apical] Respiratory 26 H 30 H 25 H Rate Blood Pressure 143/84 H Blood Pressure 143/84 H 140/75 H [Left Brachial artery] O2 Saturation 94 96 92 12/06/22 12/06/22 12/06/22 05:33 05:46 06:01 Temperature 37.1 C Heart Rate Heart Rate [ 71 76 72 Apical] Respiratory 25 H 20 20 Rate Blood Pressure Blood Pressure 141/76 H 141/80 H 145/77 H [Left Brachial artery] O2 Saturation 92 95 94 12/06/22 12/06/22 06:30 07:41 Temperature 36.2 C L Heart Rate 79 Heart Rate [ 74 Apical] Respiratory 20 24 Rate Blood Pressure 150/93 H Blood Pressure 156/89 H [Left Brachial artery] O2 Saturation 92 94 Oxygen O2 Source [With Activity] Room air O2 Source [Without Activity] Room air O2 Source Room air - Labs Labs: Laboratory Tests 12/06/22 12/06/22 12/06/22 03:17 03:17 03:17 WBC 7.9 RBC 2.35 L Hgb 7.2 L Hct 23.9 L MCV 101.7 H MCH 30.6 MCHC 30.1 L RDW 16.3 H Plt Count 295 MPV 8.5 Neut # (Auto) 6.5 Lymph # (Auto) 0.7 L [place] # (Auto) 0.6 Eos # (Auto) 0.0 Baso # (Auto) 0.0 Absolute Nucleated RBC 0.00 Nucleated RBC % 0.0 VBG pH 7.442 H VBG pCO2 49.0 VBG pO2 33.6 VBG HCO3 32.7 H VBG Total CO2 34.2 H VBG O2 Saturation 63.8 VBG Base Excess 7.7 H Sodium 128 L Potassium 4.5 Chloride 91 L Carbon Dioxide 32 Anion Gap 5.0 L BUN 24 H Creatinine 0.8 Estimated GFR (MDRD) 69 L Glucose 102 Calcium 8.8 Total Bilirubin 0.3 AST 64 H ALT 70 H Alkaline Phosphatase 90 B-Natriuretic Peptide 1506 H Total Protein 6.7 Albumin 2.7 L Globulin 4.0 Albumin/Globulin Ratio 0.7 L Lipase 47 Blood Type Antibody Screen Crossmatch IS Only 12/06/22 03:52 WBC RBC Hgb Hct MCV MCH MCHC RDW Plt Count MPV Neut # (Auto) Lymph # (Auto) [place] # (Auto) Eos # (Auto) Baso # (Auto) Absolute Nucleated RBC Nucleated RBC % VBG pH VBG pCO2 VBG pO2 VBG HCO3 VBG Total CO2 VBG O2 Saturation VBG Base Excess Sodium Potassium Chloride Carbon Dioxide Anion Gap BUN Creatinine Estimated GFR (MDRD) Glucose Calcium Total Bilirubin AST ALT Alkaline Phosphatase B-Natriuretic Peptide Total Protein Albumin Globulin Albumin/Globulin Ratio Lipase Blood Type A POSITIVE Antibody Screen NEGATIVE Crossmatch IS Only See Detail PD Medical Decision Making - ED course ED course: 77-year-old woman with history of pulmonary fibrosis and COPD presents with acute onset shortness of breath tonight. Patient states o2 sat high 80s to low 90s is normal for her. She was just treated here in our hospital for HCAP a month previous. Patient is well appearing without accessory muscle use or increased wob. plan to check labs, keep on the technical mgr, and provided nebulizer treatment. will reassess. Patient continuing to feel SOA and weak s/p nebulizer treatment. She is not coughing, has not had fevers. CXR shows BL interstitial markings on my wet read but it appears improved from last month. Hb 7.2, down from 7.8 3 days prior. She has downtrending Hb from last month as well. d/w patient who states her PO intake has been minimal. Patient received 1 u prbc, still feeling soa and states this has been severe and ongoing for 6 weeks. Plan to endorse to daytime ED at 7am shift change - respiratory therapy to undergo evaluation for home o2. Departure - Departure Clinical Impression: Shortness of breath, Weakness Condition: Stable Forms: PCP List
[2022-12-06] MEDS ORDERED: SODIUM CHLORIDE 0.9% 500 ML IV STA (03:19)
[2022-12-06 03:21] LABS: BASOPHILS % (AUTO) 0.4 %; EOSINOPHILS % (AUTO) 0.5 %; HCT - HEMATOCRIT 23.9 % (37.0-47.0); HGB - HEMOGLOBIN 7.2 g/dL (12.0-16.0); LYMPHOCYTES # (AUTO) 0.7 10^3/uL (1.5-3.5); LYMPHOCYTES % (AUTO) 8.2 %; MEAN CORPUSCULAR HEMOGLOBIN 30.6 pg (27.0-31.0); MEAN CORPUSCULAR HGB CONC 30.1 g/dL (32.0-36.0); MEAN CORPUSCULAR VOLUME 101.7 fL (81.0-99.0); MEAN PLATELET VOLUME 8.5 fL (7.9-10.8); MONOCYTES # (AUTO) 0.6 10^3/uL (0.0-1.0); MONOCYTES % (AUTO) 8.1 %; NEUTROPHILS # (AUTO) 6.5 10^3/uL (1.5-6.6); NEUTROPHILS % (AUTO) 82.4 %; PLT - PLATELET COUNT 295 10^3/uL (130-450); RED BLOOD COUNT 2.35 10^6/uL (4.20-5.40); RED CELL DISTRIBUTION WIDTH 16.3 % (12.0-15.0); WHITE BLOOD COUNT 7.9 x10^3/uL (4.8-10.8)
[2022-12-06 03:23] LABS: VBG BASE EXCESS 7.7 mmol/L (-2 - +2); VBG HCO3 32.7 mmol/L (23-28); VBG OXYGEN SATURATION 63.8 % (60-80); VBG PH 7.442 (7.31-7.41); VBG PO2 33.6 mmHg (25-47); VBG TOTAL CO2 34.2 mmol/L (24-29)
[2022-12-06 03:38] LABS: ALBUMIN 2.7 g/dL (3.2-5.5); ALBUMIN/GLOBULIN RATIO 0.7 (1.0-2.2); BILIRUBIN,TOTAL 0.3 mg/dL (0.2-1.0); CALCIUM 8.8 mg/dL (8.5-10.3); CREATININE 0.8 mg/dL (0.6-1.3); POTASSIUM 4.5 mmol/L (3.5-4.5); TOTAL PROTEIN 6.7 g/dL (6.4-8.9)
--- NOTE | 2022-12-06 08:25 | XRAY Report ---
PROCEDURE: Chest 2 View X-Ray INDICATIONS: soa TECHNIQUE: 2 views of the chest were acquired. COMPARISON: 11/13/2022. FINDINGS: Surgical changes and devices: Fusion hardware in visualized cervical spine is seen. Surgical clips a re noted in left axilla. Lungs and pleura: No pleural effusions or pneumothorax. Ill-defined airspace opacities are noted in lung liang. Pulmonary vascular congestions are also seen. Finding is more notably in bilateral upper lobes.. Mediastinum: Tortuous thoracic aorta is seen. Heart size is enlarged. Bones and chest wall: No suspicious bony lesions. Overlying soft tissues appear unremarkable. IMPRESSION: Finding is suggestive of bilateral perihilar and interstitial infiltrates more prominent in bilateral upper lobes. No significant pleural effusion. No gross pneumothorax. Cardiomegaly and congestion.. Reviewed by: Jonny Mayorga MD on 12/06/2022 8:23 AM PDT Approved by: Jonny Mayorga MD on 12/06/2022 8:23 AM PDT Station ID: [id number]
[2022-12-06 09:34] LABS: B. PARAPERTUSSIS- RESP PCR PAN NOT DETECTED; B. PERTUSSIS- RESP PCR PANEL NOT DETECTED; C. PNEUMONIAE- RESP PCR PANEL NOT DETECTED; CORONAVIRUS 229E-RESP PCR NOT DETECTED; CORONAVIRUS HKU1-RESP PCR NOT DETECTED; CORONAVIRUS NL63-RESP PCR NOT DETECTED; CORONAVIRUS OC43-RESP PCR NOT DETECTED; HUMAN METAPNEUMOVIRUS NOT DETECTED; INFLUENZA A- RESP PCR PANEL NOT DETECTED; INFLUENZA B - RESP PCR PANEL NOT DETECTED; M. PNEUMONIAE- RESP PCR PANEL NOT DETECTED; PARAINFLUENZA VIRUS 1 NOT DETECTED; PARAINFLUENZA VIRUS 2 NOT DETECTED; PARAINFLUENZA VIRUS 3 NOT DETECTED; PARAINFLUENZA VIRUS 4 NOT DETECTED; RHINOVIRUS/ENTEROVIRUS NOT DETECTED; RSV- RESP PCR PANEL NOT DETECTED; SARS-CoV-2 -RESP PCR PANEL NOT DETECTED
[2022-12-06 10:12] VITALS: O2SAT 98
--- NOTE | 2022-12-06 10:44 | ED Physician Documentation ---
ED Addendum - Addendum Addendum: 12/06/22 10:40 The patient had been seen overnight by prior physician. Refer to that note. Seeing the patient after respiratory therapy evaluation. She had low saturations on room air but still above 90. However she desaturated with ambulation with a brief recovery time. The patient describes dyspnea and general weakness for several weeks. She had also had troubles swallowing and staying hydrated and was here in the ER a couple of days ago for that primarily. She did not describe the dyspnea so much on that recent visit. She was anemic here with a hemoglobin 7.2. She did receive a unit of blood. She does have a history of chronic lung fibrosis and chest x-ray is typically showing a lot of scarring. On blood test her BNP is elevated above baseline. She had had an echocardiogram over the summer which showed an ejection fraction of 50 to 55%. 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 Patrick laguna. She has an appointment in a week. She does have concern or her container repairer has concern for pulmonary hypertension and RV strain related to the fibrosis. She is on blood pressure medicines. No history of CHF per se but the patient states she has had dependent edema during the days for the last few weeks. She should continue with the recent prescription for sacral fate and acid reducing medicine. She has noticed her fluid intake being a little bit better the last couple of days. I would consider adding a mild diuretic. Her blood pressures been in the 1 30-1 45 range today and on recent visits. There is room to spare. We can see how she does with HCTZ daily if and follow-up with Dr. Annette laguna next week. She was evaluated for an qualified for home oxygen. Discharge [id number] shows that the patient was not hypoxic at rest on room air with O2 sat up to 97%. However with exertion on room air her O2 sats were 84%. On 4 L nasal cannula with exertion her O2 sats improved to 97%. I am ordering home oxygen 2 to 4 L/min with exertions to treat her pulmonary fibrosis, high proxy and COPD. Disposition: The patient discharged home in stable condition. Diagnoses 1. Difficulty swallowing 2. Chronic anemia 3. Pulmonary fibrosis 4. Dyspnea with hypoxia
[2022-12-06 11:41] VITALS: BP 152/90
== END 2022-12-06 11:35 | disposition home or self-care (01) ==
LOC: EDUNIT# → ED 02:59
DX: D64.9 Anemia, unspecified (principal); J84.10 Pulmonary fibrosis, unspecified; R06.00 Dyspnea, unspecified; R09.02 Hypoxemia; R13.10 Dysphagia, unspecified
CPT/HCPCS: 36415; 36430; 71046; 80053; 82803; 83690; 83880; 85025; 86850; 86900; 86901; 86920; 87633; 93005; 94640; 94761; 99284; 99285; P9016

== ENCOUNTER 2022-12-11 08:00 | Outpatient (CLI) | payer MEDICARE, OTHER ==
[2022-12-11 18:31] LABS: THYROID STIMULATING HORMONE 8.27 uIU/mL (0.34-5.60)
[2022-12-11 18:36] LABS: FERRITIN 128.3 ng/mL (11.0-306.8)
== END 2022-12-11 23:59 | disposition home or self-care (01) ==
LOC: LAB.R 08:00
PROVIDERS: ATTEND Nurse Practitioner Family
DX: D64.9 Anemia, unspecified (principal); R74.8 Abnormal levels of other serum enzymes
CPT/HCPCS: 82728; 83540; 84439; 84443; 84466; 85025

== ENCOUNTER 2023-02-06 11:16 | Outpatient (CLI) | payer MEDICARE, OTHER | END 2023-02-06 11:17 | disposition home or self-care (01) | LOC: LAB 11:16 → LAB.R 11:17 | PROVIDERS: ATTEND Internal Medicine Critical Care Medicine | DX: J47.9 Bronchiectasis, uncomplicated (principal); R91.8 Other nonspecific abnormal finding of lung field | CPT/HCPCS: 87070; 87205 ==

== ENCOUNTER 2023-02-20 08:00 | Outpatient (CLI) | payer MEDICARE, OTHER | END 2023-02-20 23:59 | disposition home or self-care (01) | LOC: LAB 08:00 | PROVIDERS: ATTEND Family Medicine | DX: R35.0 Frequency of micturition (principal) | CPT/HCPCS: 87086 ==

== ENCOUNTER 2023-03-09 14:30 | Emergency (ER) | payer MEDICARE, OTHER ==
[2023-03-09 15:10] LABS: BASOPHILS % (AUTO) 0.4 %; EOSINOPHILS # (AUTO) 0.1 10^3/uL (0.0-0.7); EOSINOPHILS % (AUTO) 1.6 %; HCT - HEMATOCRIT 37.3 % (37.0-47.0); HGB - HEMOGLOBIN 11.5 g/dL (12.0-16.0); LYMPHOCYTES # (AUTO) 0.6 10^3/uL (1.5-3.5); MEAN CORPUSCULAR HEMOGLOBIN 30.6 pg (27.0-31.0); MEAN CORPUSCULAR HGB CONC 30.8 g/dL (32.0-36.0); MEAN CORPUSCULAR VOLUME 99.2 fL (81.0-99.0); MEAN PLATELET VOLUME 9.6 fL (7.9-10.8); MONOCYTES # (AUTO) 0.5 10^3/uL (0.0-1.0); MONOCYTES % (AUTO) 6.7 %; NEUTROPHILS # (AUTO) 5.6 10^3/uL (1.5-6.6); NEUTROPHILS % (AUTO) 82.2 %; PLT - PLATELET COUNT 213 10^3/uL (130-450); RED BLOOD COUNT 3.76 10^6/uL (4.20-5.40); RED CELL DISTRIBUTION WIDTH 14.6 % (12.0-15.0); WHITE BLOOD COUNT 6.9 x10^3/uL (4.8-10.8)
[2023-03-09 15:31] LABS: ALBUMIN 3.7 g/dL (3.2-5.5); ALBUMIN/GLOBULIN RATIO 1.1 (1.0-2.2); BILIRUBIN,TOTAL 0.3 mg/dL (0.2-1.0); CALCIUM 9.8 mg/dL (8.5-10.3); CREATININE 1.1 mg/dL (0.6-1.3); POTASSIUM 4.9 mmol/L (3.5-4.5)
--- NOTE | 2023-03-09 16:13 | ED Physician Documentation ---
PD HPI ABD PAIN - Stated complaint Stated Complaint: - Chief complaint Chief Complaint: Abd Pain - History obtained from History obtained from: Patient - Additional information Additional information: 77-year-old woman with cor pulmonale, pulmonary fibrosis, history of breast cancer and COPD. She has had diarrhea for 2 weeks starting after taking a course of antibiotics for her lungs. It is not clear what antibiotic she was on. The diarrhea has been persistent and she has had some pelvic cramps with that and today had 2 episodes of bloody diarrhea. She has a history of anemia and has required repeated transfusions in the past but no history of GI bleeding. She is on Plavix for remote history of coronary stent 10 years ago. 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 : Frequency, Other HEENT: Chronic vision loss Psych: None Musculoskeletal: Osteoarthritis Derm: None - Past Surgical History Past Surgical History: Yes General: Colonoscopy, EGD Ortho: Hip replacement, Knee replacement /TRAFFIC MAINTENANCE SUPERVISOR: Mastectomy Cardiovascular: Coronary stent, Cardiac catheterization HEENT: Tonsil/Adenoidectomy - Present Medications Home Medications: Ambulatory Orders Medication Instructions Recorded Confirmed Multivitamin [Multivitamins] 1 each PO DAILY 06/27/15 12/13/22 Clopidogrel [Plavix] 75 mg PO DAILY 10/19/20 12/13/22 Ezetimibe [Zetia] 10 mg PO DAILY 10/19/20 12/13/22 Pantoprazole Sodium 40 mg PO QDAC 10/19/20 12/13/22 allopurinoL [Zyloprim] 200 mg PO DAILY 10/19/20 12/14/22 Isosorbide Mononitrate ER [Imdur] 30 mg PO DAILY 12/30/21 12/13/22 Levothyroxine [Synthroid] 125 mcg PO QDAC 12/30/21 12/14/22 Albuterol Sulf [Ventolin Hfa 1 puffs PO Q6H PRN 10/30/22 12/13/22 Inhaler] traMADol [Ultram] 0.25 tab PO DAILY PRN 10/30/22 12/13/22 HYDROcodone/ACET 7.5/325 [[place] 0.5 - 1 tab PO Q6HR PRN #10 tab 11/02/22 12/13/22 7.5/325] Montelukast [Singulair] 10 mg PO QPM #30 tab 11/02/22 12/13/22 Losartan Potassium 12.5 mg PO DAILY 12/13/22 12/14/22 Metoprolol Succinate [Toprol Xl] 25 mg PO DAILY 12/13/22 12/13/22 Tiotropium [place] [Spiriva 1 puffs INH DAILY 12/13/22 12/13/22 Handihaler] Acetaminophen [Acetaminophen Extra 1,000 mg PO Q6H PRN 12/14/22 12/14/22 Strength] Fluticasone/Umeclidin/Vilanter 1 each IH BID 12/14/22 12/14/22 [Trelegy Ellipta 200-62.5-25] Lactobacillus Combination No.4 1 each PO DAILY 12/14/22 12/14/22 [Probiotic] Rosuvastatin Calcium [Crestor] 40 mg PO QPM 12/14/22 12/14/22 Senna [Senokot] 8.6 mg PO DAILY 12/14/22 12/14/22 Spironolactone [Aldactone] 12.5 mg PO DAILY 12/14/22 12/14/22 Venlafaxine ER [Effexor ER] 37.5 mg PO DAILY 12/14/22 12/14/22 Ferrous Gluconate 324 mg PO DAILY #30 tablet 12/15/22 Sodium Chloride [Salt Tab] 1 gm PO DAILY #30 tablet 12/15/22 Stool For Testing 1 unit TD ONCE #1 03/09/23 - Allergies Allergies/Adverse Reactions: Allergies Allergy/AdvReac Type Severity Reaction Status Date / Time No Known Drug Allergies Allergy Verified 03/09/23 14:53 - Social History Does the pt smoke?: No Smoking Status: Never smoker Does the pt drink ETOH?: Yes Does the pt have substance abuse?: No - Immunizations Immunizations are current?: Yes - POLST Patient has POLST: No PD ED PE NORMAL - Vitals Vital signs reviewed: Yes - General General: Alert and oriented X 3, No acute distress - Abdomen Abdomen: Normal bowel sounds, Soft, Other (Mild lower abdominal tenderness without surgical signs) - Rectal Rectal: Other (Some darker blood around the rectum without evidence of active bleeding or hemorrhoid bleeding.) - Neuro Neuro: Alert and oriented X 3, Normal speech Results - Vitals Vitals: Vital Signs - 24 hr 03/09/23 14:47 Temperature 36.3 C L Heart Rate 106 H Respiratory 26 H Rate Blood Pressure 109/95 H O2 Saturation 96 Oxygen O2 Source [With Activity] Room air O2 Source [Without Activity] Room air O2 Source Room air - Labs Labs: Laboratory Tests 03/09/23 03/09/23 15:02 15:02 WBC 6.9 RBC 3.76 L Hgb 11.5 L Hct 37.3 MCV 99.2 H MCH 30.6 MCHC 30.8 L RDW 14.6 Plt Count 213 MPV 9.6 Neut # (Auto) 5.6 Lymph # (Auto) 0.6 L [place] # (Auto) 0.5 Eos # (Auto) 0.1 Baso # (Auto) 0.0 Absolute Nucleated RBC 0.00 Nucleated RBC % 0.0 Sodium 137 Potassium 4.9 H Chloride 98 L Carbon Dioxide 34 H Anion Gap 5.0 L BUN 39 H Creatinine 1.1 Estimated GFR (MDRD) 48 L Glucose 149 H Calcium 9.8 Total Bilirubin 0.3 AST 48 H ALT 34 Alkaline Phosphatase 78 Total Protein 7.0 Albumin 3.7 Globulin 3.3 Albumin/Globulin Ratio 1.1 Lipase 82 PD Medical Decision Making - ED course ED course: 77-year-old woman with the above comorbidities presents with bloody diarrhea after 2 weeks of nonbloody diarrhea and recent antibiotic use. Her CBC is notable today for hemoglobin of 11.5 which is actually far better than her usual, with this being basically equal to the best values she ever runs in recent memory. CMP showing some mild contraction alkalosis. Her primary care physician had ordered a C. difficile test but evidently it was not presented in the correct container so not run. I recommended IV fluids, CT scan, and a repeat H&H after 2 hours. Patient was very eager to go home and requested discharge. As such she was given close return precautions and materials to repe at the C. difficile test at home and return to the lab. Departure - Departure Disposition: 01 Home, Self Care Clinical Impression: Diarrhea, Lower GI bleed Condition: Stable Record reviewed to determine appropriate education?: Yes Instructions: ED Hematochezia Stable Prescriptions: Stool For Testing 1 unit TD ONCE #1 Comments: If the bleeding worsens or last more than a couple of days please return for reevaluation. Present diarrhea sample to the lab [facility] for testing, take the printed order for stool testing with you when you drop off the lab sample. Follow-up with your doctor, next available appointment.
[2023-03-09 16:26] VITALS: BP 113/87; O2SAT 97
== END 2023-03-09 16:22 | disposition home or self-care (01) ==
LOC: ED 14:30
DX: R19.7 Diarrhea, unspecified (principal); K92.2 Gastrointestinal hemorrhage, unspecified
CPT/HCPCS: 36415; 80053; 83690; 85025; 99283; 99284

== ENCOUNTER 2023-03-10 07:02 | Outpatient (CLI) | payer MEDICARE, OTHER | END 2023-03-10 07:03 | disposition critical access hospital (66) | LOC: EMS 07:02 | DX: K92.1 Melena (principal); R10.84 Generalized abdominal pain | CPT/HCPCS: A0425; A0427 ==

== ENCOUNTER 2023-03-10 07:16 | Emergency (ER) | payer MEDICARE, OTHER ==
--- NOTE | 2023-03-10 07:23 | ED Physician Documentation ---
PD HPI NVD - Stated complaint Stated Complaint: ABD PX - History of Present Illness Timing - onset: How many weeks ago (diarrhea 2 weeks ago with abd cramps, has had some blood in stool since yesterday. Seen in ER yesterday.) Timing - details: Gradual onset, Still present Associated symptoms: Abdominal pain (cramping intermittent), Near syncope / syncope (this morning when standing up.), Loss of appetite, Other (bloody diarrhea the past 2 days.). No: Fever, Melena Recently seen: Emergency Dept (yesterday) Review of Systems Constitutional: reports: Myalgias, Fatigue. denies: Fever, Chills Neurologic: reports: Generalized weakness, Near syncope (briefly this morning when standing up.). 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 : Frequency, Other HEENT: Chronic vision loss Psych: None Musculoskeletal: Osteoarthritis Derm: None - Past Surgical History Past Surgical History: Yes General: Colonoscopy, EGD Ortho: Hip replacement, Knee replacement /DRAPERY CUTTER: Mastectomy Cardiovascular: Coronary stent, Cardiac catheterization HEENT: Tonsil/Adenoidectomy - Present Medications Home Medications: Ambulatory Orders Medication Instructions Recorded Confirmed Multivitamin [Multivitamins] 1 each PO DAILY 06/27/15 12/13/22 Clopidogrel [Plavix] 75 mg PO DAILY 10/19/20 12/13/22 Ezetimibe [Zetia] 10 mg PO DAILY 10/19/20 12/13/22 Pantoprazole Sodium 40 mg PO QDAC 10/19/20 12/13/22 allopurinoL [Zyloprim] 200 mg PO DAILY 10/19/20 12/14/22 Isosorbide Mononitrate ER [Imdur] 30 mg PO DAILY 12/30/21 12/13/22 Levothyroxine [Synthroid] 125 mcg PO QDAC 12/30/21 12/14/22 Albuterol Sulf [Ventolin Hfa 1 puffs PO Q6H PRN 10/30/22 12/13/22 Inhaler] traMADol [Ultram] 0.25 tab PO DAILY PRN 10/30/22 12/13/22 HYDROcodone/ACET 7.5/325 [[place] 0.5 - 1 tab PO Q6HR PRN #10 tab 11/02/2211/24 7.5/325] Montelukast [Singulair] 10 mg PO QPM #30 tab 11/02/22 12/13/22 Losartan Potassium 12.5 mg PO DAILY 12/13/22 12/14/22 Metoprolol Succinate [Toprol Xl] 25 mg PO DAILY 12/13/22 12/13/22 Tiotropium [place] [Spiriva 1 puffs INH DAILY 12/13/22 12/13/22 Handihaler] Acetaminophen [Acetaminophen Extra 1,000 mg PO Q6H PRN 12/14/22 12/14/22 Strength] Fluticasone/Umeclidin/Vilanter 1 each IH BID 12/14/22 12/14/22 [Trelegy Ellipta 200-62.5-25] Lactobacillus Combination No.4 1 each PO DAILY 12/14/22 12/14/22 [Probiotic] Rosuvastatin Calcium [Crestor] 40 mg PO QPM 12/14/22 12/14/22 Senna [Senokot] 8.6 mg PO DAILY 12/14/22 12/14/22 Spironolactone [Aldactone] 12.5 mg PO DAILY 12/14/22 12/14/22 Venlafaxine ER [Effexor ER] 37.5 mg PO DAILY 12/14/22 12/14/22 Ferrous Gluconate 324 mg PO DAILY #30 tablet 12/15/22 Sodium Chloride [Salt Tab] 1 gm PO DAILY #30 tablet 12/15/22 Stool For Testing 1 unit TD ONCE #1 03/09/23 L.acid/L.casei/B.bif/B.glendy/Fos 1 each PO TID 7 Days #20 cap 03/10/23 [Probiotic Blend Capsule] Loperamide [Imodium] 2 mg PO TID PRN #15 cap 03/10/23 Ondansetron Odt [Zofran] 4 mg TL Q6H PRN #15 tablet 03/10/23 Vancomycin [Vancocin] 125 mg PO QID 10 Days #40 cap 03/10/23 - Allergies Allergies/Adverse Reactions: Allergies Allergy/AdvReac Type Severity Reaction Status Date / Time No Known Drug Allergies Allergy Verified 12/16/23 14:53 - Social History Does the pt smoke?: No Smoking Status: Never smoker Does the pt drink ETOH?: Yes Does the pt have substance abuse?: No - Immunizations Immunizations are current?: Yes - POLST Patient has POLST: No PD ED PE NORMAL - Vitals Vital signs reviewed: Yes - General General: Alert and oriented X 3, No acute distress, Well developed/nourished - Neck Neck: Supple, no meningeal sign, No adenopathy - Cardiac Cardiac: RRR, No murmur - Respiratory Respiratory: No respiratory distress, Clear bilaterally - Abdomen Abdomen: Normal bowel sounds, Soft, Non distended, No organomegaly, Other (some tenderness mid to left lower abd. No percussion nor rebound tenderness. ) - Derm Derm: Normal color, Warm and dry - Extremities Extremities: Normal ROM s pain, No edema, No calf tenderness / cord - Neuro Neuro: Alert and oriented X 3, No motor deficit, Normal speech Results - Vitals Vitals: Vital Signs - 24 hr 03/10/23 03/10/23 03/10/23 07:26 09:29 11:14 Temperature 36 C L Heart Rate 79 89 87 Respiratory 16 28 H 14 Rate Blood Pressure 132/83 H 127/82 H 136/85 H O2 Saturation 92 98 99 If not protocol 2 2 : Oxygen Flow, liters/minute 03/10/23 13:00 Temperature 37.3 C Heart Rate 86 Respiratory 16 Rate Blood Pressure 108/78 O2 Saturation 98 If not protocol 2 : Oxygen Flow, liters/minute Oxygen O2 Source [With Activity] Room air O2 Source [Without Activity] Room air O2 Source Nasal cannula Oxygen Flow Rate 2 - Labs Labs: Laboratory Tests 03/10/23 03/10/23 03/10/23 08:32 08:32 11:05 WBC 8.4 RBC 3.03 L Hgb 9.4 L Hct 29.7 L MCV 98.0 MCH 31.0 MCHC 31.6 L RDW 14.6 Plt Count 163 MPV 9.9 Neut # (Auto) 7.4 H Lymph # (Auto) 0.5 L [place] # (Auto) 0.4 Eos # (Auto) 0.1 Baso # (Auto) 0.0 Absolute Nucleated RBC 0.00 Nucleated RBC % 0.0 Sodium 139 Potassium 4.2 Chloride 102 Carbon Dioxide 31 Anion Gap 6.0 BUN 49 H Creatinine 1.0 Estimated GFR (MDRD) 54 L Glucose 102 Calcium 9.4 Magnesium 1.6 L Total Bilirubin 0.2 AST 38 ALT 27 Alkaline Phosphatase 63 Total Protein 6.6 Albumin 3.4 Globulin 3.2 Albumin/Globulin Ratio 1.1 Lipase 45 Urine Color YELLOW Urine Clarity HAZY Urine pH 6.5 Ur Specific [place] <=1.005 Urine Protein 30 H Urine Glucose (UA) NEGATIVE Urine Ketones NEGATIVE Urine Occult Blood LARGE H Urine Nitrite NEGATIVE Urine Bilirubin NEGATIVE Urine Urobilinogen 0.2 (NORMAL) Ur Leukocyte Esterase NEGATIVE Urine RBC 11-25 H Urine WBC 0-3 Ur Squamous Epith Cells FEW Squamous Urine Bacteria Few Ur Microscopic Review INDICATED Urine Culture Comments NOT INDICATED - Rads (name of study) abd/pel CT Relevant Findings:: Prelim report reviewed (No imaging explanation for the patient's symptoms.), EMP independent interpretation of test PD Medical Decision Making - ED course Complexity details: reviewed results (She had brought a stool sample to the lab earlier today and now being seen for cramps and concern for more blood in the stool. The stool test brought in earlier was being run and did come back showing C. difficile positive.), considered differential, d/w patient ED course: The patient had onset of diarrhea after antibiotic use for a bronchitis/pneumonia. She was not sure which antibiotic. She has persistent diarrhea and now has cramps and some bloody stool. She was seen yesterday for this. Declined CT scan. She was feeling not too ill. She did not produce a stool sample here in the ER yesterday. She appropriately had been guided for collecting a stool sample and bring it for testing. She had more blood in her stool today but was still watery and not overt blood per se. She was having some crampy pains. She was given some IV fluids and antiemetic. We did do a CT scan did not show any obvious focal abnormality. Her stools tests from outpatient was showing C. difficile positive. We can start treatment for that. The patient would much prefer home treatment. Her blood count is slightly lower from yesterday but actually about at baseline now compared to prior levels. Otherwise renal function is reasonable. Magnesium slightly low at 1.6 but other electrolytes are good. Her vital signs are stable and she is not lightheaded or hypotensive after some IV fluids. She is feeling better. She would like to go home and she is does appear stable for discharge. Her is present in the room and agrees with her desire for discharge. Departure - Departure Disposition: 01 Home, Self Care Clinical Impression: Abdominal cramping, Clostridium difficile colitis, Diarrhea Condition: Stable Record reviewed to determine appropriate education?: Yes Instructions: Clostridium Difficile Infec Follow-Up: Gerald Boyd MD [Primary Care Provider] - Prescriptions: Loperamide [Imodium] 2 mg PO TID PRN #15 cap PRN Reason: Diarrhea L.acid/L.casei/B.bif/B.glendy/Fos [Probiotic Blend Capsule] 1 each PO TID 7 Days #20 cap Vancomycin [Vancocin] 125 mg PO QID 10 Days #40 cap Ondansetron Odt [Zofran] 4 mg TL Q6H PRN #15 tablet PRN Reason: Nausea / Vomiting Comments: Your stool tested positive for a bacteria called C. difficile. This can commonly be a dormant germ within the intestine that is allowed to flare rash when other germs in the intestinal mix are imbalanced, such as after antibiotic course. It will create the diarrhea and cramping and irritation of the colon with subsequent bleeding at times. At this point your blood count is anemic but not low enough to need transfusion. I would anticipate decrease in the bleeding in your intestine as the infection is improving over the next several days. This C. difficile infection would initially be treated with vancomycin orally 4 times daily for 10 days to get at that germ in particular. You do want to restore some other good germs within the intestine so I would have you take some probiotics regularly as well. Tylenol every 4-6 hours if needed for pains. Ondansetron if needed for nausea. You can add in some mild antidiarrhea medicine if needed. Try to stay well-hydrated. Regular diet and activity as tolerated. Germ is fairly contagious so would want to avoid public and other people contact until your on the antibiotics for at least several days. I sent your prescriptions to your preferred pharmacy. Follow-up with your primary care if not improving well over the next several days to week and return if worse. Forms: PCP List Discharge Date/Time: 03/10/23 14:40
[2023-03-10] MEDS ORDERED: ONDANSETRON 4 MG/2 ML VIAL IVP STA (07:41)
[2023-03-10] MEDS ORDERED: MORPHINE 10 MG/ML VIAL IVP STA (07:41)
[2023-03-10] MEDS ORDERED: SODIUM CHLORIDE 0.9% 1,000 ML IV STA (07:44)
[2023-03-10 08:46] LABS: BASOPHILS % (AUTO) 0.2 %; EOSINOPHILS # (AUTO) 0.1 10^3/uL (0.0-0.7); EOSINOPHILS % (AUTO) 0.6 %; HCT - HEMATOCRIT 29.7 % (37.0-47.0); HGB - HEMOGLOBIN 9.4 g/dL (12.0-16.0); LYMPHOCYTES # (AUTO) 0.5 10^3/uL (1.5-3.5); LYMPHOCYTES % (AUTO) 5.8 %; MEAN CORPUSCULAR HGB CONC 31.6 g/dL (32.0-36.0); MEAN PLATELET VOLUME 9.9 fL (7.9-10.8); MONOCYTES # (AUTO) 0.4 10^3/uL (0.0-1.0); MONOCYTES % (AUTO) 4.6 %; NEUTROPHILS # (AUTO) 7.4 10^3/uL (1.5-6.6); NEUTROPHILS % (AUTO) 88.4 %; PLT - PLATELET COUNT 163 10^3/uL (130-450); RED BLOOD COUNT 3.03 10^6/uL (4.20-5.40); RED CELL DISTRIBUTION WIDTH 14.6 % (12.0-15.0); WHITE BLOOD COUNT 8.4 x10^3/uL (4.8-10.8)
[2023-03-10 08:52] LABS: ALBUMIN 3.4 g/dL (3.2-5.5); ALBUMIN/GLOBULIN RATIO 1.1 (1.0-2.2); BILIRUBIN,TOTAL 0.2 mg/dL (0.2-1.0); CALCIUM 9.4 mg/dL (8.5-10.3); MAGNESIUM 1.6 mg/dL (1.7-2.3); POTASSIUM 4.2 mmol/L (3.5-4.5); TOTAL PROTEIN 6.6 g/dL (6.4-8.9)
[2023-03-10] MEDS ORDERED: iohexoL-300 100 ML VIAL IVP ONE (10:01)
--- NOTE | 2023-03-10 10:10 | CT Report ---
PROCEDURE: ABDOMEN/PELVIS W INDICATIONS: lower abd pain and diarrhea, dark blood stools CONTRAST: Omni 300 100ml TECHNIQUE: After the administration of IV contrast, 5 mm thick sections acquired from the diaphragms to the symp hysis. 5 mm thick coronal and sagittal reformats were acquired. For radiation dose reduction, the f ollowing was used: automated exposure control, adjustment of mA and/or kV according to patient size. COMPARISON: 01/11/2022, 12/09/2021 FINDINGS: Image quality: There is artifact associated with the metallic hardware. Lung bases and heart: Subpleural fibrotic change can be seen at the lung bases. There is mild cardiom egaly. Advanced coronary calcification can be seen. Liver: No solid mass. Subcentimeter apparent liver cysts are seen. Gallbladder and biliary tree: Within normal limits. Spleen: No splenomegaly. Pancreas: No pancreatic ductal dilation. Adrenals: No adrenal nodule. Kidneys and ureters: No hydronephrosis. Numerous water density renal cysts are seen. Along the digital photo printer ior aspect of the right kidney, there is a growing hyperdense lesion seen that measures approximately 80 Hounsfield units, as on series 2 image 37, measuring 1.5 cm. Mild to moderate left renal atrophy can be seen. Bowel and peritoneum: No bowel distension. No pathologic free fluid. Diverticulosis can be seen, with out jahaira findings of active diverticulitis. Lymph nodes: No central or retroperitoneal adenopathy. Vessels: No infrarenal aortic aneurysm. Atherosclerotic calcification is seen. PELVIS Reproductive organs: Unremarkable. Bladder: No abnormal wall thickening, accounting for underdistension. Pelvic lymph nodes: No pelvic adenopathy by size criteria. Bones: No aggressive osseous abnormality. Right hip arthroplasty hardware is seen. Age-appropriate de generative changes are seen. Other: No significant ventral or inguinal hernia. IMPRESSION: No imaging explanation is found for the patient's presenting symptoms. Growing hyperdense lesion along the posterior aspect of the right kidney, which may related to a mass or hyperdense cyst. Please consider a follow-up renal mass protocol CT (without and with contrast) f or further evaluation. Additional findings: Advanced coronary artery calcification Subpleural fibrotic change Mild cardiomegaly Subcentimeter apparent liver cysts Numerous simple renal cysts Mild to moderate left renal atrophy Diverticulosis, without findings of active diverticulitis. Right hip arthroplasty hardware Reviewed by: Bandar Thao MD on 03/10/2023 9:09 AM [facility] Approved by: Bandar Thao MD on 03/10/2023 9:09 AM [facility] Station ID: [id number]
[2023-03-10] MEDS ORDERED: DIPHENOX/ATROPINE 2.5/0.025 MG TABLET PO STA (10:23)
[2023-03-10 11:18] LABS: BILIRUBIN,URINE NEGATIVE (NEGATIVE); GLUCOSE, URINE (UA) NEGATIVE (NEGATIVE); KETONES,URINE (UA) NEGATIVE (NEGATIVE); LEUKOCYTE ESTERASE, URINE NEGATIVE (NEGATIVE); NITRITE,URINE NEGATIVE (NEGATIVE); OCCULT BLOOD,URINE LARGE (NEGATIVE); PH,URINE 6.5 PH (5.0-7.5); PROTEIN,URINE 30 mg/dL (NEGATIVE); UROBILINOGEN,URINE 0.2 (NORMAL) E.U./dL (NORMAL)
[2023-03-10 11:20] LABS: CLARITY,URINE HAZY (CLEAR)
[2023-03-10 11:32] LABS: BACTERIA,URINE Few /HPF (None Seen); SQUAMOUS EPITHELIAL CELL,UR FEW Squamous (<= Few); WBC,URINE 0-3 /HPF (0-5)
[2023-03-10] MEDS ORDERED: VANCOMYCIN 125 MG CAPSULE PO STA (12:11)
[2023-03-10] MEDS ORDERED: KETOROLAC 15 MG/ML VIAL IVP STA (12:13)
[2023-03-10] MEDS ORDERED: SODIUM CHLORIDE 0.9% 500 ML IV STA (12:15)
[2023-03-10 13:46] VITALS: BP 108/78; O2SAT 98
[2023-03-12 04:08] LABS: ADENOVIRUS F 40/41 Not Detected (Not Detected); ASTROVIRUS Not Detected (Not Detected); C DIFFICILE TOXIN A/B Detected (Not Detected); CAMPYLOBACTER Not Detected (Not Detected); CRYPTOSPORIDIUM Not Detected (Not Detected); CYCLOSPORA CAYETANENSIS Not Detected (Not Detected); ENTAMOEBA HISTOLYTICA Not Detected (Not Detected); ENTEROAGGREGATIVE E COLI Not Detected (Not Detected); ENTEROPATHOGENIC E COLI Not Detected (Not Detected); ENTEROTOXIGENIC E COLI Not Detected (Not Detected); GIARDIA LAMBLIA Not Detected (Not Detected); NOROVIRUS GI/GII Not Detected (Not Detected); PLESIOMONAS SHIGELLOIDES Not Detected (Not Detected); ROTAVIRUS A Not Detected (Not Detected); SALMONELLA Not Detected (Not Detected); SAPOVIRUS Not Detected (Not Detected); SHIGA-TOXIN-PRODUCING E COLI Not Detected (Not Detected); SHIGELLA/ENTEROINVASIVE E COLI Not Detected (Not Detected); VIBRIO Not Detected (Not Detected); VIBRIO CHOLERAE Not Detected (Not Detected); YERSINIA ENTEROCOLITICA Detected (Not Detected)
== END 2023-03-10 14:40 | disposition home or self-care (01) ==
LOC: EDUNIT# → ED 07:16
DX: A04.72 Enterocolitis due to Clostridium difficile, not specified as recurrent (principal); D64.9 Anemia, unspecified
CPT/HCPCS: 36415; 74177; 80053; 81001; 83690; 83735; 85025; 87493; 87507; 96361; 96374; 96375; 99284; A9270; J8499; Q9967; 81003; 87086

== ENCOUNTER 2023-03-10 08:00 | Outpatient (CLI) | payer MEDICARE, OTHER | END 2023-03-10 23:59 | disposition home or self-care (01) | LOC: LAB.R 08:00 | PROVIDERS: ATTEND Internal Medicine | DX: R19.7 Diarrhea, unspecified (principal) | CPT/HCPCS: 87493 ==

== ENCOUNTER 2023-03-31 20:14 | Outpatient (CLI) | payer MEDICARE, OTHER | END 2023-03-31 23:59 | disposition critical access hospital (66) | LOC: EMS 20:14 | DX: R11.2 Nausea with vomiting, unspecified (principal); R06.00 Dyspnea, unspecified; R53.1 Weakness; R00.0 Tachycardia, unspecified; Z99.81 Dependence on supplemental oxygen | CPT/HCPCS: A0425; A0427 ==

== ENCOUNTER 2023-03-31 20:30 | Emergency (ER) | payer MEDICARE, OTHER ==
--- NOTE | 2023-03-31 20:41 | ED Physician Documentation ---
PD HPI NVD - Stated complaint Stated Complaint: N/V - Chief complaint Chief Complaint: Abd Pain - History obtained from History obtained from: Patient - History of Present Illness Timing - onset: How many hours ago (4-5), Today Timing - duration: Hours (4-5) Timing - details: Abrupt onset (The patient states she felt fine earlier today with breakfast and lunch and normal activity. At approximately 4 PM she developed onset of crampy abdominal pain followed by abrupt nausea and vomiting of undigested food. No persistent pain. She had intermittent cramps and vomiting every hour-annie.), Still present Associated symptoms: Abdominal pain (crampy intermittent.), Loss of appetite. No: Fever, Hematemesis, Melena Contributing factors: Sick contact (She states her had diarrhea several times yesterday but no vomiting and is well today.), Other (The patient had abdominal cramping and diarrhea and diagnosed with C. difficile and Yersinia 3 weeks ago. Finished a course of vancomycin with the cessation of the symptoms.). No: Bad food, Travel Recently seen: Not recently seen Review of Systems Constitutional: denies: Fever, Chills Nose: denies: Rhinorrhea / runny nose, Congestion Throat: denies: Oral lesions / sores Cardiac: denies: Chest pain / pressure Respiratory: denies: Dyspnea, Cough GI: reports: Abdominal Pain, Nausea, Vomiting. 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: Breast cancer : Frequency, Other HEENT: Chronic vision loss Psych: None Musculoskeletal: Osteoarthritis Derm: None - Past Surgical History Past Surgical History: Yes General: Colonoscopy, EGD Ortho: Hip replacement, Knee replacement /LOGISTICS OFFICER: Mastectomy Cardiovascular: Coronary stent, Cardiac catheterization HEENT: Tonsil/Adenoidectomy - Present Medications Home Medications: Ambulatory Orders Medication Instructions Recorded Confirmed Multivitamin [Multivitamins] 1 each PO DAILY 06/27/15 12/13/22 Clopidogrel [Plavix] 75 mg PO DAILY 10/19/20 12/13/22 Ezetimibe [Zetia] 10 mg PO DAILY 10/19/20 12/13/22 Pantoprazole Sodium 40 mg PO QDAC 10/19/20 12/13/22 allopurinoL [Zyloprim] 200 mg PO DAILY 10/19/20 12/14/22 Isosorbide Mononitrate ER [Imdur] 30 mg PO DAILY 12/30/21 12/13/22 Levothyroxine [Synthroid] 125 mcg PO QDAC 12/30/21 12/14/22 Albuterol Sulf [Ventolin Hfa 1 puffs PO Q6H PRN 10/30/22 12/13/22 Inhaler] traMADol [Ultram] 0.25 tab PO DAILY PRN 10/30/22 12/13/22 HYDROcodone/ACET 7.5/325 [[place] 0.5 - 1 tab PO Q6HR PRN #10 tab 11/02/22 12/13/22 7.5/325] Montelukast [Singulair] 10 mg PO QPM #30 tab 11/02/22 12/13/22 Losartan Potassium 12.5 mg PO DAILY 12/13/22 12/14/22 Metoprolol Succinate [Toprol Xl] 25 mg PO DAILY 12/13/22 12/13/22 Tiotropium [place] [Spiriva 1 puffs INH DAILY 12/13/22 12/13/22 Handihaler] Acetaminophen [Acetaminophen Extra 1,000 mg PO Q6H PRN 12/14/22 12/14/22 Strength] Fluticasone/Umeclidin/Vilanter 1 each IH BID 12/14/22 12/14/22 [Trelegy Ellipta 200-62.5-25] Lactobacillus Combination No.4 1 each PO DAILY 12/14/22 12/14/22 [Probiotic] Rosuvastatin Calcium [Crestor] 40 mg PO QPM 12/14/22 12/14/22 Senna [Senokot] 8.6 mg PO DAILY 12/14/22 12/14/22 Spironolactone [Aldactone] 12.5 mg PO DAILY 12/14/22 12/14/22 Venlafaxine ER [Effexor ER] 37.5 mg PO DAILY 12/14/22 12/14/22 Ferrous Gluconate 324 mg PO DAILY #30 tablet 12/15/22 Sodium Chloride [Salt Tab] 1 gm PO DAILY #30 tablet 12/15/22 Stool For Testing 1 unit TD ONCE #1 03/09/23 L.acid/L.casei/B.bif/B.glendy/Fos 1 each PO TID 7 Days #20 cap 03/10/23 [Probiotic Blend Capsule] Loperamide [Imodium] 2 mg PO TID PRN #15 cap 03/10/23 Ondansetron Odt [Zofran] 4 mg TL Q6H PRN #15 tablet 03/10/23 Vancomycin [Vancocin] 125 mg PO QID 10 Days #40 cap 03/10/23 - Allergies Allergies/Adverse Reactions: Allergies Allergy/AdvReac Type Severity Reaction Status Date / Time No Known Drug Allergies Allergy Verified 03/09/23 14:53 - Social History Does the pt smoke?: No Smoking Status: Never smoker Does the pt drink ETOH?: Yes Does the pt have substance abuse?: No - Immunizations Immunizations are current?: Yes - POLST Patient has POLST: No PD ED PE NORMAL - Vitals Vital signs reviewed: Yes - General General: Alert and oriented X 3, Well developed/nourished, Other (appears uncomfortable with stomach bloating.) - Cardiac Cardiac: RRR, No murmur - Respiratory Respiratory: Clear bilaterally - Abdomen Abdomen: Soft, No organomegaly, Other (abd with tednerness centrally and distended abd in general but not taught. No percussion tenderness. ). No: Normal bowel sounds (increased) - Rectal Rectal: Deferred - Back Back: No CVA TTP - Derm Derm: Normal color, Warm and dry - Extremities Extremities: No edema, No calf tenderness / cord - Neuro Neuro: Alert and oriented X 3, No motor deficit, Normal speech Results - Vitals Vitals: Oxygen O2 Source [With Activity] Room air O2 Source [Without Activity] Room air O2 Source Nasal cannula Oxygen Flow Rate 2 - Labs Labs: Laboratory Tests 03/31/23 03/31/23 03/31/23 20:58 20:58 20:58 WBC 9.0 RBC 3.65 L Hgb 11.3 L Hct 38.0 MCV 104.1 H MCH 31.0 MCHC 29.7 L RDW 14.9 Plt Count 219 MPV 9.7 Neut # (Auto) 8.4 H Lymph # (Auto) 0.3 L [place] # (Auto) 0.3 Eos # (Auto) 0.0 Baso # (Auto) 0.0 Absolute Nucleated RBC 0.00 Nucleated RBC % 0.0 Sodium 139 Potassium 4.6 H Chloride 101 Carbon Dioxide 30 Anion Gap 8.0 BUN 40 H Creatinine 1.2 Estimated GFR (MDRD) 43 L Glucose 115 H Lactic Acid 1.0 Calcium 9.9 Magnesium 1.8 Total Bilirubin 0.3 AST 67 H ALT 37 Alkaline Phosphatase 77 Total Protein 8.1 Albumin 4.3 Globulin 3.8 Albumin/Globulin Ratio 1.1 Lipase 75 Urine Color Urine Clarity Urine pH Ur Specific [place] Urine Protein Urine Glucose (UA) Urine Ketones Urine Occult Blood Urine Nitrite Urine Bilirubin Urine Urobilinogen Ur Leukocyte Esterase Urine RBC Urine WBC Urine WBC Clumps Ur Epithelial Cells Ur Squamous Epith Cells Urine Crystals Amorphous Sediment Urine Bacteria Urine Casts Urine Starch Urine Mucus Urine Trichomonas Urine Yeast Urine Sperm Ur Oval Fat Bodies Ur Microscopic Review Urine Culture Comments 03/31/23 03/31/23 23:50 23:50 WBC RBC Hgb Hct MCV MCH MCHC RDW Plt Count MPV Neut # (Auto) Lymph # (Auto) [place] # (Auto) Eos # (Auto) Baso # (Auto) Absolute Nucleated RBC Nucleated RBC % Sodium Potassium Chloride Carbon Dioxide Anion Gap BUN Creatinine Estimated GFR (MDRD) Glucose Lactic Acid Calcium Magnesium Total Bilirubin AST ALT Alkaline Phosphatase Total Protein Albumin Globulin Albumin/Globulin Ratio Lipase Urine Color Cancelled YELLOW Urine Clarity Cancelled CLEAR Urine pH Cancelled 7.0 Ur Specific [place] Cancelled 1.010 Urine Protein Cancelled 100 H Urine Glucose (UA) Cancelled NEGATIVE Urine Ketones Cancelled NEGATIVE Urine Occult Blood Cancelled NEGATIVE Urine Nitrite Cancelled NEGATIVE Urine Bilirubin Cancelled NEGATIVE Urine Urobilinogen Cancelled 0.2 (NORMAL) Ur Leukocyte Esterase Cancelled NEGATIVE Urine RBC Cancelled None Seen Urine WBC Cancelled 6-10 H Urine WBC Clumps Cancelled Ur Epithelial Cells Cancelled MOD Renal Tubular H Ur Squamous Epith Cells Cancelled MOD Squamous H Urine Crystals Cancelled Amorphous Sediment Cancelled Urine Bacteria Cancelled None Seen Urine Casts Cancelled Urine Starch Cancelled Urine Mucus Cancelled Urine Trichomonas Cancelled Urine Yeast Cancelled Urine Sperm Cancelled Ur Oval Fat Bodies Cancelled Ur Microscopic Review Cancelled INDICATED Urine Culture Comments Cancelled NOT INDICATED - Rads (name of study) abd/pelvic CT Relevant Findings:: Prelim report reviewed (fluid in colon. no obstruction. Diverticulosis without diverticulitis. ), EMP independent interpretation of test PD Medical Decision Making - ED course Complexity details: reviewed results (no obstuction. Has fluid in colon presume related to GE with impending diarrhea. Sounds most likely viral GE at this point. To treat symptoms and see how are into tomorrow. Normal LFTs. ), re- evaluated patient (she is improved with IV fluids, and meds for nausez and cramps (Droperidol and Toradol). ), considered differential, d/w patient, d/w family (spouse) Departure - Departure Disposition: 01 Home, Self Care Clinical Impression: Vomiting, Abdominal cramping Condition: Stable Record reviewed to determine appropriate education?: Yes Instructions: ED Gastroenteritis Viral Follow-Up: Gerald Boyd MD [Provider Admit Priv/Credential] - Comments: I think your current symptoms are probably more likely viral stomach flu (gastroenteritis). Likely the same as your had yesterday with more upper symptoms than lower intestinal. We did do basic lab work which appeared normal regarding blood count electrolytes and liver enzymes and kidney function. The CT scan did not show a ny signs of significant abnormality, in particular no obstructions, localized infection such as diverticulitis or gallbladder or other concerns. The radiologist does note some moderate amount of fluid in the proximal colon which may be indicative that you are good to have some diarrhea later. This would go along with the pattern of it. Use the ondansetron if needed for nausea. Frequent fluids through the night. Tylenol if needed for cramps or pains. [id number] Imodium if needed for diarrhea. You may have some leftover from your previous diarrhea episodes. Given that a viral stomach flu can still upset the balance of germs in the intestine, I would suggest doing some probiotic supplements 2-3 times daily for the next several days or so as well. Return if worsening. Forms: PCP List Discharge Date/Time: 04/01/23 00:30
[2023-03-31] MEDS ORDERED: SODIUM CHLORIDE 0.9% 1,000 ML IV STA (20:44)
[2023-03-31] MEDS ORDERED: DROPERIDOL 5 MG/2 ML VIAL IVP STA (20:44)
[2023-03-31] MEDS ORDERED: KETOROLAC 15 MG/ML VIAL IVP STA (20:44)
[2023-03-31 21:08] LABS: BASOPHILS % (AUTO) 0.1 %; EOSINOPHILS % (AUTO) 0.4 %; HGB - HEMOGLOBIN 11.3 g/dL (12.0-16.0); LYMPHOCYTES # (AUTO) 0.3 10^3/uL (1.5-3.5); LYMPHOCYTES % (AUTO) 3.2 %; MEAN CORPUSCULAR HGB CONC 29.7 g/dL (32.0-36.0); MEAN CORPUSCULAR VOLUME 104.1 fL (81.0-99.0); MEAN PLATELET VOLUME 9.7 fL (7.9-10.8); MONOCYTES # (AUTO) 0.3 10^3/uL (0.0-1.0); MONOCYTES % (AUTO) 3.5 %; NEUTROPHILS # (AUTO) 8.4 10^3/uL (1.5-6.6); NEUTROPHILS % (AUTO) 92.6 %; PLT - PLATELET COUNT 219 10^3/uL (130-450); RED BLOOD COUNT 3.65 10^6/uL (4.20-5.40); RED CELL DISTRIBUTION WIDTH 14.9 % (12.0-15.0)
[2023-03-31 21:23] LABS: ALBUMIN 4.3 g/dL (3.2-5.5); ALBUMIN/GLOBULIN RATIO 1.1 (1.0-2.2); BILIRUBIN,TOTAL 0.3 mg/dL (0.2-1.0); CALCIUM 9.9 mg/dL (8.5-10.3); CREATININE 1.2 mg/dL (0.6-1.3); MAGNESIUM 1.8 mg/dL (1.7-2.3); POTASSIUM 4.6 mmol/L (3.5-4.5); TOTAL PROTEIN 8.1 g/dL (6.4-8.9)
[2023-03-31] MEDS ORDERED: iohexoL-300 100 ML VIAL IVP ONE (22:16)
--- NOTE | 2023-03-31 22:41 | CT Report ---
PROCEDURE: Abdomen/Pelvis W INDICATIONS: abd cramps and vomiting abrupt today CONTRAST: 100 ML OMNI 300 TECHNIQUE: After the administration of intravenous contrast, a CT scan of the abdomen and pelvis was performed. Images were recorded and evaluated at appropriate window settings. Reformats: coronal and sagittal. F or radiation dose reduction, the following was used: automated exposure control, adjustment of mA and /or kV according to patient size. COMPARISON: 03/10/2023 FINDINGS: Image quality: Diagnostic Lower chest: Similar basilar atelectasis/scarring, as well as interstitial thickening. No drainable p leural effusions or new consolidation cardiomegaly. Coronary disease. Possible tiny hiatal hernia. Liver: There are small cysts. Subcentimeter lesions are too small to characterize, findings appear st able Gallbladder and biliary system: Prominent biliary system and mildly distended gallbladder, also again seen. Consider LFT correlation Pancreas: No ductal dilation Spleen: Nonenlarged Adrenals: No nodules Kidneys: Suspected cysts are present. Indeterminate lesion in the posterior right kidney, for which r enal protocol CT was previously recommended, which could also confirm that the other lesions are cyst s. No hydronephrosis. Vessels and lymph nodes: The main portal vein is patent. No abdominal aortic aneurysm. There are athe rosclerotic calcifications. No pathologic lymph nodes by size criteria. Bowel and peritoneum: No evidence of small bowel obstruction. No pathologic ascites or drainable absc ess. Colonic diverticulosis. There are liquid proximal colonic contents. Body wall: Unremarkable Pelvis: Bladder is unremarkable. Reproductive organs are not well evaluated on this study, consider u ltrasound correlation if necessary. Pelvis is obscured by metallic artifact. Bones: Right hip arthroplasty. Degenerative changes. IMPRESSION: No bowel obstruction. There is a small hiatal hernia. Liquid proximal colonic contents may be seen wi th diarrhea and colitis. Colonic diverticulosis. Numerous other findings as above, favored to be stable or incidental In particular, consider renal mass protocol CT or MRI to further characterize the renal lesions, part icularly the right posterior questionable hyperdense cyst. Reviewed by: Jose Montano MD on 03/31/2023 10:39 PM PST Approved by: Jose Montano MD on 03/31/2023 10:39 PM PST Station ID: [id number]
[2023-03-31 23:10] VITALS: BP 146/96
[2023-03-31] MEDS ORDERED: ONDANSETRON ODT 4 MG Prepack 2 TL PRN (23:18)
[2023-04-01 00:34] VITALS: O2SAT 98
[2023-04-01 00:52] LABS: CLARITY,URINE CLEAR (CLEAR); LEUKOCYTE ESTERASE, URINE NEGATIVE (NEGATIVE); NITRITE,URINE NEGATIVE (NEGATIVE)
[2023-04-01 00:53] LABS: PROTEIN,URINE 100 mg/dL (NEGATIVE); UROBILINOGEN,URINE 0.2 (NORMAL) E.U./dL (NORMAL)
[2023-04-01 00:54] LABS: BILIRUBIN,URINE NEGATIVE (NEGATIVE); GLUCOSE, URINE (UA) NEGATIVE (NEGATIVE); ICTOTEST,URINE NEGATIVE; KETONES,URINE (UA) NEGATIVE (NEGATIVE); OCCULT BLOOD,URINE NEGATIVE (NEGATIVE)
[2023-04-01 00:55] LABS: RBC,URINE None Seen /HPF (0-5)
[2023-04-01 00:56] LABS: BACTERIA,URINE None Seen /HPF (None Seen); EPITHELIAL CELLS,UR MOD Renal Tubular /HPF (<= Few); SQUAMOUS EPITHELIAL CELL,UR MOD Squamous (<= Few)
== END 2023-04-01 00:30 | disposition home or self-care (01) ==
LOC: EDUNIT# → ED 20:30
DX: R10.9 Unspecified abdominal pain (principal); R11.10 Vomiting, unspecified; I10 Essential (primary) hypertension; E78.00 Pure hypercholesterolemia, unspecified; I25.10 Atherosclerotic heart disease of native coronary artery without angina pectoris; J44.9 Chronic obstructive pulmonary disease, unspecified; J43.9 Emphysema, unspecified; E03.9 Hypothyroidism, unspecified; Z79.899 Other long term (current) drug therapy; Z79.02 Long term (current) use of antithrombotics/antiplatelets
CPT/HCPCS: 36415; 74177; 80053; 81001; 83605; 83690; 83735; 85025; 96374; 99283; 99285; Q9967; 81003; 87086

== ENCOUNTER 2023-05-04 14:14 | Outpatient (CLI) | payer MEDICARE, OTHER ==
[2023-05-04 14:38] LABS: BASOPHILS % (AUTO) 0.1 %; EOSINOPHILS # (AUTO) 0.1 10^3/uL (0.0-0.7); EOSINOPHILS % (AUTO) 0.9 %; HCT - HEMATOCRIT 32.2 % (37.0-47.0); HGB - HEMOGLOBIN 9.5 g/dL (12.0-16.0); LYMPHOCYTES # (AUTO) 0.3 10^3/uL (1.5-3.5); LYMPHOCYTES % (AUTO) 3.2 %; MEAN CORPUSCULAR HEMOGLOBIN 29.7 pg (27.0-31.0); MEAN CORPUSCULAR HGB CONC 29.5 g/dL (32.0-36.0); MEAN CORPUSCULAR VOLUME 100.6 fL (81.0-99.0); MEAN PLATELET VOLUME 8.8 fL (7.9-10.8); MONOCYTES # (AUTO) 0.6 10^3/uL (0.0-1.0); MONOCYTES % (AUTO) 7.1 %; NEUTROPHILS % (AUTO) 88.4 %; PLT - PLATELET COUNT 323 10^3/uL (130-450); RED CELL DISTRIBUTION WIDTH 15.3 % (12.0-15.0)
[2023-05-04 14:58] LABS: ALBUMIN 3.3 g/dL (3.2-5.5); ALBUMIN/GLOBULIN RATIO 0.8 (1.0-2.2); ALKALINE PHOSPHATASE 77 IU/L (42-121); ALT ALANINE AMINOTRANSFERASE 14 IU/L (10-60); AST ASPARTATE AMINOTRANSFERASE 37 IU/L (10-42); BILIRUBIN,TOTAL 0.3 mg/dL (0.2-1.0); BUN - BLOOD UREA NITROGEN 36 mg/dL (6-20); CALCIUM 9.6 mg/dL (8.5-10.3); CARBON DIOXIDE - CO2 37 mmol/L (21-32); CHLORIDE 92 mmol/L (101-111); GFR - MDRD 54 (>89); GLUCOSE 152 mg/dL (74-104); IRON < 10 ug/dL (50-212); POTASSIUM 4.5 mmol/L (3.5-4.5); SODIUM 134 mmol/L (135-145); TOTAL IRON BINDING CAPACITY 227 ug/dL (250-450); TOTAL PROTEIN 7.4 g/dL (6.4-8.9); TRANSFERRIN 162 mg/dL (203-362)
[2023-05-04 15:14] LABS: FERRITIN 215.3 ng/mL (11.0-306.8)
== END 2023-05-04 14:15 | disposition home or self-care (01) ==
LOC: DI 14:14
PROVIDERS: ATTEND Nurse Practitioner Gerontology
DX: D64.9 Anemia, unspecified (principal)
CPT/HCPCS: 36415; 80053; 82728; 83540; 84466; 85025

== ENCOUNTER 2023-05-06 10:43 | Outpatient (CLI) | payer MEDICARE, OTHER ==
--- NOTE | 2023-05-06 13:45 | XRAY Report ---
PROCEDURE: Thoracic Spine 3V INDICATIONS: BACK PAIN TECHNIQUE: 3 views of the thoracic spine were acquired. COMPARISON: None. FINDINGS: Bones: Diffuse demineralization. No visible fractures or dislocations. No suspicious bony lesions. 12 pairs of ribs are noted, and appear intact where visualized. Soft tissues: No paravertebral stripe thickening. Heavy abdominal aortic calcification and tortuous aorta. Hyperdense stool in the descending colon. Surgical clips in the left axilla. IMPRESSION: No visible acute thoracic spine fracture. Reviewed by: Viji Silva MD on 05/06/2023 1:44 PM PST Approved by: Viji Silva MD on 05/06/2023 1:44 PM PST Station ID: [id number]
--- NOTE | 2023-05-06 17:18 | XRAY Report ---
PROCEDURE: Lumbar Spine 4V INDICATIONS: BACK PAIN TECHNIQUE: 4 views of the lumbar spine were acquired. COMPARISON: CT of abdomen and pelvis dated 03/31/2023. FINDINGS: Bones: Retained oral contrast material within the colon is seen partially limits the evaluation. 5 n [id number] vertebrae are present. Moderate rightward curvature of thoracic spine is seen. Mild le voscoliosis of lumbar spine is also noted. Chronic appearing anterior wedge compression deformity at T12 level is noted unchanged from previous CT study. No acute vertebral body compression fracture. Th ere is 8 mm retrolisthesis of L1 on L2 and 5 mm retrolisthesis of L3 on L4. Degenerative disc disease throughout lumbar spine is seen. Oblique views shows no gross pars defects. There is prior right total hip arthroplasty. Soft tissues: Retained oral contrast material is seen extending to sigmoid colon with extensive sigmo id diverticulosis. Atherosclerotic calcifications in the abdominal aorta and bilateral iliac arteries are seen. IMPRESSION: Chronic appearing anterior wedge compression deformity involving T12 vertebral body. Scoliosis as abo ve. No acute vertebral body compression fracture. 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 Grade 1 spondylolisthesis at L1 -2 and L3-4 levels as above. No gross pars defects. Reviewed by: Jonny Mayorga MD on 05/06/2023 5:16 PM PST Approved by: Jonny Mayorga MD on 05/06/2023 5:16 PM PST Station ID: [id number]
== END 2023-05-06 10:44 | disposition home or self-care (01) ==
LOC: DI 10:43
PROVIDERS: ATTEND Nurse Practitioner Gerontology
DX: M48.54XA Collapsed vertebra, not elsewhere classified, thoracic region, initial encounter for fracture (principal); M51.34 Other intervertebral disc degeneration, thoracic region; M51.36 Other intervertebral disc degeneration, lumbar region; M43.16 Spondylolisthesis, lumbar region

== ENCOUNTER 2023-05-06 13:47 | Outpatient (CLI) | payer MEDICARE, OTHER | END 2023-05-06 13:48 | disposition critical access hospital (66) | LOC: EMS 13:47 | DX: R06.02 Shortness of breath (principal); R41.0 Disorientation, unspecified; Z99.81 Dependence on supplemental oxygen | CPT/HCPCS: A0425; A0429 ==

== ENCOUNTER 2023-05-06 14:00 | Emergency (ER) | payer MEDICARE, OTHER ==
--- NOTE | 2023-05-06 14:16 | ED Physician Documentation ---
PD HPI DYSPNEA - Stated complaint Stated Complaint: SOA - Chief complaint Chief Complaint: Resp - History obtained from History obtained from: Patient, Family (spouse), EMS - History of Present Illness Timing - onset: Today Timing - onset during: Light activity (had gotten up from bed and noted herself more dyspneic than baseline. Has been having few days of cough with sputum production. Unusual for her to have sputum. No noted blood. On oxygen 2 lpm NC usually and her sats were in 80s% despite that. No noted edema but does have h/o CHF/core pulmonale.) Timing - details: Gradual onset (has had cough and sputum for 2-3 days, but the notable increased dyspnea was this morning.), Still present Improved by: Inhaler/neb (EMS did Duoneb enroute and pt states it helped moderately.) Associated symptoms: Cough, Wheezing, Bilateral edema (mild), Anxiety. 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 Also CHF related to lung disease. Is followed by Palliative care.) Review of Systems Constitutional: reports: Chills, Myalgias. denies: Fever Nose: reports: Congestion. denies: Rhinorrhea / runny nose Throat: denies: Sore throat Cardiac: reports: Pedal edema (mild). 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: Breast cancer : Frequency, Other HEENT: Chronic vision loss Psych: None Musculoskeletal: Osteoarthritis Derm: None - Past Surgical History Past Surgical History: Yes General: Colonoscopy, EGD Ortho: Hip replacement, Knee replacement /DEVELOPMENTAL PSYCHOLOGIST: Mastectomy Cardiovascular: Coronary stent, Cardiac catheterization HEENT: Tonsil/Adenoidectomy - Present Medications Home Medications: Ambulatory Orders Medication Instructions Recorded Confirmed Clopidogrel [Plavix] 75 mg PO DAILY 10/19/20 05/06/23 Pantoprazole Sodium 40 mg PO QDAC 10/19/20 05/06/23 Isosorbide Mononitrate ER [Imdur] 30 mg PO DAILY 12/30/21 05/06/23 Levothyroxine [Synthroid] 125 mcg PO QDAC 12/30/21 05/06/23 Albuterol Sulf [Ventolin Hfa 1 puffs PO Q6H PRN 10/30/22 05/06/23 Inhaler] traMADol [Ultram] 50 tab PO DAILY PRN 10/30/22 05/06/23 Acetaminophen [Acetaminophen Extra 1,000 mg PO Q6H PRN 12/14/22 05/06/23 Strength] Fluticasone/Umeclidin/Vilanter 1 each IH BID 12/14/22 05/06/23 [Trelegy Ellipta 200-62.5-25] Senna [Senokot] 8.6 mg PO DAILY 12/14/22 05/06/23 Doxycycline Hyclate 100 mg PO BID 7 Days #14 cap 05/06/23 L.acid/L.casei/B.bif/B.glendy/Fos 1 each PO TID 7 Days #20 cap 05/06/23 [Probiotic Blend Capsule] Metoprolol Succinate [Kapspargo 25 mg PO DAILY 05/06/23 05/06/23 Sprinkle] Mirtazapine 15 mg PO DAILY 05/06/23 05/06/23 Morphine Oral Soln [Roxanol] 5 mg PO Q6HR PRN 05/06/23 05/06/23 Thiamine HCl [Vitamin B-1] 65 mg PO DAILY 05/06/23 05/06/23 dexAMETHasone [Decadron] 4 mg PO DAILY #5 tablet 05/06/23 - Allergies Allergies/Adverse Reactions: Allergies Allergy/AdvReac Type Severity Reaction Status Date / Time No Known Drug Allergies Allergy Verified 05/06/23 14:09 - Social History Does the pt smoke?: No Smoking Status: Never smoker Does the pt drink ETOH?: Yes Does the pt have substance abuse?: No - Immunizations Immunizations are current?: Yes - POLST Patient has POLST: No PD ED PE NORMAL - Vitals Vital signs reviewed: Yes - General General: Alert and oriented X 3, Well developed/nourished, Other (appears very anxious. Breathing quickly. On NC oxygen at 4 lpm on arrival with sats 97%.) - HEENT HEENT: Pharynx benign - Neck Neck: Supple, no meningeal sign, No adenopathy - Cardiac Cardiac: RRR, No murmur - Respiratory Respiratory: No: Clear bilaterally - Abdomen Abdomen: Soft, Non tender - Female Female : Deferred - Rectal Rectal: Deferred - Back Back: No CVA TTP - Derm Derm: Normal color, Warm and dry - Extremities Extremities: No calf tenderness / cord, Other (minimal pretibial edema in both lower legs. Calves not tender. ) - Neuro Neuro: Alert and oriented X 3, No motor deficit, Normal speech Results - Vitals Vitals: Vital Signs - 24 hr 05/06/23 05/06/23 05/06/23 14:06 15:15 16:09 Temperature 36.2 C L Heart Rate 101 H 93 100 Respiratory 28 H 20 22 Rate Blood Pressure 157/138 H 138/88 H O2 Saturation 97 92 05/06/23 17:16 Temperature 36.8 C Heart Rate 95 Respiratory 24 Rate Blood Pressure 125/79 O2 Saturation 100 Oxygen O2 Source [With Activity] Room air O2 Source [Without Activity] Room air O2 Source Nasal cannula Oxygen Flow Rate 3 - Labs Labs: Laboratory Tests 05/06/23 05/06/23 05/06/23 14:24 14:24 14:24 WBC 10.8 RBC 3.09 L Hgb 9.1 L Hct 30.3 L MCV 98.1 MCH 29.4 MCHC 30.0 L RDW 15.1 H Plt Count 315 MPV 8.6 Neut # (Auto) 10.1 H Lymph # (Auto) 0.2 L [place] # (Auto) 0.5 Eos # (Auto) 0.0 Baso # (Auto) 0.0 Absolute Nucleated RBC 0.00 Nucleated RBC % 0.0 Sodium 132 L Potassium 4.1 Chloride 91 L Carbon Dioxide 33 H Anion Gap 8.0 BUN 27 H Creatinine 0.8 Estimated GFR (MDRD) 69 L Glucose 119 H Calcium 9.4 Magnesium 1.5 L Total Bilirubin 0.4 AST 42 ALT 20 Alkaline Phosphatase 75 B-Natriuretic Peptide 1107 H Total Protein 7.1 Albumin 3.3 Globulin 3.8 Albumin/Globulin Ratio 0.9 L Lipase < 10 L Nasal Adenovirus (PCR) Nasal B. parapertussis DNA (PCR) Nasal Coronavir 229E PCR Nasal Coronavir HKU1 PCR Nasal Coronavir NL63 PCR Nasal Coronavir OC43 PCR Nasal Enterovir/Rhinovir PCR Nasal Influenza B PCR Nasal Influenza A PCR Nasal Parainfluen 1 PCR Nasal Parainfluen 2 PCR Nasal Parainfluen 3 PCR Nasal Parainfluen 4 PCR Nasal RSV (PCR) Nasal B.pertussis DNA PCR Nasal C.pneumoniae (PCR) Jayesh Human Metapneumo PCR Nasal M.pneumoniae (PCR) Nasal SARS-CoV-2 (PCR) 05/06/23 14:48 WBC RBC Hgb Hct MCV MCH MCHC RDW Plt Count MPV Neut # (Auto) Lymph # (Auto) [place] # (Auto) Eos # (Auto) Baso # (Auto) Absolute Nucleated RBC Nucleated RBC % Sodium Potassium Chloride Carbon Dioxide Anion Gap BUN Creatinine Estimated GFR (MDRD) Glucose Calcium Magnesium Total Bilirubin AST ALT Alkaline Phosphatase B-Natriuretic Peptide Total Protein Albumin Globulin Albumin/Globulin Ratio Lipase Nasal Adenovirus (PCR) NOT DETECTED Nasal B. parapertussis DNA (PCR) NOT DETECTED Nasal Coronavir 229E PCR NOT DETECTED Nasal Coronavir HKU1 PCR NOT DETECTED Nasal Coronavir NL63 PCR NOT DETECTED Nasal Coronavir OC43 PCR NOT DETECTED Nasal Enterovir/Rhinovir PCR NOT DETECTED Nasal Influenza B PCR NOT DETECTED Nasal Influenza A PCR NOT DETECTED Nasal Parainfluen 1 PCR NOT DETECTED Nasal Parainfluen 2 PCR NOT DETECTED Nasal Parainfluen 3 PCR NOT DETECTED Nasal Parainfluen 4 PCR NOT DETECTED Nasal RSV (PCR) NOT DETECTED Nasal B.pertussis DNA PCR NOT DETECTED Nasal C.pneumoniae (PCR) NOT DETECTED Jayesh Human Metapneumo PCR NOT DETECTED Nasal M.pneumoniae (PCR) NOT DETECTED Nasal SARS-CoV-2 (PCR) NOT DETECTED - Rads (name of study) chest xray Relevant Findings:: Prelim report reviewed, EMP independent interpretation of test (significant fibrosis/scarring. No effusion. No dense infiltrate. Does have increased amount compared to prior, so consider edema. ) PD Medical Decision Making - ED course Complexity details: reviewed results (bnp 1107 which is higher than her mid range typical levels. Hgb 9.1, which is around baseline levels. ), re-evaluated patient (improved with repeat nebulizer here inED and also Morphine to help with comfort of breathing and less anxiety. This also helped quite a bit. Pt feels more toward baseline. Her oxygen put down to normal 2 lpm and she is doing okay. Would like to go home. ), considered differential (has cough with sputum production and increased dyspnea today. consider exac COPD as nebulizer did help sx. Concern for infectious process give the COPD history. Has mild edema in legs and not currently on Lasix. Can give dose here in case. ), d/w patient, d/w family (spouse) Departure - Departure Disposition: 01 Home, Self Care Clinical Impression: Dyspnea, Acute exacerbation of COPD with asthma, Abnormal sputum, Pulmonary edema Condition: Stable Record reviewed to determine appropriate education?: Yes Prescriptions: dexAMETHasone [Decadron] 4 mg PO DAILY #5 tablet Doxycycline Hyclate 100 mg PO BID 7 Days #14 cap L.acid/L.casei/B.bif/B.glendy/Fos [Probiotic Blend Capsule] 1 each PO TID 7 Days #20 cap Comments: Based on your x-ray and a blood test called JANETH Carter, there could be some element of increased fluid within the lungs and fluid overload. We did give a dose of furosemide/Lasix here to spur off some extra fluid. However I would not really suggest resuming it at home at this point as the symptoms likely are multifactor. Additionally it does sound likely have some exacerbation of your COPD and pulmonary problems given the sputum production as well as wheezing and some reversibility with the nebulizers. There would be concern for development of bronchitis given your underlying lung disease and I would have you take Decadron steroid as well as doxycycline antibiotic for the next 5 days. To decrease the intestinal effect of the intestines of the antibiotics, I would have you add some probiotics as well. Continue with your other usual medicines. Follow-up with your primary care or learning and development consultant if not improving well over the next few days. Continue with your inhalers or nebulizer at home. I would consider you doing your nebulizer if you have albuterol at least 2 or 3 times daily for the next several days until feeling improved. In addition to considerations for some fluid in the lungs and bronchitis/exacerbation of lung disease, you may have had just some mucous plugging leading to your trouble breathing. The nebulizer will help with that as the the sputum decreases. I sent your prescriptions to your preferred pharmacy, [facility]. Return to the ER if worsening. Forms: PCP List Discharge Date/Time: 05/06/23 17:16
[2023-05-06 14:29] LABS: BASOPHILS % (AUTO) 0.2 %; EOSINOPHILS % (AUTO) 0.1 %; HCT - HEMATOCRIT 30.3 % (37.0-47.0); HGB - HEMOGLOBIN 9.1 g/dL (12.0-16.0); LYMPHOCYTES # (AUTO) 0.2 10^3/uL (1.5-3.5); LYMPHOCYTES % (AUTO) 1.7 %; MEAN CORPUSCULAR HEMOGLOBIN 29.4 pg (27.0-31.0); MEAN CORPUSCULAR VOLUME 98.1 fL (81.0-99.0); MEAN PLATELET VOLUME 8.6 fL (7.9-10.8); MONOCYTES # (AUTO) 0.5 10^3/uL (0.0-1.0); MONOCYTES % (AUTO) 4.8 %; NEUTROPHILS # (AUTO) 10.1 10^3/uL (1.5-6.6); NEUTROPHILS % (AUTO) 92.9 %; PLT - PLATELET COUNT 315 10^3/uL (130-450); RED BLOOD COUNT 3.09 10^6/uL (4.20-5.40); RED CELL DISTRIBUTION WIDTH 15.1 % (12.0-15.0); WHITE BLOOD COUNT 10.8 x10^3/uL (4.8-10.8)
[2023-05-06] MEDS: MORPHINE 2 MG/ML CARPUJECT IVP STA (14:30)
[2023-05-06 14:56] LABS: ALBUMIN 3.3 g/dL (3.2-5.5); ALBUMIN/GLOBULIN RATIO 0.9 (1.0-2.2); ALKALINE PHOSPHATASE 75 IU/L (42-121); ALT ALANINE AMINOTRANSFERASE 20 IU/L (10-60); AST ASPARTATE AMINOTRANSFERASE 42 IU/L (10-42); BILIRUBIN,TOTAL 0.4 mg/dL (0.2-1.0); BUN - BLOOD UREA NITROGEN 27 mg/dL (6-20); CALCIUM 9.4 mg/dL (8.5-10.3); CARBON DIOXIDE - CO2 33 mmol/L (21-32); CHLORIDE 91 mmol/L (101-111); CREATININE 0.8 mg/dL (0.6-1.3); GFR - MDRD 69 (>89); GLUCOSE 119 mg/dL (74-104); LIPASE < 10 U/L (11-82); MAGNESIUM 1.5 mg/dL (1.7-2.3); POTASSIUM 4.1 mmol/L (3.5-4.5); SODIUM 132 mmol/L (135-145); TOTAL PROTEIN 7.1 g/dL (6.4-8.9)
--- NOTE | 2023-05-06 15:09 | XRAY Report ---
PROCEDURE: Chest 1V INDICATIONS: DYSPNEA TECHNIQUE: One view of the chest was acquired. COMPARISON: CT 03/31/2023, x-ray 12/13/2022 FINDINGS: Surgical changes and devices: ACDF and left axillary surgical clips. Lungs and pleura: Diffuse airspace opacities with background fibrosis. Mediastinum: Mediastinal contours appear normal. Heart size is normal. Bones and chest wall: No suspicious bony lesions. Overlying soft tissues appear unremarkable. IMPRESSION: Diffuse airspace opacities with background fibrosis. Differential includes severe pulmonary edema, at ypical infection or acute exacerbation of interstitial lung disease. Consider CT for better character ization. Reviewed by: Carlyle Platt MD on 05/06/2023 3:08 PM PST Approved by: Carlyle Platt MD on 05/06/2023 3:08 PM PST Station ID: [id number]
[2023-05-06] MEDS: IPRATROPIUM/ALBUTEROL 3 ML NEB INH STA (15:14)
[2023-05-06] MEDS: FUROSEMIDE 40 MG/4 ML VIAL IVP STA (15:40)
[2023-05-06] MEDS: MAGNESIUM SULFATE 2 GRAM 2 GM/50 ML BAG IV ONE (15:44)
[2023-05-06 15:45] LABS: B. PARAPERTUSSIS- RESP PCR PAN NOT DETECTED; B. PERTUSSIS- RESP PCR PANEL NOT DETECTED; C. PNEUMONIAE- RESP PCR PANEL NOT DETECTED; CORONAVIRUS 229E-RESP PCR NOT DETECTED; CORONAVIRUS HKU1-RESP PCR NOT DETECTED; CORONAVIRUS NL63-RESP PCR NOT DETECTED; CORONAVIRUS OC43-RESP PCR NOT DETECTED; HUMAN METAPNEUMOVIRUS NOT DETECTED; INFLUENZA A- RESP PCR PANEL NOT DETECTED; INFLUENZA B - RESP PCR PANEL NOT DETECTED; M. PNEUMONIAE- RESP PCR PANEL NOT DETECTED; PARAINFLUENZA VIRUS 1 NOT DETECTED; PARAINFLUENZA VIRUS 2 NOT DETECTED; PARAINFLUENZA VIRUS 3 NOT DETECTED; PARAINFLUENZA VIRUS 4 NOT DETECTED; RHINOVIRUS/ENTEROVIRUS NOT DETECTED; RSV- RESP PCR PANEL NOT DETECTED; SARS-CoV-2 -RESP PCR PANEL NOT DETECTED
[2023-05-06] MEDS: DEXAMETHASONE 10 MG/ML VIAL IVP STA (16:20)
[2023-05-06] MEDS: DOXYCYCLINE 100 MG TABLET PO STA (16:20)
[2023-05-06 17:24] VITALS: BP 125/79; O2SAT 100
== END 2023-05-06 17:16 | disposition home or self-care (01) ==
LOC: EDUNIT# → ED 14:00
DX: J44.1 Chronic obstructive pulmonary disease with (acute) exacerbation (principal); J81.1 Chronic pulmonary edema; I11.0 Hypertensive heart disease with heart failure; I50.9 Heart failure, unspecified; E78.00 Pure hypercholesterolemia, unspecified; I25.10 Atherosclerotic heart disease of native coronary artery without angina pectoris; E03.9 Hypothyroidism, unspecified; Z85.3 Personal history of malignant neoplasm of breast; Z79.899 Other long term (current) drug therapy
CPT/HCPCS: 36415; 71045; 72072; 72110; 80053; 83690; 83735; 83880; 85025; 87633; 93005; 94640; 96365; 96375; 99285; A9270